=== PATIENT | female | born 1935 | race Caucasian/White ===

== ENCOUNTER 2016-04-10 10:56 | Inpatient (IN) | payer MEDICARE, BC ==
[~2016-04-10] VITALS: Ht 167.6 cm; Wt 125.5 kg
[2016-04-10] VITALS (12 sets, daily range): BP systolic 142–223; BP diastolic 63–93; PULSE 61–87; RESP 18–24; TEMP 94.1–98.2; O2SAT 95–100
[~2016-04-10 10:56] MED LIST: CLON.1 PO; IRBE300T46 PO; MENE1.254 PO; METO100T PO; OYST500T77 PO; PANT20 PO; POTA-243 PO; [UNRECOGNIZED DRUG - CODE] PO
[2016-04-10] MEDS ORDERED: SODIUM CHLOR 0.9% 1000 ML INJ 1,000 ML IV ONE (11:00)
[2016-04-10] MEDS ORDERED: LABETALOL HCL 100 MG/20 ML VIAL IV PUSH ONE (11:15)
[2016-04-10] MEDS ORDERED: LABETALOL INJ 500 MG in SODIUM CHLOR 0.9% 250 ML INJ 150 ML IV SCH (11:15)
[2016-04-10] MEDS ORDERED: niCARdipine INJ 25 MG in SODIUM CHLOR 0.9% 250 ML INJ 250 ML IV ONE (11:15)
[2016-04-10] MEDS ORDERED: IOHEXOL 350 MG/ML 10 ML VIAL (for RAD DIAG) IV ONE (11:17)
--- NOTE | 2016-04-10 11:21 | RADRPT ---
EXAM DATE/TIME: 04/10/2016 11:04 [facility] COMPARISON: No previous studies available for comparison. INDICATIONS : Left sided weakness and facial droop RADIATION DOSE: 39.73 CTDIvol (mGy) This report was called by Dr. Ng to Dr. Avalos at 11: 16 AM. MEDICAL HISTORY : Hypertension. SURGICAL HISTORY : Non-responsive. ENCOUNTER: Initial ACUITY: 1 day PAIN SCALE: 0/10 LOCATION: cranial TECHNIQUE: Multiple contiguous axial images were obtained of the head. Using automated exposure control and adj ustment of the mA and/or kV according to patient size, radiation dose was kept as low as reasonably a chievable to obtain optimal diagnostic quality images. FINDINGS: CEREBRUM: The ventricles are normal. There is mild periventricular white matter low attenuation. No evidence o f midline shift, mass lesion, hemorrhage or acute infarction. No extra-axial fluid collections are s een. POSTERIOR FOSSA: The cerebellum and brainstem demonstrate no acute finding. The 4th ventricle is midline. The cerebe llopontine angle is unremarkable. EXTRACRANIAL: There is mild mucoperiosteal thickening within the sphenoid and maxillary sinuses. A loculate air is present within the right scalp soft tissues SKULL: The calvaria is intact. No evidence of skull fracture. CONCLUSION: 1. No acute intracranial abnormality is identified. 2. Periventricular white matter low attenuation characteristic of chronic microvascular ischemia. Evan Ng MD on April 10, 2016 at 11:09 Board Certified Radiologist. This report was verified electronically.
[2016-04-10 11:22] LABS: I-STAT POTASSIUM 5.3 MMOL/L (3.5-4.9); I-STAT SODIUM 139 MMOL/L (138-146)
[2016-04-10 11:25] LABS: AUTOMATED NEUTROPHIL # 7.3 TH/MM3 (1.8-7.7); BASOPHIL # 0.1 TH/MM3 (0-0.2); EOSINOPHIL # 0.1 TH/MM3 (0-0.4); EOSINOPHIL % 1.4 % (0.0-4.0); HEMATOCRIT 37.3 % (35.0-46.0); HEMO FLAGS DIFF FINAL; LYMPH % 15.2 % (9.0-44.0); LYMPHOCYTE # 1.5 TH/MM3 (1.0-4.8); MEAN CELL VOLUME 85.2 FL (80.0-100.0); MEAN CORPUSCULAR HEMOGLOBIN 27.8 PG (27.0-34.0); MEAN CORPUSCULAR HGB CONC 32.7 % (32.0-36.0); MONO % 7.1 % (0.0-8.0); NEUT % 75.3 % (16.0-70.0); PLATELET COUNT 213 TH/MM3 (150-450); RED BLOOD COUNT 4.37 MIL/MM3 (4.00-5.30); RED CELL DISTRIBUTION WIDTH 15.5 % (11.6-17.2); WHITE BLOOD COUNT 9.6 TH/MM3 (4.0-11.0)
[2016-04-10] MEDS ORDERED: MISCELLANEOUS NURSING INFORMATION XX PRN ×2 (11:30→13:30)
[2016-04-10] MEDS ORDERED: ALTEPLASE BOLUS 9 MG/9 ML SYR IV ONE (11:30)
[2016-04-10] MEDS ORDERED: ALTEPLASE DRIP 81 MG in SYRINGE/BAG 1 EA IV ONE (11:30)
[2016-04-10] MEDS ORDERED: SODIUM CHLORIDE 0.9% 50 ML BAG IVF ONE ×2 (11:30→13:30)
[2016-04-10 11:40] LABS: INTERNATIONAL NORMALIZED RATIO 0.9 RATIO; PROTHROMBIN TIME - PATIENT 10.1 SEC (9.8-11.6)
[2016-04-10 11:41] LABS: APTT (PATIENT) 22.6 SEC (24.3-30.1)
[2016-04-10] MEDS ORDERED: IRBE300T46 PO (11:43)
[2016-04-10] MEDS ORDERED: PROT40TA PO (11:43)
[2016-04-10] MEDS ORDERED: MENE1.254 PO (11:43)
[2016-04-10] MEDS ORDERED: NISO20TA PO (11:43)
--- NOTE | 2016-04-10 12:01 | RADRPT ---
EXAM DATE/TIME: 04/10/2016 11:28 [facility] COMPARISON: No previous studies available for comparison. INDICATIONS : Stroke alert MEDICAL HISTORY : None. SURGICAL HISTORY : None. ENCOUNTER: Initial ACUITY: 1 day PAIN SCORE: Non-responsive. LOCATION: Bilateral chest FINDINGS: Portable AP view of the chest demonstrates a normal-sized cardiac silhouette. No effusion, consolidat ion, or pneumothorax is visualized. The bones and soft tissues demonstrate no acute abnormality. EKG lines overlie the patient. CONCLUSION: No acute cardiopulmonary abnormality is identified. Evan Ng MD on April 10, 2016 at 12:00 Board Certified Radiologist. This report was verified electronically.
[2016-04-10 12:03] LABS: CREATINE KINASE 159 U/L (26-192)
[2016-04-10] MEDS ORDERED: levETIRAcetam 1000 MG INJ 100 ML IV ONE (12:15)
--- NOTE | 2016-04-10 12:27 | MB ---
cc: MELONIE MONTEZ DATE OF CONSULTATION: 04/10/2016 REASON FOR CONSULTATION Stroke alert. HISTORY OF PRESENT ILLNESS Ms. Bergman is a pleasant 80-year-old woman previously in her normal state of health until 10 o'clock this morning when she developed sudden onset of left-sided weakness involving the left arm and left leg. EVAC was called and a stroke alert was called. She persisted with left-sided weakness. Apparently, no prior history of stroke or TIA. She does not take any blood thinning medication. 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 She has had injections in the SI joints in the past. She has had lumbar epidural steroid injections in December. MEDICATIONS She denies being on any anticoagulants. NEUROLOGIC EXAMINATION VITAL SIGNS: Blood pressure initially was 223/93, pulse 61, respiratory rate is 20. She has been placed on a Cardene drip with improvement in her blood pressure with systolic in the 180 range. Higher cortical function: She is alert. Her speech is dysarthric but not aphasic. On cranial nerve exam she has a right gaze preference. She has a left upper motor neuron VII palsy. Motor exam: She has a dense left hemiparesis, the left arm is roughly 2/5 in strength, left leg 2/5 in strength, right arm and right leg 5/5 in strength. Reflexes are symmetric with no Babinski sign. IMAGING STUDIES CT of the brain is unremarkable. No acute changes seen. There is periventricular white matter low attenuation consistent with microvascular ischemia. No hemorrhage. No midline shift. CT angiogram of the brain reveals a complete occlusion of the right extracranial, internal carotid artery with good collateral flow intracranially. LABORATORY DATA White count is 9,600, hemoglobin 12.2, hematocrit 37.3%, platelet count 213,000. The coags currently pending. Sodium is 139, potassium 5.3, chloride 105, BUN is 33, creatinine 1.1, glucose 97. IMPRESSION 1. Acute right hemisphere stroke. 2. Right extracranial internal carotid artery occlusion. RECOMMENDATIONS The patient is a candidate for IV TPA with blood pressure control. I discussed this with the patient including the risks and benefits. I did discuss with her that there was a 6% risk of hemorrhage. She understands the risks and benefits and stated verbally that she did want to proceed with IV TPA. Therefore, this has been started per protocol as soon as the blood pressure had been controlled. Her NIH stroke scale score was 7. I discussed the case with Dr. Bharathi Dozier of the interventional radiology department and the patient is not a candidate for intervention given the complete occlusion of the extracranial right ICA. Will continue to monitor carefully with close blood pressure control and will follow the post TPA order set. Avoid any antiplatelets or anticoagulants for 24 hours post TPA. Thank you for asking me to see this patient in consult. MD ELIANA Araya/KINZA /11:37 AM /12:17 PM
--- NOTE | 2016-04-10 12:34 | RADRPT ---
EXAM DATE/TIME: 04/10/2016 11:52 [facility] COMPARISON: CT BRAIN W/O CONTRAST, April 10, 2016, 11:04. INDICATIONS : Altered mental status post TPA RADIATION DOSE: 42.27 CTDIvol (mGy) MEDICAL HISTORY : Hypertension. SURGICAL HISTORY : None. ENCOUNTER: Subsequent ACUITY: 1 day PAIN SCALE: Non-responsive LOCATION: cranial TECHNIQUE: Multiple contiguous axial images were obtained of the head. Using automated exposure control and adj ustment of the mA and/or kV according to patient size, radiation dose was kept as low as reasonably a chievable to obtain optimal diagnostic quality images. FINDINGS: There is residual contrast material within the vasculature related to recent CTA study. Given this li mitation, no acute blood products are visualized. The brain parenchyma has a stable appearance. No ac [place] infarct, mass lesion, or blood products are seen. CONCLUSION: No acute intracranial abnormality is identified. No blood products are appreciated. Evan Ng MD on April 10, 2016 at 12:31 Board Certified Radiologist. This report was verified electronically.
--- NOTE | 2016-04-10 12:36 | RADRPT ---
EXAM DATE/TIME: 04/10/2016 11:16 [facility] COMPARISON: No previous studies available for comparison. INDICATIONS : Stroke alert, left sided weakness and facial droop IV CONTRAST: 80 cc Omnipaque 350 (iohexol) IV ; Cumulative dose for multiple exams. RADIATION DOSE: 28.22 CTDIvol (mGy) ; Combined studies MEDICAL HISTORY : Hypertension. SURGICAL HISTORY : Non-responsive. ENCOUNTER: Initial ACUITY: 1 day PAIN SCALE: 0/10 LOCATION: cranial TECHNIQUE: Volumetric scanning was performed using a multi-row detector CT scanner. The data was post processed with a variety of visualization algorithms including full volume maximum intensity projection, multi -planar sliding thin slab reformation, curved planar reformation, and surface rendering techniques. Using automated exposure control and adjustment of the mA and/or kV according to patient size, radiat ion dose was kept as low as reasonably achievable to obtain optimal diagnostic quality images. FINDINGS: There is excellent visualization of the major intracranial arteries out to the second-order branch ve ssels. There is occlusion of the Mauro portion of the ICA. Please see the extracranial ICA reported separately. There is reconstitution of the intracavernous portion of the right ICA. Good opacificatio n of the right anterior cerebral and middle cerebral artery territories is seen consistent with good collateralization. The left carotid shows scattered calcified plaque within the intracavernous extent but remains patent. Posterior circulation is unremarkable. CONCLUSION: Occlusion of the Mauro portion of the right ICA with reconstitution. There is good collateralization of the right middle cerebral and right anterior cerebral territories. I spoke with Dr. Pham at the time of the scan. Bashir Dozier Jr., MD on April 10, 2016 at 12:32 Board Certified Radiologist. This report was verified electronically.
[2016-04-10] MEDS ORDERED: GLUCAGON 1 MG/ML VIAL IM/SQ PRN (13:30)
[2016-04-10] MEDS ORDERED: SODIUM CHLORIDE 0.9% FLUSH 5 ML FLUSH IVF PRN (13:30)
[2016-04-10] MEDS ORDERED: DEXTROSE 50% IN WATER 50 ML VIAL(D50) IV PUSH PRN (13:30)
--- NOTE | 2016-04-10 13:39 | HHI.HP ---
HPI Service Critical Care Medicine Primary Care Physician Unknown Admission Diagnosis Stroke Diagnosis: (1) CVA (cerebral vascular accident) Diagnosis: Principal (2) Hypertension Diagnosis: Principal (3) Osteoarthritis Diagnosis: Principal (4) Carotid stenosis, right Diagnosis: Principal (5) Dyslipidemia Diagnosis: Principal (6) Hypothyroidism Diagnosis: Principal (7) Gastroesophageal reflux disease Diagnosis: Principal (8) Hormone replacement therapy Diagnosis: Principal (9) Chronic low back pain with sciatica Diagnosis: Principal Chief Complaint: Left-sided weakness/facial droop Travel History International Travel<30 Days: No Contact w/Intl Traveler <30 Da: No Traveled to Known Affected Are: No History of Present Illness 80-year-old female. Date of admission 04/10/2016. 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 She presents to the [facility] with acute onset from [facility] that 10 AM this morning with left-sided weakness involving left arm/left leg. E VAC was called and a stroke was notified. NIH score was 7. addition with deficits involving dysarthria, right gaze preference, left facial palsy, dense hemiparesis left arm and leg. Normal sensation. Reflexes are equal and symmetric. NIH was route 7. CT of the head revealed no acute intracranial findings. CTA of the head and neck revealed dense right ICA occlusion. The case was discussed with Dr. Dozier with interventional radiology and the patient is not indicated for intervention given the complete occlusion of her right ICA. Patient was seen by Dr. Pham and alteplase was provided after benefits and risks discussed. Patient was hypertensive Cardene drip was initiated. Post alteplase infusion patient became more altered with worsening weakness to her left upper and lower extremity. Repeat CT head revealed no acute bleeding. NIH score is currently 17. She is also noted to have tremors involving her right upper lobe extremity. Neurology was notified and Keppra infusion was provided 1000 mg and stat EEG ordered. Review of Systems Constitutional: COMPLAINS OF: Fatigue, DENIES: Fever, Weight gain, Weight loss Endocrine: DENIES: Polydipsia, Polyuria Eyes: COMPLAINS OF: Blurred vision, Double Vision, DENIES: Diplopia Ears, nose, mouth, throat: DENIES: Tinnitus, Epistaxis, Odynophagia Respiratory: DENIES: Apneas, Hemoptysis, Sputum production Cardiovascular: DENIES: Chest pain Gastrointestinal: DENIES: Abdominal pain Genitourinary: DENIES: Urgency Musculoskeletal: COMPLAINS OF: Joint pain, Muscle aches, Back pain, Neck pain Integumentary: DENIES: Pruritus Hematologic/lymphatic: DENIES: Bruising Immunologic/allergic: DENIES: Eczema Neurologic: COMPLAINS OF: Localized weakness, Seizures, DENIES: Abnormal gait , Headache, Paresthesias, Speech Problems Psychiatric: COMPLAINS OF: Confusion, DENIES: Depression Past Family Social History Allergies: Coded Allergies: Achromycin V (Verified Allergy, Severe, 04/10/16) Michelle (Verified Allergy, Severe, 04/10/16) Augmentin (Verified Allergy, Severe, 04/10/16) Capoten (Verified Allergy, Severe, 04/10/16) Diovan (Verified Allergy, Severe, 04/10/16) Enzymes Oral (Verified Allergy, Severe, 04/10/16) Lipitor (Verified Allergy, Severe, 04/10/16) Procardia (Verified Allergy, Severe, 04/10/16) Rynatan (Verified Allergy, Severe, 04/10/16) Zetia (Verified Allergy, Severe, 04/10/16) Zithromax (Verified Allergy, Severe, 04/10/16) Zocor (Verified Allergy, Severe, 04/10/16) Aspirin (Verified Allergy, Mild, 04/10/16) Cipro (Verified Allergy, Mild, 04/10/16) Codeine (Verified Allergy, Mild, 04/10/16) Keflex (Verified Allergy, Mild, 04/10/16) Morphine (Verified Allergy, Mild, 04/10/16) Blue Dyes - Various (Unverified Allergy, Unknown, Anaphylaxis, 04/10/16) Clonidine (Unverified Allergy, Unknown, itching, 04/10/16) okay to take the regular ones but is unable to take the ones provided by [facility] Past Medical History Osteoarthritis Hypothyroidism Osteoarthritis Hormone replacement therapy Gastroesophageal reflux disease Hypertension Past Surgical History Bilateral cataract Hysterectomy Appendectomy Esophageal dilatation Urethral stricture dilatation Reported Medications avalide 300/12.5 one tablet daily Protonix 40 mg by mouth daily Menest 1.25 mg by mouth twice a day Nisoldipine 20 mg by mouth daily Active Ordered Medications Reviewed in EMR Family History Mother and father is noncontributory Social History No tobacco alcohol or IV drug use Physical Exam Vital Signs Vital Signs Date Time Temp Pulse Resp B/P Pulse Ox O2 Delivery O2 Flow Rate FiO2 04/10/16 12:30 64 18 188/74 97 Nasal Cannula 2 04/10/16 12:00 66 18 175/74 98 Nasal Cannula 2 04/10/16 11:44 100 Nasal Cannula 3.00 04/10/16 11:30 66 20 196/78 98 Nasal Cannula 2 04/10/16 11:00 100 3.00 04/10/16 11:00 100 04/10/16 10:57 100 Nasal Cannula 2 04/10/16 10:57 100 Nasal Cannula 2 04/10/16 10:57 61 20 223/93 96 Physical Exam GENERAL: 80-year-old female, critically ill currently resting in bed in no acute distress SKIN: Warm and dry. HEAD: Atraumatic. Normocephalic. EYES: Pupils equal and round about 3 mm bilaterally and reactive. No scleral icterus. No injection or drainage. ENT: No nasal bleeding or discharge. Mucous membranes pink and moist. NECK: Trachea midline. No JVD. CARDIOVASCULAR: Regular rate and rhythm. S1, S2. No S4. RESPIRATORY: No accessory muscle use. Clear to auscultation. Breath sounds equal bilaterally. GASTROINTESTINAL: Abdomen soft, non-tender, nondistended. Hepatic and splenic margins not palpable. MUSCULOSKELETAL: Extremities one plus nonpitting edema. No obvious deformities. NEUROLOGICAL: Awake and alert. Speech is dysarthric. Right gaze preference. Left facial droop. Dense hemiparesis 0/5 left upper and lower extremity. 5/5 right upper and lower extremity. Normal sensation. Deep tendon reflexes are equal and symmetric. No Babinski sign. PSYCHIATRIC: Appropriate mood and affect; insight and judgment normal. Laboratory Laboratory Tests Test 04/10/16 11:05 White Blood Count 9.6 Red Blood Count 4.37 Hemoglobin 12.2 Bedside Hemoglobin 13.6 Hematocrit 37.3 Bedside Hematocrit 40.0 Mean Corpuscular Volume 85.2 Mean Corpuscular Hemoglobin 27.8 Mean Corpuscular Hemoglobin 32.7 Concent Red Cell Distribution Width 15.5 Platelet Count 213 Mean Platelet Volume 10.7 Neutrophils (%) (Auto) 75.3 Lymphocytes (%) (Auto) 15.2 Monocytes (%) (Auto) 7.1 Eosinophils (%) (Auto) 1.4 Basophils (%) (Auto) 1.0 Neutrophils # (Auto) 7.3 Lymphocytes # (Auto) 1.5 Monocytes # (Auto) 0.7 Eosinophils # (Auto) 0.1 Basophils # (Auto) 0.1 CBC Comment DIFF FINAL Differential Comment Prothrombin Time 10.1 Prothromb Time International 0.9 Ratio Activated Partial 22.6 Thromboplast Time Fibrinogen 432 Bedside Sodium 139 Bedside Potassium 5.3 Bedside Chloride 105 Bedside Blood Urea Nitrogen 33 Bedside Creatinine 1.1 Bedside Glucose 97 Total Creatine Kinase 159 Troponin I LESS THAN 0.02 Blood Type A POSITIVE Antibody Screen NEGATIVE Blood Bank Comment Result Diagram: 04/10/16 1105 Imaging Last Impressions Head CTA 04/10/16 1100 Signed Impressions: Service Date/Time: March 11:16 - CONCLUSION: Occlusion of the Mauro portion of the right ICA with reconstitution. There is good collateralization of the right middle cerebral and right anterior cerebral territories. I spoke with Dr. Pham at the time of the scan. Bashir Dozier Jr., MD Head CT 04/10/16 0000 Signed Impressions: Service Date/Time: March 11:52 - CONCLUSION: No acute intracranial abnormality is identified. No blood products are appreciated. Evan Ng MD Chest X-Ray 04/10/16 0000 Signed Impressions: Service Date/Time: March 11:28 - CONCLUSION: No acute cardiopulmonary abnormality is identified. Evan Ng MD Assessment and Plan Assessment and Plan Neuro/Psych: Acute right CVA Seen by neurology/Dr. Pham CT head revealed no acute findings CTA head and neck revealed occlusion right ICA with good collateral flows the right MCA and FLAVIA. Not amendable interventricular Dr. Dozier/IR Received alteplase ED. Strict blood pressure control systolic less than 185 diastolic was 110 Echocardiogram pending CV: Right internal carotid artery occlusion - not amendable to intervention Hypertension Dyslipidemia Currently on Cardene drip to maintain systolic blood pressure less than 185 Home medications include Avalide 300/12.5 one tablet by mouth, daily and nisoldipine 20 mg by mouth daily Pending lipid panel. Patient has multiple drug allergies to lipid lowering agents 2-D echocardiogram pending. Resp: Acute respiratory insufficiency Nasal cannula to maintain saturations greater than equal to 92% Incentive spirometry while awake Chest x-ray which revealed no acute cardiopulmonary findings GI: Nausea Gastroesophageal reflux disease Continue Protonix 40 mg by mouth daily/home medication Check KUB/lipase/liver function tests : Mendez was placed for accurate I's and O's in a critically ill patient Endo: History of hypothyroidism Check TSH. Patient is currently on any supplementation medication Slight scale insulin Accu-Cheks to maintain euglycemia. Low regimen Renal: Creatinine currently within normal limits. Heme: CBC within normal limits. Coags within normal limits. Status post alteplase. Recheck CBC in a.m. 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 Central line if indicated Prophylaxis - GI - Protonix - DVT - status post alteplase. Critical Care: The total critical care time was 75 minutes. Time to perform other separately billable procedures was not included in the critical care time. Code Status Full code Discussed Condition With Dr. Avalos/ED physician and patient with . Care plan discussed. All questions answered. Problem Qualifiers (1) CVA (cerebral vascular accident): Qualified Code: I63.231 - Cerebrovascular accident (CVA) due to occlusion of right carotid artery (2) Hypertension: Qualified Code: I10 - Essential hypertension (3) Osteoarthritis: Qualified Code: M15.9 - Osteoarthritis of multiple joints, unspecified osteoarthritis type (4) Hypothyroidism: Qualified Code: E03.9 - Hypothyroidism, unspecified type (5) Gastroesophageal reflux disease: Qualified Code: K21.9 - Gastroesophageal reflux disease without esophagitis (6) Chronic low back pain with sciatica: Qualified Code: M54.42 - Chronic bilateral low back pain with bilateral sciatica Holden Haddad MD Apr 10, 2016 13:39
--- NOTE | 2016-04-10 13:53 | PD ---
HPI Chief Complaint: Stroke Alert Time Seen by Provider: 11:00 Travel History International Travel<30 days: No Contact w/Intl Traveler<30days: No Traveled to known affect area: No History of Present Illness HPI Patient is a 80-year-old female brought in by EMS as a stroke alert. She was last seen normal about 50 minutes prior to arrival at 10 AM. She says she went to use the bathroom, but was unable to get herself off the toilet. She called her and he tried to help her, but they were not able to get her up. At this time they noticed that her left side was weak and the left side of her face was drooping. She says she was feeling in her normal state of health prior to this happening. She has no history of stroke in the past. She denies any headache, chest pain, shortness of breath. She reports taking all her medications this morning. 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.) Hysterectomy: Yes Other Surgery: Yes (esophageal dilation, sinus surgery x2) Social History Alcohol Use: No Tobacco Use: No Substance Use: No Allergies-Medications (Allergen,Severity, Reaction): Coded Allergies: Achromycin V (Verified Allergy, Severe, 04/10/16) Michelle (Verified Allergy, Severe, 04/10/16) Augmentin (Verified Allergy, Severe, 04/10/16) Capoten (Verified Allergy, Severe, 04/10/16) Diovan (Verified Allergy, Severe, 04/10/16) Enzymes Oral (Verified Allergy, Severe, 04/10/16) Lipitor (Verified Allergy, Severe, 04/10/16) Procardia (Verified Allergy, Severe, 04/10/16) Rynatan (Verified Allergy, Severe, 04/10/16) Zetia (Verified Allergy, Severe, 04/10/16) Zithromax (Verified Allergy, Severe, 04/10/16) Zocor (Verified Allergy, Severe, 04/10/16) Aspirin (Verified Allergy, Mild, 04/10/16) Cipro (Verified Allergy, Mild, 04/10/16) Codeine (Verified Allergy, Mild, 04/10/16) Keflex (Verified Allergy, Mild, 04/10/16) Morphine (Verified Allergy, Mild, 04/10/16) Blue Dyes - Various (Unverified Allergy, Unknown, Anaphylaxis, 04/10/16) Clonidine (Unverified Allergy, Unknown, itching, 04/10/16) okay to take the regular ones but is unable to take the ones provided by [facility] Reported Meds & Prescriptions Reported Meds & Active Scripts Active Reported Protonix (Pantoprazole Sodium) 40 Mg Tab 40 Mg PO DAILY Menest (Estrogens, Esterified) 1.25 Mg Tab 1.25 Mg PO BID Nisoldipine ER 24 HR (Nisoldipine) 20 Mg Tab 20 Mg PO DAILY Avalide (Irbesartan-Hydrochlorothiazide) 300-12.5 Mg Tab 1 Tab PO DAILY Review of Systems Except as stated in HPI: all other systems reviewed are Neg General / Constitutional: No: Fever, Chills Eyes: No: Blurred Vision HENT: No: Headaches, Lightheadedness Cardiovascular: No: Chest Pain or Discomfort Respiratory: No: Shortness of Breath Gastrointestinal: No: Nausea, Vomiting Musculoskeletal: No: Myalgias Neurologic: Positive: Weakness Physical Exam Narrative GENERAL: Awake and alert, in no acute distress. SKIN: Warm and dry. HEAD: Atraumatic. Normocephalic. EYES: Pupils equal and round. No scleral icterus. Extraocular movements intact. ENT: Mucous membranes pink and moist. NECK: Trachea midline. No JVD. CARDIOVASCULAR: Regular rate and rhythm. No murmur appreciated. RESPIRATORY: No accessory muscle use. Clear to auscultation. Breath sounds equal bilaterally. GASTROINTESTINAL: Abdomen soft, non-tender, nondistended. MUSCULOSKELETAL: No obvious deformities. No clubbing. No cyanosis. No edema. NEUROLOGICAL: Awake and alert. Normal speech. Left-sided facial droop. Decreased strength of the left upper and lower extremity, 3 out of 5. Positive pronator drift of the left arm. Sensation is intact. PSYCHIATRIC: Appropriate mood and affect; insight and judgment normal. Data Data Last Documented VS Vital Signs Date Time Temp Pulse Resp B/P Pulse Ox O2 Delivery O2 Flow Rate FiO2 04/10/16 12:30 64 18 188/74 97 Nasal Cannula 2 12/29/16 10:57 98.2 Orders Diet Npo (04/10/16 Lunch) Activity Bed Rest (04/10/16 ) Electrocardiogram (04/10/16 ) I-Stat Creatinine (04/10/16 11:00) I-Stat Profile (04/10/16 11:00) Prothrombin Time / Inr (Pt) (04/10/16 11:00) Act Partial Throm Time (Ptt) (04/10/16 11:00) Complete Blood Count With Diff (04/10/16 11:00) Fibrinogen (04/10/16 11:00) Creatine Kinase (Cpk) (04/10/16 11:00) Troponin I (04/10/16 11:00) Ua Includes Microscopic (04/10/16 11:00) Drug Screen, Random Urine (04/10/16 11:00) Type And Screen (04/10/16 11:00) Ct Brain W/O Iv Contrast(Rout) (04/10/16 ) Chest, Single Ap (04/10/16 ) Cta Brain W Iv Contrast W 3d (04/10/16 11:00) Consult Neurology (04/10/16 ) Blood Glucose (04/10/16 11:00) Ecg Monitoring (04/10/16 11:00) Neuro Checks Q2HX12,Q4H (04/10/16 11:00) Nursing Bedside Swallow Assess .ONCE (04/10/16 11:00) Iv Access Insert/Monitor (04/10/16 11:00) NPO (04/10/16 11:00) Oximetry (04/10/16 11:00) Oxygen Administration (04/10/16 11:00) Sodium Chlor 0.9% 1000 Ml Inj (Ns 1000 M (04/10/16 11:00) Resp Oxygen Sylvester C Titrat 1-4 L (04/10/16 11:00) Cath For Specimen (04/10/16 11:00) Cta Neck W Iv Contrast W 3d (04/10/16 11:06) Labetalol Inj (Trandate Inj) (04/10/16 11:15) Labetalol Inj (Trandate Inj) (04/10/16 11:15) (Hub Use Only)Inp Phy Cons/Ref (04/10/16 ) Nicardipine Inj (Cardene Inj) (04/10/16 11:15) Iohexol 350 Inj (Omnipaque 350 Inj) (04/10/16 11:17) ^ Call Pharmacy (04/10/16 11:25) Nih Stroke Scale - Nihss .ONCE (04/10/16 11:25) Urinary Catheter Management ZACH.Q8H (04/10/16 11:25) Urinary Catheter Insert/Apply (04/10/16 11:25) ^ Anticoagulant Alert (04/10/16 11:25) ^ Post Infusion Restrictions (04/10/16 11:25) ^ Medication Alert (04/10/16 11:25) Vital Signs (Adult) .As directed (04/10/16 11:25) ^ Notify Dr: Blood Pressure (04/10/16 11:25) ^ Medication Alert (04/10/16 11:25) Alteplase Bolus (Activase Bolus) (04/10/16 11:30) Alteplase Drip (Activase Drip) (04/10/16 11:30) Sodium Chloride 0.9% Inj (Ns Inj) (04/10/16 11:30) [facility] (04/10/16 11:30) Resp Oxygen Sylvester C Titrat 1-4 L (04/10/16 ) Ct Brain W/O Iv Contrast(Rout) (04/10/16 ) Levetiracetam 1000 Mg Inj (Keppra 1000 M (04/10/16 12:15) Eeg Study (04/10/16 ) Admit Order (Ed Use Only) (04/10/16 ) Labs Laboratory Tests Test 04/10/16 11:05 White Blood Count 9.6 TH/MM3 Red Blood Count 4.37 MIL/MM3 Hemoglobin 12.2 GM/DL Bedside Hemoglobin 13.6 G/DL Hematocrit 37.3 % Bedside Hematocrit 40.0 % Mean Corpuscular Volume 85.2 FL Mean Corpuscular Hemoglobin 27.8 PG Mean Corpuscular Hemoglobin 32.7 % Concent Red Cell Distribution Width 15.5 % Platelet Count 213 TH/MM3 Mean Platelet Volume 10.7 FL Neutrophils (%) (Auto) 75.3 % Lymphocytes (%) (Auto) 15.2 % Monocytes (%) (Auto) 7.1 % Eosinophils (%) (Auto) 1.4 % Basophils (%) (Auto) 1.0 % Neutrophils # (Auto) 7.3 TH/MM3 Lymphocytes # (Auto) 1.5 TH/MM3 Monocytes # (Auto) 0.7 TH/MM3 Eosinophils # (Auto) 0.1 TH/MM3 Basophils # (Auto) 0.1 TH/MM3 CBC Comment DIFF FINAL Differential Comment Prothrombin Time 10.1 SEC Prothromb Time International 0.9 RATIO Ratio Activated Partial 22.6 SEC Thromboplast Time Fibrinogen 432 mg/dL Bedside Sodium 139 MMOL/L Bedside Potassium 5.3 MMOL/L Bedside Chloride 105 MMOL/L Bedside Blood Urea Nitrogen 33 MG/DL Bedside Creatinine 1.1 MG/DL Bedside Glucose 97 MG/DL Hemoglobin A1c 5.9 % Total Creatine Kinase 159 U/L Troponin I LESS THAN 0.02 NG/ML Blood Type A POSITIVE Antibody Screen NEGATIVE Blood Bank Comment MDM Medical Decision Making Medical Screen Exam Complete: Yes Emergency Medical Condition: Yes Interpretation(s) ECG shows sinus rhythm at 69, no ST elevation. Minimal ST depression in 1, 2, aVL as well as V4 through V6. Differential Diagnosis Stroke versus ICH versus sepsis versus electrolyte abnormality versus ACS Narrative Course Patient is a 80-year-old female brought in by EMS as a stroke alert. IV established immediately, patient connected to blood bank booking clerk. Patient taken directly to CT for CT of her head which showed no bleed. CTA of the head was also performed at this time which showed complete occlusion of the right carotid artery. Decision made to give TPA. Patient gave verbal consent for the TPA. Patient was given 20 mg of labetalol for blood pressure control and then started on a Cardene drip to maintain blood pressure below 180 systolic. While TPA was being administered, patient had an acute change in her mental status. She is no longer able to look to the left, and she was slurring her speech. She seemed to become more confused. Patient was immediately taken back to CT where a repeat scan was performed. There is no bleed seen at this time. TPA was continued. Again patient had an acute neuro change where she had shaking of her right arm. I spoke with neurology, Dr. Pham, who advised to continue TPA, give Keppra for possible seizures and order an EEG. Patient was loaded with a gram of Keppra and the EEG was ordered. Patient admitted to the ICU for further management. I spoke with the patient's and informed him of her condition. Critical Care Narrative Aggregate critical care time was 40 minutes. Time to perform other separately billable procedures was not included in the critical care time. My time did not include minutes spent treating any other patients simultaneously or on activities that did not directly contribute to the patient's treatment. The services I provided to this patient were to treat and/or prevent clinically significant deterioration that could result in: Serious morbidity or mortality. I provided critical care services requiring my management, as noted below: Chart data review, documentation time, medication orders and management, vital sign assessments/reviewing monitor data, ordering and reviewing lab tests, ordering and interpreting/reviewing x-rays and diagnostic studies, care of the patient and discussion of the patient with the admitting physicians. Diagnosis Primary Impression: CVA (cerebral vascular accident) Qualified Code: I63.231 - Cerebrovascular accident (CVA) due to occlusion of right carotid artery Additional Impression: Hypertension Qualified Code: I10 - Essential hypertension Admitting Information Admitting Physician Requests: Admit Jessie Avalos MD Apr 10, 2016 13:53
[2016-04-10] MEDS: SODIUM CHLOR 0.9% 1000 ML INJ 1,000 ML IV SCH (14:00)
[2016-04-10 14:31] LABS: BACTERIA, URINE RARE /hpf; BLOOD, URINE TRACE (NEG); COMMENT (UR) CULT NOT INDICATED; GLUCOSE,URINE NEG (NEG); KETONE, URINE NEG (NEG); MUCUS URINE FEW /lpf (OCC); NITRITE,URINE NEG (NEG); PH, URINE 5.5 (5.0-8.5); SQUAMOUS EPITHELIAL CELL URINE 4 /hpf (0-5); URINE COLOR YELLOW (YELLW/STRAW)
[2016-04-10] MEDS ORDERED: CALCIUM GLUCONATE 10% 1 GM/10 ML VIAL SLOW IVP ONE (14:45)
[2016-04-10] MEDS ORDERED: INSULIN HUMAN REGULAR 1,000 UNITS/10 ML VIAL IV PUSH ONE (14:45)
[2016-04-10] MEDS ORDERED: SODIUM BICARBONATE 8.4% SOLN 50 MEQ/50 ML VIAL SLOW IVP ONE (14:45)
[2016-04-10] MEDS ORDERED: DEXTROSE 50% IN WATER 50 ML VIAL(D50) IV PUSH ONE (14:45)
[2016-04-10] MEDS ORDERED: SODIUM CHLORIDE 0.9% FLUSH 5 ML FLUSH IV FLUSH PRN (15:30)
[2016-04-10] MEDS ORDERED: ACETAMINOPHEN 325 MG TAB PO PRN (15:30)
[2016-04-10] MEDS ORDERED: CHLORHEXIDINE GLUCONATE 2 % 1 PACK (2 CLOTHS) TOP PRN (15:30)
[2016-04-10] MEDS ORDERED: MISCELLANEOUS NURSING INFORMATION XX SCH (15:30)
[2016-04-10] MEDS ORDERED: RESP: ALBUTEROL 2.5 MG/IPRATROPIUM 0.5 MG NEB (PRN) INH (15:30)
[2016-04-10] MEDS ORDERED: ONDANSETRON HCL 4 MG/2 ML VIAL IV PRN (15:30)
[2016-04-10] MEDS: niCARdipine INJ 25 MG in SODIUM CHLOR 0.9% 250 ML INJ 250 ML IV SCH (16:04)
[2016-04-10] MEDS ORDERED: NITROGLYCERIN 2% OINT 1 GM PACKET TOPICAL PRN (16:30)
--- NOTE | 2016-04-10 16:46 | RADRPT ---
EXAM DATE/TIME: 04/10/2016 11:16 [facility] COMPARISON: No previous studies available for comparison. INDICATIONS : Stroke alert, left sided weakness and facial droop IV CONTRAST: 80 cc Omnipaque 350 (iohexol) IV ; Cumulative dose for multiple exams. RADIATION DOSE: 28.22 CTDIvol (mGy) ; Combined studies MEDICAL HISTORY : Hypertension. SURGICAL HISTORY : None. ENCOUNTER: Initial ACUITY: 1 day PAIN SCALE: 0/10 LOCATION: cranial TECHNIQUE: Volumetric scanning was performed using a multirow detector CT scanner. The data was post processed with a variety of visualization algorithms including full-volume maximum intensity projection, multip lanar sliding thin-slab reformation, curved-planar reformation, and surface-rendering techniques. Us ing automated exposure control and adjustment of the mA and/or kV according to patient size, radiatio n dose was kept as low as reasonably achievable to obtain optimal diagnostic quality images. FINDINGS: AORTIC ARCH: There is a three-vessel origin of the great vessels from the aorta. No evidence of ostial narrowing. RIGHT CAROTID: The common carotid artery is patent. The ICA is occluded beginning at its origin and extending to the level of the skull base. The ECA is patent. LEFT CAROTID: There is calcified atherosclerotic plaque involving the proximal ICA generating a 20% stenosis utiliz ing NASCET criteria. The remaining extracranial portion of the ICA, ECA, and CCA are patent. VERTEBRALS: The vertebral arteries have a symmetric diameter. No stenotic lesions are seen. 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 The left carotid shows 20% stenosis. Both vertebral arteries are patent. Bashir Dozier Jr., MD on April 10, 2016 at 16:17 Board Certified Radiologist. This report was verified electronically.
[2016-04-10 16:47] LABS: HEMOGLOBIN A1a 1.4 %; HEMOGLOBIN A1b 1.7 %; HEMOGLOBIN Ao 84.7 %; HEMOGLOBIN LA1C 1.9 %; HEMOGLOBIN P3 4.2 %
[2016-04-10] MEDS: ACETAMINOPHEN 1000 MG/100 ML VIAL IV SCH (17:50)
[2016-04-10] MEDS: ARTIFICIAL TEARS OPTH SOLN 15 ML BTL EACH EYE SCH (17:50)
[2016-04-10] MEDS: LABETALOL HCL 100 MG/20 ML VIAL IV PRN (17:58)
[2016-04-10] MEDS: INSULIN ASPART SUPPLEMENTAL SCALE SQ SCH ×2 (18:00→21:00)
--- NOTE | 2016-04-10 18:11 | MG ---
cc: MELONIE MONTEZ Lab No: [id number] Date: 04/10/16 Age: Sex: F Race: TECHNIQUE 17 channel EEG. DESCRIPTION There is focal slowing of the right hemisphere in the theta range with a normal alpha rhythm over the left hemisphere. There are no epileptiform discharges. Activation was not performed. No other abnormalities seen. INTERPRETATION Abnormal study on the basis of mild slowing of the right hemisphere consistent with a previous history of stroke. No evidence of any ongoing seizure activity. MD ELIANA Araya/ /5:58 PM /6:09 PM
[2016-04-10] MEDS ORDERED: ONDANSETRON HCL 4 MG/2 ML VIAL IV PUSH PRN (20:00)
[2016-04-10] MEDS: DOCUSATE SODIUM 100 MG CAP PO SCH (20:22)
[2016-04-10] MEDS: SODIUM CHLORIDE 0.9% FLUSH 5 ML FLUSH IVF SCH (20:22)
[2016-04-10] MEDS ORDERED: SODIUM CHLORIDE 0.9% FLUSH 5 ML FLUSH IV FLUSH SCH (21:00)
--- NOTE | 2016-04-10 21:01 | EC ---
Study Study Date:04/10/2016 STUDY CONCLUSIONS SUMMARY - Left ventricle: The cavity size was normal. Wall thickness was normal. Systolic function was normal. The estimated ejection fraction was in the range of 50% to 55%. Wall motion was normal; there were no regional wall motion abnormalities. - Pulmonary arteries: PA peak pressure: 58mm Hg (S). Impressions: No cardiac source of emboli was indentified. If LV function is below 40, please consider prescribing an ACEI or ARB or document rationale for non-use. PROCEDURE DATA STUDY STATUS: Elective. Procedure: Transthoracic echocardiography. Image quality was good. Scanning was performed from the parasternal, apical, and subcostal acoustic windows. Study completion: The patient tolerated the procedure well. Transthoracic echocardiography. M-mode, complete 2D, complete spectral Doppler, and color Doppler. Patient status: Inpatient. CARDIAC ANATOMY LEFT VENTRICLE: The cavity size was normal. Wall thickness was normal. Systolic function was normal. The estimated ejection fraction was in the range of 50% to 55%. Wall motion was normal; there were no regional wall motion abnormalities. AORTIC VALVE: Trileaflet; normal thickness leaflets. Doppler: Transvalvular velocity was within the normal range. There was no stenosis. No regurgitation. AORTA: Aortic root: The aortic root was normal in size. MITRAL VALVE: Structurally normal valve. Doppler: Transvalvular velocity was within the normal range. There was no evidence for stenosis. No regurgitation. Mean gradient: 3mm Hg (D). Peak gradient: 10mm Hg (D). LEFT ATRIUM: The atrium was normal in size. RIGHT VENTRICLE: The cavity size was normal. Wall thickness was normal. PULMONIC VALVE: Doppler: Transvalvular velocity was within the normal range. There was no evidence for stenosis. No regurgitation. TRICUSPID VALVE: Structurally normal valve. Doppler: Transvalvular velocity was within the normal range. No regurgitation. PULMONARY ARTERY: The main pulmonary artery was normal-sized. Systolic pressure was within the normal range. RIGHT ATRIUM: The atrium was normal in size. PERICARDIUM: There was no pericardial effusion. SYSTEMIC VEINS: Inferior vena cava: The vessel was normal in size. BASIC MEASUREMENTS ADULT Normal Left ventricle LV internal dimension, ED, chordal level, 43.5 mm 43-52 PLAX LV posterior wall thickness, ED 8.67 mm IVS/LVPW ratio, ED *1.46 <1.3 Ventricular septum Septal thickness, ED 12.7 mm Aortic valve Leaflet separation 18 mm 15-26 Left atrium Anterior-posterior dimension 32 mm Right ventricle RV internal dimension, ED, PLAX 23.8 mm 19-38 BASIC MEASUREMENTS ADULT Normal Aortic valve Leaflet separation 18 mm 15-26 Aorta Root diameter, ED 27 mm 20-37 DOPPLER MEASUREMENTS ADULT Normal Main pulmonary artery Pressure, S *58 mm Hg =30 Aortic valve VTI, S 46.1 cm Mitral valve Peak E-wave velocity 130 cm/s Peak A-wave velocity 79 cm/s Mean velocity, D 72.2 cm/s Mean gradient, D 3 mm Hg Peak gradient, D 10 mm Hg Peak E/A ratio 1.6 Tricuspid valve Regurgitant peak velocity 345 cm/s Peak RV-RA gradient, S 48 mm Hg Maximal regurgitant velocity 345 cm/s Systemic veins Estimated CVP 10 mm Hg Right ventricle RV pressure, S *58 mm Hg <30 LEGEND: Mean values are shown as u=mean value. Asterisk (*) zepeda values outside specified normal range. Prepared and signed by José Miguel Arambula [id number]
[2016-04-11] VITALS (15 sets, daily range): BP systolic 150–185; BP diastolic 51–81; PULSE 64–139; RESP 16–26; TEMP 98–100.4; O2SAT 94–99
[2016-04-11] MEDS: ACETAMINOPHEN 1000 MG/100 ML VIAL IV SCH ×2 (01:23→08:36)
[2016-04-11 01:59] LABS: AMPHETAMINE, URINE NEG (NEG); BARBITURATES, URINE NEG (NEG); COCAINE, URINE NEG (NEG)
[2016-04-11] MEDS: SODIUM CHLOR 0.9% 1000 ML INJ 1,000 ML IV SCH ×2 (03:50→16:51)
[2016-04-11] MEDS: CHLORHEXIDINE GLUCONATE 2 % 1 PACK (2 CLOTHS) TOP SCH (03:51)
[2016-04-11 05:09] LABS: HDL CHOLESTEROL 61.8 MG/DL (40.0-60.0); LDL CHOLESTEROL 131 MG/DL (0-99)
[2016-04-11] MEDS: INSULIN ASPART SUPPLEMENTAL SCALE SQ SCH ×4 (07:00→21:00)
--- NOTE | 2016-04-11 07:56 | HHI.PR ---
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 Rehab consult Diagnosis/Plan: Subjective Subjective Comments No acute events reported Pt developed involuntary movement of left arm yesterday. Is on keppra and no further movement has occurred Still weak on left side Has demonstrated moderate confusion this am Active Medications Current Medications Medications (Trade) Dose Ordered Sig/Beronica Route Start Time Stop Time Status Last Admin Miscellaneous Information No Heparin, Warfarin, Aspir... UNSCH PRN XX 04/10/16 13:30 04/11/16 13:29 (NS Flush) 2 ml BID IVF 04/10/16 21:00 04/10/16 20:22 IV Flush 2 ml 2 ml UNSCH PRN IVF 04/10/16 13:30 (NS 1000 ml Inj) 1,000 ml @ 70 mls/hr [id number] IV 04/10/16 13:26 04/11/16 03:50 Labetalol HCl 10 mg 10 mg Q1HR PRN IV 04/10/16 13:30 04/10/16 17:58 (Cardene Inj/NS 250 ml Inj) 260 ml @ 0 mls/hr TITRATE IV 04/10/16 15:00 04/10/16 16:04 (D50w (Vial) Inj) 25 ml UNSCH PRN IV PUSH 04/10/16 13:30 (Glucagon Inj) 1 mg UNSCH PRN IM/SQ 04/10/16 13:30 (Tylenol) 650 mg Q6H PRN PO 04/10/16 15:30 (Tears Naturale Opth Soln) 1 drop TID EACH EYE 04/10/16 18:00 04/10/16 17:50 (Colace) 100 mg BID PO 04/10/16 21:00 Miscellaneous Information 1 [id number] XX 04/10/16 15:30 (Chlorhexidine 2% Cloth) 3 pack Taper DAILY@04 TOP 04/11/16 04:00 04/07/17 03:59 04/11/16 03:51 (Chlorhexidine 2% Cloth) 3 pack UNSCH PRN TOP 04/10/16 15:30 (Ofirmev Inj) 1,000 mg Q8H IV 04/10/16 17:00 04/11/16 16:59 04/11/16 01:23 (Apresoline Inj) 10 mg Q1HR PRN IV PUSH 04/10/16 16:30 (Nitroglycerin 2% Oint) 2 inch Q6HR PRN TOPICAL 04/10/16 16:30 (Zofran Inj) 4 mg Q6H PRN IV PUSH 04/10/16 20:00 04/10/16 20:22 Allergies Allergies Coded Allergies Achromycin V (Verified Allergy, Severe, 04/10/16) Michelle (Verified Allergy, Severe, 04/10/16) Augmentin (Verified Allergy, Severe, 04/10/16) Capoten (Verified Allergy, Severe, 04/10/16) Diovan (Verified Allergy, Severe, 04/10/16) Enzymes Oral (Verified Allergy, Severe, 04/10/16) Lipitor (Verified Allergy, Severe, 04/10/16) Procardia (Verified Allergy, Severe, 04/10/16) Rynatan (Verified Allergy, Severe, 04/10/16) Zetia (Verified Allergy, Severe, 04/10/16) Zithromax (Verified Allergy, Severe, 04/10/16) Zocor (Verified Allergy, Severe, 04/10/16) Aspirin (Verified Allergy, Mild, 04/10/16) Cipro (Verified Allergy, Mild, 04/10/16) Codeine (Verified Allergy, Mild, 04/10/16) Keflex (Verified Allergy, Mild, 04/10/16) Morphine (Verified Allergy, Mild, 04/10/16) Blue Dyes - Various (Unverified Allergy, Unknown, Anaphylaxis, 04/10/16) Clonidine (Unverified Allergy, Unknown, itching, 04/10/16) Exam I&O / VS 04/10/16 04/10/16 04/11/16 14:59 22:59 06:59 Intake Total 1059 ml 695 ml Balance 1059 ml 695 ml Intake IV Total 1059 ml 695 ml # Voids 5 3 Vital Signs Date Time Temp Pulse Resp B/P Pulse Ox O2 Delivery O2 Flow Rate FiO2 04/11/16 06:00 96 04/11/16 04:00 98.4 64 18 163/70 96 04/11/16 04:00 64 04/11/16 02:00 66 04/11/16 00:00 116 04/11/16 00:00 98.7 116 18 162/72 96 04/10/16 22:00 87 04/10/16 20:57 97 Nasal Cannula 4.00 04/10/16 20:00 76 04/10/16 20:00 94.1 76 24 162/69 95 04/10/16 19:30 96 Nasal Cannula 4.00 04/10/16 18:00 79 04/10/16 18:00 96 Nasal Cannula 4.00 04/10/16 18:00 04/10/16 16:00 76 04/10/16 16:00 97.9 76 20 185/77 98 04/10/16 16:00 98 Nasal Cannula 4.00 04/10/16 15:15 97.9 77 20 142/63 99 04/10/16 15:15 99 Nasal Cannula 4.00 04/10/16 15:15 77 04/10/16 12:30 64 18 188/74 97 Nasal Cannula 2 04/10/16 12:00 66 18 175/74 98 Nasal Cannula 2 04/10/16 11:44 100 Nasal Cannula 3.00 04/10/16 11:30 66 20 196/78 98 Nasal Cannula 2 04/10/16 11:00 100 3.00 04/10/16 11:00 100 04/10/16 10:57 100 Nasal Cannula 2 04/10/16 10:57 100 Nasal Cannula 2 04/10/16 10:57 98.2 61 20 223/93 96 Exam Comments alert, has left sided jad-spatial neglect , 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 but EOM intact to Dolls eye maneuver. Has left upper motor neuron CN 7 palsey MOTOR--0-1/5 LUE and LLE strength. Normal strengthe RUE and RLE Objective Radiology Results CTA---complete occlusion of right cervical and petrous ICA Micro and Labs Laboratory Tests Test 04/10/16 04/10/16 04/10/16 04/10/16 11:05 14:21 16:26 18:14 White Blood Count 9.6 Red Blood Count 4.37 Hemoglobin 12.2 Bedside Hemoglobin 13.6 Hematocrit 37.3 Bedside Hematocrit 40.0 Mean Corpuscular Volume 85.2 Mean Corpuscular Hemoglobin 27.8 Mean Corpuscular Hemoglobin 32.7 Concent Red Cell Distribution Width 15.5 Platelet Count 213 Mean Platelet Volume 10.7 Neutrophils (%) (Auto) 75.3 Lymphocytes (%) (Auto) 15.2 Monocytes (%) (Auto) 7.1 Eosinophils (%) (Auto) 1.4 Basophils (%) (Auto) 1.0 Neutrophils # (Auto) 7.3 Lymphocytes # (Auto) 1.5 Monocytes # (Auto) 0.7 Eosinophils # (Auto) 0.1 Basophils # (Auto) 0.1 CBC Comment DIFF FINAL Differential Comment Prothrombin Time 10.1 Prothromb Time International 0.9 Ratio Activated Partial 22.6 Thromboplast Time Fibrinogen 432 Bedside Sodium 139 Bedside Potassium 5.3 Bedside Chloride 105 Bedside Blood Urea Nitrogen 33 Bedside Creatinine 1.1 Bedside Glucose 97 Hemoglobin A1c 5.9 Total Creatine Kinase 159 Troponin I LESS THAN 0.02 Blood Type A POSITIVE Antibody Screen NEGATIVE Blood Bank Comment Urine Color YELLOW Urine Turbidity CLEAR Urine pH 5.5 Urine Specific [place] GREATER THAN 1.050 Urine Protein 30 Urine Glucose (UA) NEG Urine Ketones NEG Urine Occult Blood TRACE Urine Nitrite NEG Urine Bilirubin NEG Urine Urobilinogen LESS THAN 2.0 Urine Leukocyte Esterase NEG Urine RBC 1 Urine WBC LESS THAN 1 Urine Squamous Epithelial 4 Cells Urine Bacteria RARE Urine Mucus FEW Microscopic Urinalysis Comment CULT NOT INDICATED Urine Opiates Screen NEG Urine Barbiturates Screen NEG Urine Amphetamines Screen NEG Urine Benzodiazepines Screen NEG Urine Cocaine Screen NEG Urine Cannabinoids Screen NEG Nasal Screen MRSA (PCR) NEGATIVE Potassium Level 3.5 Test 04/11/16 04:24 Triglycerides Level 166 Cholesterol Level 226 LDL Cholesterol 131 HDL Cholesterol 61.8 Cholesterol/HDL Ratio 3.65 Thyroid Stimulating Hormone 1.440 3rd Gen Reji Pham PhD Apr 11, 2016 07:56
[2016-04-11] MEDS: DOCUSATE SODIUM 100 MG CAP PO SCH ×2 (08:26→21:38)
[2016-04-11] MEDS ORDERED: ATORVASTATIN 20 MG TAB PO SCH (09:00)
[2016-04-11] MEDS: SODIUM CHLORIDE 0.9% FLUSH 5 ML FLUSH IVF SCH ×3 (09:03→21:38)
[2016-04-11] MEDS: ARTIFICIAL TEARS OPTH SOLN 15 ML BTL EACH EYE SCH ×3 (09:05→16:51)
[2016-04-11] MEDS: niCARdipine INJ 25 MG in SODIUM CHLOR 0.9% 250 ML INJ 250 ML IV SCH ×2 (09:25→12:38)
[2016-04-11] MEDS ORDERED: ADENOSINE IV SOLN 3 MG/ML 2 ML VIAL ONE (11:53)
[2016-04-11] MEDS ORDERED: METOPROLOL TARTRATE 5 MG/5 ML VIAL ONE (11:53)
--- NOTE | 2016-04-11 12:08 | HHI.CCPN ---
Subjective Remarks/Hospital Course 80-year-old female. Date of admission 04/10/2016. 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 She presents to the [facility] ED with acute onset from normocytic health that 10 AM this morning with left-sided weakness involving left arm/left leg. E VAC was called and a stroke was notified. NIH score was 7. addition with deficits involving dysarthria, right gaze preference, left facial palsy, dense hemiparesis left arm and leg. Normal sensation. Reflexes are equal and symmetric. NIH was route 7. CT of the head revealed no acute intracranial findings. CTA of the head and neck revealed dense right ICA occlusion. The case was discussed with Dr. Dozier with interventional radiology and the patient is not indicated for intervention given the complete occlusion of her right ICA. Patient was seen by Dr. Pham and alteplase was provided after benefits and risks discussed. Patient was hypertensive Cardene drip was initiated. Post alteplase infusion patient became more altered with worsening weakness to her left upper and lower extremity. Repeat CT head revealed no acute bleeding. NIH score is currently 17. She is also noted to have tremors involving her right upper lobe extremity. Neurology was notified and Keppra infusion was provided 1000 mg and stat EEG ordered. Subjective 04/11: Continues to have left-sided weakness. Complaining of headache. Episode of SVT resolved after receiving 10 mg IV Lopressor. Currently resting in bed complaining of headache and back pain. Objective Vital Signs Date Time Temp Pulse Resp B/P Pulse Ox O2 Delivery O2 Flow Rate FiO2 04/11/16 10:00 103 04/11/16 09:41 94 Nasal Cannula 4.00 04/11/16 08:00 98.4 26 185/81 Intake and Output 04/10/16 04/10/16 04/11/16 08:00 16:00 00:00 Intake Total 1059 ml Balance 1059 ml Result Diagram: 04/10/16 1105 04/10/16 1814 Imaging Last Impressions Neck CTA 04/10/16 1106 Signed Impressions: Service Date/Time: March 11:16 - CONCLUSION: Complete occlusion of the extracranial portion of the right ICA. The left carotid shows 20%% stenosis. Both vertebral arteries are patent. Bashir Dozier Jr., MD Head CTA 04/10/16 1100 Signed Impressions: Service Date/Time: March 11:16 - CONCLUSION: Occlusion of the Mauro portion of the right ICA with reconstitution. There is good collateralization of the right middle cerebral and right anterior cerebral territories. I spoke with Dr. Pham at the time of the scan. Bashir Dozier Jr., MD Head CT 04/10/16 0000 Signed Impressions: Service Date/Time: March 11:52 - CONCLUSION: No acute intracranial abnormality is identified. No blood products are appreciated. Evan Ng MD Chest X-Ray 04/10/16 0000 Signed Impressions: Service Date/Time: March 11:28 - CONCLUSION: No acute cardiopulmonary abnormality is identified. Evan Ng MD Objective Remarks GENERAL: 80-year-old female, critically ill currently resting in bed in no acute distress SKIN: Warm and dry. HEAD: Atraumatic. Normocephalic. EYES: Pupils equal and round about 3 mm bilaterally and reactive. No scleral icterus. No injection or drainage. ENT: No nasal bleeding or discharge. Mucous membranes pink and moist. NECK: Trachea midline. No JVD. CARDIOVASCULAR: Regular rate and rhythm. S1, S2. No S4. RESPIRATORY: No accessory muscle use. Clear to auscultation. Breath sounds equal bilaterally. GASTROINTESTINAL: Abdomen soft, non-tender, nondistended. Hepatic and splenic margins not palpable. MUSCULOSKELETAL: Extremities one plus nonpitting edema. No obvious deformities. NEUROLOGICAL: Awake and alert. Speech is dysarthric. Right gaze preference. Left facial droop. Dense hemiparesis 0/5 left upper and lower extremity. 5/5 right upper and lower extremity. Normal sensation. Deep tendon reflexes are equal and symmetric. No Babinski sign. PSYCHIATRIC: Appropriate mood and affect; insight and judgment normal. 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 Pham CT head revealed no acute findings CTA head and neck revealed occlusion right ICA with good collateral flows the right MCA and FLAVIA. Not amendable interventricular Dr. Dozier/IR Received alteplase ED. Strict blood pressure control systolic less than 185 diastolic was 110 Echocardiogram revealed EF 50-55%. NATANAEL 58 mmHg. No regional wall motion abnormality. No obvious source of cardiac emboli CT head 24 hours post alteplase. MRI brain pending. Initiate antiplatelet therapy if no bleed CV: Right internal carotid artery occlusion - not amendable to intervention Hypertension Dyslipidemia Currently on Cardene drip to maintain systolic blood pressure less than 185 Home medications include Avalide 300/12.5 one tablet by mouth, daily and nisoldipine 20 mg by mouth daily Elevated HDL, LDL and triglycerides. Patient has multiple drug allergies to lipid lowering agents 2-D echocardiogram revealed EF of 50-55%. No regional wall motion abnormality. Elevated pulmonary pressures 58 mmHg. IV Lopressor 2.5 every 6 hours. Resp: Acute respiratory insufficiency Nasal cannula to maintain saturations greater than equal to 92% Incentive spirometry while awake Chest x-ray which revealed no acute cardiopulmonary findings GI: Nausea Gastroesophageal reflux disease Continue Protonix 40 mg by mouth daily/home medication Check KUB/lipase/liver function tests : Mendez was placed for accurate I's and O's in a critically ill patient Endo: History of hypothyroidism Check TSH. Patient is currently on any supplementation medication Slight scale insulin Accu-Cheks to maintain euglycemia. Low regimen Renal: Creatinine currently within normal limits. Heme: CBC within normal limits. Coags within normal limits. Status post alteplase. Recheck CBC in a.m. 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 Central line if indicated Prophylaxis - GI - Protonix - DVT - status post alteplase. Critical Care: The total critical care time was 35 minutes. Time to perform other separately billable procedures was not included in the critical care time. Holden Haddad MD Apr 11, 2016 12:08
[2016-04-11] MEDS ORDERED: FUROSEMIDE 20 MG/2 ML VIAL IV PUSH ONE (12:15)
[2016-04-11 12:23] LABS: HEMATOCRIT 33.2 % (35.0-46.0); MEAN CELL VOLUME 85.2 FL (80.0-100.0); MEAN CORPUSCULAR HEMOGLOBIN 27.2 PG (27.0-34.0); PLATELET COUNT 184 TH/MM3 (150-450); RED BLOOD COUNT 3.89 MIL/MM3 (4.00-5.30); RED CELL DISTRIBUTION WIDTH 15.3 % (11.6-17.2); REVIEW FLAG FINAL; WHITE BLOOD COUNT 11.6 TH/MM3 (4.0-11.0)
[2016-04-11] MEDS ORDERED: LIDOCAINE HCL 2% 100 MG/5 ML SYRINGE ONE (12:31)
[2016-04-11] MEDS ORDERED: EPINEPHrine HCL (1:10,000) 1 MG/10 ML SYRINGE ONE (12:31)
[2016-04-11] MEDS ORDERED: ATROPINE SULFATE 1 MG/10 ML SYRINGE ONE (12:32)
[2016-04-11 12:44] LABS: BICARBONATE 24.1 MEQ/L (21.0-32.0); MAGNESIUM 1.5 MG/DL (1.5-2.5)
[2016-04-11] MEDS ORDERED: METOPROLOL TARTRATE 5 MG/5 ML VIAL IV PUSH SCH (12:45)
[2016-04-11 12:55] LABS: CALCIUM-PROTEIN CORRECTED 7.9 MG/DL (8.5-10.1)
--- NOTE | 2016-04-11 13:23 | RADRPT ---
EXAM DATE/TIME: 04/11/2016 12:48 [facility] COMPARISON: CT BRAIN W/O CONTRAST, April 10, 2016, 11:52. INDICATIONS : Post Ativase infusion. RADIATION DOSE: 37.72 CTDIvol (mGy) MEDICAL HISTORY : Hypertension. SURGICAL HISTORY : None. ENCOUNTER: Subsequent ACUITY: 1 day PAIN SCALE: 3/10 LOCATION: cranial TECHNIQUE: Multiple contiguous axial images were obtained of the head. Using automated exposure control and adj ustment of the mA and/or kV according to patient size, radiation dose was kept as low as reasonably a chievable to obtain optimal diagnostic quality images. FINDINGS: Today's exam is compared to the prior study. There has been a significant interval change. There is a new large area of decreased density involving the right mid parietal lobe and right temporal lobe ch aracteristic of infarction in the right MCA territory. There is also some increased density in the ri ght basal ganglia suspicious of some mild focal hemorrhage. There is now some mass effect and midline shift to the left by approximately 5-6 mm. The posterior fossa stable. The ventricles are nonenlarge d. An MRI is scheduled for further evaluation. The findings were called by telephone to the nurse taking care of this patient. CONCLUSION: 1. There is now a large area of decreased density predominately in the right mid parietal lobe charac teristic for acute infarction involving the right MCA territory. 2. There appears to be some early mild hemorrhage in the right basal ganglia. 3. There is a mass effect and midline shift to the left by approximately 5-6 mm. Marlon Darnell MD on April 11, 2016 at 13:13 Board Certified Radiologist. This report was verified electronically.
[2016-04-11] MEDS ORDERED: CLEVIDIPINE INJ 50 ML IV SCH (14:00)
[2016-04-11] MEDS ORDERED: POTASSIUM PHOSPHATE INJ 30 MMOL in SODIUM CHLOR 0.9% 250 ML INJ 250 ML IV ONE (14:00)
--- NOTE | 2016-04-11 14:02 | RADRPT ---
EXAM DATE/TIME: 04/11/2016 13:17 [facility] COMPARISON: CTA BRAIN W 3D RECON, April 10, 2016, 11:16. CT BRAIN W/O CONTRAST, April 11, 2016, 12:48. MR I BRAIN W/O CONTRAST, April 11, 2016, 13:17. INDICATIONS : CVA. Left sided weakness and left sided facial droop. MEDICAL HISTORY : Hypertension. Pancreatitis. SURGICAL HISTORY : Appendectomy. Hysterectomy. ENCOUNTER: Subsequent ACUITY: 2 day PAIN SCORE: 0/10 LOCATION: Head. Please note a normal MRA of the brain does not entirely exclude the possibility of a small aneurysm, nor the possibility of distal intracranial vessel disease. TECHNIQUE: 3D time of flight MRA was performed. Source images, multiplanar STS MIP, and 3D volume MIP reconstru ctions were reviewed. FINDINGS: There is excellent visualization of the major intracranial arteries out to the third and fourth order branch vessels. There is no evidence for aneurysm, and there no evidence for vascular malformation . Relative to the prior examination there is apparent significant disease in the right internal carot id free siphon and Mauro with some partial filling. There is total absence of flow at this time in t he right middle cerebral artery and minimal in the right A1 segment. CONCLUSION: Significant new finding of total absence of flow in the right middle cerebral artery and minimal flow in the right A1 segment. This indicates total occlusion . Significant atherosclerotic high grade or complete occlusion o f the internal carotid on the right free siphon and in the Mauro region Audi Schneider MD on April 11, 2016 at 13:53 Board Certified Radiologist. This report was verified electronically.
--- NOTE | 2016-04-11 14:05 | RADRPT ---
EXAM DATE/TIME: 04/11/2016 13:17 [facility] COMPARISON: CT BRAIN W/O CONTRAST, April 10, 2016, 11:52. INDICATIONS : CVA. Left sided weakness and left facial droop. MEDICAL HISTORY : Hypertension. Pancreatitis. SURGICAL HISTORY : Appendectomy. Hysterectomy. ENCOUNTER: Subsequent ACUITY: 2 day PAIN SCORE: 0/10 LOCATION: Head. TECHNIQUE: Multiplanar, multisequence MRI of the brain was performed without contrast. FINDINGS: Today's examination is compared to the recent CT scan of the brain. There is a large area of restrict ed diffusion involving predominantly the right mid parietal lobe and a portion of the right frontal l obe with extension into the region of the right basal ganglia characteristic of an acute infarct invo lving the right MCA territory. There is focal hemorrhage in the right basal ganglia which is a new fi nding compared to the CT scan of 04/10/2016. There is cerebral edema throughout the right cerebral he misphere. There is some mass effect and mild midline shift to the left by approximately 5-6 mm. The v entricles are not enlarged. The posterior fossa and midbrain are within normal limits. There is evide nce of chronic sinus disease in the maxillary and right sphenoid sinuses. CONCLUSION: 1. Acute infarction involving the right MCA territory. 2. Focal acute hemorrhage involving the right basal ganglia. 3. Cerebral edema with mass effect and midline shift to the left by approximately 5 - 6 mm. Marlon Darnell MD on April 11, 2016 at 13:58 Board Certified Radiologist. This report was verified electronically.
[2016-04-11] MEDS: METOPROLOL TARTRATE 5 MG/5 ML VIAL IV PUSH SCH ×2 (14:11→18:05)
--- NOTE | 2016-04-11 14:11 | EKG ---
Date Performed: 04/10/2016 Time Performed: 12:11:09 PTAGE: 80 years EKG: Sinus rhythm SEPTAL MYOCARDIAL INFARCTION NONSPECIFIC ST-T SEGMENT CHANGES Since previous tracing, no significant change noted ABNORMAL ECG PREVIOUS TRACING : 09/19/2009 00.15.48 DOCTOR: Dorian Cat Interpretating Date/Time 04/11/2016 14:09:40
[2016-04-11] MEDS: HYDROmorphone HCL PF 1 MG/ML VIAL IV PUSH PRN (14:27)
[2016-04-11] MEDS: MAGNESIUM SULFATE 1 GM PREMIX 100 ML IV SCH ×2 (14:28→16:22)
[2016-04-11] MEDS: POTASSIUM CHLOR 10 MEQ PREMIX 100 ML IV SCH ×2 (14:53→14:54)
--- NOTE | 2016-04-11 14:58 | PD.PROCEDR ---
Procedure Note Procedure DATE: 04/11/2016 CENTRAL LINE PLACEMENT: Right internal jugular vein. Ultrasound-guided INDICATION: Central venous access CONSENT Informed consent for procedure was obtained. DESCRIPTION OF THE PROCEDURE The patient was placed in supine position. The skin was cleansed with Chloraprep. Additional barrier precautions included large sterile drape, sterile gloves, sterile gown, face mask, and hat. 1 % lidocaine was used for local anesthesia. Under direct ultrasound guidance and on second attempt using Angiocath, the vein was accessed with an introducer needle. The guide wire was advanced and the tract was dilated. Using Seldinger technique a 7 German 20 cm antimicrobial coated triple-lumen catheter was advanced to a depth of 16 centimeters. The guide wire was removed. All ports had good return of dark venous blood and flushed easily with saline. The central line was secured with 2.0 silk. A sterile dressing with antibiotic disc was applied. ESTIMATED BLOOD LOSS: Minimal COMPLICATIONS: No apparent complications. STAT chest x-ray pending at time of dictation Holden Haddad MD Apr 11, 2016 14:58
[2016-04-11] MEDS ORDERED: POTASSIUM CHLOR 20 MEQ PREMIX 100 ML IV PRN ×2 (15:00)
[2016-04-11] MEDS ORDERED: POTASSIUM PHOSPHATE MONOBASIC 500 MG TAB PO/TUBE PRN (15:00)
[2016-04-11] MEDS ORDERED: SODIUM CHLORIDE 0.9% FLUSH 5 ML FLUSH IVF PRN (15:00)
[2016-04-11] MEDS ORDERED: POTASSIUM CL 40 MEQ/30 ML LIQ UDC PO/TUBE PRN (15:00)
[2016-04-11] MEDS ORDERED: MAGNESIUM SULFATE INJ 4 GM in SODIUM CHLORIDE 0.9% INJ 92 ML IV PRN (15:00)
[2016-04-11] MEDS ORDERED: POTASSIUM PHOSPHATE MONOBASIC 500 MG TAB PO PRN (15:00)
[2016-04-11] MEDS ORDERED: POTASSIUM PHOSPHATE INJ 30 MMOL in SODIUM CHLOR 0.9% 250 ML INJ 250 ML IV PRN (15:00)
[2016-04-11] MEDS ORDERED: SODIUM PHOSPHATE INJ 30 MMOL in SODIUM CHLOR 0.9% 250 ML INJ 240 ML IV PRN (15:00)
[2016-04-11] MEDS ORDERED: MAGNESIUM SULFATE INJ 2 GM in SODIUM CHLORIDE 0.9% INJ 96 ML IV PRN (15:00)
[2016-04-11] MEDS ORDERED: POTASSIUM CHLOR 40 MEQ PREMIX 100 ML IV PRN ×2 (15:00)
[2016-04-11] MEDS ORDERED: MAGNESIUM OXIDE 400 MG TAB PO PRN (15:00)
--- NOTE | 2016-04-11 15:27 | RADRPT ---
EXAM DATE/TIME: 04/11/2016 15:07 [facility] COMPARISON: CHEST SINGLE AP, April 10, 2016, 11:28. INDICATIONS : Central Line Placement. MEDICAL HISTORY : Hypertension. Pancreatitis. SURGICAL HISTORY : Appendectomy. Hysterectomy. ENCOUNTER: Initial ACUITY: 1 day PAIN SCORE: Non-responsive. LOCATION: Bilateral chest FINDINGS: A single view of the chest demonstrates the lungs to be symmetrically aerated without evidence of mas s, infiltrate or effusion. The cardiomediastinal contours are unremarkable. Osseous structures are intact. Placement of a right jugular catheter is through vena cava without complication. CONCLUSION: Placement of a right jugular catheter terminates superior vena cava. Otherwise negative with no acute process and no change Audi Schneider MD on April 11, 2016 at 15:24 Board Certified Radiologist. This report was verified electronically.
--- NOTE | 2016-04-11 15:28 | PD.CONS ---
HPI Service Neurosurgery Consult Requested By Dr Haddad Reason for Consult Right basal ganglia bleed after TPA Primary Care Physician Unknown History of Present Illness 80 yr old lady had acute onset hemiparesis with right gaze preference when going to the bathroom at 10 am on 04/10/16. She called her and was taken to the ED by EMS, where her NIH score was 7. Her head CT was negative. TPA bolus of 9 mg was given and TPA was interrupted by dysarthria and increased weakness. Repeat head CT showed no bleed and the rest of the TPA was given. Overnight her weakness worsened as well as her NIH stroke score. The repeat CT showed a large right MCA area of infarction and increased intensity in the right caudate and putamen with right to left shift but no hydrocephalus and no IVH. She remains alert and following commands. Her left coding assistant went from 2/5 to 0/ 5 and her left lower extremity is now 2/5. Her speech is still appropriate in context and grammar. GCS is [id number] = 14 Review of Systems ROS Limitations: Altered Mental Status Genitourinary: COMPLAINS OF: Urinary frequency (h/o cystitis) Musculoskeletal: COMPLAINS OF: Joint pain Past Family Social History Allergies: Coded Allergies: Achromycin V (Verified Allergy, Severe, 04/10/16) Michelle (Verified Allergy, Severe, 04/10/16) Augmentin (Verified Allergy, Severe, 04/10/16) Capoten (Verified Allergy, Severe, 04/10/16) Diovan (Verified Allergy, Severe, 04/10/16) Enzymes Oral (Verified Allergy, Severe, 04/10/16) Lipitor (Verified Allergy, Severe, 04/10/16) Procardia (Verified Allergy, Severe, 04/10/16) Rynatan (Verified Allergy, Severe, 04/10/16) Zetia (Verified Allergy, Severe, 04/10/16) Zithromax (Verified Allergy, Severe, 04/10/16) Zocor (Verified Allergy, Severe, 04/10/16) Aspirin (Verified Allergy, Mild, 04/10/16) Cipro (Verified Allergy, Mild, 04/10/16) Codeine (Verified Allergy, Mild, 04/10/16) Keflex (Verified Allergy, Mild, 04/10/16) Morphine (Verified Allergy, Mild, 04/10/16) Blue Dyes - Various (Unverified Allergy, Unknown, Anaphylaxis, 04/10/16) Clonidine (Unverified Allergy, Unknown, itching, 04/10/16) okay to take the regular ones but is unable to take the ones provided by [facility] Past Medical History HTN, dyslipidemia, urethral strictures, esophageal strictures. Past Surgical History urethral dilatation, esophageal dilatation, bilateral cataract repair, appy and hysterectomy Reported Medications Reported Meds & Active Scripts Active Reported Protonix (Pantoprazole Sodium) 40 Mg Tab 40 Mg PO DAILY Menest (Estrogens, Esterified) 1.25 Mg Tab 1.25 Mg PO BID Nisoldipine ER 24 HR (Nisoldipine) 20 Mg Tab 20 Mg PO DAILY Avalide (Irbesartan-Hydrochlorothiazide) 300-12.5 Mg Tab 1 Tab PO DAILY Family History not known Social History Lives with her , does not smoke Physical Exam Vital Signs Vital Signs Date Time Temp Pulse Resp B/P Pulse Ox O2 Delivery O2 Flow Rate FiO2 04/11/16 10:00 103 04/11/16 09:41 94 Nasal Cannula 4.00 04/11/16 08:00 98.4 93 26 185/81 96 04/11/16 08:00 105 04/11/16 07:00 96 Nasal Cannula 4.00 04/11/16 06:00 96 04/11/16 04:00 98.4 64 18 163/70 96 04/11/16 04:00 64 04/11/16 02:00 66 04/11/16 00:00 116 04/11/16 00:00 98.7 116 18 162/72 96 04/10/16 22:00 87 04/10/16 20:57 97 Nasal Cannula 4.00 04/10/16 20:00 76 04/10/16 20:00 94.1 76 24 162/69 95 04/10/16 19:30 96 Nasal Cannula 4.00 04/10/16 18:00 79 04/10/16 18:00 96 Nasal Cannula 4.00 04/10/16 18:00 04/10/16 16:00 76 04/10/16 16:00 97.9 76 20 185/77 98 04/10/16 16:00 98 Nasal Cannula 4.00 04/10/16 15:15 97.9 77 20 142/63 99 04/10/16 15:15 99 Nasal Cannula 4.00 04/10/16 15:15 77 Physical Exam Awake alert and able to show 2 fingers with the right hand, pupils reactive and equal 3mm, cough present, right gaze preference with difficulty looking past the midline with both eyes, Face and body atraumatic Moves the right arm and leg purposefully and anti-gravity, left grasp 0/5, left arm abd and bic 2/5, left quad 2/5, gastroc 2/5, Babinski negative on the right, equivocal on the left, Skin warm and dry Laboratory Laboratory Tests Test 04/10/16 04/10/16 04/11/16 04/11/16 16:26 18:14 04:24 11:55 Nasal Screen MRSA (PCR) NEGATIVE Potassium Level 3.5 3.0 Triglycerides Level 166 Cholesterol Level 226 LDL Cholesterol 131 HDL Cholesterol 61.8 Cholesterol/HDL Ratio 3.65 Thyroid Stimulating Hormone 1.440 3rd Gen White Blood Count 11.6 Red Blood Count 3.89 Hemoglobin 10.6 Hematocrit 33.2 Mean Corpuscular Volume 85.2 Mean Corpuscular Hemoglobin 27.2 Mean Corpuscular Hemoglobin 32.0 Concent Red Cell Distribution Width 15.3 Platelet Count 184 Mean Platelet Volume 10.1 Sodium Level 145 Chloride Level 111 Carbon Dioxide Level 24.1 Anion Gap 10 Blood Urea Nitrogen 12 Creatinine 0.88 Estimat Glomerular Filtration 62 Rate Random Glucose 94 Calcium Level 7.0 Protein Corrected Calcium 7.9 Phosphorus Level 2.4 Magnesium Level 1.5 Total Protein 5.4 Result Diagram: 04/11/16 1155 04/11/16 1155 Imaging Last Impressions Head Magnetic Resonance Angiography 04/11/16 0000 Signed Impressions: Service Date/Time: Monday, April 11, 2016 13:17 - CONCLUSION: Significant new finding of total absence of flow in the right middle cerebral artery and minimal flow in the right A1 segment. This indicates total occlusion . Significant atherosclerotic high grade or complete occlusion of the internal carotid on the right free siphon and in the Mauro region Audi Schneider MD Head CT 04/11/16 0000 Signed Impressions: Service Date/Time: Monday, April 11, 2016 12:48 - CONCLUSION: 1. There is now a large area of decreased density predominately in the right mid parietal lobe characteristic for acute infarction involving the right MCA territory. 2. There appears to be some early mild hemorrhage in the right basal ganglia. 3. There is a mass effect and midline shift to the left by approximately 5-6 mm. Marlon Darnell MD Brain MRI 04/11/16 0000 Signed Impressions: Service Date/Time: Monday, April 11, 2016 13:17 - CONCLUSION: 1. Acute infarction involving the right MCA territory. 2. Focal acute hemorrhage involving the right basal ganglia. 3. Cerebral edema with mass effect and midline shift to the left by approximately 5 - 6 mm. Marlon Darnell MD Neck CTA 04/10/16 1106 Signed Impressions: Service Date/Time: March 11:16 - CONCLUSION: Complete occlusion of the extracranial portion of the right ICA. The left carotid shows 20%% stenosis. Both vertebral arteries are patent. Bashir Dozier Jr., MD Head CTA 04/10/16 1100 Signed Impressions: Service Date/Time: March 11:16 - CONCLUSION: Occlusion of the Mauro portion of the right ICA with reconstitution. There is good collateralization of the right middle cerebral and right anterior cerebral territories. I spoke with Dr. Pham at the time of the scan. Bashir Dozier Jr., MD Chest X-Ray 04/10/16 0000 Signed Impressions: Service Date/Time: March 11:28 - CONCLUSION: No acute cardiopulmonary abnormality is identified. Evan Ng MD Assessment and Plan Diagnosis: (1) Nontraumatic acute hemorrhage of basal ganglia Plan: Plan to keep MAP 90-110 to perfuse the penumbra in the right hemisphere. She may need an EVD which will be placed if her GCS drops below 8 (2) Acute ischemic right middle cerebral artery (MCA) stroke Plan: She presented with good MCA flow but a right ICA occlusion below the petrous level. She now has poor right MCA flow with hemorrhagic conversion. The goal of treatment will be to maximize flow to the penumbra with hypertonic saline, low dose mannitol, fluids Mason Cannon Apr 11, 2016 15:27
[2016-04-11] MEDS ORDERED: SODIUM CHLORIDE 23.4% INJ 188 MEQ in SODIUM CHLOR 0.9% 1000 ML INJ 1,000 ML IV SCH (16:00)
[2016-04-11] MEDS ORDERED: niCARdipine INJ 25 MG in SODIUM CHLOR 0.9% 250 ML INJ 250 ML IV SCH (16:00)
[2016-04-11] MEDS: 3% SALINE INJ 500 ML IV SCH (16:22)
[2016-04-11] MEDS ORDERED: LIDOCAINE HCL 1% 50 ML VIAL ONE (16:41)
[2016-04-11] MEDS ORDERED: MIDAZOLAM HCL 5 MG/ML VIAL (1 ML) ONE (16:50)
[2016-04-11] MEDS ORDERED: MIDAZOLAM HCL 5 MG/5 ML VIAL IV PUSH ONE (17:00)
[2016-04-11] MEDS ORDERED: LIDOCAINE HCL 2% 100 MG/5 ML SYRINGE IV PUSH ONE (17:00)
[2016-04-11] MEDS ORDERED: ETOMIDATE 40 MG/20 ML VIAL IV PUSH ONE (17:00)
[2016-04-11] MEDS ORDERED: ROCURONIUM INJ 100 MG/10 ML VIAL IV ONE (17:00)
[2016-04-11] MEDS: PROPOFOL 1000 MG/100 ML INJ 100 ML IV SCH ×2 (17:12→22:16)
[2016-04-11] MEDS: fentaNYL DRIP 250 ML IV SCH (17:13)
[2016-04-11 17:17] LABS: BICARBONATE 26.7 MEQ/L (21.0-32.0); MAGNESIUM 2.4 MG/DL (1.5-2.5)
--- NOTE | 2016-04-11 17:21 | PD.PROCEDR ---
Procedure Note Procedure DATE: 04/11/2016 PROCEDURE: Orotracheal intubation INDICATION: Acute respiratory failure secondary to altered mental status/ intracerebral hemorrhage DETAILS OF PROCEDURE The patient was placed in optimal position and preoxygenated with 100% FiO2 via bag valve mask. At the start oxygen saturation was 98 %. The patient was administered 100 cc 2% lidocaine IV and 50 mg fentanyl IV and 20 mg etomidate IV and 50 mg rocuronium IV. I entered the oropharynx with a size4 GVL glidescope blade and obtained a grade 3 view of the airway. On single attempt a size 8.0 cuffed endotracheal tube was passed through the vocal cords. Correct tube location was confirmed with end tidal CO2 detector and by auscultating over bilateral lung sigala. The endotracheal tube was secured with adhesive tape at a depth of 23 cm at the lips. The patient was connected to the ventilator. The patient tolerated the procedure well without any apparent complications. Oxygen saturations were maintained greater than 95% all times. STAT chest x-ray pending at time of dictation. Holden Haddad MD Apr 11, 2016 17:21
[2016-04-11 17:41] LABS: HEMOGLOBIN A1a 1.1 %; HEMOGLOBIN A1b 1.6 %; HEMOGLOBIN Ao 84.9 %; HEMOGLOBIN LA1C 2.1 %; HEMOGLOBIN P3 5.4 %
[2016-04-11] MEDS: MANNITOL 12.5 GM/50 ML VIAL IV SCH (17:43)
[2016-04-11] MEDS ORDERED: METOPROLOL TARTRATE 5 MG/5 ML VIAL IV PUSH ONE (18:00)
--- NOTE | 2016-04-11 18:19 | RADRPT ---
EXAM DATE/TIME: 04/11/2016 17:57 [facility] COMPARISON: No previous studies available for comparison. INDICATIONS : Post-Intubation. MEDICAL HISTORY : Hypertension. Pancreatitis. SURGICAL HISTORY : Appendectomy. Hysterectomy. ENCOUNTER: Initial ACUITY: 1 day PAIN SCORE: Non-responsive. LOCATION: Bilateral chest FINDINGS: A single view of the chest demonstrates minimal left basilar density. Right jugular central line is u nchanged. Endotracheal tube seen with tip 5 cm above the jb. Nasogastric tube with tip in the sto mach. The cardiomediastinal contours are unremarkable. Osseous structures are intact. CONCLUSION: 1. Minimal left basilar density, likely atelectasis. 2. Adequate placement of endotracheal tube. José Miguel Singletary MD on April 11, 2016 at 18:16 Board Certified Radiologist. This report was verified electronically.
[2016-04-11 18:28] LABS: BLOOD GAS CARBOXYHEMOGLOBIN 0.8 % (0-4); BLOOD GAS HCO3 23 mmol/L (22-26); BLOOD GAS METHEMOGLOBIN 0.8 % (0-2); BLOOD GAS O2 HGB SATURATION 98 % (90-100); BLOOD GAS OXYGEN CONTENT 18.3 Vol % (12.0-20.0); BLOOD GAS PCO2 35 mmHg (38-42); BLOOD GAS PO2 336 mmHg (61-120); BLOOD GAS TOTAL HGB 12.6 G/DL (12.0-16.0); CRITICAL VALUE NO; DRAW SITE ART LINE; FIO2 100 %; OXYGEN DEVICE VENTILATOR; STAT NO; TEMP CORR TO 98.6; VENT SETTINGS SEE COMMENTS
--- NOTE | 2016-04-11 18:28 | HHI.PR ---
Review/Management Diagnosis large right MCA distribution stroke with edema and mass effect and basal ganglia hemorrhage right complete internal carotid artery occlusion elevated LDL No flow vs occlusion right MCA seen on MRA today Plan neurosurgery note is reviewed and I agree with recommendations.-mannitol, hypertonic saline recheck CT in am Diagnosis/Plan: Subjective Subjective Comments MRI shows large right MCA stroke with mass effect and basal ganglia hemorrhage MRA--absence of flow in right mca. Active Medications Current Medications Medications (Trade) Dose Ordered Sig/Beronica Route Start Time Stop Time Status Last Admin (NS Flush) 2 ml BID IVF 04/10/16 21:00 04/11/16 09:03 IV Flush 2 ml 2 ml UNSCH PRN IVF 04/10/16 13:30 (NS 1000 ml Inj) 1,000 ml @ 70 mls/hr [id number] IV 04/10/16 13:26 04/11/16 16:51 (Trandate Inj) 10 mg Q1HR PRN IV 04/10/16 13:30 04/10/16 17:58 (D50w (Vial) Inj) 25 ml UNSCH PRN IV PUSH 04/10/16 13:30 (Glucagon Inj) 1 mg UNSCH PRN IM/SQ 04/10/16 13:30 (Tylenol) 650 mg Q6H PRN PO 04/10/16 15:30 (Tears Naturale Opth Soln) 1 drop TID EACH EYE 04/10/16 18:00 04/11/16 16:51 (Colace) 100 mg BID PO 04/10/16 21:00 Miscellaneous Information 1 [id number] XX 04/10/16 15:30 (Chlorhexidine 2% Cloth) 3 pack Taper DAILY@04 TOP 04/11/16 04:00 04/07/17 03:59 04/11/16 03:51 (Chlorhexidine 2% Cloth) 3 pack UNSCH PRN TOP 04/10/16 15:30 (Apresoline Inj) 10 mg Q1HR PRN IV PUSH 04/10/16 16:30 (Nitroglycerin 2% Oint) 2 inch Q6HR PRN TOPICAL 04/10/16 16:30 (Zofran Inj) 4 mg Q6H PRN IV PUSH 04/10/16 20:00 04/10/16 20:22 (Lopressor Inj) 2.5 mg Q6H IV PUSH 04/11/16 13:00 04/11/16 14:11 Metoprolol Tartrate 10 mg 10 mg STAT IV PUSH 04/11/16 12:45 04/11/16 16:26 (Potassium Phosphate Inj/NS 250 ml Inj) 260 ml @ 43.333 mls/ hr ONCE ONCE IV 04/11/16 14:00 04/11/16 19:59 04/11/16 14:53 (Dilaudid Pf Inj) 0.5 mg Q4H PRN IV PUSH 04/11/16 14:00 04/11/16 14:27 (NS Flush) DAILY IVF 04/11/16 15:00 IV Flush UNSCH PRN IVF 04/11/16 15:00 Sodium Chloride 500 ml @ 20 mls/hr CONTINUOUS IV 04/11/16 15:00 04/11/16 16:22 Potassium Chloride 100 ml @ 50 mls/hr Q2H PRN IV 04/11/16 15:00 04/11/16 16:21 (KCl 20 Meq Premix Inj) 100 ml @ 50 mls/hr Q2H PRN IV 04/11/16 15:00 Potassium Chloride 40 meq 40 meq UNSCH PRN PO/TUBE 04/11/16 15:00 Potassium Chloride 100 ml @ 25 mls/hr UNSCH PRN IV 04/11/16 15:00 Potassium Chloride 100 ml @ 50 mls/hr Q2H PRN IV 04/11/16 15:00 (Magnesium Sulfate Inj/NS Inj) 100 ml @ 50 mls/hr UNSCH PRN IV 04/11/16 15:00 Magnesium Oxide 800 mg 800 mg UNSCH PRN PO 04/11/16 15:00 (Magnesium Sulfate Inj/NS Inj) 100 ml @ 50 mls/hr UNSCH PRN IV 04/11/16 15:00 Potassium Phosphate 2000 mg 2,000 mg Q4H PRN PO 04/11/16 15:00 (Sodium Phosphate Inj/NS 250 ml Inj) 250 ml @ 42 mls/hr UNSCH PRN IV 04/11/16 15:00 (KCl 40 Meq/30 ml Liq) 40 meq UNSCH PRN PO/TUBE 04/11/16 15:00 Potassium Phosphate 2000 mg 2,000 mg UNSCH PRN PO/TUBE 04/11/16 15:00 (Potassium Phosphate Inj/NS 250 ml Inj) 260 ml @ 42 mls/hr UNSCH PRN IV 04/11/16 15:00 Mannitol 12.5 gm 12.5 gm Q8H IV 04/11/16 16:00 04/11/16 17:43 (Cardene Inj/NS 250 ml Inj) 260 ml @ 0 mls/hr TITRATE IV 04/11/16 16:00 04/11/16 16:51 Chlorhexidine Gluconate 15 ml 15 ml BID@08,20 MT 04/11/16 20:00 Propofol 100 ml @ 0 mls/hr TITRATE IV 04/11/16 17:00 04/11/16 17:12 (fentaNYL DRIP) 250 ml @ 0 mls/hr TITRATE IV 04/11/16 17:00 04/11/16 17:13 Allergies Allergies Coded Allergies Achromycin V (Verified Allergy, Severe, 04/10/16) Michelle (Verified Allergy, Severe, 04/10/16) Augmentin (Verified Allergy, Severe, 04/10/16) Capoten (Verified Allergy, Severe, 04/10/16) Diovan (Verified Allergy, Severe, 04/10/16) Enzymes Oral (Verified Allergy, Severe, 04/10/16) Lipitor (Verified Allergy, Severe, 04/10/16) Procardia (Verified Allergy, Severe, 04/10/16) Rynatan (Verified Allergy, Severe, 04/10/16) Zetia (Verified Allergy, Severe, 04/10/16) Zithromax (Verified Allergy, Severe, 04/10/16) Zocor (Verified Allergy, Severe, 04/10/16) Aspirin (Verified Allergy, Mild, 04/10/16) Cipro (Verified Allergy, Mild, 04/10/16) Codeine (Verified Allergy, Mild, 04/10/16) Keflex (Verified Allergy, Mild, 04/10/16) Morphine (Verified Allergy, Mild, 04/10/16) Blue Dyes - Various (Unverified Allergy, Unknown, Anaphylaxis, 04/10/16) Clonidine (Unverified Allergy, Unknown, itching, 04/10/16) Exam I&O / VS 04/10/16 04/10/16 04/11/16 15:00 23:00 07:00 Intake Total 1059 ml 695 ml Balance 1059 ml 695 ml Intake IV Total 1059 ml 695 ml # Voids 5 3 Vital Signs Date Time Temp Pulse Resp B/P Pulse Ox O2 Delivery O2 Flow Rate FiO2 04/11/16 18:00 139 04/11/16 17:24 98 100 04/11/16 17:10 100 04/11/16 16:00 98.0 124 24 174/58 94 04/11/16 16:00 124 04/11/16 14:00 100 04/11/16 12:00 70 04/11/16 12:00 98.2 70 18 180/76 96 04/11/16 10:00 103 04/11/16 09:41 94 Nasal Cannula 4.00 04/11/16 08:00 98.4 93 26 185/81 96 04/11/16 08:00 105 04/11/16 07:00 96 Nasal Cannula 4.00 04/11/16 06:00 96 04/11/16 04:00 98.4 64 18 163/70 96 04/11/16 04:00 64 04/11/16 02:00 66 04/11/16 00:00 116 04/11/16 00:00 98.7 116 18 162/72 96 04/10/16 22:00 87 04/10/16 20:57 97 Nasal Cannula 4.00 04/10/16 20:00 76 04/10/16 20:00 94.1 76 24 162/69 95 04/10/16 19:30 96 Nasal Cannula 4.00 Exam Comments intubated sedated does not respond pupils 2 mm bilateral reactive EOM limited to occulocephalics No spontaneous limb movement, Objective Radiology Results mri brain--large right mca stroke with mass effect and shift, right basal ganglia hemorrhage mra--absence of flow in right mca Micro and Labs Laboratory Tests Test 04/11/16 04/11/16 04/11/16 04:24 11:55 16:20 Triglycerides Level 166 Cholesterol Level 226 LDL Cholesterol 131 HDL Cholesterol 61.8 Cholesterol/HDL Ratio 3.65 Thyroid Stimulating Hormone 1.440 3rd Gen White Blood Count 11.6 Red Blood Count 3.89 Hemoglobin 10.6 Hematocrit 33.2 Mean Corpuscular Volume 85.2 Mean Corpuscular Hemoglobin 27.2 Mean Corpuscular Hemoglobin 32.0 Concent Red Cell Distribution Width 15.3 Platelet Count 184 Mean Platelet Volume 10.1 Sodium Level 145 139 Potassium Level 3.0 4.0 Chloride Level 111 102 Carbon Dioxide Level 24.1 26.7 Anion Gap 10 10 Blood Urea Nitrogen 12 14 Creatinine 0.88 0.92 Estimat Glomerular Filtration 62 59 Rate Random Glucose 94 125 Calcium Level 7.0 8.1 Protein Corrected Calcium 7.9 Phosphorus Level 2.4 4.0 Magnesium Level 1.5 2.4 Total Protein 5.4 Serum Osmolality 295 Reji Pham PhD Apr 11, 2016 18:27 Reji Pham PhD, MD Apr 11, 2016 18:27
[2016-04-11] MEDS: CHLORHEXIDINE 0.12% (ORAL KIT) 15 ML CUP MT SCH (20:24)
[2016-04-12] VITALS (17 sets, daily range): BP systolic 117–172; BP diastolic 40–93; PULSE 62–92; RESP 16; TEMP 99.8–100.7; O2SAT 93–100
[2016-04-12] MEDS: MANNITOL 12.5 GM/50 ML VIAL IV SCH ×3 (00:51→16:00)
[2016-04-12] MEDS: METOPROLOL TARTRATE 5 MG/5 ML VIAL IV PUSH SCH ×5 (00:52→19:00)
[2016-04-12] MEDS: PROPOFOL 1000 MG/100 ML INJ 100 ML IV SCH ×4 (03:38→20:23)
[2016-04-12] MEDS: CHLORHEXIDINE GLUCONATE 2 % 1 PACK (2 CLOTHS) TOP SCH (03:38)
[2016-04-12 05:28] LABS: AUTOMATED NEUTROPHIL # 8.5 TH/MM3 (1.8-7.7); BASOPHIL % 0.3 % (0.0-2.0); EOSINOPHIL % 0.3 % (0.0-4.0); HEMATOCRIT 34.7 % (35.0-46.0); HEMO FLAGS DIFF FINAL; LYMPH % 12.7 % (9.0-44.0); LYMPHOCYTE # 1.4 TH/MM3 (1.0-4.8); MEAN CELL VOLUME 84.3 FL (80.0-100.0); MEAN CORPUSCULAR HEMOGLOBIN 27.1 PG (27.0-34.0); MEAN CORPUSCULAR HGB CONC 32.1 % (32.0-36.0); MONO % 8.1 % (0.0-8.0); NEUT % 78.6 % (16.0-70.0); PLATELET COUNT 184 TH/MM3 (150-450); RED BLOOD COUNT 4.12 MIL/MM3 (4.00-5.30); RED CELL DISTRIBUTION WIDTH 15.4 % (11.6-17.2); WHITE BLOOD COUNT 10.8 TH/MM3 (4.0-11.0)
[2016-04-12 05:31] LABS: APTT (PATIENT) 24.3 SEC (24.3-30.1); PROTHROMBIN TIME - PATIENT 11.3 SEC (9.8-11.6)
[2016-04-12 05:38] LABS: ALT (GPT) 20 U/L (10-53); ANION GAP 10 MEQ/L (5-15); AST (GOT) 36 U/L (15-37); BICARBONATE 24.3 MEQ/L (21.0-32.0); BLOOD UREA NITROGEN 14 MG/DL (7-18); CHLORIDE 109 MEQ/L (98-107); GLOMERULAR FILTRATION RATE 49 ML/MIN (>89); MAGNESIUM 2.2 MG/DL (1.5-2.5); POTASSIUM 3.6 MEQ/L (3.5-5.1); SODIUM (NA) 143 MEQ/L (136-145)
[2016-04-12 05:42] LABS: ALKALINE PHOSPHATASE 75 U/L (45-117); TOTAL BILIRUBIN ADULT 0.5 MG/DL (0.2-1.0)
--- NOTE | 2016-04-12 06:15 | RADRPT ---
EXAM DATE/TIME: 04/12/2016 05:11 [facility] COMPARISON: CT BRAIN W/O CONTRAST, April 11, 2016, 12:48. INDICATIONS : Follow up cerebral edema. RADIATION DOSE: 41.90 CTDIvol (mGy) MEDICAL HISTORY : Non-responsive. SURGICAL HISTORY : Non-responsive. ENCOUNTER: Subsequent ACUITY: 3 days PAIN SCALE: Non-responsive LOCATION: cranial TECHNIQUE: Multiple contiguous axial images were obtained of the head. Using automated exposure control and adj ustment of the mA and/or kV according to patient size, radiation dose was kept as low as reasonably a chievable to obtain optimal diagnostic quality images. FINDINGS: CEREBRUM: Large evolving right middle cerebral artery distribution infarct. Dense right middle cerebral artery. There is hemorrhage in the right basal ganglia measuring 2.6 x 1.8 cm. Mass effect with compression upon the right lateral ventricle and right to left midline shift of 7 mm. No extra-axial fluid collec tions are seen. POSTERIOR FOSSA: The cerebellum and brainstem are intact. The 4th ventricle is midline. The cerebellopontine angle i s unremarkable. EXTRACRANIAL: The visualized portion of the orbits is intact. Right maxillary sinus disease. SKULL: The calvaria is intact. No evidence of skull fracture. CONCLUSION: 1. Evolving large right middle cerebral artery distribution infarct. 2. Hemorrhage in the right basal ganglia measures 2.6 x 1.8 cm. 3. Right to left midline shift of 7 mm. José Miguel Singletary MD on April 12, 2016 at 6:09 Board Certified Radiologist. This report was verified electronically.
[2016-04-12] MEDS: fentaNYL DRIP 250 ML IV SCH (06:39)
[2016-04-12] MEDS: INSULIN ASPART SUPPLEMENTAL SCALE SQ SCH ×4 (07:00→21:00)
[2016-04-12] MEDS: SODIUM CHLORIDE 0.9% FLUSH 5 ML FLUSH IVF SCH ×3 (07:53→21:00)
--- NOTE | 2016-04-12 08:12 | HHI.CCPN ---
Subjective Remarks/Hospital Course 80-year-old female. Date of admission 04/10/2016. 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 She presents to the [facility] ED with acute onset from normocytic health that 10 AM this morning with left-sided weakness involving left arm/left leg. E VAC was called and a stroke was notified. NIH score was 7. addition with deficits involving dysarthria, right gaze preference, left facial palsy, dense hemiparesis left arm and leg. Normal sensation. Reflexes are equal and symmetric. NIH was route 7. CT of the head revealed no acute intracranial findings. CTA of the head and neck revealed dense right ICA occlusion. The case was discussed with Dr. Dozier with interventional radiology and the patient is not indicated for intervention given the complete occlusion of her right ICA. Patient was seen by Dr. Pham and alteplase was provided after benefits and risks discussed. Patient was hypertensive Cardene drip was initiated. Post alteplase infusion patient became more altered with worsening weakness to her left upper and lower extremity. Repeat CT head revealed no acute bleeding. NIH score is currently 17. She is also noted to have tremors involving her right upper lobe extremity. Neurology was notified and Keppra infusion was provided 1000 mg and stat EEG ordered. 04/11: Continues to have left-sided weakness. Complaining of headache. Episode of SVT resolved after receiving 10 mg IV Lopressor. Currently resting in bed complaining of headache and back pain. Subjective 04/12: Intubated last night secondary to altered mental status. After intubation, spontaneously moving left upper lobe extremity. Tube feeds are at goal. Episodes of bigeminy on EKG overnight. Perfusing well. Off Cardene drip. Objective Vital Signs Date Time Temp Pulse Resp B/P Pulse Ox O2 Delivery O2 Flow Rate FiO2 04/12/16 06:00 74 04/12/16 04:00 35 04/12/16 04:00 99.8 16 162/46 96 04/11/16 19:00 Mechanical Ventilator 04/11/16 09:41 4.00 Intake and Output 04/11/16 04/11/16 04/12/16 08:00 16:00 00:00 Intake Total 695 ml 960 ml 965 ml Output Total 1325 ml Balance 695 ml 960 ml -360 ml Result Diagram: 04/12/16 0440 04/12/16 0440 Imaging Last Impressions Chest X-Ray 04/11/16 1453 Signed Impressions: Service Date/Time: Monday, April 11, 2016 15:07 - CONCLUSION: Placement of a right jugular catheter terminates superior vena cava. Otherwise negative with no acute process and no change Audi Schneider MD Head Magnetic Resonance Angiography 04/11/16 0000 Signed Impressions: Service Date/Time: Monday, April 11, 2016 13:17 - CONCLUSION: Significant new finding of total absence of flow in the right middle cerebral artery and minimal flow in the right A1 segment. This indicates total occlusion . Significant atherosclerotic high grade or complete occlusion of the internal carotid on the right free siphon and in the Mauro region Audi Schneider MD Head CT 04/11/16 0000 Signed Impressions: Service Date/Time: Monday, April 11, 2016 12:48 - CONCLUSION: 1. There is now a large area of decreased density predominately in the right mid parietal lobe characteristic for acute infarction involving the right MCA territory. 2. There appears to be some early mild hemorrhage in the right basal ganglia. 3. There is a mass effect and midline shift to the left by approximately 5-6 mm. Marlon Darnell MD Brain MRI 04/11/16 0000 Signed Impressions: Service Date/Time: Monday, April 11, 2016 13:17 - CONCLUSION: 1. Acute infarction involving the right MCA territory. 2. Focal acute hemorrhage involving the right basal ganglia. 3. Cerebral edema with mass effect and midline shift to the left by approximately 5 - 6 mm. Marlon Darnell MD Neck CTA 04/10/16 1106 Signed Impressions: Service Date/Time: March 11:16 - CONCLUSION: Complete occlusion of the extracranial portion of the right ICA. The left carotid shows 20%% stenosis. Both vertebral arteries are patent. Bashir Dozier Jr., MD Head CTA 04/10/16 1100 Signed Impressions: Service Date/Time: March 11:16 - CONCLUSION: Occlusion of the Mauro portion of the right ICA with reconstitution. There is good collateralization of the right middle cerebral and right anterior cerebral territories. I spoke with Dr. Pham at the time of the scan. Bashir Dozier Jr., MD Objective Remarks GENERAL: 80-year-old female, critically ill currently resting in bed in no acute distress currently orotracheally intubated SKIN: Warm and dry. HEAD: Atraumatic. Normocephalic. EYES: Pupils equal and round about 1 mm bilaterally and reactive to 3 mm. No scleral icterus. No injection or drainage. ENT: No nasal bleeding or discharge. Mucous membranes pink and moist. NECK: Trachea midline. No JVD. CARDIOVASCULAR: Regular rate and rhythm with ectopy. S1, S2. No S4. Murmurs not appreciated RESPIRATORY: No accessory muscle use. Clear to auscultation. Breath sounds equal bilaterally. GASTROINTESTINAL: Abdomen soft, non-tender, nondistended. Hepatic and splenic margins not palpable. MUSCULOSKELETAL: Extremities one plus nonpitting edema bilateral lower extremities. No obvious deformities. NEUROLOGICAL: Sedated with propofol and fentanyl the ventilator. Currently undergoing patient vacation. Withdraws to pain right upper and lower extremity. Minimal left upper and lower extremity. Urinary Catheter: Yes Assessment to: Continue Mendez insert reason: Prolonged Immobilization Vascular Central Line Catheter: No Assessment to: Continue A/P Assessment and Plan Neuro/Psych: Acute right MCA CVA with left-sided hemiparesis Right basal ganglia hemorrhage - 2.6 x 1.8 cm with compression of the fourth ventricle and [id number] shift at 7 mm Seen by neurology/Dr. Pham CT head on admission 2 revealed no acute findings CTA head and neck revealed occlusion right ICA with good collateral flows the right MCA and FLAVIA. Not amendable interventricular Dr. Dozier/IR Received 90 mg total alteplase ED. Echocardiogram revealed EF 50-55%. NATANAEL 58 mmHg. No regional wall motion abnormality. No obvious source of cardiac emboli CT head 24 hours post alteplase 04/11 revealed right basal ganglia hemorrhage with right MCA to extubation CVA evolving infarct. MRA brain revealed right MCA distribution with occlusion not seen previously on CT. CT head 04/12 revealed evolving right MCA CVA, right basal ganglia hemorrhage 2.6 x 1.8 cm in the right left shift by 7 mm. NSurg consulted - possible crani Continue 3% at 30 cc/hr/mannitol 12.5 % q8h. CV: Right internal carotid artery occlusion - not amendable to intervention Hypertension Dyslipidemia Currently on Cardene drip to maintain MAP 90-110 Home medications include Avalide 300/12.5 one tablet by mouth, daily and nisoldipine 20 mg by mouth daily Elevated HDL, LDL and triglycerides. Patient has multiple drug allergies to lipid lowering agents 2-D echocardiogram revealed EF of 50-55%. No regional wall motion abnormality. Elevated pulmonary pressures 58 mmHg. IV Lopressor 2.5 every 6 hours. Resp: Acute respiratory insufficiency Nasal cannula to maintain saturations greater than equal to 92% Incentive spirometry while awake Chest x-ray which revealed no acute cardiopulmonary findings GI: Nausea Gastroesophageal reflux disease Continue Protonix 40 mg by mouth/IV daily/home medication Vital 1.5 at 45 cc an hour. Colace/Senokot for bowel regimen Accurate I's and O's in a critically ill patient Endo: History of hypothyroidism Check TSH. Patient is currently on any supplementation medication Slight scale insulin Accu-Cheks to maintain euglycemia. Low regimen Renal: Creatinine currently within normal limits. Heme: CBC within normal limits. Coags within normal limits. Status post alteplase. Recheck CBC in a.m. 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 Central line if indicated Prophylaxis - GI - Protonix - DVT - status post alteplase. Critical Care: The total critical care time was 35 minutes. Time to perform other separately billable procedures was not included in the critical care time. Holden Haddad MD Apr 12, 2016 08:12
[2016-04-12] MEDS: DOCUSATE SODIUM 100 MG CAP PO SCH ×2 (08:16→21:00)
[2016-04-12] MEDS: CHLORHEXIDINE 0.12% (ORAL KIT) 15 ML CUP MT SCH ×2 (08:17→20:30)
[2016-04-12] MEDS: SODIUM CHLOR 0.9% 1000 ML INJ 1,000 ML IV SCH ×2 (08:18→22:38)
[2016-04-12] MEDS: ARTIFICIAL TEARS OPTH SOLN 15 ML BTL EACH EYE SCH ×2 (08:19→11:43)
[2016-04-12] MEDS: SENNOSIDES SYRUP 8.8 MG/5 ML CUP PO SCH ×2 (08:24→21:00)
[2016-04-12] MEDS ORDERED: POTASSIUM PHOSPHATE INJ 30 MMOL in SODIUM CHLOR 0.9% 250 ML INJ 250 ML IV ONE (09:00)
[2016-04-12] MEDS ORDERED: POTASSIUM CHLOR 20 MEQ PREMIX 100 ML IV ONE (09:00)
[2016-04-12] MEDS ORDERED: TERBUTALINE INJ 1 MG/ML AMP SQ PRN (09:15)
[2016-04-12] MEDS: PHENYLEPHRINE INJ 40 MG in DEXTROSE 5% IN WATE 500 ML INJ 496 ML IV SCH ×2 (09:34)
--- NOTE | 2016-04-12 09:50 | HHI.NSPN ---
Subjective History Day 2 after right carotid occlusion, TPA followed by right MCA clot. She is intubated for airway protection. Her pupils remain small and she still follows commands Vitals . Vital Signs Date Time Temp Pulse Resp B/P Pulse Ox O2 Delivery O2 Flow Rate FiO2 04/12/16 08:13 93 30 04/12/16 06:00 74 04/12/16 04:00 35 04/12/16 04:00 99.8 74 16 162/46 96 04/12/16 04:00 74 04/12/16 03:54 98 30 04/12/16 02:00 70 04/12/16 00:40 100 35 04/12/16 00:00 74 04/12/16 00:00 100.2 74 16 172/60 97 04/12/16 00:00 40 04/11/16 22:00 72 04/11/16 20:06 99 40 04/11/16 20:00 50 04/11/16 20:00 100.4 75 16 150/51 97 04/11/16 20:00 75 04/11/16 19:00 98 Mechanical Ventilator 50 04/11/16 18:00 139 04/11/16 17:24 98 100 04/11/16 17:10 100 04/11/16 16:00 98.0 124 24 174/58 94 04/11/16 16:00 124 04/11/16 14:00 100 04/11/16 12:00 70 04/11/16 12:00 98.2 70 18 180/76 96 04/11/16 10:00 103 04/11/16 04/11/16 04/12/16 15:00 23:00 07:00 Intake Total 960 ml 965 ml 1431 ml Output Total 1325 ml 375 ml Balance 960 ml -360 ml 1056 ml Physical Exam Head Head: Atraumatic Eyes Eyes: Pupils Equal Neuro Mental Status: Sedated Drips: Diprivan @, Fentanyl @ Pupils: Reactive Bilaterally Marc Coma Scale Best Eye Openin - None Best Verbal: 1 - None Best Motor: 3 - Flexion/decorticate Cardiac Cardiac: Regular Rate & Rhythm Respiratory Respiratory: CTA Genitourinary Genitourinary: Mendez Catheter In Place Musculoskeletal Extremities Upper Extremities Deltoid Bicep Tricep HI W. Ext Right Left Lower Extremeties Ilio Quad Plantar Dorsi EHL Right Left Musculoskeletal Remarks known left hemiparesis Dermatologic Dermatologic: Skin Intact Extremities Edema: No Edema, SCDs Objective Labs Laboratory Tests 04/11/16 11:55 04/11/16 16:20 04/11/16 23:05 04/12/16 04:40 Laboratory Tests Test 04/11/16 04/11/16 04/11/16 04/12/16 11:55 16:20 23:05 04:40 Sodium Level 145 MEQ/L 139 MEQ/L 142 MEQ/L 143 MEQ/L Potassium Level 3.0 MEQ/L 4.0 MEQ/L 3.6 MEQ/L Chloride Level 111 MEQ/L 102 MEQ/L 109 MEQ/L Carbon Dioxide Level 24.1 MEQ/L 26.7 MEQ/L 24.3 MEQ/L Anion Gap 10 MEQ/L 10 MEQ/L 10 MEQ/L Blood Urea Nitrogen 12 MG/DL 14 MG/DL 14 MG/DL Creatinine 0.88 MG/DL 0.92 MG/DL 1.09 MG/DL Estimat Glomerular Filtration 62 ML/MIN 59 ML/MIN 49 ML/MIN Rate Random Glucose 94 MG/DL 125 MG/DL 121 MG/DL Calcium Level 7.0 MG/DL 8.1 MG/DL 7.9 MG/DL Protein Corrected Calcium 7.9 MG/DL Phosphorus Level 2.4 MG/DL 4.0 MG/DL 2.0 MG/DL Magnesium Level 1.5 MG/DL 2.4 MG/DL 2.2 MG/DL Total Protein 5.4 GM/DL 5.7 GM/DL Serum Osmolality 295 MOSM/KG 294 MOSM/KG 301 MOSM/KG Total Bilirubin 0.5 MG/DL Aspartate Amino Transf 36 U/L (AST/SGOT) Alanine Aminotransferase 20 U/L (ALT/SGPT) Alkaline Phosphatase 75 U/L Albumin 2.3 GM/DL Imaging Remarks Last Impressions Chest X-Ray 04/11/16 2376 Signed Impressions: Service Date/Time: Monday, April 11, 2016 15:07 - CONCLUSION: Placement of a right jugular catheter terminates superior vena cava. Otherwise negative with no acute process and no change Audi Schneider MD Head Magnetic Resonance Angiography 04/11/16 0000 Signed Impressions: Service Date/Time: Monday, April 11, 2016 13:17 - CONCLUSION: Significant new finding of total absence of flow in the right middle cerebral artery and minimal flow in the right A1 segment. This indicates total occlusion . Significant atherosclerotic high grade or complete occlusion of the internal carotid on the right free siphon and in the Mauro region Audi Schneider MD Head CT 04/11/16 0000 Signed Impressions: Service Date/Time: Monday, April 11, 2016 12:48 - CONCLUSION: 1. There is now a large area of decreased density predominately in the right mid parietal lobe characteristic for acute infarction involving the right MCA territory. 2. There appears to be some early mild hemorrhage in the right basal ganglia. 3. There is a mass effect and midline shift to the left by approximately 5-6 mm. Marlon Darnell MD Brain MRI 04/11/16 0000 Signed Impressions: Service Date/Time: Monday, April 11, 2016 13:17 - CONCLUSION: 1. Acute infarction involving the right MCA territory. 2. Focal acute hemorrhage involving the right basal ganglia. 3. Cerebral edema with mass effect and midline shift to the left by approximately 5 - 6 mm. Marlon Darnell MD Neck CTA 04/10/16 1106 Signed Impressions: Service Date/Time: March 11:16 - CONCLUSION: Complete occlusion of the extracranial portion of the right ICA. The left carotid shows 20%% stenosis. Both vertebral arteries are patent. Bashir Dozier Jr., MD Head CTA 04/10/16 1100 Signed Impressions: Service Date/Time: March 11:16 - CONCLUSION: Occlusion of the Mauro portion of the right ICA with reconstitution. There is good collateralization of the right middle cerebral and right anterior cerebral territories. I spoke with Dr. Pham at the time of the scan. Bashir Dozier Jr., MD Assessment & Plan Diagnosis: (1) Nontraumatic acute hemorrhage of basal ganglia Plan: Plan to keep MAP 90-110 to perfuse the penumbra in the right hemisphere.She did not develop IVH or hydrocephalus but we will follow radiologically (2) Acute ischemic right middle cerebral artery (MCA) stroke Plan: She presented with good MCA flow but a right ICA occlusion below the petrous level. She now has poor right MCA flow with hemorrhagic conversion in the basal ganglia. The goal of treatment will be to maximize flow to the penumbra with hypertonic saline, low dose mannitol, fluids. Pressors were added today after intubation. A cranioplasty will be offered to the Critical Care Time (minutes): 10 Mason Cannon Apr 12, 2016 09:50
[2016-04-12 10:51] LABS: CKMB 1.3 NG/ML (0.5-3.6)
[2016-04-12] MEDS ORDERED: METOPROLOL TARTRATE 5 MG/5 ML VIAL IV PUSH ONE (11:00)
[2016-04-12] MEDS: 3% SALINE INJ 500 ML IV SCH (12:00)
[2016-04-12] MEDS ORDERED: ONDANSETRON HCL 4 MG/2 ML VIAL IV PUSH ONE (12:00)
[2016-04-12] MEDS ORDERED: PHENYLEPH/NS 1000 MCG/10 ML SYR IV ONE (12:00)
[2016-04-12] MEDS ORDERED: PROPOFOL 200 MG/20 ML AMP IV ONE (12:00)
--- NOTE | 2016-04-12 14:09 | EKG ---
Date Performed: 04/11/2016 Time Performed: 12:08:00 PTAGE: 80 years EKG: Sinus tachycardia. Possible right atrial abnormality Poor R wave progression - probable nor mal variant Lateral ST-T changes are nonspecific Compared to previous tracing, sinus tachycardia is n ew. There has been some variation in the nonspecific ST segment changes. Borderline ECG PREVIOUS TRACING : 04/10/2016 12.11 DOCTOR: Jeane Lam Interpretating Date/Time 04/12/2016 14:06:55
--- NOTE | 2016-04-12 14:09 | EKG ---
Date Performed: 04/12/2016 Time Performed: 10:38:12 PTAGE: 80 years EKG: Sinus rhythm Compared to previous tracing, the sinus tachycardia and the nonspecific ST segment changes have reso lved. Clinical correlation advised. NORMAL ECG PREVIOUS TRACING : 04/11/2016 12.08 DOCTOR: Jeane Lam Interpretating Date/Time 04/12/2016 14:07:49
[2016-04-12] MEDS ORDERED: ceFAZolin 2 GM PREMIX 50 ML IV SCH (14:45)
[2016-04-12] MEDS ORDERED: LIDOCAINE 1%/EPINEPHrine 1:100,000 SOLN 20 ML VIAL ONE (16:55)
[2016-04-12] MEDS ORDERED: LIDOCAINE 2%/EPINEPHrine 1:100,000 30ML MDV ONE (16:59)
[2016-04-12] MEDS ORDERED: ceFAZolin INJ 1,000 MG VIAL IV ONE (17:01)
[2016-04-12] MEDS ORDERED: GELFOAM SIZE 100 ONE ×2 (17:21→18:11)
[2016-04-12] MEDS ORDERED: THROMBIN (TOPICAL) 5,000 UNIT VIAL ONE (17:21)
[2016-04-12] MEDS ORDERED: MANNITOL 12.5 GM/50 ML VIAL IV ONE (18:17)
[2016-04-12] MEDS ORDERED: fentaNYL CITRATE 250 MCG/5 ML AMP ONE (20:10)
[2016-04-13] VITALS (16 sets, daily range): BP systolic 142–182; BP diastolic 56–81; PULSE 52–146; RESP 16; TEMP 98.1–101.1; O2SAT 95–100
[2016-04-13] MEDS: PROPOFOL 1000 MG/100 ML INJ 100 ML IV SCH ×6 (00:20→21:26)
[2016-04-13] MEDS: METOPROLOL TARTRATE 5 MG/5 ML VIAL IV PUSH SCH ×2 (00:21→07:00)
[2016-04-13] MEDS: CHLORHEXIDINE GLUCONATE 2 % 1 PACK (2 CLOTHS) TOP SCH (04:00)
--- NOTE | 2016-04-13 05:06 | RADRPT ---
EXAM DATE/TIME: 04/13/2016 03:56 [facility] COMPARISON: CHEST SINGLE AP, April 11, 2016, 17:57. INDICATIONS : Please evaluate after respiratory failure. MEDICAL HISTORY : Hypertension. Pancreatitis. SURGICAL HISTORY : Hysterectomy. Appendectomy. ENCOUNTER: Subsequent ACUITY: 4 - 6 days PAIN SCORE: Non-responsive. LOCATION: FINDINGS: A single view of the chest demonstrates the endotracheal tube, nasogastric tube and right IJ central line in good position. Minimal consolidation left lung base. The cardiomediastinal contours are unre markable. Osseous structures are intact. CONCLUSION: Tubes and catheters in good position. Small consolidation left lower lobe. Zino Marin MD on April 13, 2016 at 5:03 Board Certified Radiologist. This report was verified electronically.
[2016-04-13 05:11] LABS: AUTOMATED NEUTROPHIL # 10.4 TH/MM3 (1.8-7.7); BASOPHIL % 0.3 % (0.0-2.0); EOSINOPHIL # 0.1 TH/MM3 (0-0.4); EOSINOPHIL % 0.8 % (0.0-4.0); HEMATOCRIT 31.2 % (35.0-46.0); HEMO FLAGS DIFF FINAL; LYMPH % 11.4 % (9.0-44.0); LYMPHOCYTE # 1.5 TH/MM3 (1.0-4.8); MEAN CELL VOLUME 85.7 FL (80.0-100.0); MEAN CORPUSCULAR HEMOGLOBIN 27.6 PG (27.0-34.0); MEAN CORPUSCULAR HGB CONC 32.2 % (32.0-36.0); MONO % 10.4 % (0.0-8.0); NEUT % 77.1 % (16.0-70.0); PLATELET COUNT 170 TH/MM3 (150-450); RED BLOOD COUNT 3.64 MIL/MM3 (4.00-5.30); RED CELL DISTRIBUTION WIDTH 15.6 % (11.6-17.2); WHITE BLOOD COUNT 13.4 TH/MM3 (4.0-11.0)
--- NOTE | 2016-04-13 05:22 | RADRPT ---
EXAM DATE/TIME: 04/13/2016 04:49 [facility] COMPARISON: CT BRAIN W/O CONTRAST, April 12, 2016, 5:11. INDICATIONS : Post cranioplasty. RADIATION DOSE: 69.15 CTDIvol (mGy) MEDICAL HISTORY : Hypertension. Seizures. SURGICAL HISTORY : Hysterectomy. Appendectomy. ENCOUNTER: Initial ACUITY: 3 days PAIN SCALE: Non-responsive LOCATION: cranial TECHNIQUE: Multiple contiguous axial images were obtained of the head. Using automated exposure control and adj ustment of the mA and/or kV according to patient size, radiation dose was kept as low as reasonably a chievable to obtain optimal diagnostic quality images. FINDINGS: There is persistent significant edema in the right frontal and temporal lobes. The patient has had a craniotomy with some residual pneumocephalus present. There is a slightly higher density lesion in th e medial right frontal lobe measuring 2.6 x 1.4 cm, unchanged. Left-sided ventriculostomy catheter in good position. The right middle cranial artery remains quite dense. There is now significant cytotox ic edema with minimal sparing of the right temporal lobe laterally. There is a mixed densities along the medial left temporal lobe which is new from the previous st udy. There is low-grade shift right to left at the level of the third ventricle. CONCLUSION: Status post craniotomy with the residual placement of a subdural drain. Severe cytotoxic edema throug hout the right cerebral hemisphere with a very dense right middle cerebral artery. There is now some mixed density to the medial left temporal lobe with low-grade persistent shift from [id number] at the level of the third ventricle. No significant new intraparenchymal hemorrhage Zion Marin MD on April 13, 2016 at 5:17 Board Certified Radiologist. This report was verified electronically.
[2016-04-13 05:26] LABS: ALT (GPT) 21 U/L (10-53); ANION GAP 10 MEQ/L (5-15); AST (GOT) 34 U/L (15-37); BICARBONATE 22.1 MEQ/L (21.0-32.0); BLOOD UREA NITROGEN 13 MG/DL (7-18); CHLORIDE 115 MEQ/L (98-107); GLOMERULAR FILTRATION RATE 56 ML/MIN (>89); MAGNESIUM 2.1 MG/DL (1.5-2.5); POTASSIUM 4.2 MEQ/L (3.5-5.1); SODIUM (NA) 147 MEQ/L (136-145)
[2016-04-13 05:29] LABS: ALKALINE PHOSPHATASE 74 U/L (45-117); TOTAL BILIRUBIN ADULT 0.6 MG/DL (0.2-1.0)
--- NOTE | 2016-04-13 06:58 | MP ---
cc: MASON PATIÑO MD DATE OF SURGERY: 04/12/2016 PREOPERATIVE DIAGNOSIS: Malignant right middle cerebral artery infarction. POSTOPERATIVE DIAGNOSIS: Malignant right middle cerebral artery infarction. OPERATION: Right-sided frontotemporal parietal cranioplasty for decompression of the brain from malignant edema. SURGEON: Dr. Ronal Patiño INDICATIONS: The patient is an unfortunate 80 year-old lady who presented with right carotid occlusion. She was treated with TPA but suffered an occlusion of the right MCA artery and developed worsening ischemia in the right MCA distribution. She was intubated for airway protection. Clinically at that time she was purposefully moving her right side but was becoming lethargic and had left hemiparesis. She was taken to the operating room for cranioplasty, after the follow up CT scan showed worsening ischemia in the right MCA distribution this morning. The consent was obtained by her who was at the bedside and requested maximum medical therapy and surgical therapy. TECHNIQUE: The patient was brought to the operating room, placed supine on the OR table. The patient was already intubated. An arterial line was placed by anesthesia. Her entire head was clipped and prepped with Betadine scrub followed by paint and allowed to dry. The incision for the right cranioplasty was from the root of the zygoma to the frontal area, to the perineal area and ending in the occipital region. The incisions for the left external ventricular drain was placed 12 cm behind the glabella and 2.5 cm to the left of the midline. The skin incisions were infiltrated with 2% lidocaine with epinephrine. The incision on the right was first initiated with the 15 blade. This was carried down to the temporalis fascia and into the temporal frontal and parietal bones with the monopolar cautery. The temporalis muscle was opened leaving a cuff for later repair. The junction of the sphenoid temporal and frontal bone was the site of the of the first bur hole. A second bur hole was placed more medial and frontal to this first bur hole, because of adherent dura. The rest of the flap was elevated in a single piece. The dura was then tacked to the surrounding bone with 4-0 Nurolon sutures. The dura was then opened in a large stellate shape and covered with Duragen. Hemostasis was obtained with large strips of Gelfoam as well as FloSeal and bone wax on all bony surfaces. A 10 mm flat HORTENSIA was left in the epidural space. There was no attempt to close the bone flap. A single bur hole cover was placed over the frontal bur hole and the bone flap was left opened to allow for brain swelling. The EBL was approximately 50-100 cc. The HORTENSIA was tunneled under the skin and sutured with a pursestring 3-0 nylon suture. The temporalis fascia was reapproximated with 2-0 Vicryl sutures. The galea was reapproximated with interrupted 3-0 Vicryl sutures. The skin edges were closed with a running locked baseball stitch. Attention was then turned to the left frontal region. A cranial access kit was used to place the external ventricular drain. A Codman Bactiseal AVD was chosen. The incision was made with a 15 blade in the left frontal region 12.5 cm behind the glabella and 2.5 cm to the left of midline. A single twist drill hole was placed and the AVD advanced to 6 mm. CSF return was brisk and clear. The AVD was tunneled under the skin and secured with a 3-0 nylon suture. The wound was closed with interrupted 3-0 nylon sutures. Both wounds were dressed sterilely with Xeroform and Primapore on the right and with Telfa and Tegaderm on the left. The patient was then taken back to the ICU. Mason Patiño MD YYG/ASHANTI /8:01 PM /6:41 AM
[2016-04-13] MEDS: INSULIN ASPART SUPPLEMENTAL SCALE SQ SCH ×4 (06:59→21:00)
[2016-04-13] MEDS: ARTIFICIAL TEARS OPTH SOLN 15 ML BTL EACH EYE SCH ×3 (08:15→16:36)
[2016-04-13] MEDS: fentaNYL DRIP 250 ML IV SCH ×2 (08:15→23:04)
[2016-04-13] MEDS: 3% SALINE INJ 500 ML IV SCH (08:15)
[2016-04-13] MEDS: SENNOSIDES SYRUP 8.8 MG/5 ML CUP PO SCH ×2 (08:15→21:28)
[2016-04-13] MEDS: CHLORHEXIDINE 0.12% (ORAL KIT) 15 ML CUP MT SCH ×2 (08:16→21:29)
[2016-04-13] MEDS: SODIUM CHLORIDE 0.9% FLUSH 5 ML FLUSH IVF SCH ×3 (08:16→21:28)
[2016-04-13] MEDS: DOCUSATE SODIUM 100 MG CAP PO SCH ×2 (08:16→21:28)
[2016-04-13] MEDS: PHENYLEPHRINE INJ 40 MG in DEXTROSE 5% IN WATE 500 ML INJ 496 ML IV SCH ×4 (08:37→15:29)
[2016-04-13] MEDS: MANNITOL 12.5 GM/50 ML VIAL IV SCH ×3 (09:36→16:36)
--- NOTE | 2016-04-13 10:04 | HHI.NSPN ---
Subjective History Day 2 after right carotid occlusion, TPA followed by right MCA clot. She is intubated for airway protection. Her pupils remain small and she still follows commands 04/13/16 She is POD 1 after cranioplasty, right MCA infarction, sedated and ventilated, with MAP 90-100 on pressors. ICP has been in the normal range 5-10 and her right pupils remains small and reactive. Vitals . Vital Signs Date Time Temp Pulse Resp B/P Pulse Ox O2 Delivery O2 Flow Rate FiO2 04/13/16 09:17 99 45 04/13/16 06:00 100.3 68 16 148/81 100 04/13/16 06:00 35 04/13/16 06:00 68 04/13/16 02:31 99 50 04/13/16 02:00 62 04/13/16 00:00 101.1 68 16 160/71 99 04/13/16 00:00 68 04/13/16 00:00 35 04/12/16 22:00 68 04/12/16 20:30 35 04/12/16 20:30 100.7 92 16 158/68 96 Arterial Line 04/12/16 20:30 92 04/12/16 19:59 96 50 04/12/16 16:29 99 100 04/12/16 16:04 96 35 04/12/16 14:00 62 04/12/16 12:08 96 35 04/12/16 12:00 66 04/12/16 12:00 35 04/12/16 12:00 99.9 66 16 117/93 99 04/12/16 10:00 71 04/12/16 04/12/16 04/13/16 15:00 23:00 07:00 Intake Total 1489 ml 937 ml 1111 ml Output Total 250 ml 351 ml 597 ml Balance 1239 ml 586 ml 514 ml Physical Exam Head Head: Incision (dry) Eyes Eyes: Pupils Equal Neuro Mental Status: Awake, Alert, Oriented x 3 Pupils: Reactive Bilaterally Marc Coma Scale Best Eye Openin - None Best Verbal: 1 - None Best Motor: 1 - None Sensation: Intact Cardiac Cardiac: Regular Rate & Rhythm Respiratory Respiratory: CTA Gastrointestinal Gastrointestinal: Soft Genitourinary Genitourinary: Mendez Catheter In Place Musculoskeletal Extremities Upper Extremities Deltoid Bicep Tricep HI W. Ext Right Left Lower Extremeties Ilio Quad Plantar Dorsi EHL Right Left Musculoskeletal Remarks known left hemiparesis Extremities Edema: Edematous, SCDs Objective Labs Laboratory Tests 04/12/16 14:46 04/12/16 23:15 04/13/16 04:30 04/13/16 08:00 Laboratory Tests Test 04/12/16 04/12/16 04/13/16 04/13/16 14:46 23:15 04:30 08:00 Sodium Level 146 MEQ/L 146 MEQ/L 147 MEQ/L 147 MEQ/L Serum Osmolality 302 MOSM/KG 311 MOSM/KG 305 MOSM/KG 303 MOSM/KG Potassium Level 4.2 MEQ/L Chloride Level 115 MEQ/L Carbon Dioxide Level 22.1 MEQ/L Anion Gap 10 MEQ/L Blood Urea Nitrogen 13 MG/DL Creatinine 0.96 MG/DL Estimat Glomerular Filtration 56 ML/MIN Rate Random Glucose 104 MG/DL Calcium Level 7.6 MG/DL Phosphorus Level 2.4 MG/DL Magnesium Level 2.1 MG/DL Total Bilirubin 0.6 MG/DL Aspartate Amino Transf 34 U/L (AST/SGOT) Alanine Aminotransferase 21 U/L (ALT/SGPT) Alkaline Phosphatase 74 U/L Total Protein 5.4 GM/DL Albumin 2.0 GM/DL Imaging Remarks Last Impressions Head CT 04/13/16 0600 Signed Impressions: Service Date/Time: Wednesday, April 13, 2016 04:49 - CONCLUSION: Status post craniotomy with the residual placement of a subdural drain. Severe cytotoxic edema throughout the right cerebral hemisphere with a very dense right middle cerebral artery. There is now some mixed density to the medial left temporal lobe with low-grade persistent shift from [id number] at the level of the third ventricle. No significant new intraparenchymal hemorrhage Zion Marin MD Chest X-Ray 04/13/16 0600 Signed Impressions: Service Date/Time: Wednesday, April 13, 2016 03:56 - CONCLUSION: Tubes and catheters in good position. Small consolidation left lower lobe. Zion Marin MD Head Magnetic Resonance Angiography 04/11/16 0000 Signed Impressions: Service Date/Time: Monday, April 11, 2016 13:17 - CONCLUSION: Significant new finding of total absence of flow in the right middle cerebral artery and minimal flow in the right A1 segment. This indicates total occlusion . Significant atherosclerotic high grade or complete occlusion of the internal carotid on the right free siphon and in the Mauro region Audi Schneider MD Brain MRI 04/11/16 0000 Signed Impressions: Service Date/Time: Monday, April 11, 2016 13:17 - CONCLUSION: 1. Acute infarction involving the right MCA territory. 2. Focal acute hemorrhage involving the right basal ganglia. 3. Cerebral edema with mass effect and midline shift to the left by approximately 5 - 6 mm. Marlon Darnell MD Neck CTA 04/10/16 1106 Signed Impressions: Service Date/Time: March 11:16 - CONCLUSION: Complete occlusion of the extracranial portion of the right ICA. The left carotid shows 20%% stenosis. Both vertebral arteries are patent. Bashir Dozier Jr., MD Head CTA 04/10/16 1100 Signed Impressions: Service Date/Time: March 11:16 - CONCLUSION: Occlusion of the Mauro portion of the right ICA with reconstitution. There is good collateralization of the right middle cerebral and right anterior cerebral territories. I spoke with Dr. Pham at the time of the scan. Bashir Dozier Jr., MD Assessment & Plan Diagnosis: (1) Nontraumatic acute hemorrhage of basal ganglia Plan: Plan to keep MAP 90-110 to perfuse the penumbra in the right hemisphere.She did not develop IVH or hydrocephalus but we will follow radiologically (2) Acute ischemic right middle cerebral artery (MCA) stroke Plan: She presented with good MCA flow but a right ICA occlusion below the petrous level. She now has poor right MCA flow with hemorrhagic conversion in the basal ganglia. The goal of treatment will be to maximize flow to the penumbra with hypertonic saline, low dose mannitol, fluids. Pressors were added today after intubation. A cranioplasty will be offered to the 04-13-16 Stable after cranioplasty, will keep sedated through the period of maximal brain edema Mason Cannon Apr 13, 2016 10:04
--- NOTE | 2016-04-13 10:24 | HHI.CCPN ---
Subjective Remarks/Hospital Course 80-year-old female. Date of admission 04/10/2016. 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 She presents to the [facility] ED with acute onset from [facility] that 10 AM this morning with left-sided weakness involving left arm/left leg. E VAC was called and a stroke was notified. NIH score was 7. addition with deficits involving dysarthria, right gaze preference, left facial palsy, dense hemiparesis left arm and leg. Normal sensation. Reflexes are equal and symmetric. NIH was route 7. CT of the head revealed no acute intracranial findings. CTA of the head and neck revealed dense right ICA occlusion. The case was discussed with Dr. Dozier with interventional radiology and the patient is not indicated for intervention given the complete occlusion of her right ICA. Patient was seen by Dr. Pham and alteplase was provided after benefits and risks discussed. Patient was hypertensive Cardene drip was initiated. Post alteplase infusion patient became more altered with worsening weakness to her left upper and lower extremity. Repeat CT head revealed no acute bleeding. NIH score is currently 17. She is also noted to have tremors involving her right upper lobe extremity. Neurology was notified and Keppra infusion was provided 1000 mg and stat EEG ordered. 04/11: Continues to have left-sided weakness. Complaining of headache. Episode of SVT resolved after receiving 10 mg IV Lopressor. Currently resting in bed complaining of headache and back pain. 04/12: Intubated last night secondary to altered mental status. After intubation, spontaneously moving left upper lobe extremity. Tube feeds are at goal. Episodes of bigeminy on EKG overnight. Perfusing well. Off Cardene drip. Subjective 04/13/16: Status post right craniostomy with left EVD placement secondary to cytotoxic edema right MCA CVA distribution. ICPs around 1. Low-grade temperatures 101.1. Currently 100.3. Resuming tube feeds. No bowel movement. Objective Vital Signs Date Time Temp Pulse Resp B/P Pulse Ox O2 Delivery O2 Flow Rate FiO2 04/13/16 09:17 99 45 04/13/16 06:00 100.3 68 16 148/81 04/11/16 19:00 Mechanical Ventilator 04/11/16 09:41 4.00 Intake and Output 04/12/16 04/12/16 04/13/16 08:00 16:00 00:00 Intake Total 1431 ml 1489 ml 937 ml Output Total 375 ml 250 ml 351 ml Balance 1056 ml 1239 ml 586 ml Result Diagram: 04/13/16 0430 04/13/16 0800 Imaging Last Impressions Head CT 04/13/16 0600 Signed Impressions: Service Date/Time: Wednesday, April 13, 2016 04:49 - CONCLUSION: Status post craniotomy with the residual placement of a subdural drain. Severe cytotoxic edema throughout the right cerebral hemisphere with a very dense right middle cerebral artery. There is now some mixed density to the medial left temporal lobe with low-grade persistent shift from [id number] at the level of the third ventricle. No significant new intraparenchymal hemorrhage Zion Marin MD Chest X-Ray 04/13/16 0600 Signed Impressions: Service Date/Time: Wednesday, April 13, 2016 03:56 - CONCLUSION: Tubes and catheters in good position. Small consolidation left lower lobe. Zion Marin MD Head Magnetic Resonance Angiography 04/11/16 0000 Signed Impressions: Service Date/Time: Monday, April 11, 2016 13:17 - CONCLUSION: Significant new finding of total absence of flow in the right middle cerebral artery and minimal flow in the right A1 segment. This indicates total occlusion . Significant atherosclerotic high grade or complete occlusion of the internal carotid on the right free siphon and in the Mauro region Audi Schneider MD Brain MRI 04/11/16 0000 Signed Impressions: Service Date/Time: Monday, April 11, 2016 13:17 - CONCLUSION: 1. Acute infarction involving the right MCA territory. 2. Focal acute hemorrhage involving the right basal ganglia. 3. Cerebral edema with mass effect and midline shift to the left by approximately 5 - 6 mm. Marlon Darnell MD Neck CTA 04/10/16 1106 Signed Impressions: Service Date/Time: March 11:16 - CONCLUSION: Complete occlusion of the extracranial portion of the right ICA. The left carotid shows 20%% stenosis. Both vertebral arteries are patent. Bashir Dozier Jr., MD Head CTA 04/10/16 1100 Signed Impressions: Service Date/Time: March 11:16 - CONCLUSION: Occlusion of the Mauro portion of the right ICA with reconstitution. There is good collateralization of the right middle cerebral and right anterior cerebral territories. I spoke with Dr. Pham at the time of the scan. Bashir Dozier Jr., MD Objective Remarks GENERAL: 80-year-old female, critically ill currently resting in bed in no acute distress currently orotracheally intubated SKIN: Warm and dry. HEAD: Right-sided EVD in place. Status post right craniostomy and left EVD placement EYES: Pupils equal and round about 1 mm bilaterally and reactive to 3 mm. No scleral icterus. No injection or drainage. ENT: No nasal bleeding or discharge. Mucous membranes pink and moist. NECK: Trachea midline. No JVD. CARDIOVASCULAR: Regular rate and rhythm with ectopy. S1, S2. No S4. Murmurs not appreciated RESPIRATORY: No accessory muscle use. Clear to auscultation. Breath sounds equal bilaterally. GASTROINTESTINAL: Abdomen soft, non-tender, nondistended. hepatic and splenic margins not palpable. MUSCULOSKELETAL: Extremities one plus nonpitting edema bilateral lower extremities. No obvious deformities. NEUROLOGICAL: Sedated with propofol and fentanyl the ventilator. Currently undergoing patient vacation. Withdraws to pain right upper and lower extremity. Minimal left upper and lower extremity. Urinary Catheter: Yes Assessment to: Continue Mendez insert reason: Prolonged Immobilization Vascular Central Line Catheter: Yes Assessment to: Continue Date of Insertion: Apr 11, 2016 Line: Central Venous Catheter Side: Right Location: Internal, Jugular A/P Assessment and Plan Neuro/Psych: Acute right MCA CVA with left-sided hemiparesis Right basal ganglia hemorrhage - 2.6 x 1.8 cm with compression of the fourth ventricle and [id number] shift at 7 mm Postop day #1Right-sided frontotemporal parietal cranioplasty for decompression of the brain from malignant edema with left EVD placement. Currently on propofol 25 олег per kilo per minute/fentanyl drip at 100 g per hour for sedation/analgesia while intubated Goal RASS -2 Daily sedation vacation on hold until Neurosurgery Seen by neurology/Dr. Pham CT head on admission 2 revealed no acute findings CTA head and neck revealed occlusion right ICA with good collateral flows the right MCA and FLAVIA. Not amendable interventricular Dr. Dozier/IR Received 90 mg total alteplase ED. Echocardiogram revealed EF 50-55%. NATANAEL 58 mmHg. No regional wall motion abnormality. No obvious source of cardiac emboli CT head 24 hours post alteplase 04/11 revealed right basal ganglia hemorrhage with right MCA to extubation CVA evolving infarct. MRA brain revealed right MCA distribution with occlusion not seen previously on CT. CT head 04/12 revealed evolving right MCA CVA, right basal ganglia hemorrhage 2.6 x 1.8 cm in the right left shift by [address] was asked to revealed status post right cranioplasty with left EVD placement. Significant cytotoxic edema right MCA distribution/palpation. Continue right to left shift. Continue 3% at 30 cc/hr/mannitol 12.5 % q8h.. Current sodium 147. Serum osm 303 CV: Right internal carotid artery occlusion - not amendable to intervention Hypertension Dyslipidemia Currently on Gen-Synephrine drip to maintain MAP 90-110 Home medications include Avalide 300/12.5 one tablet by mouth, daily and nisoldipine 20 mg by mouth daily Elevated HDL, LDL and triglycerides. Patient has multiple drug allergies to lipid lowering agents 2-D echocardiogram revealed EF of 50-55%. No regional wall motion abnormality. Elevated pulmonary pressures 58 mmHg. IV Lopressor 2.5 every 6 hours be discontinued Resp: Acute Respiratory failure secondary to AMS PRVC 16 ~ 550 tidal volume, iT 1.0. PEEP 5. 45% FiO2 Ventilator bundle As needed bronchodilator therapy Holding spontaneous breathing trials until okay with neurosurgery Chest x-ray 04/13 revealed possible left lower lobe infiltrate versus effusion. GI: Nausea Gastroesophageal reflux disease Continue Protonix 40 mg by mouth/IV daily/home medication Vital 1.5 at 45 cc an hour. Colace/Senokot for bowel regimen Accurate I's and O's in a critically ill patient Endo: History of hypothyroidism Check TSH. Patient is currently on any supplementation medication Sliding scale insulin Accu-Cheks to maintain euglycemia. Low regimen Renal: Creatinine currently within normal limits. Heme: CBC within normal limits. Coags within normal limits. Status post alteplase. Recheck CBC in a.m. ID: Monitor for infection Will check sputum, blood cultures 2 and recheck urine today. Start vancomycin, aztreonam and Flagyl possible aspirationinfectious process FEN: Replace electrolytes as clinically indicated MSK: Osteoarthritis history of chronic back pain due to sacroiliac joint arthritis status post injections History recent lumbar epidural steroid injection PT/OT evaluate and treat Access - Utilize peripheral IV. Central line if indicated Prophylaxis - GI - Protonix - DVT - status post alteplase. Critical Care: The total critical care time was 35 minutes. Time to perform other separately billable procedures was not included in the critical care time. Holden Haddad MD Apr 13, 2016 10:24
[2016-04-13] MEDS ORDERED: POLYETHYLENE GLYCOL 17 GM PKG PO ONE (10:30)
[2016-04-13] MEDS ORDERED: Vancomycin Consult Pharmacy 1 EA OTHER SCH (10:30)
[2016-04-13] MEDS: AZTREONAM INJ 1,000 MG in SODIUM CHLORIDE 0.9% INJ 100 ML IV SCH ×2 (11:04→21:28)
[2016-04-13 11:13] LABS: BACTERIA, URINE RARE /hpf; BLOOD, URINE TRACE (NEG); GLUCOSE,URINE NEG (NEG); KETONE, URINE NEG (NEG); MUCUS URINE FEW /lpf (OCC); NITRITE,URINE NEG (NEG); PH, URINE 5.5 (5.0-8.5); SQUAMOUS EPITHELIAL CELL URINE 4 /hpf (0-5); URINE COLOR YELLOW (YELLW/STRAW)
[2016-04-13] MEDS: SODIUM CHLOR 0.9% 1000 ML INJ 1,000 ML IV SCH (11:15)
[2016-04-13 11:23] LABS: COMMENT (UR) CATH-CULTURE IND; CULTURE IF INDICATED CATH CULTURE IND
[2016-04-13] MEDS: metroNIDAZOLE 500 MG INJ 100 ML IV SCH ×2 (11:59→18:13)
[2016-04-13] MEDS: HYDROmorphone HCL PF 1 MG/ML VIAL IV PUSH PRN (14:59)
[2016-04-13] MEDS: VANCOMYCIN INJ 1,500 MG in SODIUM CHLORID 0.9% 500 ML INJ 500 ML IV SCH (15:29)
[2016-04-13] MEDS: PHENYLEPHRINE INJ 40 MG in SODIUM CHLORID 0.9% 500 ML INJ 496 ML IV SCH (21:25)
[2016-04-14] VITALS (17 sets, daily range): BP systolic 122–172; BP diastolic 50–80; PULSE 47–97; RESP 16; TEMP 97.5–100.1; O2SAT 93–100
[2016-04-14] MEDS: PROPOFOL 1000 MG/100 ML INJ 100 ML IV SCH ×7 (01:13→23:01)
[2016-04-14] MEDS: MANNITOL 12.5 GM/50 ML VIAL IV SCH ×3 (01:17→16:00)
[2016-04-14] MEDS: SODIUM CHLOR 0.9% 1000 ML INJ 1,000 ML IV SCH (03:14)
[2016-04-14] MEDS: AZTREONAM INJ 1,000 MG in SODIUM CHLORIDE 0.9% INJ 100 ML IV SCH ×3 (03:21→17:49)
[2016-04-14] MEDS: metroNIDAZOLE 500 MG INJ 100 ML IV SCH ×3 (03:21→18:58)
[2016-04-14] MEDS: CHLORHEXIDINE GLUCONATE 2 % 1 PACK (2 CLOTHS) TOP SCH (04:00)
--- NOTE | 2016-04-14 05:59 | RADRPT ---
EXAM DATE/TIME: 04/14/2016 05:02 [facility] COMPARISON: CHEST SINGLE AP, April 13, 2016, 3:56. INDICATIONS : Please evaluate after respiratory failure. MEDICAL HISTORY : Hypertension. Pancreatitis. SURGICAL HISTORY : Hysterectomy. Appendectomy. ENCOUNTER: Subsequent ACUITY: 1 week PAIN SCORE: Non-responsive. LOCATION: Bilateral chest FINDINGS: A single portable frontal view of the chest shows an endotracheal tube with the tip approximately 4 c m proximal to the jb. Right-sided central line noted. NG tube courses off the inferior margin of the film.. Consolidation involving the retrocardiac aspect the left lower lobe are unchanged. Right l aldo is clear. No effusions. Heart is at the upper limits of normal in terms of size. CONCLUSION: Unchanged left lower lobe infiltrate. Bashir Dozier Jr., MD on April 14, 2016 at 5:57 Board Certified Radiologist. This report was verified electronically.
[2016-04-14] MEDS ORDERED: NOREPINEPHRINE-DEXTROSE DRIP 250 ML IV SCH (06:45)
[2016-04-14] MEDS ORDERED: GLYCERIN ADULT 2 GM SUPP RECTAL PRN (06:45)
[2016-04-14] MEDS ORDERED: TERBUTALINE INJ 1 MG/ML AMP SQ PRN (06:45)
--- NOTE | 2016-04-14 06:47 | HHI.CCPN ---
Subjective Remarks/Hospital Course 80-year-old female. Date of admission 04/10/2016. 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 She presents to the [facility] ED with acute onset from normocytic health that 10 AM this morning with left-sided weakness involving left arm/left leg. E VAC was called and a stroke was notified. NIH score was 7. addition with deficits involving dysarthria, right gaze preference, left facial palsy, dense hemiparesis left arm and leg. Normal sensation. Reflexes are equal and symmetric. NIH was route 7. CT of the head revealed no acute intracranial findings. CTA of the head and neck revealed dense right ICA occlusion. The case was discussed with Dr. Dozier with interventional radiology and the patient is not indicated for intervention given the complete occlusion of her right ICA. Patient was seen by Dr. Pham and alteplase was provided after benefits and risks discussed. Patient was hypertensive Cardene drip was initiated. Post alteplase infusion patient became more altered with worsening weakness to her left upper and lower extremity. Repeat CT head revealed no acute bleeding. NIH score is currently 17. She is also noted to have tremors involving her right upper lobe extremity. Neurology was notified and Keppra infusion was provided 1000 mg and stat EEG ordered. 04/11: Continues to have left-sided weakness. Complaining of headache. Episode of SVT resolved after receiving 10 mg IV Lopressor. Currently resting in bed complaining of headache and back pain. 04/12: Intubated last night secondary to altered mental status. After intubation, spontaneously moving left upper lobe extremity. Tube feeds are at goal. Episodes of bigeminy on EKG overnight. Perfusing well. Off Cardene drip. 04/13/16: Status post right craniostomy with left EVD placement secondary to cytotoxic edema right MCA CVA distribution. ICPs around 1. Low-grade temperatures 101.1. Currently 100.3. Resuming tube feeds. No bowel movement. Subjective 04/14/16: Tmax 99.8. Currently afebrile. Currently in sinus bradycardia. Likely secondary to inadequate sedation.. She was quite tachycardic after intubation and this did not resolve until sedation adequate. Episodes of sinus tach associated with agitation. Resolved. Tolerating tube feeding. No bowel movement. Objective Vital Signs Date Time Temp Pulse Resp B/P Pulse Ox O2 Delivery O2 Flow Rate FiO2 04/14/16 04:00 45 04/14/16 04:00 97.5 51 16 160/50 100 04/11/16 19:00 Mechanical Ventilator 04/11/16 09:41 4.00 Intake and Output 04/13/16 04/13/16 04/14/16 08:00 16:00 00:00 Intake Total 1111 ml 1953 ml 1678 ml Output Total 597 ml 595 ml 1210 ml Balance 514 ml 1358 ml 468 ml Result Diagram: 04/13/16 0430 04/13/16 2320 Other Results Microbiology Date/Time Procedure Status Source Growth 04/13/16 18:37 Aerobic Blood Culture Received Blood Peripheral Pending 04/13/16 18:37 Anaerobic Blood Culture Received Blood Peripheral Pending 04/13/16 11:00 Urine Culture Received Urine Catheterized Urine Pending 04/13/16 09:30 Gram Stain - Final Resulted Sputum Endotracheal 04/13/16 09:30 Sputum Culture Resulted Sputum Endotracheal Pending Imaging Last Impressions Head CT 04/13/16 0600 Signed Impressions: Service Date/Time: Wednesday, April 13, 2016 04:49 - CONCLUSION: Status post craniotomy with the residual placement of a subdural drain. Severe cytotoxic edema throughout the right cerebral hemisphere with a very dense right middle cerebral artery. There is now some mixed density to the medial left temporal lobe with low-grade persistent shift from [id number] at the level of the third ventricle. No significant new intraparenchymal hemorrhage Zion Marin MD Chest X-Ray 04/13/16 0600 Signed Impressions: Service Date/Time: Wednesday, April 13, 2016 03:56 - CONCLUSION: Tubes and catheters in good position. Small consolidation left lower lobe. Zion Marin MD Head Magnetic Resonance Angiography 04/11/16 0000 Signed Impressions: Service Date/Time: Monday, April 11, 2016 13:17 - CONCLUSION: Significant new finding of total absence of flow in the right middle cerebral artery and minimal flow in the right A1 segment. This indicates total occlusion . Significant atherosclerotic high grade or complete occlusion of the internal carotid on the right free siphon and in the Mauro region Audi Schneider MD Brain MRI 04/11/16 0000 Signed Impressions: Service Date/Time: Monday, April 11, 2016 13:17 - CONCLUSION: 1. Acute infarction involving the right MCA territory. 2. Focal acute hemorrhage involving the right basal ganglia. 3. Cerebral edema with mass effect and midline shift to the left by approximately 5 - 6 mm. Marlon Darnell MD Neck CTA 04/10/16 1106 Signed Impressions: Service Date/Time: March 11:16 - CONCLUSION: Complete occlusion of the extracranial portion of the right ICA. The left carotid shows 20%% stenosis. Both vertebral arteries are patent. Bashir Dozier Jr., MD Head CTA 04/10/16 1100 Signed Impressions: Service Date/Time: March 11:16 - CONCLUSION: Occlusion of the Mauro portion of the right ICA with reconstitution. There is good collateralization of the right middle cerebral and right anterior cerebral territories. I spoke with Dr. Pham at the time of the scan. Bashir Dozier Jr., MD Objective Remarks GENERAL: 80-year-old female, critically ill currently resting in bed in no acute distress currently orotracheally intubated SKIN: Warm and dry. HEAD: Left EVD in place. Status post right craniostomy EYES: Pupils equal and round about 1 mm bilaterally and reactive to 3 mm. No scleral icterus. No injection or drainage. ENT: No nasal bleeding or discharge. Mucous membranes pink and moist. NECK: Trachea midline. No JVD. CARDIOVASCULAR: Bradycardic, RR. S1, S2. No S4. Murmurs not appreciated RESPIRATORY: No accessory muscle use. Clear to auscultation. Breath sounds equal bilaterally. GASTROINTESTINAL: Abdomen soft, non-tender, nondistended. hepatic and splenic margins not palpable. MUSCULOSKELETAL: Extremities one plus nonpitting edema bilateral lower extremities. No obvious deformities. NEUROLOGICAL: Sedated with propofol and fentanyl the ventilator. Currently undergoing patient vacation. Withdraws to pain right upper and lower extremity. Minimal left upper and lower extremity. 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 Currently on propofol 50 олег per kilo per minute/fentanyl drip at 250 g per hour for sedation/analgesia while intubated Goal RASS -2 Daily sedation vacation on hold until Neurosurgery case Seen by neurology/Dr. Pham CT head on admission 2 revealed no acute findings CTA head and neck revealed occlusion right ICA with good collateral flows the right MCA and FLAVIA. Not amendable interventricular Dr. Dozier/CORINNA Received 90 mg total alteplase ED. Echocardiogram revealed EF 50-55%. NATANAEL 58 mmHg. No regional wall motion abnormality. No obvious source of cardiac emboli CT head 24 hours post alteplase 04/11 revealed right basal ganglia hemorrhage with right MCA to extubation CVA evolving infarct. MRA brain revealed right MCA distribution with occlusion not seen previously on CT. CT head 04/12 revealed evolving right MCA CVA, right basal ganglia hemorrhage 2.6 x 1.8 cm in the right left shift by [address] was asked to revealed status post right cranioplasty with left EVD placement. Significant cytotoxic edema right MCA distribution/palpation. Continue right to left shift. HORTENSIA - 45 cc SS EVD - 110 cc clear - -10 cm H2O Continue 3% saline at 30 cc/hr/mannitol 12.5 % q8h.. Current sodium 144. Serum osm 302 CV: Right internal carotid artery occlusion - not amendable to intervention Hypertension Dyslipidemia Currently on Gen-Synephrine drip to maintain MAP 90-110 Home medications include Avalide 300/12.5 one tablet by mouth, daily and nisoldipine 20 mg by mouth daily Elevated HDL, LDL and triglycerides. Patient has multiple drug allergies to lipid lowering agents 2-D echocardiogram revealed EF of 50-55%. No regional wall motion abnormality. Elevated pulmonary pressures 58 mmHg. Resp: Acute Respiratory failure secondary to AMS PRVC 16 ~ 550 tidal volume, iT 1.0. PEEP 5. 40% FiO2 Ventilator bundle As needed bronchodilator therapy Holding spontaneous breathing trials until okay with neurosurgery Chest x-ray 04/14 revealed possible left lower lobe infiltrate versus effusion. GI: Nausea Gastroesophageal reflux disease Continue Protonix 40 mg by mouth/IV daily/home medication Vital 1.5 at 45 cc an hour. Colace/SenokotMiraLAX for bowel regimen And lactulose 4 times a day until BM. Glycerin suppository and Relistor 1 today Accurate I's and O's in a critically ill patient Endo: History of hypothyroidism Check TSH. Patient is currently on any supplementation medication Sliding scale insulin Accu-Cheks to maintain euglycemia. Low regimen Renal: Creatinine currently within normal limits. Heme: CBC within normal limits. Coags within normal limits. Status post alteplase. Recheck CBC in a.m. ID: Monitor for infection Pertinent cultures / - blood cultures 2 - pending 04/13 - urine - pending 1/ - sputum - pending Day #2 vancomycin, aztreonam and Flagyl possible aspirationinfectious process FEN: Replace electrolytes as clinically indicated MSK: Osteoarthritis history of chronic back pain due to sacroiliac joint arthritis status post injections History recent lumbar epidural steroid injection PT/OT evaluate and treat Access Right IJ CVL day #3 Prophylaxis - GI - Protonix - DVT - status post alteplase. DVT prophylaxis when okay with neurosurgery Critical Care: The total critical care time was 35 minutes. Time to perform other separately billable procedures was not included in the critical care time. Holden Haddad MD Apr 14, 2016 06:47
[2016-04-14] MEDS: INSULIN ASPART SUPPLEMENTAL SCALE SQ SCH ×4 (07:00→21:00)
[2016-04-14] MEDS ORDERED: METHYLNALTREXONE BROMIDE 12 MG/0.6 ML VIAL SQ ONE (07:15)
[2016-04-14] MEDS ORDERED: GLYCERIN ADULT 2 GM SUPP RECTAL ONE (07:15)
[2016-04-14 07:41] LABS: AUTOMATED NEUTROPHIL # 9.3 TH/MM3 (1.8-7.7); BASOPHIL # 0.1 TH/MM3 (0-0.2); BASOPHIL % 0.4 % (0.0-2.0); EOSINOPHIL # 0.3 TH/MM3 (0-0.4); EOSINOPHIL % 2.6 % (0.0-4.0); HEMATOCRIT 29.1 % (35.0-46.0); HEMO FLAGS DIFF FINAL; LYMPH % 9.7 % (9.0-44.0); LYMPHOCYTE # 1.1 TH/MM3 (1.0-4.8); MEAN CELL VOLUME 86.4 FL (80.0-100.0); MEAN CORPUSCULAR HEMOGLOBIN 27.4 PG (27.0-34.0); MEAN CORPUSCULAR HGB CONC 31.8 % (32.0-36.0); MONO % 6.9 % (0.0-8.0); NEUT % 80.4 % (16.0-70.0); PLATELET COUNT 151 TH/MM3 (150-450); RED BLOOD COUNT 3.37 MIL/MM3 (4.00-5.30); RED CELL DISTRIBUTION WIDTH 15.6 % (11.6-17.2); WHITE BLOOD COUNT 11.6 TH/MM3 (4.0-11.0)
[2016-04-14 08:09] LABS: ALKALINE PHOSPHATASE 85 U/L (45-117); ALT (GPT) 20 U/L (10-53); ANION GAP 6 MEQ/L (5-15); AST (GOT) 28 U/L (15-37); BICARBONATE 20.7 MEQ/L (21.0-32.0); BLOOD UREA NITROGEN 10 MG/DL (7-18); CHLORIDE 120 MEQ/L (98-107); GLOMERULAR FILTRATION RATE 85 ML/MIN (>89); MAGNESIUM 1.9 MG/DL (1.5-2.5); POTASSIUM 3.9 MEQ/L (3.5-5.1); SODIUM (NA) 147 MEQ/L (136-145); TOTAL BILIRUBIN ADULT 0.5 MG/DL (0.2-1.0)
[2016-04-14] MEDS: CHLORHEXIDINE 0.12% (ORAL KIT) 15 ML CUP MT SCH ×2 (08:19→23:03)
[2016-04-14] MEDS: LACTULOSE SYRUP 20 GM/30 ML CUP PO SCH ×3 (08:19→16:31)
[2016-04-14] MEDS: SENNOSIDES SYRUP 8.8 MG/5 ML CUP PO SCH ×2 (08:19→21:00)
[2016-04-14] MEDS: DOCUSATE SODIUM 100 MG CAP PO SCH ×2 (08:19→21:00)
[2016-04-14] MEDS: MIDAZOLAM 100 MG/ML INJ 100 ML IV SCH ×2 (08:20→14:10)
[2016-04-14] MEDS: fentaNYL DRIP 250 ML IV SCH ×2 (08:20→14:10)
[2016-04-14] MEDS: SODIUM CHLORIDE 0.9% FLUSH 5 ML FLUSH IVF SCH ×3 (08:20→23:02)
[2016-04-14] MEDS: ARTIFICIAL TEARS OPTH SOLN 15 ML BTL EACH EYE SCH ×3 (08:21→16:31)
[2016-04-14] MEDS ORDERED: POLYETHYLENE GLYCOL 17 GM PKG PO SCH (09:00)
[2016-04-14] MEDS: PHENYLEPHRINE INJ 40 MG in SODIUM CHLORID 0.9% 500 ML INJ 496 ML IV SCH ×2 (09:22→23:00)
--- NOTE | 2016-04-14 11:14 | HHI.NSPN ---
Subjective History Day 2 after right carotid occlusion, TPA followed by right MCA clot. She is intubated for airway protection. Her pupils remain small and she still follows commands 04/13/16 She is POD 1 after cranioplasty, right MCA infarction, sedated and ventilated, with MAP 90-100 on pressors. ICP has been in the normal range 5-10 and her right pupils remains small and reactive. 04/14/16 Day 2 after cranioplasty, day 4 after onset of infarction, sedated and ventilated. Versed added for comfort as she was awakening on propofol. Low dose mannitol and 3% saline are continued. Vitals . Vital Signs Date Time Temp Pulse Resp B/P Pulse Ox O2 Delivery O2 Flow Rate FiO2 04/14/16 09:37 100 35 04/14/16 08:00 40 04/14/16 08:00 98.1 47 16 140/80 100 04/14/16 08:00 49 04/14/16 06:00 49 04/14/16 04:00 45 04/14/16 04:00 97.5 51 16 160/50 100 04/14/16 04:00 51 04/14/16 03:57 100 45 04/14/16 02:00 50 04/14/16 00:00 45 04/14/16 00:00 98.8 48 16 172/51 98 04/14/16 00:00 48 04/13/16 23:35 98 45 04/13/16 22:00 52 04/13/16 20:53 100 45 04/13/16 20:00 45 04/13/16 20:00 56 04/13/16 20:00 98.1 56 16 150/70 100 04/13/16 18:00 55 04/13/16 16:00 45 04/13/16 16:00 56 04/13/16 16:00 99.6 56 16 148/68 95 04/13/16 15:52 95 45 04/13/16 14:00 146 04/13/16 12:00 45 04/13/16 12:00 99.6 59 16 142/64 99 04/13/16 12:00 60 04/13/16 11:32 97 45 04/13/16 04/13/16 04/14/16 15:00 23:00 07:00 Intake Total 1953 ml 1678 ml 2390 ml Output Total 595 ml 1210 ml 908 ml Balance 1358 ml 468 ml 1482 ml Physical Exam Head Head: Incision (dressed, dry) Eyes Eyes: Pupils Equal Neuro Mental Status: Sedated Marc Coma Scale Best Eye Openin - None Best Verbal: 1 - None Best Motor: 4 - Withdraws to pain Genitourinary Genitourinary: Mendez Catheter In Place Musculoskeletal Extremities Upper Extremities Deltoid Bicep Tricep HI W. Ext Right Left Lower Extremeties Ilio Quad Plantar Dorsi EHL Right Left Musculoskeletal Remarks known left hemiparesis Extremities Edema: Edematous, SCDs Objective Infectious Disease Cultures Microbiology Date/Time Procedure Status Source Growth 04/13/16 15:10 Aerobic Blood Culture Resulted Blood Peripheral Pending 04/13/16 15:10 Anaerobic Blood Culture - Final Resulted Blood Peripheral QNS - SEE AEROBE REPORT 04/13/16 18:37 Aerobic Blood Culture Received Blood Peripheral Pending 04/13/16 18:37 Anaerobic Blood Culture Received Blood Peripheral Pending Labs Laboratory Tests 04/13/16 15:14 04/13/16 23:20 04/14/16 07:00 Laboratory Tests Test 04/13/16 04/13/16 04/13/16 04/14/16 15:14 20:25 23:20 03:00 Sodium Level 146 MEQ/L 144 MEQ/L Serum Osmolality 301 MOSM/KG 302 MOSM/KG Troponin I 0.02 NG/ML LESS THAN 0.02 LESS THAN 0.02 NG/ML NG/ML B-Type Natriuretic Peptide 266 PG/ML Test 04/14/16 07:00 Sodium Level 147 MEQ/L Potassium Level 3.9 MEQ/L Chloride Level 120 MEQ/L Carbon Dioxide Level 20.7 MEQ/L Anion Gap 6 MEQ/L Blood Urea Nitrogen 10 MG/DL Creatinine 0.67 MG/DL Estimat Glomerular Filtration 85 ML/MIN Rate Random Glucose 112 MG/DL Serum Osmolality 305 MOSM/KG Calcium Level 7.5 MG/DL Phosphorus Level 1.8 MG/DL Magnesium Level 1.9 MG/DL Total Bilirubin 0.5 MG/DL Aspartate Amino Transf 28 U/L (AST/SGOT) Alanine Aminotransferase 20 U/L (ALT/SGPT) Alkaline Phosphatase 85 U/L Total Protein 5.2 GM/DL Albumin 1.6 GM/DL Assessment & Plan Diagnosis: (1) Nontraumatic acute hemorrhage of basal ganglia Plan: Plan to keep MAP 90-110 to perfuse the penumbra in the right hemisphere.She did not develop IVH or hydrocephalus but we will follow radiologically (2) Acute ischemic right middle cerebral artery (MCA) stroke Plan: She presented with good MCA flow but a right ICA occlusion below the petrous level. She now has poor right MCA flow with hemorrhagic conversion in the basal ganglia. The goal of treatment will be to maximize flow to the penumbra with hypertonic saline, low dose mannitol, fluids. Pressors were added today after intubation. A cranioplasty will be offered to the 04-13-16 Stable after cranioplasty, will keep sedated through the period of maximal brain edema 04/14/16 The ICP remains about 8 with persistent EVD drainage, 140 cc in 24 hrs. We will rescan later this week . Maximal brain edema expected for the next 2 days. Level of Visit: Post Op Mason Cannon Apr 14, 2016 11:14
[2016-04-14] MEDS: VANCOMYCIN INJ 1,500 MG in SODIUM CHLORID 0.9% 500 ML INJ 500 ML IV SCH (12:49)
[2016-04-14] MEDS: 3% SALINE INJ 500 ML IV SCH (17:19)
--- NOTE | 2016-04-14 18:42 | PD.PROCEDR ---
Procedure Note Procedure DATE: 04/14/2016 ARTERIAL LINE PLACEMENT: Right femoral artery. Ultrasound-guided INDICATION: Hemodynamic access CONSENT Informed consent for procedure was obtained. DESCRIPTION OF THE PROCEDURE The patient was placed in supine position. The skin was cleansed with Chloraprep. Additional barrier precautions included large sterile drape, sterile gloves, sterile gown, face mask, and hat. 1 % lidocaine was used for local anesthesia. Under direct ultrasound guidance and on initial attempt, the right femoral artery was accessed with an introducer needle. The guide wire was advanced. Using Seldinger technique a 20 Taiwanese 12 cm femoral artery catheter was advanced to a depth of 12 centimeters. The guide wire was removed. The single port had good return of bright red pulsatile blood and flushed easily with saline. The arterial line was secured with 2.0 silk. A sterile dressing with antibiotic disc was applied. ESTIMATED BLOOD LOSS: Minimal COMPLICATIONS: No apparent complications. Holden Haddad MD Apr 14, 2016 18:42
[2016-04-14] MEDS ORDERED: DEXMEDETOMIDINE INJ 50 ML IV SCH (20:45)
[2016-04-14] MEDS: METOPROLOL TARTRATE 5 MG/5 ML VIAL IV PUSH SCH (20:50)
[2016-04-14] MEDS ORDERED: POTASSIUM PHOSPHATE INJ 30 MMOL in SODIUM CHLOR 0.9% 250 ML INJ 250 ML IV ONE (21:00)
[2016-04-14] MEDS ORDERED: METOPROLOL TARTRATE 5 MG/5 ML VIAL IV PUSH ONE (21:00)
[2016-04-14] MEDS: MAGNESIUM SULFATE 1 GM PREMIX 100 ML IV SCH (22:59)
[2016-04-14] MEDS: levETIRAcetam INJ 500 MG in SODIUM CHLORIDE 0.9% INJ 100 ML IV SCH (22:59)
[2016-04-15] VITALS (18 sets, daily range): BP systolic 156–191; BP diastolic 44–77; PULSE 46–58; RESP 16; TEMP 96.7–98; O2SAT 98–100
[2016-04-15] MEDS: MAGNESIUM SULFATE 1 GM PREMIX 100 ML IV SCH (00:51)
[2016-04-15] MEDS: PROPOFOL 1000 MG/100 ML INJ 100 ML IV SCH ×6 (00:51→20:59)
[2016-04-15] MEDS: MIDAZOLAM 100 MG/ML INJ 100 ML IV SCH ×3 (00:51→21:00)
[2016-04-15 01:05] LABS: CALCIUM-PROTEIN CORRECTED 8.5 MG/DL (8.5-10.1); TOTAL BILIRUBIN ADULT 0.3 MG/DL (0.2-1.0)
[2016-04-15] MEDS: fentaNYL DRIP 250 ML IV SCH ×3 (02:44→21:00)
[2016-04-15] MEDS: AZTREONAM INJ 1,000 MG in SODIUM CHLORIDE 0.9% INJ 100 ML IV SCH ×3 (02:45→19:04)
[2016-04-15] MEDS: metroNIDAZOLE 500 MG INJ 100 ML IV SCH ×3 (02:45→18:45)
[2016-04-15] MEDS: METOPROLOL TARTRATE 5 MG/5 ML VIAL IV PUSH SCH ×5 (02:46→21:00)
[2016-04-15] MEDS: CHLORHEXIDINE GLUCONATE 2 % 1 PACK (2 CLOTHS) TOP SCH (04:00)
[2016-04-15] MEDS: INSULIN ASPART SUPPLEMENTAL SCALE SQ SCH ×2 (07:00→18:00)
[2016-04-15 07:04] LABS: BASOPHIL % 0.3 % (0.0-2.0); EOSINOPHIL # 0.3 TH/MM3 (0-0.4); HEMATOCRIT 27.5 % (35.0-46.0); HEMO FLAGS DIFF FINAL; LYMPH % 8.6 % (9.0-44.0); LYMPHOCYTE # 0.8 TH/MM3 (1.0-4.8); MEAN CELL VOLUME 86.5 FL (80.0-100.0); MEAN CORPUSCULAR HGB CONC 32.4 % (32.0-36.0); NEUT % 82.1 % (16.0-70.0); PLATELET COUNT 163 TH/MM3 (150-450); RED BLOOD COUNT 3.18 MIL/MM3 (4.00-5.30); RED CELL DISTRIBUTION WIDTH 15.6 % (11.6-17.2); WHITE BLOOD COUNT 9.8 TH/MM3 (4.0-11.0)
[2016-04-15] MEDS: MANNITOL 12.5 GM/50 ML VIAL IV SCH ×3 (08:00→19:07)
[2016-04-15] MEDS: DOCUSATE SODIUM 100 MG CAP PO SCH ×2 (09:00→20:59)
[2016-04-15] MEDS: SENNOSIDES SYRUP 8.8 MG/5 ML CUP PO SCH ×2 (09:00→20:59)
[2016-04-15] MEDS: SODIUM CHLORIDE 0.9% FLUSH 5 ML FLUSH IVF SCH ×3 (09:00→21:00)
[2016-04-15] MEDS: ARTIFICIAL TEARS OPTH SOLN 15 ML BTL EACH EYE SCH ×3 (09:01→18:00)
[2016-04-15] MEDS: CHLORHEXIDINE 0.12% (ORAL KIT) 15 ML CUP MT SCH ×2 (09:01→20:59)
[2016-04-15] MEDS: levETIRAcetam INJ 500 MG in SODIUM CHLORIDE 0.9% INJ 100 ML IV SCH ×2 (09:33→20:59)
--- NOTE | 2016-04-15 10:20 | HHI.NSPN ---
Subjective History Day 2 after right carotid occlusion, TPA followed by right MCA clot. She is intubated for airway protection. Her pupils remain small and she still follows commands 04/13/16 She is POD 1 after cranioplasty, right MCA infarction, sedated and ventilated, with MAP 90-100 on pressors. ICP has been in the normal range 5-10 and her right pupils remains small and reactive. 04/14/16 Day 2 after cranioplasty, day 4 after onset of infarction, sedated and ventilated. Versed added for comfort as she was awakening on propofol. Low dose mannitol and 3% saline are continued. 04/15/16 Day 3 after cranioplasty,, day 5 from CVA onset, stable ICP and hemodynamically. Follow up CT in the am. Vitals . Vital Signs Date Time Temp Pulse Resp B/P Pulse Ox O2 Delivery O2 Flow Rate FiO2 04/15/16 08:49 99 35 04/15/16 06:00 53 04/15/16 04:01 99 35 04/15/16 04:00 55 04/15/16 04:00 98.0 56 16 182/49 98 04/15/16 04:00 35 04/15/16 02:00 56 04/15/16 00:56 98 35 04/15/16 00:00 58 04/15/16 00:00 97.9 58 16 160/44 99 04/15/16 00:00 35 04/14/16 22:00 60 04/14/16 20:01 100 35 04/14/16 20:00 86 04/14/16 20:00 35 04/14/16 20:00 99.6 86 16 142/50 100 04/14/16 18:00 72 04/14/16 16:00 35 04/14/16 16:00 100.1 67 16 122/72 95 04/14/16 16:00 70 04/14/16 15:57 93 35 04/14/16 14:00 65 04/14/16 12:00 98.4 97 16 167/66 97 04/14/16 12:00 74 04/14/16 12:00 35 04/14/16 11:57 97 35 04/14/16 04/14/16 04/15/16 15:00 23:00 07:00 Intake Total 1221 ml 1836 ml 3257 ml Output Total 745 ml 583 ml 653 ml Balance 476 ml 1253 ml 2604 ml Intracranial Pressure (mmHg): 8 Physical Exam Head Head: Incision (dry) Eyes Eyes: Pupils Equal Neuro Mental Status: Sedated Pupils: Reactive Bilaterally Marc Coma Scale Best Eye Openin - None Best Verbal: 1 - None Best Motor: 1 - None Cardiac Cardiac: Regular Rate & Rhythm Respiratory Respiratory: CTA Gastrointestinal Gastrointestinal: Soft Genitourinary Genitourinary: Mendez Catheter In Place Musculoskeletal Extremities Upper Extremities Deltoid Bicep Tricep HI W. Ext Right Left Lower Extremeties Ilio Quad Plantar Dorsi EHL Right Left Musculoskeletal Remarks known left hemiparesis, slight flexion of lower extremities to stimulation Extremities Edema: Edematous, SCDs Objective Labs Laboratory Tests 04/14/16 11:00 04/14/16 16:00 04/15/16 00:10 04/15/16 06:35 Laboratory Tests Test 04/14/16 04/14/16 04/15/16 04/15/16 11:00 16:00 00:10 06:35 Sodium Level 146 MEQ/L 148 MEQ/L 149 MEQ/L 152 MEQ/L Serum Osmolality 311 MOSM/KG 311 MOSM/KG 311 MOSM/KG Potassium Level 4.0 MEQ/L Chloride Level 123 MEQ/L Carbon Dioxide Level 19.0 MEQ/L Anion Gap 7 MEQ/L Blood Urea Nitrogen 11 MG/DL Creatinine 0.67 MG/DL Estimat Glomerular Filtration 85 ML/MIN Rate Random Glucose 115 MG/DL Calcium Level 7.3 MG/DL Protein Corrected Calcium 8.5 MG/DL Phosphorus Level 2.5 MG/DL Magnesium Level 2.0 MG/DL Total Bilirubin 0.3 MG/DL Aspartate Amino Transf 24 U/L (AST/SGOT) Alanine Aminotransferase 18 U/L (ALT/SGPT) Alkaline Phosphatase 82 U/L Total Creatine Kinase 151 U/L Total Protein 5.0 GM/DL Albumin 1.5 GM/DL Assessment & Plan Diagnosis: (1) Nontraumatic acute hemorrhage of basal ganglia Plan: Plan to keep MAP 90-110 to perfuse the penumbra in the right hemisphere.She did not develop IVH or hydrocephalus but we will repeat the head CT in the am (2) Acute ischemic right middle cerebral artery (MCA) stroke Plan: She presented with good MCA flow but a right ICA occlusion below the petrous level. She now has poor right MCA flow with hemorrhagic conversion in the basal ganglia. The goal of treatment will be to maximize flow to the penumbra with hypertonic saline, low dose mannitol, fluids. Pressors were added today after intubation. A cranioplasty will be offered to the 04-13-16 Stable after cranioplasty, will keep sedated through the period of maximal brain edema 04/14/16 The ICP remains about 8 with persistent EVD drainage, 140 cc in 24 hrs. We will rescan later this week . Maximal brain edema expected for the next 2 days. 04/15/16 The EVD drainage has improved to 161 cc/day and the HORTENSIA drainage has decreased to 45 cc/day indicating decreased shift right to left. The sodium is 152 and the hypertonic saline is on hold. CT of the head in the morning is pending. Level of Visit: Post Op Mason Cannon Apr 15, 2016 10:20
[2016-04-15] MEDS: VANCOMYCIN INJ 1,500 MG in SODIUM CHLORID 0.9% 500 ML INJ 500 ML IV SCH (12:35)
[2016-04-15] MEDS ORDERED: FUROSEMIDE 20 MG/2 ML VIAL IV PUSH ONE (14:30)
--- NOTE | 2016-04-15 14:34 | HHI.CCPN ---
Subjective Remarks/Hospital Course 80-year-old female. Date of admission 04/10/2016. 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 She presents to the [place] ED with acute onset from normocytic health that 10 AM this morning with left-sided weakness involving left arm/left leg. E VAC was called and a stroke was notified. NIH score was 7. addition with deficits involving dysarthria, right gaze preference, left facial palsy, dense hemiparesis left arm and leg. Normal sensation. Reflexes are equal and symmetric. NIH was route 7. CT of the head revealed no acute intracranial findings. CTA of the head and neck revealed dense right ICA occlusion. The case was discussed with Dr. Dozier with interventional radiology and the patient is not indicated for intervention given the complete occlusion of her right ICA. Patient was seen by Dr. Pham and alteplase was provided after benefits and risks discussed. Patient was hypertensive Cardene drip was initiated. Post alteplase infusion patient became more altered with worsening weakness to her left upper and lower extremity. Repeat CT head revealed no acute bleeding. NIH score is currently 17. She is also noted to have tremors involving her right upper lobe extremity. Neurology was notified and Keppra infusion was provided 1000 mg and stat EEG ordered. 04/11: Continues to have left-sided weakness. Complaining of headache. Episode of SVT resolved after receiving 10 mg IV Lopressor. Currently resting in bed complaining of headache and back pain. 04/12: Intubated last night secondary to altered mental status. After intubation, spontaneously moving left upper lobe extremity. Tube feeds are at goal. Episodes of bigeminy on EKG overnight. Perfusing well. Off Cardene drip. 04/13/16: Status post right craniostomy with left EVD placement secondary to cytotoxic edema right MCA CVA distribution. ICPs around 1. Low-grade temperatures 101.1. Currently 100.3. Resuming tube feeds. No bowel movement. 04/14/16: Tmax 99.8. Currently afebrile. Currently in sinus bradycardia. Likely secondary to inadequate sedation.. She was quite tachycardic after intubation and this did not resolve until sedation adequate. Episodes of sinus tach associated with agitation. Resolved. Tolerating tube feeding. No bowel movement. Subjective 04/15/16: Episode of SVT overnight 2 resolved with IV Lopressor. Currently in sinus bradycardia. Positive BM. Sedated on the ventilator per neurosurgery's recommendation. No sedation vacation. Objective Vital Signs Date Time Temp Pulse Resp B/P Pulse Ox O2 Delivery O2 Flow Rate FiO2 04/15/16 13:19 100 35 04/15/16 06:00 53 04/15/16 04:00 98.0 16 182/49 04/11/16 19:00 Mechanical Ventilator 04/11/16 09:41 4.00 Intake and Output 04/14/16 04/14/16 04/15/16 08:00 16:00 00:00 Intake Total 2390 ml 1221 ml 1836 ml Output Total 908 ml 745 ml 583 ml Balance 1482 ml 476 ml 1253 ml Result Diagram: 04/15/16 0635 04/15/16 0635 Other Results Microbiology Date/Time Procedure Status Source Growth 04/13/16 18:37 Aerobic Blood Culture - Preliminary Resulted Blood Peripheral NO GROWTH IN 2 DAYS 04/13/16 18:37 Anaerobic Blood Culture - Preliminary Resulted Blood Peripheral NO GROWTH IN 2 DAYS 04/13/16 11:00 Urine Culture - Final Complete Urine Catheterized Urine NO GROWTH IN 48 HOURS. 04/13/16 09:30 Gram Stain - Final Complete Sputum Endotracheal 04/13/16 09:30 Sputum Culture - Final Complete Sputum Endotracheal RARE GROWTH NORMAL RESPIRATORY [facility] Imaging Last Impressions Chest X-Ray 04/14/16 06 Signed Impressions: Service Date/Time: Thursday, April 14, 2016 05:02 - CONCLUSION: Unchanged left lower lobe infiltrate. Bashir Dozier Jr., MD Head CT 04/13/16 0600 Signed Impressions: Service Date/Time: Wednesday, April 13, 2016 04:49 - CONCLUSION: Status post craniotomy with the residual placement of a subdural drain. Severe cytotoxic edema throughout the right cerebral hemisphere with a very dense right middle cerebral artery. There is now some mixed density to the medial left temporal lobe with low-grade persistent shift from [id number] at the level of the third ventricle. No significant new intraparenchymal hemorrhage Zion Marin MD Head Magnetic Resonance Angiography 04/11/16 0000 Signed Impressions: Service Date/Time: Monday, April 11, 2016 13:17 - CONCLUSION: Significant new finding of total absence of flow in the right middle cerebral artery and minimal flow in the right A1 segment. This indicates total occlusion . Significant atherosclerotic high grade or complete occlusion of the internal carotid on the right free siphon and in the Mauro region Audi Schneider MD Brain MRI 04/11/16 0000 Signed Impressions: Service Date/Time: Monday, April 11, 2016 13:17 - CONCLUSION: 1. Acute infarction involving the right MCA territory. 2. Focal acute hemorrhage involving the right basal ganglia. 3. Cerebral edema with mass effect and midline shift to the left by approximately 5 - 6 mm. Marlon Darnell MD Neck CTA 04/10/16 1106 Signed Impressions: Service Date/Time: March 11:16 - CONCLUSION: Complete occlusion of the extracranial portion of the right ICA. The left carotid shows 20%% stenosis. Both vertebral arteries are patent. Bashir Dozier Jr., MD Head CTA 04/10/16 1100 Signed Impressions: Service Date/Time: March 11:16 - CONCLUSION: Occlusion of the Mauro portion of the right ICA with reconstitution. There is good collateralization of the right middle cerebral and right anterior cerebral territories. I spoke with Dr. Pham at the time of the scan. Bashir Dozier Jr., MD Objective Remarks GENERAL: 80-year-old female, critically ill currently resting in bed in no acute distress currently orotracheally intubated SKIN: Warm and dry. HEAD: Left EVD in place. Status post right craniostomy EYES: Pupils equal and round about 1 mm bilaterally and reactive to 2 mm. No scleral icterus. No injection or drainage. ENT: No nasal bleeding or discharge. Mucous membranes pink and moist. NECK: Trachea midline. No JVD. CARDIOVASCULAR: Bradycardic, RR. S1, S2. No S4. Murmurs not appreciated RESPIRATORY: Distant breath sounds. Few crackles appreciated in bilateral lower lobes. Breath sounds equal bilaterally. GASTROINTESTINAL: Abdomen soft, non-tender, obese. Hypoactive bowel sounds. Hepatic and splenic margins not palpable. MUSCULOSKELETAL: Extremities one plus nonpitting edema bilateral lower extremities. No obvious deformities. NEUROLOGICAL: Sedated with propofol, Versed and Fentanyl on the ventilator.. Withdraws to pain right upper and lower extremity. Minimal left upper and lower extremity. Upgoing toes. 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 Currently on propofol 50 олег per kilo per minute/fentanyl drip at 250 g per hour for sedation/analgesia while intubated Goal RASS -2 Daily sedation vacation on hold until Neurosurgery case Seen by neurology/Dr. Pham CT head on admission 2 revealed no acute findings CTA head and neck revealed occlusion right ICA with good collateral flows the right MCA and FLAVIA. Not amendable interventricular Dr. Dozier/CORINNA Received 90 mg total alteplase ED. Echocardiogram revealed EF 50-55%. NATANAEL 58 mmHg. No regional wall motion abnormality. No obvious source of cardiac emboli CT head 24 hours post alteplase 04/11 revealed right basal ganglia hemorrhage with right MCA to extubation CVA evolving infarct. MRA brain revealed right MCA distribution with occlusion not seen previously on CT. CT head 04/12 revealed evolving right MCA CVA, right basal ganglia hemorrhage 2.6 x 1.8 cm in the right left shift by [address] was asked to revealed status post right cranioplasty with left EVD placement. Significant cytotoxic edema right MCA distribution/palpation. Continue right to left shift. HORTENSIA - 45 cc SS EVD - 161 cc clear - -10 cm H2O Currently off 3% saline at 30 cc/hr/mannitol 12.5 % q8h. Current sodium 152 serum osm 311 CV: Right internal carotid artery occlusion - not amendable to intervention Hypertension Dyslipidemia Currently on Gen-Synephrine drip to maintain MAP 90-110 Home medications include Avalide 300/12.5 one tablet by mouth, daily and nisoldipine 20 mg by mouth daily Elevated HDL, LDL and triglycerides. Patient has multiple drug allergies to lipid lowering agents 2-D echocardiogram revealed EF of 50-55%. No regional wall motion abnormality. Elevated pulmonary pressures 58 mmHg. Resp: Acute Respiratory failure secondary to AMS PRVC 16 ~ 550 tidal volume, iT 1.0. PEEP 5. 35% FiO2 Ventilator bundle As needed bronchodilator therapy Holding spontaneous breathing trials until okay with neurosurgery Chest x-ray 04/14 revealed possible left lower lobe infiltrate versus effusion. GI: Nausea Gastroesophageal reflux disease Continue Protonix 40 mg by mouth/IV daily/home medication Vital 1.5 at 45 cc an hour. Colace/SenokotMiraLAX for bowel regimen And lactulose 4 times a day until BM. Glycerin suppository and Relistor 1 today Accurate I's and O's in a critically ill patient Endo: History of hypothyroidism Normal TSH. Patient is currently on any supplementation medication Sliding scale insulin Accu-Cheks to maintain euglycemia. Low regimen Renal: Creatinine currently within normal limits. Heme: CBC within normal limits. Coags within normal limits. Status post alteplase. Recheck CBC in a.m. ID: Monitor for infection Pertinent cultures 04/13 - blood cultures 2 - pending 04/13 - urine - pending 04/13 - sputum - pending Day #3 vancomycin, aztreonam and Flagyl possible aspirationinfectious process FEN: Replace electrolytes as clinically indicated MSK: Osteoarthritis history of chronic back pain due to sacroiliac joint arthritis status post injections History recent lumbar epidural steroid injection PT/OT evaluate and treat Access Right IJ CVL day #4 Prophylaxis - GI - Protonix - DVT - status post alteplase. DVT prophylaxis when okay with neurosurgery Critical Care: The total critical care time was 35 minutes. Time to perform other separately billable procedures was not included in the critical care time. Holden Haddad MD Apr 15, 2016 14:34
[2016-04-15] MEDS: ALBUMIN HUMAN 25% 25 GM/100 ML BAGP IV SCH (14:51)
[2016-04-15 15:39] LABS: BLOOD GAS CARBOXYHEMOGLOBIN 0.8 % (0-4); BLOOD GAS HCO3 15 mmol/L (22-26); BLOOD GAS METHEMOGLOBIN 0.7 % (0-2); BLOOD GAS O2 HGB SATURATION 97 % (90-100); BLOOD GAS PCO2 25 mmHg (38-42); BLOOD GAS PO2 132 mmHg (61-120); BLOOD GAS TOTAL HGB 13.1 G/DL (12.0-16.0); CRITICAL VALUE YES; OXYGEN DEVICE VENTILATOR; TEMP CORR TO 98.6
[2016-04-15 15:40] LABS: DRAW SITE ART LINE; FIO2 35 %; STAT NO
--- NOTE | 2016-04-15 20:09 | HHI.PR ---
Review/Management Diagnosis large right MCA distribution stroke with edema and mass effect and basal ganglia hemorrhage, s/p surgery for edema and mass effect right complete internal carotid artery occlusion elevated LDL Diagnosis/Plan: Subjective Subjective Comments remains intubated, s/p right cranioplasty, evd drain Active Medications Current Medications Medications (Trade) Dose Ordered Sig/Beronica Route Start Time Stop Time Status Last Admin (NS Flush) 2 ml BID IVF 04/10/16 21:00 04/15/16 09:00 (NS Flush) 2 ml UNSCH PRN IVF 04/10/16 13:30 (Trandate Inj) 10 mg Q1HR PRN IV 04/10/16 13:30 04/10/16 17:58 (D50w (Vial) Inj) 25 ml UNSCH PRN IV PUSH 04/10/16 13:30 (Glucagon Inj) 1 mg UNSCH PRN IM/SQ 04/10/16 13:30 (Tylenol) 650 mg Q6H PRN PO 04/10/16 15:30 (Tears Naturale Opth Soln) 1 drop TID EACH EYE 04/10/16 18:00 04/15/16 18:00 (Colace) 100 mg BID PO 04/10/16 21:00 04/14/16 08:19 Miscellaneous Information 1 Q361D XX 04/10/16 15:30 (Chlorhexidine 2% Cloth) 3 pack Taper DAILY@04 TOP 04/11/16 04:00 04/07/17 03:59 04/13/16 04:00 (Chlorhexidine 2% Cloth) 3 pack UNSCH PRN TOP 04/10/16 15:30 (Apresoline Inj) 10 mg Q1HR PRN IV PUSH 04/10/16 16:30 (Nitroglycerin 2% Oint) 2 inch Q6HR PRN TOPICAL 04/10/16 16:30 (Zofran Inj) 4 mg Q6H PRN IV PUSH 04/10/16 20:00 04/10/16 20:22 (Lopressor Inj) 10 mg STAT IV PUSH 04/11/16 12:45 04/11/16 16:26 (Dilaudid Pf Inj) 0.5 mg Q4H PRN IV PUSH 04/11/16 14:00 04/13/16 14:59 (NS Flush) DAILY IVF 04/11/16 15:00 IV Flush UNSCH PRN IVF 04/11/16 15:00 Sodium Chloride 500 ml @ 30 mls/hr CONTINUOUS IV 04/11/16 15:00 Hold 04/14/16 17:19 Potassium Chloride 100 ml @ 50 mls/hr Q2H PRN IV 04/11/16 15:00 04/11/16 16:21 (KCl 20 Meq Premix Inj) 100 ml @ 50 mls/hr Q2H PRN IV 04/11/16 15:00 Potassium Chloride 40 meq 40 meq UNSCH PRN PO/TUBE 04/11/16 15:00 Potassium Chloride 100 ml @ 25 mls/hr UNSCH PRN IV 04/11/16 15:00 Potassium Chloride 100 ml @ 50 mls/hr Q2H PRN IV 04/11/16 15:00 (Magnesium Sulfate Inj/NS Inj) 100 ml @ 50 mls/hr UNSCH PRN IV 04/11/16 15:00 Magnesium Oxide 800 mg 800 mg UNSCH PRN PO 04/11/16 15:00 (Magnesium Sulfate Inj/NS Inj) 100 ml @ 50 mls/hr UNSCH PRN IV 04/11/16 15:00 Potassium Phosphate 2000 mg 2,000 mg Q4H PRN PO 04/11/16 15:00 (Sodium Phosphate Inj/NS 250 ml Inj) 250 ml @ 42 mls/hr UNSCH PRN IV 04/11/16 15:00 (KCl 40 Meq/30 ml Liq) 40 meq UNSCH PRN PO/TUBE 04/11/16 15:00 Potassium Phosphate 2000 mg 2,000 mg UNSCH PRN PO/TUBE 04/11/16 15:00 (Potassium Phosphate Inj/NS 250 ml Inj) 260 ml @ 42 mls/hr UNSCH PRN IV 04/11/16 15:00 Mannitol 12.5 gm 12.5 gm Q8H IV 04/11/16 16:00 04/15/16 19:07 (Cardene Inj/NS 250 ml Inj) 260 ml @ 0 mls/hr TITRATE IV 04/11/16 16:00 04/11/16 16:51 Chlorhexidine Gluconate 15 ml 15 ml BID@08,20 MT 04/11/16 20:00 04/15/16 09:01 (Diprivan 1000 Mg/100ml Inj) 100 ml @ 0 mls/hr TITRATE IV 04/11/16 17:00 04/15/16 16:48 Sennosides 8.8 mg 8.8 mg BID PO 04/12/16 09:00 04/15/16 09:00 Pharmacy Profile Note 0 ml @ 0 mls/hr UNSCH OTHER 04/13/16 10:30 Aztreonam 1000 mg/ Sodium Chloride 100 ml @ 200 mls/hr Q8H IV 04/13/16 11:00 04/15/16 19:04 Metronidazole 100 ml @ 100 mls/hr Q8H IV 04/13/16 11:00 04/15/16 18:45 (Vancomycin Inj/ NS 500 ml Inj) 515 ml @ 250 mls/hr Q24H IV 04/13/16 13:00 04/15/16 12:35 Miscellaneous Information SPECIFIC LAB TO BE DRAWN:VANCO TROUGH DATE... ONCE ONCE XX 04/16/16 12:45 04/16/16 12:46 Phenylephrine HCl 40 mg/Sodium Chloride 500 ml @ 0 mls/hr TITRATE IV 04/13/16 20:20 04/14/16 23:00 (Levophed-Dextrose Drip) 250 ml @ 0 mls/hr TITRATE IV 04/14/16 06:45 (Brethine Inj) 1 mg UNSCH PRN SQ 04/14/16 06:45 Glycerin 2 gm 2 gm DAILY PRN RECTAL 04/14/16 06:45 04/14/16 10:06 Levetriacetam 500 mg/Sodium Chloride 105 ml @ 420 mls/hr Q12HR IV 04/14/16 21:00 04/15/16 09:33 Midazolam HCl 100 ml @ 0 mls/hr TITRATE IV 04/14/16 20:45 04/15/16 10:20 Fentanyl Citrate 250 ml @ 0 mls/hr TITRATE IV 04/14/16 20:45 04/15/16 16:48 (Precedex Inj) 50 ml @ 0 mls/hr TITRATE IV 04/14/16 20:45 (Lopressor Inj) 5 mg Q6H IV PUSH 04/14/16 21:00 04/15/16 14:45 (Albumin 25% Inj) 25 gm Q12H IV 04/15/16 14:30 04/17/16 02:31 04/15/16 14:51 (NovoLOG SUPPLEMENTAL SCALE) 1 Q6HR SQ 04/15/16 18:00 Allergies Allergies Coded Allergies Achromycin V (Verified Allergy, Severe, 04/10/16) Michelle (Verified Allergy, Severe, 04/10/16) Augmentin (Verified Allergy, Severe, 04/10/16) Capoten (Verified Allergy, Severe, 04/10/16) Diovan (Verified Allergy, Severe, 04/10/16) Enzymes Oral (Verified Allergy, Severe, 04/10/16) Lipitor (Verified Allergy, Severe, 04/10/16) Procardia (Verified Allergy, Severe, 04/10/16) Rynatan (Verified Allergy, Severe, 04/10/16) Zetia (Verified Allergy, Severe, 04/10/16) Zithromax (Verified Allergy, Severe, 04/10/16) Zocor (Verified Allergy, Severe, 04/10/16) Aspirin (Verified Allergy, Mild, 04/10/16) Cipro (Verified Allergy, Mild, 04/10/16) Codeine (Verified Allergy, Mild, 04/10/16) Keflex (Verified Allergy, Mild, 04/10/16) Morphine (Verified Allergy, Mild, 04/10/16) Blue Dyes - Various (Unverified Allergy, Unknown, Anaphylaxis, 04/10/16) Clonidine (Unverified Allergy, Unknown, itching, 04/10/16) Exam I&O / VS 04/14/16 04/14/16 04/15/16 15:00 23:00 07:00 Intake Total 1221 ml 1836 ml 3257 ml Output Total 745 ml 583 ml 653 ml Balance 476 ml 1253 ml 2604 ml Intake IV Total 928 ml 1600 ml 2933 ml Tube Feeding 173 ml 206 ml 324 ml Tube Irrigant 120 ml 30 ml Output Urine Total 675 ml 525 ml 575 ml Drainage Total 70 ml 58 ml 78 ml # Bowel Movements 1 Vital Signs Date Time Temp Pulse Resp B/P Pulse Ox O2 Delivery O2 Flow Rate FiO2 04/15/16 18:00 52 04/15/16 16:00 96.9 46 16 191/76 100 04/15/16 16:00 46 04/15/16 16:00 35 04/15/16 15:18 100 35 04/15/16 14:00 48 04/15/16 13:19 100 35 04/15/16 12:00 52 04/15/16 12:00 96.7 52 16 187/55 100 04/15/16 12:00 35 04/15/16 10:00 52 04/15/16 08:49 99 35 04/15/16 08:00 96.9 51 16 185/77 100 04/15/16 08:00 35 04/15/16 08:00 51 04/15/16 06:00 53 04/15/16 04:01 99 35 04/15/16 04:00 55 04/15/16 04:00 98.0 56 16 182/49 98 04/15/16 04:00 35 04/15/16 02:00 56 04/15/16 00:56 98 35 04/15/16 00:00 58 04/15/16 00:00 97.9 58 16 160/44 99 04/15/16 00:00 35 04/14/16 22:00 60 Exam Comments intubated does not respond pupils 2 mm bilateral reactive EOM limited to occulocephalics No spontaneous limb movement, Objective Micro and Labs Laboratory Tests Test 04/15/16 04/15/16 04/15/16 04/15/16 00:10 06:35 15:24 16:55 Sodium Level 149 152 149 Potassium Level 4.0 Chloride Level 123 Carbon Dioxide Level 19.0 Anion Gap 7 Blood Urea Nitrogen 11 Creatinine 0.67 Estimat Glomerular Filtration 85 Rate Random Glucose 115 Serum Osmolality 311 311 309 Calcium Level 7.3 Protein Corrected Calcium 8.5 Phosphorus Level 2.5 Magnesium Level 2.0 Total Bilirubin 0.3 Aspartate Amino Transf 24 (AST/SGOT) Alanine Aminotransferase 18 (ALT/SGPT) Alkaline Phosphatase 82 Total Creatine Kinase 151 Total Protein 5.0 Albumin 1.5 White Blood Count 9.8 Red Blood Count 3.18 Hemoglobin 8.9 Hematocrit 27.5 Mean Corpuscular Volume 86.5 Mean Corpuscular Hemoglobin 28.0 Mean Corpuscular Hemoglobin 32.4 Concent Red Cell Distribution Width 15.6 Platelet Count 163 Mean Platelet Volume 10.4 Neutrophils (%) (Auto) 82.1 Lymphocytes (%) (Auto) 8.6 Monocytes (%) (Auto) 6.0 Eosinophils (%) (Auto) 3.0 Basophils (%) (Auto) 0.3 Neutrophils # (Auto) 8.0 Lymphocytes # (Auto) 0.8 Monocytes # (Auto) 0.6 Eosinophils # (Auto) 0.3 Basophils # (Auto) 0.0 CBC Comment DIFF FINAL Differential Comment Blood Gas Puncture Site ART LINE Blood Gas Patient Temperature 98.6 Blood Gas HCO3 15 Blood Gas Base Excess -9.0 Blood Gas Oxygen Saturation 97 Arterial Blood pH 7.40 Arterial Blood Partial 25 Pressure CO2 Arterial Blood Partial 132 Pressure O2 Arterial Blood Oxygen Content 18.0 Arterial Blood 0.8 Carboxyhemoglobin Arterial Blood Methemoglobin 0.7 Blood Gas Hemoglobin 13.1 Oxygen Delivery Device VENTILATOR Blood Gas Ventilator Setting Blood Gas Inspired Oxygen 35 Date/Time Procedure Status Source Growth 04/13/16 18:37 Aerobic Blood Culture - Preliminary Resulted Blood Peripheral NO GROWTH IN 2 DAYS 04/13/16 18:37 Anaerobic Blood Culture - Preliminary Resulted Blood Peripheral NO GROWTH IN 2 DAYS 04/13/16 11:00 Urine Culture - Final Complete Urine Catheterized Urine NO GROWTH IN 48 HOURS. 04/13/16 09:30 Gram Stain - Final Complete Sputum Endotracheal 04/13/16 09:30 Sputum Culture - Final Complete Sputum Endotracheal RARE GROWTH NORMAL RESPIRATORY OTTO Reji Pham PhD Apr 15, 2016 20:09 Reji Pham PhD Apr 15, 2016 20:09
[2016-04-15] MEDS: PHENYLEPHRINE INJ 40 MG in SODIUM CHLORID 0.9% 500 ML INJ 496 ML IV SCH (21:37)
[2016-04-16] VITALS (20 sets, daily range): BP systolic 149–197; BP diastolic 48–87; PULSE 49–70; RESP 16; TEMP 97.7–99.5; O2SAT 93–100
[2016-04-16] MEDS: PROPOFOL 1000 MG/100 ML INJ 100 ML IV SCH ×5 (00:51→20:00)
[2016-04-16] MEDS: MANNITOL 12.5 GM/50 ML VIAL IV SCH ×2 (00:51→08:42)
[2016-04-16 00:59] LABS: ALT (GPT) 17 U/L (10-53); ANION GAP 11 MEQ/L (5-15); AST (GOT) 20 U/L (15-37); BICARBONATE 18.5 MEQ/L (21.0-32.0); BLOOD UREA NITROGEN 12 MG/DL (7-18); CHLORIDE 123 MEQ/L (98-107); GLOMERULAR FILTRATION RATE 90 ML/MIN (>89); MAGNESIUM 1.9 MG/DL (1.5-2.5); POTASSIUM 3.7 MEQ/L (3.5-5.1); SODIUM (NA) 152 MEQ/L (136-145)
[2016-04-16 01:02] LABS: ALKALINE PHOSPHATASE 75 U/L (45-117); TOTAL BILIRUBIN ADULT 0.3 MG/DL (0.2-1.0)
[2016-04-16] MEDS: ALBUMIN HUMAN 25% 25 GM/100 ML BAGP IV SCH ×2 (02:29→13:23)
[2016-04-16] MEDS: metroNIDAZOLE 500 MG INJ 100 ML IV SCH ×3 (02:30→17:45)
[2016-04-16] MEDS: AZTREONAM INJ 1,000 MG in SODIUM CHLORIDE 0.9% INJ 100 ML IV SCH ×3 (02:30→17:44)
[2016-04-16] MEDS: METOPROLOL TARTRATE 5 MG/5 ML VIAL IV PUSH SCH ×4 (03:00→20:55)
[2016-04-16] MEDS: CHLORHEXIDINE GLUCONATE 2 % 1 PACK (2 CLOTHS) TOP SCH (04:00)
[2016-04-16] MEDS: INSULIN ASPART SUPPLEMENTAL SCALE SQ SCH ×4 (06:00→17:43)
[2016-04-16 06:30] LABS: AUTOMATED NEUTROPHIL # 6.9 TH/MM3 (1.8-7.7); BASOPHIL % 0.4 % (0.0-2.0); EOSINOPHIL # 0.2 TH/MM3 (0-0.4); EOSINOPHIL % 2.4 % (0.0-4.0); HEMATOCRIT 26.1 % (35.0-46.0); HEMO FLAGS DIFF FINAL; LYMPH % 7.6 % (9.0-44.0); LYMPHOCYTE # 0.6 TH/MM3 (1.0-4.8); MEAN CELL VOLUME 86.5 FL (80.0-100.0); MEAN CORPUSCULAR HEMOGLOBIN 28.2 PG (27.0-34.0); MEAN CORPUSCULAR HGB CONC 32.6 % (32.0-36.0); MONO % 7.4 % (0.0-8.0); NEUT % 82.2 % (16.0-70.0); PLATELET COUNT 163 TH/MM3 (150-450); RED BLOOD COUNT 3.02 MIL/MM3 (4.00-5.30); RED CELL DISTRIBUTION WIDTH 15.4 % (11.6-17.2); WHITE BLOOD COUNT 8.4 TH/MM3 (4.0-11.0)
[2016-04-16] MEDS: CHLORHEXIDINE 0.12% (ORAL KIT) 15 ML CUP MT SCH ×2 (08:00→20:53)
[2016-04-16] MEDS: levETIRAcetam INJ 500 MG in SODIUM CHLORIDE 0.9% INJ 100 ML IV SCH ×2 (08:41→20:54)
[2016-04-16] MEDS: SENNOSIDES SYRUP 8.8 MG/5 ML CUP PO SCH ×2 (08:43→20:55)
[2016-04-16] MEDS: ARTIFICIAL TEARS OPTH SOLN 15 ML BTL EACH EYE SCH ×3 (08:43→17:15)
[2016-04-16] MEDS: SODIUM CHLORIDE 0.9% FLUSH 5 ML FLUSH IVF SCH ×3 (08:43→20:55)
[2016-04-16] MEDS: DOCUSATE SODIUM 100 MG CAP PO SCH ×2 (08:43→20:55)
[2016-04-16] MEDS: MIDAZOLAM 100 MG/ML INJ 100 ML IV SCH ×2 (09:37→20:00)
[2016-04-16] MEDS ORDERED: PHARMACY ORDERED LAB XX ONE (12:45)
--- NOTE | 2016-04-16 13:18 | HHI.NSPN ---
Subjective History Day 2 after right carotid occlusion, TPA followed by right MCA clot. She is intubated for airway protection. Her pupils remain small and she still follows commands 04/13/16 She is POD 1 after cranioplasty, right MCA infarction, sedated and ventilated, with MAP 90-100 on pressors. ICP has been in the normal range 5-10 and her right pupils remains small and reactive. 04/14/16 Day 2 after cranioplasty, day 4 after onset of infarction, sedated and ventilated. Versed added for comfort as she was awakening on propofol. Low dose mannitol and 3% saline are continued. 04/15/16 Day 3 after cranioplasty,, day 5 from CVA onset, stable ICP and hemodynamically. Follow up CT in the am. 04/16/16 Day 6 after CVA, Day 4 after cranioplasty, very stable ICP, no pupillary changes. CT is still pending. EVD is at 7 drained on 57 cc in 24 hrs Vitals . Vital Signs Date Time Temp Pulse Resp B/P Pulse Ox O2 Delivery O2 Flow Rate FiO2 04/16/16 12:05 96 35 04/16/16 10:00 60 04/16/16 08:05 98 35 04/16/16 08:00 98.1 66 16 197/58 100 04/16/16 08:00 35 04/16/16 08:00 66 04/16/16 06:00 51 04/16/16 04:01 98 35 04/16/16 04:00 97.7 49 16 172/48 100 04/16/16 04:00 51 04/16/16 04:00 35 04/16/16 02:00 52 04/16/16 01:18 100 35 04/16/16 00:00 97.7 49 16 172/48 100 04/16/16 00:00 49 04/16/16 00:00 35 04/15/16 22:00 50 04/15/16 20:30 100 35 04/15/16 20:00 35 04/15/16 20:00 97.5 48 16 156/70 100 04/15/16 20:00 48 04/15/16 18:00 52 04/15/16 16:00 96.9 46 16 191/76 100 04/15/16 16:00 46 04/15/16 16:00 35 04/15/16 15:18 100 35 04/15/16 14:00 48 04/15/16 13:19 100 35 04/15/16 04/15/16 04/16/16 14:59 22:59 06:59 Intake Total 2224 ml 1740 ml 1606 ml Output Total 395 ml 2337 ml 687 ml Balance 1829 ml -597 ml 919 ml Physical Exam Head Head: Incision ([place]) Eyes Eyes: Pupils Equal Neuro Mental Status: Sedated Pupils: Reactive Bilaterally [place] Coma Scale Best Eye Openin - None Best Verbal: 1 - None Best Motor: 4 - Withdraws to pain Cardiac Cardiac: Regular Rate & Rhythm Respiratory Respiratory: CTA Gastrointestinal Gastrointestinal: Soft Genitourinary Genitourinary: Mendez Catheter In Place Musculoskeletal Extremities Upper Extremities Deltoid Bicep Tricep HI W. Ext Right Left Lower Extremeties Ilio Quad Plantar Dorsi EHL Right Left Musculoskeletal Remarks known left hemiparesis, slight flexion of lower extremities to stimulation Extremities Edema: Edematous, SCDs Objective Labs Laboratory Tests 04/15/16 16:55 04/15/16 23:00 04/16/16 06:20 Laboratory Tests Test 04/15/16 04/15/16 04/16/16 16:55 23:00 06:20 Sodium Level 149 MEQ/L 152 MEQ/L 149 MEQ/L Serum Osmolality 309 MOSM/KG 307 MOSM/KG 310 MOSM/KG Potassium Level 3.7 MEQ/L Chloride Level 123 MEQ/L Carbon Dioxide Level 18.5 MEQ/L Anion Gap 11 MEQ/L Blood Urea Nitrogen 12 MG/DL Creatinine 0.64 MG/DL Estimat Glomerular Filtration 90 ML/MIN Rate Random Glucose 123 MG/DL Calcium Level 7.7 MG/DL Phosphorus Level 2.7 MG/DL Magnesium Level 1.9 MG/DL Total Bilirubin 0.3 MG/DL Aspartate Amino Transf 20 U/L (AST/SGOT) Alanine Aminotransferase 17 U/L (ALT/SGPT) Alkaline Phosphatase 75 U/L Total Protein 4.6 GM/DL Albumin 1.9 GM/DL Imaging Remarks Laboratory Tests Test 1/3/04/15/16 04/15/16 04/16/16 15:24 16:55 23:00 06:20 Blood Gas Puncture Site ART LINE Blood Gas Patient Temperature 98.6 Blood Gas HCO3 15 mmol/L Blood Gas Base Excess -9.0 mmol/L Blood Gas Oxygen Saturation 97 % Arterial Blood pH 7.40 Arterial Blood Partial 25 mmHg Pressure CO2 Arterial Blood Partial 132 mmHg Pressure O2 Arterial Blood Oxygen Content 18.0 Vol % Arterial Blood 0.8 % Carboxyhemoglobin Arterial Blood Methemoglobin 0.7 % Blood Gas Hemoglobin 13.1 G/DL Oxygen Delivery Device VENTILATOR Blood Gas Ventilator Setting Blood Gas Inspired Oxygen 35 % Sodium Level 149 MEQ/L 152 MEQ/L 149 MEQ/L Serum Osmolality 309 MOSM/KG 307 MOSM/KG 310 MOSM/KG Potassium Level 3.7 MEQ/L Chloride Level 123 MEQ/L Carbon Dioxide Level 18.5 MEQ/L Anion Gap 11 MEQ/L Blood Urea Nitrogen 12 MG/DL Creatinine 0.64 MG/DL Estimat Glomerular Filtration 90 ML/MIN Rate Random Glucose 123 MG/DL Calcium Level 7.7 MG/DL Phosphorus Level 2.7 MG/DL Magnesium Level 1.9 MG/DL Total Bilirubin 0.3 MG/DL Aspartate Amino Transf 20 U/L (AST/SGOT) Alanine Aminotransferase 17 U/L (ALT/SGPT) Alkaline Phosphatase 75 U/L Total Protein 4.6 GM/DL Albumin 1.9 GM/DL White Blood Count 8.4 TH/MM3 Red Blood Count 3.02 MIL/MM3 Hemoglobin 8.5 GM/DL Hematocrit 26.1 % Mean Corpuscular Volume 86.5 FL Mean Corpuscular Hemoglobin 28.2 PG Mean Corpuscular Hemoglobin 32.6 % Concent Red Cell Distribution Width 15.4 % Platelet Count 163 TH/MM3 Mean Platelet Volume 10.6 FL Neutrophils (%) (Auto) 82.2 % Lymphocytes (%) (Auto) 7.6 % Monocytes (%) (Auto) 7.4 % Eosinophils (%) (Auto) 2.4 % Basophils (%) (Auto) 0.4 % Neutrophils # (Auto) 6.9 TH/MM3 Lymphocytes # (Auto) 0.6 TH/MM3 Monocytes # (Auto) 0.6 TH/MM3 Eosinophils # (Auto) 0.2 TH/MM3 Basophils # (Auto) 0.0 TH/MM3 CBC Comment DIFF FINAL Differential Comment Assessment & Plan Diagnosis: (1) Nontraumatic acute hemorrhage of basal ganglia Plan: Plan to keep MAP 90-110 to perfuse the penumbra in the right hemisphere.She did not develop IVH or hydrocephalus but we will repeat the head CT in the am 04/16/16 She has remained very stable. She is now 6 days from CVA and can be weaned from the pressors. CT is still pending but the ICPs have been very stable for several days. 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 She now has poor right MCA flow with hemorrhagic conversion in the basal ganglia. The goal of treatment will be to maximize flow to the penumbra with hypertonic saline, low dose mannitol, fluids. Pressors were added today after intubation. A cranioplasty will be offered to the 04-13-16 Stable after cranioplasty, will keep sedated through the period of maximal brain edema 04/14/16 The ICP remains about 8 with persistent EVD drainage, 140 cc in 24 hrs. We will rescan later this week . Maximal brain edema expected for the next 2 days. 04/15/16 The EVD drainage has improved to 161 cc/day and the HORTENSIA drainage has decreased to 45 cc/day indicating decreased shift right to left. The sodium is 152 and the hypertonic saline is on hold. 04/16/16 HORTENSIA was removed today. CT is pending. Plan for normalization of perfusion pressures. Level of Visit: Post Op Mason Cannon Apr 16, 2016 13:17
[2016-04-16] MEDS: VANCOMYCIN INJ 1,500 MG in SODIUM CHLORID 0.9% 500 ML INJ 500 ML IV SCH (13:22)
[2016-04-16] MEDS ORDERED: POLYETHYLENE GLYCOL 17 GM PKG PO ONE (15:00)
--- NOTE | 2016-04-16 15:25 | HHI.CCPN ---
Subjective Remarks/Hospital Course 80-year-old female. Date of admission 04/10/2016. 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 She presents to the [place] ED with acute onset from [facility] that 10 AM this morning with left-sided weakness involving left arm/left leg. E VAC was called and a stroke was notified. NIH score was 7. addition with deficits involving dysarthria, right gaze preference, left facial palsy, dense hemiparesis left arm and leg. Normal sensation. Reflexes are equal and symmetric. NIH was route 7. CT of the head revealed no acute intracranial findings. CTA of the head and neck revealed dense right ICA occlusion. The case was discussed with Dr. Dozier with interventional radiology and the patient is not indicated for intervention given the complete occlusion of her right ICA. Patient was seen by Dr. Pham and alteplase was provided after benefits and risks discussed. Patient was hypertensive Cardene drip was initiated. Post alteplase infusion patient became more altered with worsening weakness to her left upper and lower extremity. Repeat CT head revealed no acute bleeding. NIH score is currently 17. She is also noted to have tremors involving her right upper lobe extremity. Neurology was notified and Keppra infusion was provided 1000 mg and stat EEG ordered. 04/11: Continues to have left-sided weakness. Complaining of headache. Episode of SVT resolved after receiving 10 mg IV Lopressor. Currently resting in bed complaining of headache and back pain. 04/12: Intubated last night secondary to altered mental status. After intubation, spontaneously moving left upper lobe extremity. Tube feeds are at goal. Episodes of bigeminy on EKG overnight. Perfusing well. Off Cardene drip. 04/13/16: Status post right craniostomy with left EVD placement secondary to cytotoxic edema right MCA CVA distribution. ICPs around 1. Low-grade temperatures 101.1. Currently 100.3. Resuming tube feeds. No bowel movement. 04/14/16: Tmax 99.8. Currently afebrile. Currently in sinus bradycardia. Likely secondary to inadequate sedation.. She was quite tachycardic after intubation and this did not resolve until sedation adequate. Episodes of sinus tach associated with agitation. Resolved. Tolerating tube feeding. No bowel movement. 04/15/16: Episode of SVT overnight 2 resolved with IV Lopressor. Currently in sinus bradycardia. Positive BM. Sedated on the ventilator per neurosurgery's recommendation. No sedation vacation. Subjective 04/16/16: Resting comfortably in bed in no acute distress. Heart rate remained stable. No beam overnight. Currently in sinus bradycardia. CT head currently pending. Objective Vital Signs Date Time Temp Pulse Resp B/P Pulse Ox O2 Delivery O2 Flow Rate FiO2 04/16/16 14:00 62 04/16/16 12:05 96 35 04/16/16 12:00 99.5 16 188/87 Intake and Output 04/15/16 04/15/16 04/16/16 08:00 16:00 00:00 Intake Total 3257 ml 2224 ml 1740 ml Output Total 653 ml 395 ml 2337 ml Balance 2604 ml 1829 ml -597 ml Result Diagram: 04/16/16 0620 04/16/16 0620 Other Results Microbiology Date/Time Procedure Status Source Growth 04/13/16 18:37 Aerobic Blood Culture - Preliminary Resulted Blood Peripheral NO GROWTH IN 3 DAYS 04/13/16 18:37 Anaerobic Blood Culture - Preliminary Resulted Blood Peripheral NO GROWTH IN 3 DAYS 04/13/16 11:00 Urine Culture - Final Complete Urine Catheterized Urine NO GROWTH IN 48 HOURS. 04/13/16 09:30 Gram Stain - Final Complete Sputum Endotracheal 04/13/16 09:30 Sputum Culture - Final Complete Sputum Endotracheal RARE GROWTH NORMAL RESPIRATORY OTTO Imaging Last Impressions Chest X-Ray 04/14/16 0600 Signed Impressions: Service Date/Time: Thursday, April 14, 2016 05:02 - CONCLUSION: Unchanged left lower lobe infiltrate. Bashir Dozier Jr., MD Head CT 04/13/16 0600 Signed Impressions: Service Date/Time: Wednesday, April 13, 2016 04:49 - CONCLUSION: Status post craniotomy with the residual placement of a subdural drain. Severe cytotoxic edema throughout the right cerebral hemisphere with a very dense right middle cerebral artery. There is now some mixed density to the medial left temporal lobe with low-grade persistent shift from [id number] at the level of the third ventricle. No significant new intraparenchymal hemorrhage Zoin Marin MD Head Magnetic Resonance Angiography 04/11/16 0000 Signed Impressions: Service Date/Time: Monday, April 11, 2016 13:17 - CONCLUSION: Significant new finding of total absence of flow in the right middle cerebral artery and minimal flow in the right A1 segment. This indicates total occlusion . Significant atherosclerotic high grade or complete occlusion of the internal carotid on the right free siphon and in the Mauro region Audi Schneider MD Brain MRI 04/11/16 0000 Signed Impressions: Service Date/Time: Monday, April 11, 2016 13:17 - CONCLUSION: 1. Acute infarction involving the right MCA territory. 2. Focal acute hemorrhage involving the right basal ganglia. 3. Cerebral edema with mass effect and midline shift to the left by approximately 5 - 6 mm. Marlon Darnell MD Neck CTA 04/10/16 1106 Signed Impressions: Service Date/Time: March 11:16 - CONCLUSION: Complete occlusion of the extracranial portion of the right ICA. The left carotid shows 20%% stenosis. Both vertebral arteries are patent. Bashir Dozier Jr., MD Head CTA 04/10/16 1100 Signed Impressions: Service Date/Time: March 11:16 - CONCLUSION: Occlusion of the [place] portion of the right ICA with reconstitution. There is good collateralization of the right middle cerebral and right anterior cerebral territories. I spoke with Dr. Pham at the time of the scan. Bashir Dozier Jr., MD Objective Remarks GENERAL: 80-year-old female, critically ill currently resting in bed in no acute distress currently orotracheally intubated SKIN: Warm and dry. HEAD: Left EVD in place. Status post right craniotomy EYES: Pupils equal and round about 2 mm bilaterally and reactive to 3 mm. No scleral icterus. No injection or drainage. ENT: No nasal bleeding or discharge. Mucous membranes pink and moist. NECK: Trachea midline. No JVD. CARDIOVASCULAR: Bradycardic, RR. S1, S2. No S4. Murmurs not appreciated RESPIRATORY: Distant breath sounds. Few crackles appreciated in bilateral lower lobes. Breath sounds equal bilaterally. GASTROINTESTINAL: Abdomen soft, non-tender, obese. Hypoactive bowel sounds. Hepatic and splenic margins not palpable. MUSCULOSKELETAL: Extremities one plus nonpitting edema bilateral lower extremities. No obvious deformities. NEUROLOGICAL: Sedated with propofol, Versed and Fentanyl on the ventilator.. Withdraws to pain right upper and lower extremity. Minimal left upper and lower extremity. Upgoing toes. Urinary Catheter: Yes Assessment to: Continue Mendez insert reason: Prolonged Immobilization Vascular Central Line Catheter: Yes Assessment to: Continue Date of Insertion: Apr 11, 2016 Line: Central Venous Catheter Side: Right Location: Internal, Jugular A/P Assessment and Plan Neuro/Psych: Acute right MCA CVA with left-sided hemiparesis Right basal ganglia hemorrhage - 2.6 x 1.8 cm with compression of the fourth ventricle and [id number] shift at 7 mm Postop day #1Right-sided frontotemporal parietal cranioplasty for decompression of the brain from malignant edema with left EVD placement. Currently on propofol 30 олег per kilo per minute/Versed drip at 8 mg an hour and fentanyl drip at 180 g per hour for sedation/analgesia while intubated Goal RASS -2 Daily sedation vacation on hold until Neurosurgery case Seen by neurology/Dr. Pham CT head on admission 2 revealed no acute findings CTA head and neck revealed occlusion right ICA with good collateral flows the right MCA and FLAVIA. Not amendable interventricular Dr. Dozier/CORINNA Received 90 mg total alteplase ED. Echocardiogram revealed EF 50-55%. NATANAEL 58 mmHg. No regional wall motion abnormality. No obvious source of cardiac emboli CT head 24 hours post alteplase 04/11 revealed right basal ganglia hemorrhage with right MCA to extubation CVA evolving infarct. MRA brain revealed right MCA distribution with occlusion not seen previously on CT. CT head 04/12 revealed evolving right MCA CVA, right basal ganglia hemorrhage 2.6 x 1.8 cm in the right left shift by [address] was asked to revealed status post right cranioplasty with left EVD placement. Significant cytotoxic edema right MCA distribution/palpation. Continue right to left shift. HORTENSIA - 25 cc SS EVD - 119 cc clear - -10 cm H2O Currently off 3% saline at 30 cc/hr/mannitol 12.5 % q8h. CV: Right internal carotid artery occlusion - not amendable to intervention Hypertension Dyslipidemia Currently on Gen-Synephrine at 25 g a minute drip to maintain MAP 90-110 Home medications include Avalide 300/12.5 one tablet by mouth, daily and nisoldipine 20 mg by mouth daily Elevated HDL, LDL and triglycerides. Patient has multiple drug allergies to lipid lowering agents 2-D echocardiogram revealed EF of 50-55%. No regional wall motion abnormality. Elevated pulmonary pressures 58 mmHg. Resp: Acute Respiratory failure secondary to AMS PRVC 16 ~ 550 tidal volume, iT 1.0. PEEP 5. 35% FiO2 Ventilator bundle As needed bronchodilator therapy Holding spontaneous breathing trials until okay with neurosurgery Chest x-ray 1/ revealed possible left lower lobe infiltrate versus effusion. GI: Nausea Gastroesophageal reflux disease Continue Protonix 40 mg by mouth/IV daily/home medication Vital 1.5 at 45 cc an hour. Colace/SenokotMiraLAX for bowel regimen Accurate I's and O's in a critically ill patient Endo: History of hypothyroidism Normal TSH. Patient is currently on any supplementation medication Sliding scale insulin Accu-Cheks to maintain euglycemia. Low regimen Renal: Creatinine currently within normal limits. Heme: CBC within normal limits. Coags within normal limits. Status post alteplase. Recheck CBC in a.m. ID: Monitor for infection Pertinent cultures / - blood cultures 2 -no growth / - urine -no growth / - sputum -no growth Day #4 vancomycin, aztreonam and Flagyl possible aspirationinfectious process. Likely discontinue soon FEN: Hypernatremia Replace electrolytes as clinically indicated MSK: Osteoarthritis history of chronic back pain due to sacroiliac joint arthritis status post injections History recent lumbar epidural steroid injection PT/OT evaluate and treat Access Right IJ CVL day #5 Prophylaxis - GI - Protonix - DVT - status post alteplase. DVT prophylaxis when okay with neurosurgery Critical Care: The total critical care time was 35 minutes. Time to perform other separately billable procedures was not included in the critical care time. Holden Haddad MD Apr 16, 2016 15:24
[2016-04-16] MEDS: fentaNYL DRIP 250 ML IV SCH (20:00)
[2016-04-17] VITALS (23 sets, daily range): BP systolic 122–165; BP diastolic 49–74; PULSE 57–92; RESP 16; TEMP 98.3–99.1; O2SAT 94–100
[2016-04-17] MEDS: MANNITOL 12.5 GM/50 ML VIAL IV SCH ×4 (00:11→23:57)
[2016-04-17] MEDS: PROPOFOL 1000 MG/100 ML INJ 100 ML IV SCH ×4 (01:45→21:00)
[2016-04-17] MEDS: ALBUMIN HUMAN 25% 25 GM/100 ML BAGP IV SCH (02:24)
[2016-04-17] MEDS: metroNIDAZOLE 500 MG INJ 100 ML IV SCH ×2 (03:26→10:55)
[2016-04-17] MEDS: METOPROLOL TARTRATE 5 MG/5 ML VIAL IV PUSH SCH ×5 (03:27→20:35)
[2016-04-17] MEDS: AZTREONAM INJ 1,000 MG in SODIUM CHLORIDE 0.9% INJ 100 ML IV SCH ×2 (04:11→10:55)
[2016-04-17] MEDS: CHLORHEXIDINE GLUCONATE 2 % 1 PACK (2 CLOTHS) TOP SCH (04:11)
[2016-04-17 04:56] LABS: AUTOMATED NEUTROPHIL # 6.2 TH/MM3 (1.8-7.7); BASOPHIL % 0.4 % (0.0-2.0); EOSINOPHIL # 0.2 TH/MM3 (0-0.4); EOSINOPHIL % 2.2 % (0.0-4.0); HEMATOCRIT 23.2 % (35.0-46.0); HEMO FLAGS DIFF FINAL; LYMPH % 11.5 % (9.0-44.0); LYMPHOCYTE # 0.9 TH/MM3 (1.0-4.8); MEAN CORPUSCULAR HEMOGLOBIN 27.6 PG (27.0-34.0); MONO % 8.5 % (0.0-8.0); NEUT % 77.4 % (16.0-70.0); PLATELET COUNT 157 TH/MM3 (150-450); RED CELL DISTRIBUTION WIDTH 15.9 % (11.6-17.2); WHITE BLOOD COUNT 8.1 TH/MM3 (4.0-11.0)
[2016-04-17 05:27] LABS: ALKALINE PHOSPHATASE 70 U/L (45-117); ALT (GPT) 17 U/L (10-53); ANION GAP 8 MEQ/L (5-15); AST (GOT) 24 U/L (15-37); BICARBONATE 19.9 MEQ/L (21.0-32.0); BLOOD UREA NITROGEN 14 MG/DL (7-18); CHLORIDE 121 MEQ/L (98-107); GLOMERULAR FILTRATION RATE 88 ML/MIN (>89); MAGNESIUM 1.9 MG/DL (1.5-2.5); POTASSIUM 3.9 MEQ/L (3.5-5.1); SODIUM (NA) 149 MEQ/L (136-145); TOTAL BILIRUBIN ADULT 0.3 MG/DL (0.2-1.0)
[2016-04-17] MEDS: INSULIN ASPART SUPPLEMENTAL SCALE SQ SCH ×5 (05:50→23:57)
[2016-04-17] MEDS: PHENYLEPHRINE INJ 40 MG in SODIUM CHLORID 0.9% 500 ML INJ 496 ML IV SCH (06:33)
--- NOTE | 2016-04-17 06:45 | HHI.NSPN ---
Subjective History Day 2 after right carotid occlusion, TPA followed by right MCA clot. She is intubated for airway protection. Her pupils remain small and she still follows commands 04/13/16 She is POD 1 after cranioplasty, right MCA infarction, sedated and ventilated, with MAP 90-100 on pressors. ICP has been in the normal range 5-10 and her right pupils remains small and reactive. 04/14/16 Day 2 after cranioplasty, day 4 after onset of infarction, sedated and ventilated. Versed added for comfort as she was awakening on propofol. Low dose mannitol and 3% saline are continued. 04/15/16 Day 3 after cranioplasty,, day 5 from CVA onset, stable ICP and hemodynamically. Follow up CT in the am. 04/16/16 Day 6 after CVA, Day 4 after cranioplasty, very stable ICP, no pupillary changes. CT is still pending. EVD is at 7 drained on 57 cc in 24 hrs 04/17/16 Day 7 after CVA, still very stable ICP but requiring some neosynephrine to keep CPP 70-80. EVD is draining well and ICP remains normal Vitals . Vital Signs Date Time Temp Pulse Resp B/P Pulse Ox O2 Delivery O2 Flow Rate FiO2 04/17/16 06:00 58 04/17/16 04:01 95 35 04/17/16 04:00 98.6 59 16 165/56 95 04/17/16 04:00 59 04/17/16 04:00 35 04/17/16 02:00 60 04/17/16 01:31 94 35 04/17/16 00:00 35 04/17/16 00:00 99.1 61 16 149/53 96 04/17/16 00:00 61 04/16/16 22:30 95 35 04/16/16 22:00 63 04/16/16 20:00 99.2 65 16 177/57 97 04/16/16 20:00 69 04/16/16 20:00 35 04/16/16 19:53 95 35 04/16/16 18:00 66 04/16/16 17:38 100 100 04/16/16 17:14 93 35 04/16/16 16:00 35 04/16/16 16:00 99.2 70 16 184/54 100 04/16/16 16:00 70 04/16/16 14:00 62 04/16/16 12:05 96 35 04/16/16 12:00 35 04/16/16 12:00 99.5 60 16 188/87 100 04/16/16 12:00 60 04/16/16 10:00 60 04/16/16 08:05 98 35 04/16/16 08:00 98.1 66 16 197/58 100 04/16/16 08:00 35 04/16/16 08:00 66 04/16/16 04/16/16 04/17/16 15:00 23:00 07:00 Intake Total 1859 ml 1619 ml 1627 ml Output Total 1080 ml 875 ml 641 ml Balance 779 ml 744 ml 986 ml Maximum Temperature: 98.6 Intracranial Pressure (mmHg): 10 Physical Exam Head Head: Incision (dry) Eyes Eyes: Pupils Equal Neuro Mental Status: Sedated Drips: Diprivan @, Fentanyl @ Pupils: Reactive Bilaterally Face: Symmetric [place] Coma Scale Best Eye Openin - None Best Verbal: 1 - None Best Motor: 3 - Flexion/decorticate Cardiac Cardiac: Regular Rate & Rhythm Respiratory Respiratory: CTA Gastrointestinal Gastrointestinal: Soft Bowel Sounds: Present Genitourinary Genitourinary: Mendez Catheter In Place Musculoskeletal Extremities Upper Extremities Deltoid Bicep Tricep HI W. Ext Right Left Lower Extremeties Ilio Quad Plantar Dorsi EHL Right Left Musculoskeletal Remarks known left hemiparesis, slight flexion of lower extremities to stimulation Extremities Edema: SCDs Objective Labs Laboratory Tests 04/16/16 18:00 04/17/16 04:50 Laboratory Tests Test 04/16/16 04/17/16 18:00 04:50 Sodium Level 150 MEQ/L 149 MEQ/L Serum Osmolality 308 MOSM/KG 310 MOSM/KG Potassium Level 3.9 MEQ/L Chloride Level 121 MEQ/L Carbon Dioxide Level 19.9 MEQ/L Anion Gap 8 MEQ/L Blood Urea Nitrogen 14 MG/DL Creatinine 0.65 MG/DL Estimat Glomerular Filtration 88 ML/MIN Rate Random Glucose 106 MG/DL Calcium Level 7.8 MG/DL Phosphorus Level 3.5 MG/DL Magnesium Level 1.9 MG/DL Total Bilirubin 0.3 MG/DL Aspartate Amino Transf 24 U/L (AST/SGOT) Alanine Aminotransferase 17 U/L (ALT/SGPT) Alkaline Phosphatase 70 U/L Total Protein 5.3 GM/DL Albumin 2.5 GM/DL Laboratory Tests Test 04/16/16 12:30 Vancomycin Level Trough 9.9 MCG/ML Assessment & Plan Diagnosis: (1) Nontraumatic acute hemorrhage of basal ganglia Plan: Plan to keep MAP to perfuse the penumbra in the right hemisphere.She did not develop IVH or hydrocephalus 04/16/16 She has remained very stable. She is now 6 days from CVA and can be weaned from the pressors. CT is still pending but the ICPs have been very stable for several days. 04/17/16 The neosynephrine was weaned a little. There is no need for sedation holidays until the edema resolves enough for the neosynephrine to be removed. EVD is draining well and CPP are maintained above 70 without difficulty. 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 She now has poor right MCA flow with hemorrhagic conversion in the basal ganglia. The goal of treatment will be to maximize flow to the penumbra with hypertonic saline, low dose mannitol, fluids. Pressors were added today after intubation. A cranioplasty will be offered to the 04-13-16 Stable after cranioplasty, will keep sedated through the period of maximal brain edema 04/14/16 The ICP remains about 8 with persistent EVD drainage, 140 cc in 24 hrs. We will rescan later this week . Maximal brain edema expected for the next 2 days. 04/15/16 The EVD drainage has improved to 161 cc/day and the HORTENSIA drainage has decreased to 45 cc/day indicating decreased shift right to left. The sodium is 152 and the hypertonic saline is on hold. 04/16/16 HORTENSIA was removed today. CT is pending. Plan for normalization of perfusion pressures. 04/17/16 CPP and ICP in the goal range, slowly weaning the neosynephrine support as the edema improves. She is sedated for cerebral protection. Level of Visit: Post Op Mason Cannon Apr 17, 2016 06:45
[2016-04-17] MEDS: DOCUSATE SODIUM 100 MG CAP PO SCH ×2 (08:47→20:35)
[2016-04-17] MEDS: POLYETHYLENE GLYCOL 17 GM PKG PO SCH (08:47)
[2016-04-17] MEDS: SENNOSIDES SYRUP 8.8 MG/5 ML CUP PO SCH ×2 (08:47→20:36)
[2016-04-17] MEDS: levETIRAcetam INJ 500 MG in SODIUM CHLORIDE 0.9% INJ 100 ML IV SCH ×2 (08:48→20:35)
[2016-04-17] MEDS: SODIUM CHLORIDE 0.9% FLUSH 5 ML FLUSH IVF SCH ×3 (08:48→20:35)
[2016-04-17] MEDS: CHLORHEXIDINE 0.12% (ORAL KIT) 15 ML CUP MT SCH ×2 (08:48→19:32)
[2016-04-17] MEDS: ARTIFICIAL TEARS OPTH SOLN 15 ML BTL EACH EYE SCH ×3 (08:48→18:00)
--- NOTE | 2016-04-17 10:51 | HHI.CCPN ---
Subjective Remarks/Hospital Course 80-year-old female. Date of admission 04/10/2016. 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 She presents to the [place] ED with acute onset from normocytic health that 10 AM this morning with left-sided weakness involving left arm/left leg. E VAC was called and a stroke was notified. NIH score was 7. addition with deficits involving dysarthria, right gaze preference, left facial palsy, dense hemiparesis left arm and leg. Normal sensation. Reflexes are equal and symmetric. NIH was route 7. CT of the head revealed no acute intracranial findings. CTA of the head and neck revealed dense right ICA occlusion. The case was discussed with Dr. Dozier with interventional radiology and the patient is not indicated for intervention given the complete occlusion of her right ICA. Patient was seen by Dr. Pham and alteplase was provided after benefits and risks discussed. Patient was hypertensive Cardene drip was initiated. Post alteplase infusion patient became more altered with worsening weakness to her left upper and lower extremity. Repeat CT head revealed no acute bleeding. NIH score is currently 17. She is also noted to have tremors involving her right upper lobe extremity. Neurology was notified and Keppra infusion was provided 1000 mg and stat EEG ordered. 04/11: Continues to have left-sided weakness. Complaining of headache. Episode of SVT resolved after receiving 10 mg IV Lopressor. Currently resting in bed complaining of headache and back pain. 04/12: Intubated last night secondary to altered mental status. After intubation, spontaneously moving left upper lobe extremity. Tube feeds are at goal. Episodes of bigeminy on EKG overnight. Perfusing well. Off Cardene drip. 04/13/16: Status post right craniostomy with left EVD placement secondary to cytotoxic edema right MCA CVA distribution. ICPs around 1. Low-grade temperatures 101.1. Currently 100.3. Resuming tube feeds. No bowel movement. 04/14/16: Tmax 99.8. Currently afebrile. Currently in sinus bradycardia. Likely secondary to inadequate sedation.. She was quite tachycardic after intubation and this did not resolve until sedation adequate. Episodes of sinus tach associated with agitation. Resolved. Tolerating tube feeding. No bowel movement. 04/15/16: Episode of SVT overnight 2 resolved with IV Lopressor. Currently in sinus bradycardia. Positive BM. Sedated on the ventilator per neurosurgery's recommendation. No sedation vacation. 04/16/16: Resting comfortably in bed in no acute distress. Heart rate remained stable. No new events overnight. Currently in sinus bradycardia. CT head currently pending. Subjective 04/17: Afebrile. Resting complains bed in no acute distress. Heart rate remained stable. Currently in sinus bradycardia. Head CT stable. Objective Vital Signs Date Time Temp Pulse Resp B/P Pulse Ox O2 Delivery O2 Flow Rate FiO2 04/17/16 10:00 57 04/17/16 08:38 96 35 04/17/16 04:00 98.6 16 165/56 Intake and Output 04/16/16 04/16/16 04/16/16 07:59 15:59 23:59 Intake Total 1606 ml 1859 ml 1619 ml Output Total 687 ml 1080 ml 875 ml Balance 919 ml 779 ml 744 ml Result Diagram: 04/17/16 0450 04/17/16 0450 Other Results Microbiology Date/Time Procedure Status Source Growth 04/13/16 18:37 Aerobic Blood Culture - Preliminary Resulted Blood Peripheral NO GROWTH IN 3 DAYS 04/13/16 18:37 Anaerobic Blood Culture - Preliminary Resulted Blood Peripheral NO GROWTH IN 3 DAYS 04/13/16 11:00 Urine Culture - Final Complete Urine Catheterized Urine NO GROWTH IN 48 HOURS. 04/13/16 09:30 Gram Stain - Final Complete Sputum Endotracheal 04/13/16 09:30 Sputum Culture - Final Complete Sputum Endotracheal RARE GROWTH NORMAL RESPIRATORY OTTO Imaging Last Impressions Chest X-Ray 04/14/16 06 Signed Impressions: Service Date/Time: Thursday, April 14, 2016 05:02 - CONCLUSION: Unchanged left lower lobe infiltrate. Bashir Dozier Jr., MD Head CT 04/13/16 0600 Signed Impressions: Service Date/Time: Wednesday, April 13, 2016 04:49 - CONCLUSION: Status post craniotomy with the residual placement of a subdural drain. Severe cytotoxic edema throughout the right cerebral hemisphere with a very dense right middle cerebral artery. There is now some mixed density to the medial left temporal lobe with low-grade persistent shift from [id number] at the level of the third ventricle. No significant new intraparenchymal hemorrhage Zion Marin MD Head Magnetic Resonance Angiography 04/11/16 0000 Signed Impressions: Service Date/Time: Monday, April 11, 2016 13:17 - CONCLUSION: Significant new finding of total absence of flow in the right middle cerebral artery and minimal flow in the right A1 segment. This indicates total occlusion . Significant atherosclerotic high grade or complete occlusion of the internal carotid on the right free siphon and in the Mauro region Audi Schneider MD Brain MRI 04/11/16 0000 Signed Impressions: Service Date/Time: Monday, April 11, 2016 13:17 - CONCLUSION: 1. Acute infarction involving the right MCA territory. 2. Focal acute hemorrhage involving the right basal ganglia. 3. Cerebral edema with mass effect and midline shift to the left by approximately 5 - 6 mm. Marlon Darnell MD Neck CTA 04/10/16 1106 Signed Impressions: Service Date/Time: March 11:16 - CONCLUSION: Complete occlusion of the extracranial portion of the right ICA. The left carotid shows 20%% stenosis. Both vertebral arteries are patent. Bashir Dozier Jr., MD Head CTA 04/10/16 1100 Signed Impressions: Service Date/Time: March 11:16 - CONCLUSION: Occlusion of the Mauro portion of the right ICA with reconstitution. There is good collateralization of the right middle cerebral and right anterior cerebral territories. I spoke with Dr. Pham at the time of the scan. Bashir Dozier Jr., MD Objective Remarks GENERAL: 80-year-old female, critically ill currently resting in bed in no acute distress currently orotracheally intubated SKIN: Warm and dry. No rash HEAD: Left EVD in place. Status post right craniotomy EYES: Pupils equal and round about 2 mm bilaterally and reactive to 3 mm. No scleral icterus. No injection or drainage. ENT: No nasal bleeding or discharge. Mucous membranes pink and moist. NECK: Trachea midline. No JVD. CARDIOVASCULAR: Bradycardic, RR. S1, S2. No S4. Murmurs not appreciated RESPIRATORY: Distant breath sounds. Few crackles appreciated in bilateral lower lobes. Breath sounds equal bilaterally. GASTROINTESTINAL: Abdomen soft, non-tender, obese. Hypoactive bowel sounds. Hepatic and splenic margins not palpable. MUSCULOSKELETAL: Extremities one plus nonpitting edema bilateral lower extremities. No obvious deformities. NEUROLOGICAL: Sedated with propofol, Versed and Fentanyl on the ventilator.. Withdraws to pain right upper and lower extremity. Minimal left upper and lower extremity. Upgoing toes. 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 Currently on propofol 30 олег per kilo per minute/Versed drip at 8 mg an hour and fentanyl drip at 125 g per hour for sedation/analgesia while intubated Goal RASS -2 Daily sedation vacation on hold until Neurosurgery case Seen by neurology/Dr. Pham CT head on admission 2 revealed no acute findings CTA head and neck revealed occlusion right ICA with good collateral flows the right MCA and FLAVIA. Not amendable interventricular Dr. Dozier/IR Received 90 mg total alteplase ED. Echocardiogram revealed EF 50-55%. NATANAEL 58 mmHg. No regional wall motion abnormality. No obvious source of cardiac emboli CT head 24 hours post alteplase 04/11 revealed right basal ganglia hemorrhage with right MCA to extubation CVA evolving infarct. MRA brain revealed right MCA distribution with occlusion not seen previously on CT. CT head 04/12 revealed evolving right MCA CVA, right basal ganglia hemorrhage 2.6 x 1.8 cm in the right left shift by [address] was asked to revealed status post right cranioplasty with left EVD placement. Significant cytotoxic edema right MCA distribution/palpation. Continue right to left shift. HORTENSIA -removed EVD - 146 cc clear - -10 cm H2O Currently off 3% saline at 30 cc/hr/mannitol 12.5 % q8h. CV: Right internal carotid artery occlusion - not amendable to intervention Hypertension Dyslipidemia Currently on Gen-Synephrine at 10 g a minute drip to maintain MAP 90-110 Home medications include Avalide 300/12.5 one tablet by mouth, daily and nisoldipine 20 mg by mouth daily Elevated HDL, LDL and triglycerides. Patient has multiple drug allergies to lipid lowering agents 2-D echocardiogram revealed EF of 50-55%. No regional wall motion abnormality. Elevated pulmonary pressures 58 mmHg. Resp: Acute Respiratory failure secondary to AMS PRVC 16 ~ 550 tidal volume, iT 1.0. PEEP 5. 35% FiO2 Ventilator bundle As needed bronchodilator therapy Holding spontaneous breathing trials until okay with neurosurgery Chest x-ray 1/ revealed possible left lower lobe infiltrate versus effusion. GI: Nausea Gastroesophageal reflux disease Continue Protonix 40 mg by mouth/IV daily/home medication Vital 1.5 at 45 cc an hour. Colace/SenokotMiraLAX for bowel regimen Accurate I's and O's in a critically ill patient Endo: History of hypothyroidism Normal TSH. Patient is currently on any supplementation medication Sliding scale insulin Accu-Cheks to maintain euglycemia. Low regimen Renal: Creatinine currently within normal limits. Heme: Anemia CBC slowly trending downward. Will transfuse 1 unit PRBCs/goal hemoglobin around 9 and neuro patient. Coags within normal limits. Status post alteplase. Recheck CBC in a.m. ID: Monitor for infection Pertinent cultures / - blood cultures 2 -no growth 04/13 - urine -no growth 1/ - sputum -no growth Day #5 vancomycin, aztreonam and Flagyl possible aspirationinfectious process. Will discontinue today FEN: Hypernatremia Replace electrolytes as clinically indicated MSK: Osteoarthritis history of chronic back pain due to sacroiliac joint arthritis status post injections History recent lumbar epidural steroid injection PT/OT evaluate and treat Access Right IJ CVL day #6 Prophylaxis - GI - Protonix - DVT - status post alteplase. DVT prophylaxis when okay with neurosurgery Critical Care: The total critical care time was 35 minutes. Time to perform other separately billable procedures was not included in the critical care time. Holden Haddad MD Apr 17, 2016 10:51
[2016-04-17] MEDS ORDERED: FUROSEMIDE 20 MG/2 ML VIAL IV PUSH ONE (11:00)
[2016-04-17] MEDS ORDERED: POTASSIUM CL 40 MEQ/30 ML LIQ UDC PO ONE (11:00)
[2016-04-17] MEDS: fentaNYL DRIP 250 ML IV SCH (12:24)
[2016-04-17] MEDS ORDERED: VANCOMYCIN INJ 2,000 MG in SODIUM CHLORID 0.9% 500 ML INJ 500 ML IV SCH (13:00)
[2016-04-17] MEDS: BUMETANIDE INJ 1 MG/4 ML VIAL IV PUSH SCH (18:25)
[2016-04-17] MEDS: MIDAZOLAM 100 MG/ML INJ 100 ML IV SCH (19:32)
[2016-04-18] VITALS (18 sets, daily range): BP systolic 128–157; BP diastolic 40–70; PULSE 63–82; RESP 16; TEMP 96.9–99.4; O2SAT 93–99
[2016-04-18] MEDS: PROPOFOL 1000 MG/100 ML INJ 100 ML IV SCH ×5 (01:20→17:53)
[2016-04-18] MEDS: METOPROLOL TARTRATE 5 MG/5 ML VIAL IV PUSH SCH ×6 (03:05→23:30)
[2016-04-18] MEDS: CHLORHEXIDINE GLUCONATE 2 % 1 PACK (2 CLOTHS) TOP SCH (03:38)
[2016-04-18 04:45] LABS: AUTOMATED NEUTROPHIL # 7.7 TH/MM3 (1.8-7.7); BASOPHIL % 0.3 % (0.0-2.0); EOSINOPHIL # 0.2 TH/MM3 (0-0.4); HEMATOCRIT 27.8 % (35.0-46.0); LYMPH % 10.9 % (9.0-44.0); LYMPHOCYTE # 1.1 TH/MM3 (1.0-4.8); MEAN CELL VOLUME 84.4 FL (80.0-100.0); MEAN CORPUSCULAR HEMOGLOBIN 27.7 PG (27.0-34.0); MEAN CORPUSCULAR HGB CONC 32.8 % (32.0-36.0); MONO % 8.3 % (0.0-8.0); NEUT % 78.5 % (16.0-70.0); PLATELET COUNT 170 TH/MM3 (150-450); RED BLOOD COUNT 3.29 MIL/MM3 (4.00-5.30); RED CELL DISTRIBUTION WIDTH 15.4 % (11.6-17.2); WHITE BLOOD COUNT 9.8 TH/MM3 (4.0-11.0)
[2016-04-18 04:49] LABS: HEMO FLAGS AUTO DIFF
[2016-04-18 05:14] LABS: ALT (GPT) 21 U/L (10-53); ANION GAP 9 MEQ/L (5-15); AST (GOT) 30 U/L (15-37); BLOOD UREA NITROGEN 16 MG/DL (7-18); CHLORIDE 118 MEQ/L (98-107); GLOMERULAR FILTRATION RATE 75 ML/MIN (>89); MAGNESIUM 1.8 MG/DL (1.5-2.5); POTASSIUM 3.8 MEQ/L (3.5-5.1); SODIUM (NA) 149 MEQ/L (136-145)
[2016-04-18 05:16] LABS: ALKALINE PHOSPHATASE 74 U/L (45-117); TOTAL BILIRUBIN ADULT 0.3 MG/DL (0.2-1.0)
[2016-04-18] MEDS: fentaNYL DRIP 250 ML IV SCH ×2 (05:22→21:15)
[2016-04-18] MEDS: INSULIN ASPART SUPPLEMENTAL SCALE SQ SCH ×2 (05:22→12:00)
[2016-04-18] MEDS: MIDAZOLAM 100 MG/ML INJ 100 ML IV SCH ×2 (05:23→19:05)
[2016-04-18 07:24] LABS: PLATELET ESTIMATE SMEAR NORMAL (NORMAL); PLATELET MORPHOLOGY NORMAL (NORMAL); SCAN/DIFF AUTO DIFF CONFIRMED
[2016-04-18] MEDS: CHLORHEXIDINE 0.12% (ORAL KIT) 15 ML CUP MT SCH ×2 (08:00→21:10)
[2016-04-18] MEDS: SODIUM CHLORIDE 0.9% FLUSH 5 ML FLUSH IVF SCH ×3 (09:00→21:00)
[2016-04-18] MEDS: ARTIFICIAL TEARS OPTH SOLN 15 ML BTL EACH EYE SCH ×3 (09:00→17:51)
[2016-04-18] MEDS: levETIRAcetam INJ 500 MG in SODIUM CHLORIDE 0.9% INJ 100 ML IV SCH ×2 (09:21→21:10)
[2016-04-18] MEDS: BUMETANIDE INJ 1 MG/4 ML VIAL IV PUSH SCH ×2 (09:27→17:50)
[2016-04-18] MEDS: MANNITOL 12.5 GM/50 ML VIAL IV SCH ×2 (09:31→16:00)
[2016-04-18] MEDS: POLYETHYLENE GLYCOL 17 GM PKG PO SCH ×2 (09:49→21:11)
[2016-04-18] MEDS: SENNOSIDES SYRUP 8.8 MG/5 ML CUP PO SCH ×2 (09:49→21:11)
[2016-04-18] MEDS: POTASSIUM CL 40 MEQ/30 ML LIQ UDC NG SCH (09:49)
[2016-04-18] MEDS: DOCUSATE SODIUM 100 MG CAP PO SCH ×2 (09:51→21:10)
--- NOTE | 2016-04-18 10:53 | PD.CONS ---
[facility] Service Rehabilitation Medicine Consult Requested By Reji Pham M.D. Reason for Consult Comprehensive rehabilitation evaluation. Primary Care Physician Marcus Shipman MD History of Present Illness Kate Bergman is a 81-year-old female admitted to [facility] 04/10/16 with left upper and lower extremity weakness. Head CT was negative. NIH stroke scale 7. She received IV TPA. Head CTA showed occlusion of the petrous portion of the right ICA. Neck CTA showed complete occlusion of the extra cranial portion of the right ICA. Follow-up head CT 04/11/16 showed large area of decreased density in the right mid parietal lobe characteristic for acute right MCA infarct, early mild hemorrhage in the right basal ganglia, mass effect with 5-6 mm of shift toward the left. She was intubated on 04/11/16. On 04/12/[address] showed evolving right MCA infarct, right basal ganglia hemorrhage 2.6 x 1.8 cm with right to left shift 7 mm. She underwent right frontotemporal parietal cranioplasty for decompression of brain from malignant edema with extraventricular drain placement on 04/12/16. Head CT 04/16/16 showed large infarct involving the right sylvian region with persistent mass effect but some improvement from 04/13/16. Review of Systems ROS Limitations: Clinical Condition, Intubated, Altered Mental Status Past Family Social History Allergies: Coded Allergies: Achromycin V (Verified Allergy, Severe, 04/10/16) Michelle (Verified Allergy, Severe, 04/10/16) Augmentin (Verified Allergy, Severe, 04/10/16) Capoten (Verified Allergy, Severe, 04/10/16) Diovan (Verified Allergy, Severe, 04/10/16) Enzymes Oral (Verified Allergy, Severe, 04/10/16) Lipitor (Verified Allergy, Severe, 04/10/16) Procardia (Verified Allergy, Severe, 04/10/16) Rynatan (Verified Allergy, Severe, 04/10/16) Zetia (Verified Allergy, Severe, 04/10/16) Zithromax (Verified Allergy, Severe, 04/10/16) Zocor (Verified Allergy, Severe, 04/10/16) Aspirin (Verified Allergy, Mild, 04/10/16) Cipro (Verified Allergy, Mild, 04/10/16) Codeine (Verified Allergy, Mild, 04/10/16) Keflex (Verified Allergy, Mild, 04/10/16) Morphine (Verified Allergy, Mild, 04/10/16) Blue Dyes - Various (Unverified Allergy, Unknown, Anaphylaxis, 04/10/16) Clonidine (Unverified Allergy, Unknown, itching, 04/10/16) okay to take the regular ones but is unable to take the ones provided by [facility] Past Medical History Chronic low back pain SI joint arthritis Hypertension Dyslipidemia Urethral stricture Esophageal stricture Past Surgical History Urethral dilation Esophageal dilation Cataract removal Appendectomy Hysterectomy Current Medications Current Medications Medications (Trade) Dose Ordered Sig/Beronica Route Start Time Stop Time Status Last Admin (NS Flush) 2 ml BID IVF 04/10/16 21:00 04/18/16 09:29 (NS Flush) 2 ml UNSCH PRN IVF 04/10/16 13:30 (Trandate Inj) 10 mg Q1HR PRN IV 04/10/16 13:30 04/10/16 17:58 (D50w (Vial) Inj) 25 ml UNSCH PRN IV PUSH 04/10/16 13:30 (Glucagon Inj) 1 mg UNSCH PRN IM/SQ 04/10/16 13:30 (Tylenol) 650 mg Q6H PRN PO 04/10/16 15:30 (Tears Naturale Opth Soln) 1 drop TID EACH EYE 04/10/16 18:00 04/17/16 18:00 (Colace) 100 mg BID PO 04/10/16 21:00 04/18/16 09:51 Miscellaneous Information 1 Q361D XX 04/10/16 15:30 (Chlorhexidine 2% Cloth) Taper DAILY@04 TOP 04/11/16 04:00 04/07/17 03:59 04/18/16 03:38 (Chlorhexidine 2% Cloth) 3 pack UNSCH PRN TOP 04/10/16 15:30 (Apresoline Inj) 10 mg Q1HR PRN IV PUSH 04/10/16 16:30 (Nitroglycerin 2% Oint) 2 inch Q6HR PRN TOPICAL 04/10/16 16:30 (Zofran Inj) 4 mg Q6H PRN IV PUSH 04/10/16 20:00 04/10/16 20:22 (Lopressor Inj) 10 mg STAT IV PUSH 04/11/16 12:45 04/11/16 16:26 (Dilaudid Pf Inj) 0.5 mg Q4H PRN IV PUSH 04/11/16 14:00 04/13/16 14:59 (NS Flush) DAILY IVF 04/11/16 15:00 04/17/16 08:48 IV Flush UNSCH PRN IVF 04/11/16 15:00 Sodium Chloride 500 ml @ 30 mls/hr CONTINUOUS IV 04/11/16 15:00 Hold 04/14/16 17:19 Potassium Chloride 100 ml @ 50 mls/hr Q2H PRN IV 04/11/16 15:00 04/11/16 16:21 (KCl 20 Meq Premix Inj) 100 ml @ 50 mls/hr Q2H PRN IV 04/11/16 15:00 Potassium Chloride 40 meq 40 meq UNSCH PRN PO/TUBE 04/11/16 15:00 Potassium Chloride 100 ml @ 25 mls/hr UNSCH PRN IV 04/11/16 15:00 Potassium Chloride 100 ml @ 50 mls/hr Q2H PRN IV 04/11/16 15:00 (Magnesium Sulfate Inj/NS Inj) 100 ml @ 50 mls/hr UNSCH PRN IV 04/11/16 15:00 Magnesium Oxide 800 mg 800 mg UNSCH PRN PO 04/11/16 15:00 (Magnesium Sulfate Inj/NS Inj) 100 ml @ 50 mls/hr UNSCH PRN IV 04/11/16 15:00 Potassium Phosphate 2000 mg 2,000 mg Q4H PRN PO 04/11/16 15:00 (Sodium Phosphate Inj/NS 250 ml Inj) 250 ml @ 42 mls/hr UNSCH PRN IV 04/11/16 15:00 (KCl 40 Meq/30 ml Liq) 40 meq UNSCH PRN PO/TUBE 04/11/16 15:00 Potassium Phosphate 2000 mg 2,000 mg UNSCH PRN PO/TUBE 04/11/16 15:00 (Potassium Phosphate Inj/NS 250 ml Inj) 260 ml @ 42 mls/hr UNSCH PRN IV 04/11/16 15:00 Mannitol 12.5 gm 12.5 gm Q8H IV 04/11/16 16:00 04/18/16 09:31 (Cardene Inj/NS 250 ml Inj) 260 ml @ 0 mls/hr TITRATE IV 04/11/16 16:00 04/11/16 16:51 Chlorhexidine Gluconate 15 ml 15 ml BID@08,20 MT 04/11/16 20:00 04/18/16 08:00 (Diprivan 1000 Mg/100ml Inj) 100 ml @ 0 mls/hr TITRATE IV 04/11/16 17:00 04/18/16 09:20 Sennosides 8.8 mg 8.8 mg BID PO 04/12/16 09:00 04/18/16 09:49 Phenylephrine HCl 40 mg/Sodium Chloride 500 ml @ 0 mls/hr TITRATE IV 04/13/16 20:20 04/17/16 06:33 (Levophed-Dextrose Drip) 250 ml @ 0 mls/hr TITRATE IV 04/14/16 06:45 (Brethine Inj) 1 mg UNSCH PRN SQ 04/14/16 06:45 Glycerin 2 gm 2 gm DAILY PRN RECTAL 04/14/16 06:45 04/14/16 10:06 Levetriacetam 500 mg/Sodium Chloride 105 ml @ 420 mls/hr Q12HR IV 04/14/16 21:00 04/18/16 09:21 Midazolam HCl 100 ml @ 0 mls/hr TITRATE IV 04/14/16 20:45 04/18/16 05:23 Fentanyl Citrate 250 ml @ 0 mls/hr TITRATE IV 04/14/16 20:45 04/18/16 05:22 (Precedex Inj) 50 ml @ 0 mls/hr TITRATE IV 04/14/16 20:45 (Lopressor Inj) 5 mg Q6H IV PUSH 04/14/16 21:00 04/18/16 03:05 (NovoLOG SUPPLEMENTAL SCALE) 1 Q6HR SQ 04/15/16 18:00 (Miralax) 17 gm DAILY PO 04/17/16 09:00 04/18/16 09:49 (Bumex Inj) 1 mg BID@,18 IV PUSH 04/17/16 18:00 04/18/16 09:27 (KCl 40 Meq/30 ml Liq) 40 meq DAILY NG 04/18/16 09:00 04/18/16 09:49 Family History Unable to obtain Social History Prior to admission patient lived in [place], [place] with her . She used a cane to ambulate. No tobacco history. Exam I&O / VS 04/17/16 04/17/16 04/18/16 15:00 23:00 07:00 Intake Total 1904 ml 939 ml 1168 ml Output Total 2105 ml 3056 ml 1250 ml Balance -201 ml -2117 ml -82 ml Intake IV Total 1284 ml 653 ml 838 ml Tube Feeding 370 ml 276 ml 330 ml Albumin 250 ml Tube Irrigant 0 ml 10 ml 0 ml Output Urine Total 2050 ml 3000 ml 1250 ml Stool Total 0 ml 0 ml 0 ml Tube Feeding Residual Discard 0 ml 0 ml 0 ml Drainage Total 55 ml 56 ml Vital Signs Date Time Temp Pulse Resp B/P Pulse Ox O2 Delivery O2 Flow Rate FiO2 04/18/16 06:00 73 04/18/16 04:01 95 35 04/18/16 04:00 35 04/18/16 04:00 63 04/18/16 04:00 98.0 63 16 147/47 98 04/18/16 02:00 65 04/18/16 01:44 98 35 04/18/16 00:00 35 04/18/16 00:00 65 04/18/16 00:00 98.1 74 16 156/50 99 04/17/16 22:20 98 35 04/17/16 22:00 69 04/17/16 20:26 97 35 04/17/16 20:00 35 04/17/16 20:00 62 04/17/16 20:00 98.3 63 16 157/51 97 04/17/16 18:30 98.8 60 16 155/50 96 04/17/16 18:00 58 04/17/16 17:30 98.7 59 16 154/74 98 04/17/16 16:00 65 04/17/16 16:00 98.6 64 16 122/68 100 04/17/16 16:00 35 04/17/16 15:47 97 35 04/17/16 15:45 98.6 64 16 150/49 100 04/17/16 15:30 98.4 70 16 146/50 98 04/17/16 14:00 60 04/17/16 12:00 35 04/17/16 12:00 64 04/17/16 12:00 98.8 66 16 153/52 100 04/17/16 11:16 95 35 General: Intubated, Sedated, Other (Ventriculostomy) Respiratory: Lungs CTA, Non-labored respirations, Coarse breath sounds Gastrointestinal: Positive Bowel Sounds, Non-Distended Cardiovascular: Normal rate, Regular Rhythm Musculoskeletal: ROM (Within functional limits) Orientation: unable to asses Self, unable to asses Place, unable to asses Time , unable to asses Situation Neurologic: Pupils (Reactive right up gaze) Motor: Right Upper Extremity (ROM WNL), Left Upper Extremity (ROM WNL), Right Lower Extremity (ROM WNL), Left Lower Extremity (ROM WNL) Sensory Unable to assess Babinski: Positive (Equivocal) Assessment and Plan Diagnosis: (1) Acute ischemic right middle cerebral artery (MCA) stroke (2) Nontraumatic acute hemorrhage of basal ganglia Plan 1. No formal rehab needs identified at this time, however will follow to initiate 2. Will need ongoing rehabilitation at discharge. Will follow for level of care. Thank you for this consult. Kathleen Nixon MD Apr 18, 2016 10:53
[2016-04-18] MEDS: hydrALAZINE HCL 20 MG/ML VIAL IV PUSH PRN (11:32)
--- NOTE | 2016-04-18 14:42 | HHI.CCPN ---
Subjective Remarks/Hospital Course 80-year-old female. Date of admission 04/10/2016. 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 She presents to the [facility] ED with acute onset from normocytic health that 10 AM this morning with left-sided weakness involving left arm/left leg. E VAC was called and a stroke was notified. NIH score was 7. addition with deficits involving dysarthria, right gaze preference, left facial palsy, dense hemiparesis left arm and leg. Normal sensation. Reflexes are equal and symmetric. NIH was route 7. CT of the head revealed no acute intracranial findings. CTA of the head and neck revealed dense right ICA occlusion. The case was discussed with Dr. Dozier with interventional radiology and the patient is not indicated for intervention given the complete occlusion of her right ICA. Patient was seen by Dr. Pham and alteplase was provided after benefits and risks discussed. Patient was hypertensive Cardene drip was initiated. Post alteplase infusion patient became more altered with worsening weakness to her left upper and lower extremity. Repeat CT head revealed no acute bleeding. NIH score is currently 17. She is also noted to have tremors involving her right upper lobe extremity. Neurology was notified and Keppra infusion was provided 1000 mg and stat EEG ordered. 04/11: Continues to have left-sided weakness. Complaining of headache. Episode of SVT resolved after receiving 10 mg IV Lopressor. Currently resting in bed complaining of headache and back pain. 04/12: Intubated last night secondary to altered mental status. After intubation, spontaneously moving left upper lobe extremity. Tube feeds are at goal. Episodes of bigeminy on EKG overnight. Perfusing well. Off Cardene drip. 04/13/16: Status post right craniostomy with left EVD placement secondary to cytotoxic edema right MCA CVA distribution. ICPs around 1. Low-grade temperatures 101.1. Currently 100.3. Resuming tube feeds. No bowel movement. 04/14/16: Tmax 99.8. Currently afebrile. Currently in sinus bradycardia. Likely secondary to inadequate sedation.. She was quite tachycardic after intubation and this did not resolve until sedation adequate. Episodes of sinus tach associated with agitation. Resolved. Tolerating tube feeding. No bowel movement. 04/15/16: Episode of SVT overnight 2 resolved with IV Lopressor. Currently in sinus bradycardia. Positive BM. Sedated on the ventilator per neurosurgery's recommendation. No sedation vacation. 04/16/16: Resting comfortably in bed in no acute distress. Heart rate remained stable. No new events overnight. Currently in sinus bradycardia. CT head currently pending. 04/17: Afebrile. Resting complains bed in no acute distress. Heart rate remained stable. Currently in sinus bradycardia. Head CT stable. Subjective 04/18: Afebrile. No acute distress. Off all vasopressors. Restarting 3% saline. Withdrawing to bilateral lower extremities only's morning Objective Vital Signs Date Time Temp Pulse Resp B/P Pulse Ox O2 Delivery O2 Flow Rate FiO2 04/18/16 13:10 97 35 04/18/16 12:00 96.9 78 16 157/67 Arterial Line Intake and Output 04/17/16 04/17/16 04/18/16 08:00 16:00 00:00 Intake Total 1627 ml 1904 ml 939 ml Output Total 641.0 ml 2105.0 ml 3056.0 ml Balance 986.0 ml -201.0 ml -2117.0 ml Result Diagram: 04/18/16 0420 04/18/16 0750 Other Results Microbiology Date/Time Procedure Status Source Growth 04/13/16 18:37 Aerobic Blood Culture - Final Complete Blood Peripheral NO GROWTH IN 5 DAYS 04/13/16 18:37 Anaerobic Blood Culture - Final Complete Blood Peripheral NO GROWTH IN 5 DAYS Imaging Last Impressions Chest X-Ray 04/14/16 0600 Signed Impressions: Service Date/Time: Thursday, April 14, 2016 05:02 - CONCLUSION: Unchanged left lower lobe infiltrate. Bashir Dozier Jr., MD Head CT 04/13/16 0600 Signed Impressions: Service Date/Time: Wednesday, April 13, 2016 04:49 - CONCLUSION: Status post craniotomy with the residual placement of a subdural drain. Severe cytotoxic edema throughout the right cerebral hemisphere with a very dense right middle cerebral artery. There is now some mixed density to the medial left temporal lobe with low-grade persistent shift from [id number] at the level of the third ventricle. No significant new intraparenchymal hemorrhage Zion Marin MD Head Magnetic Resonance Angiography 04/11/16 0000 Signed Impressions: Service Date/Time: Monday, April 11, 2016 13:17 - CONCLUSION: Significant new finding of total absence of flow in the right middle cerebral artery and minimal flow in the right A1 segment. This indicates total occlusion . Significant atherosclerotic high grade or complete occlusion of the internal carotid on the right free siphon and in the Mauro region Audi Schneider MD Brain MRI 04/11/16 0000 Signed Impressions: Service Date/Time: Monday, April 11, 2016 13:17 - CONCLUSION: 1. Acute infarction involving the right MCA territory. 2. Focal acute hemorrhage involving the right basal ganglia. 3. Cerebral edema with mass effect and midline shift to the left by approximately 5 - 6 mm. Marlon Darnell MD Neck CTA 04/10/16 1106 Signed Impressions: Service Date/Time: March 11:16 - CONCLUSION: Complete occlusion of the extracranial portion of the right ICA. The left carotid shows 20%% stenosis. Both vertebral arteries are patent. Bashir Dozier Jr., MD Head CTA 04/10/16 1100 Signed Impressions: Service Date/Time: March 11:16 - CONCLUSION: Occlusion of the Mauro portion of the right ICA with reconstitution. There is good collateralization of the right middle cerebral and right anterior cerebral territories. I spoke with Dr. Pham at the time of the scan. Bashir Dozier Jr., MD Objective Remarks GENERAL: 80-year-old female, critically ill currently resting in bed in no acute distress currently orotracheally intubated SKIN: Warm and dry. No rash HEAD: Left EVD in place. Status post right craniotomy EYES: Pupils equal and round about 2 mm bilaterally and reactive to 3 mm. No scleral icterus. No injection or drainage. ENT: No nasal bleeding or discharge. Mucous membranes pink and moist. NECK: Trachea midline. No JVD. CARDIOVASCULAR: Bradycardic, RR. S1, S2. No S4. Murmurs not appreciated RESPIRATORY: Distant breath sounds. Few crackles appreciated in bilateral lower lobes. Breath sounds equal bilaterally. GASTROINTESTINAL: Abdomen soft, non-tender, obese. Hypoactive bowel sounds. Hepatic and splenic margins not palpable. MUSCULOSKELETAL: Extremities one plus nonpitting edema bilateral lower extremities. No obvious deformities. NEUROLOGICAL: Sedated with propofol, Versed and Fentanyl on the ventilator.. Withdraws to pain right upper and lower extremity. Minimal left upper and lower extremity. Upgoing toes. 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 Currently on propofol 30 олег per kilo per minute/Versed drip at 8 mg an hour and fentanyl drip at 175 g per hour for sedation/analgesia while intubated Goal RASS -2 Daily sedation vacation on hold until Neurosurgery approves Seen by neurology/Dr. Pham CT head on admission 2 revealed no acute findings CTA head and neck revealed occlusion right ICA with good collateral flows the right MCA and FLAVIA. Not amendable interventricular Dr. Dozier/IR Received 90 mg total alteplase ED. Echocardiogram revealed EF 50-55%. NATANAEL 58 mmHg. No regional wall motion abnormality. No obvious source of cardiac emboli CT head 24 hours post alteplase 04/11 revealed right basal ganglia hemorrhage with right MCA to extubation CVA evolving infarct. MRA brain revealed right MCA distribution with occlusion not seen previously on CT. CT head 04/12 revealed evolving right MCA CVA, right basal ganglia hemorrhage 2.6 x 1.8 cm in the right left shift by [address] was asked to revealed status post right cranioplasty with left EVD placement. Significant cytotoxic edema right MCA distribution/palpation. Continue right to left shift. HORTENSIA -removed EVD - 111 cc clear - -10 cm H2O Currently on 3% saline at 10 cc/hr/mannitol 12.5 % q8h. CV: Right internal carotid artery occlusion - not amendable to intervention Hypertension Dyslipidemia Currently off all vasopressors. Goal MAP 90-110 Home medications include Avalide 300/12.5 one tablet by mouth, daily and nisoldipine 20 mg by mouth daily Elevated HDL, LDL and triglycerides. Patient has multiple drug allergies to lipid lowering agents 2-D echocardiogram revealed EF of 50-55%. No regional wall motion abnormality. Elevated pulmonary pressures 58 mmHg. Resp: Acute Respiratory failure secondary to AMS PRVC 16 ~ 550 tidal volume, iT 1.0. PEEP 5. 35% FiO2 Ventilator bundle As needed bronchodilator therapy Holding spontaneous breathing trials until okay with neurosurgery Chest x-ray 04/14 revealed possible left lower lobe infiltrate versus effusion. GI: Nausea Gastroesophageal reflux disease Continue Protonix 40 mg by mouth/IV daily/home medication Vital 1.5 at 45 cc an hour. Colace/SenokotMiraLAX for bowel regimen Accurate I's and O's in a critically ill patient Endo: History of hypothyroidism Normal TSH. Patient is currently on any supplementation medication Sliding scale insulin Accu-Cheks to maintain euglycemia. Low regimen Renal: Creatinine currently within normal limits. Heme: Anemia CBC slowly trending downward. Will transfuse 1 unit PRBCs/goal hemoglobin around 9 and neuro patient. Coags within normal limits. Status post alteplase. Recheck CBC in a.m. ID: Monitor for infection Pertinent cultures / - blood cultures 2 -no growth 04/13 - urine -no growth / - sputum -no growth Day #5 vancomycin, aztreonam and Flagyl possible aspirationinfectious process. Will discontinue today FEN: Hypernatremia Replace electrolytes as clinically indicated On 3% saline at 10 cc an hour MSK: Osteoarthritis history of chronic back pain due to sacroiliac joint arthritis status post injections History recent lumbar epidural steroid injection PT/OT evaluate and treat Access Right IJ CVL day #7 Prophylaxis - GI - Protonix - DVT - status post alteplase. DVT prophylaxis when okay with neurosurgery Critical Care: The total critical care time was 35 minutes. Time to perform other separately billable procedures was not included in the critical care time. Holden Haddad MD Apr 18, 2016 14:42
[2016-04-18] MEDS ORDERED: LACTULOSE SYRUP 20 GM/30 ML CUP PO ONE (15:00)
[2016-04-18] MEDS ORDERED: MINERAL OIL LIQUID 30 ML CUP PO ONE (15:00)
[2016-04-18] MEDS: 3% SALINE INJ 500 ML IV SCH (15:08)
--- NOTE | 2016-04-18 15:08 | RADRPT ---
EXAM DATE/TIME: 04/18/2016 14:47 [facility] COMPARISON: CHEST SINGLE AP, April 14, 2016, 5:02. INDICATIONS : Shortness of breath MEDICAL HISTORY : Hypertension. Pancreatitis SURGICAL HISTORY : Hysterectomy. Appendectomy. ENCOUNTER: Subsequent ACUITY: 1 week PAIN SCORE: Non-responsive. LOCATION: Bilateral chest FINDINGS: Endotracheal tube, nasogastric tube are stable. A right neck central line descends into the SVC. Ther e is hazy perihilar and bibasilar infiltrates and bilateral effusion which appears be worsening. CONCLUSION: Worsening aeration. Evan Rodas MD on April 18, 2016 at 15:05 Board Certified Radiologist. This report was verified electronically.
--- NOTE | 2016-04-18 17:28 | HHI.PR ---
Review/Management Diagnosis large right MCA distribution stroke with edema and mass effect and basal ganglia hemorrhage, s/p surgery for edema and mass effect right complete internal carotid artery occlusion elevated LDL Diagnosis/Plan: (1) Nontraumatic acute hemorrhage of basal ganglia Plan: Plan to keep MAP to perfuse the penumbra in the right hemisphere.She did not develop IVH or hydrocephalus 04/16/16 She has remained very stable. She is now 6 days from CVA and can be weaned from the pressors. CT is still pending but the ICPs have been very stable for several days. 04/17/16 The neosynephrine was weaned a little. There is no need for sedation holidays until the edema resolves enough for the neosynephrine to be removed. EVD is draining well and CPP are maintained above 70 without difficulty. 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 She now has poor right MCA flow with hemorrhagic conversion in the basal ganglia. The goal of treatment will be to maximize flow to the penumbra with hypertonic saline, low dose mannitol, fluids. Pressors were added today after intubation. A cranioplasty will be offered to the 04-13-16 Stable after cranioplasty, will keep sedated through the period of maximal brain edema 04/14/16 The ICP remains about 8 with persistent EVD drainage, 140 cc in 24 hrs. We will rescan later this week . Maximal brain edema expected for the next 2 days. 04/15/16 The EVD drainage has improved to 161 cc/day and the HORTENSIA drainage has decreased to 45 cc/day indicating decreased shift right to left. The sodium is 152 and the hypertonic saline is on hold. 04/16/16 HORTENSIA was removed today. CT is pending. Plan for normalization of perfusion pressures. 04/17/16 CPP and ICP in the goal range, slowly weaning the neosynephrine support as the edema improves. She is sedated for cerebral protection. Subjective Subjective Comments No acute events reported Active Medications Current Medications Medications (Trade) Dose Ordered Sig/Beronica Route Start Time Stop Time Status Last Admin (NS Flush) 2 ml BID IVF 04/10/16 21:00 04/18/16 09:29 (NS Flush) 2 ml UNSCH PRN IVF 04/10/16 13:30 (Trandate Inj) 10 mg Q1HR PRN IV 04/10/16 13:30 04/10/16 17:58 (Tylenol) 650 mg Q6H PRN PO 04/10/16 15:30 (Tears Naturale Opth Soln) 1 drop TID EACH EYE 04/10/16 18:00 04/18/16 13:19 (Colace) 100 mg BID PO 04/10/16 21:00 04/18/16 09:51 Miscellaneous Information 1 Q361D XX 04/10/16 15:30 (Chlorhexidine 2% Cloth) Taper DAILY@04 TOP 04/11/16 04:00 04/07/17 03:59 04/18/16 03:38 (Chlorhexidine 2% Cloth) 3 pack UNSCH PRN TOP 04/10/16 15:30 (Apresoline Inj) 10 mg Q1HR PRN IV PUSH 04/10/16 16:30 04/18/16 11:32 (Nitroglycerin 2% Oint) 2 inch Q6HR PRN TOPICAL 04/10/16 16:30 (Zofran Inj) 4 mg Q6H PRN IV PUSH 04/10/16 20:00 04/10/16 20:22 (Lopressor Inj) 10 mg STAT IV PUSH 04/11/16 12:45 04/11/16 16:26 (Dilaudid Pf Inj) 0.5 mg Q4H PRN IV PUSH 04/11/16 14:00 04/13/16 14:59 (NS Flush) DAILY IVF 04/11/16 15:00 04/17/16 08:48 IV Flush UNSCH PRN IVF 04/11/16 15:00 Potassium Chloride 100 ml @ 50 mls/hr Q2H PRN IV 04/11/16 15:00 04/11/16 16:21 (KCl 20 Meq Premix Inj) 100 ml @ 50 mls/hr Q2H PRN IV 04/11/16 15:00 Potassium Chloride 40 meq 40 meq UNSCH PRN PO/TUBE 04/11/16 15:00 Potassium Chloride 100 ml @ 25 mls/hr UNSCH PRN IV 04/11/16 15:00 Potassium Chloride 100 ml @ 50 mls/hr Q2H PRN IV 04/11/16 15:00 (Magnesium Sulfate Inj/NS Inj) 100 ml @ 50 mls/hr UNSCH PRN IV 04/11/16 15:00 Magnesium Oxide 800 mg 800 mg UNSCH PRN PO 04/11/16 15:00 (Magnesium Sulfate Inj/NS Inj) 100 ml @ 50 mls/hr UNSCH PRN IV 04/11/16 15:00 Potassium Phosphate 2000 mg 2,000 mg Q4H PRN PO 04/11/16 15:00 (Sodium Phosphate Inj/NS 250 ml Inj) 250 ml @ 42 mls/hr UNSCH PRN IV 04/11/16 15:00 (KCl 40 Meq/30 ml Liq) 40 meq UNSCH PRN PO/TUBE 04/11/16 15:00 Potassium Phosphate 2000 mg 2,000 mg UNSCH PRN PO/TUBE 04/11/16 15:00 (Potassium Phosphate Inj/NS 250 ml Inj) 260 ml @ 42 mls/hr UNSCH PRN IV 04/11/16 15:00 Mannitol 12.5 gm 12.5 gm Q8H IV 04/11/16 16:00 04/18/16 09:31 (Cardene Inj/NS 250 ml Inj) 260 ml @ 0 mls/hr TITRATE IV 04/11/16 16:00 04/11/16 16:51 Chlorhexidine Gluconate 15 ml 15 ml BID@08,20 MT 04/11/16 20:00 04/18/16 08:00 (Diprivan 1000 Mg/100ml Inj) 100 ml @ 0 mls/hr TITRATE IV 04/11/16 17:00 04/18/16 13:18 Sennosides 8.8 mg 8.8 mg BID PO 04/12/16 09:00 04/18/16 09:49 (Neosynephrine Inj/NS 500 ml Inj) 500 ml @ 0 mls/hr TITRATE IV 04/13/16 20:20 04/17/16 06:33 Glycerin 2 gm 2 gm DAILY PRN RECTAL 04/14/16 06:45 04/14/16 10:06 Levetriacetam 500 mg/Sodium Chloride 105 ml @ 420 mls/hr Q12HR IV 04/14/16 21:00 04/18/16 09:21 Midazolam HCl 100 ml @ 0 mls/hr TITRATE IV 04/14/16 20:45 04/18/16 05:23 Fentanyl Citrate 250 ml @ 0 mls/hr TITRATE IV 04/14/16 20:45 04/18/16 05:22 (Precedex Inj) 50 ml @ 0 mls/hr TITRATE IV 04/14/16 20:45 (Lopressor Inj) 5 mg Q6H IV PUSH 04/14/16 21:00 04/18/16 14:59 (Bumex Inj) 1 mg BID@09,18 IV PUSH 04/17/16 18:00 04/18/16 09:27 Potassium Chloride 40 meq 40 meq DAILY NG 04/18/16 09:00 04/18/16 09:49 (Sodium Chloride 3% Inj) 500 ml @ 10 mls/hr CONTINUOUS IV 04/18/16 15:00 04/18/16 15:08 (Miralax) 17 gm BID PO 04/18/16 21:00 (Lactulose Liq) 30 ml DAILY PO 04/19/16 09:00 Allergies Allergies Coded Allergies Achromycin V (Verified Allergy, Severe, 04/10/16) Michelle (Verified Allergy, Severe, 04/10/16) Augmentin (Verified Allergy, Severe, 04/10/16) Capoten (Verified Allergy, Severe, 04/10/16) Diovan (Verified Allergy, Severe, 04/10/16) Enzymes Oral (Verified Allergy, Severe, 04/10/16) Lipitor (Verified Allergy, Severe, 04/10/16) Procardia (Verified Allergy, Severe, 04/10/16) Rynatan (Verified Allergy, Severe, 04/10/16) Zetia (Verified Allergy, Severe, 04/10/16) Zithromax (Verified Allergy, Severe, 04/10/16) Zocor (Verified Allergy, Severe, 04/10/16) Aspirin (Verified Allergy, Mild, 04/10/16) Cipro (Verified Allergy, Mild, 04/10/16) Codeine (Verified Allergy, Mild, 04/10/16) Keflex (Verified Allergy, Mild, 04/10/16) Morphine (Verified Allergy, Mild, 04/10/16) Blue Dyes - Various (Unverified Allergy, Unknown, Anaphylaxis, 04/10/16) Clonidine (Unverified Allergy, Unknown, itching, 04/10/16) Exam I&O / VS 04/17/16 04/17/16 04/18/16 15:00 23:00 07:00 Intake Total 1904 ml 939 ml 1168 ml Output Total 2105 ml 3056 ml 1250 ml Balance -201 ml -2117 ml -82 ml IV Total 1284 ml 653 ml 838 ml Tube Feeding 370 ml 276 ml 330 ml Albumin 250 ml Tube Irrigant 0 ml 10 ml 0 ml Output Urine Total 2050 ml 3000 ml 1250 ml Stool Total 0 ml 0 ml 0 ml Tube Feeding Residual Discard 0 ml 0 ml 0 ml Drainage Total 55 ml 56 ml Vital Signs Date Time Temp Pulse Resp B/P Pulse Ox O2 Delivery O2 Flow Rate FiO2 04/18/16 16:33 97 35 04/18/16 16:00 79 04/18/16 16:00 99.0 78 16 152/70 97 04/18/16 16:00 35 04/18/16 14:00 73 04/18/16 13:10 97 35 04/18/16 12:00 35 04/18/16 12:00 96.9 78 16 157/67 98 Arterial Line 04/18/16 12:00 78 04/18/16 10:53 97 35 04/18/16 10:00 69 04/18/16 08:00 99.4 63 16 152/63 98 04/18/16 08:00 35 04/18/16 08:00 67 04/18/16 06:00 73 04/18/16 04:01 95 35 04/18/16 04:00 35 04/18/16 04:00 63 04/18/16 04:00 98.0 63 16 147/47 98 04/18/16 02:00 65 04/18/16 01:44 98 35 04/18/16 00:00 35 04/18/16 00:00 65 04/18/16 00:00 98.1 74 16 156/50 99 04/17/16 22:20 98 35 04/17/16 22:00 69 04/17/16 20:26 97 35 04/17/16 20:00 35 04/17/16 20:00 62 04/17/16 20:00 98.3 63 16 157/51 97 04/17/16 18:30 98.8 60 16 155/50 96 04/17/16 18:00 58 04/17/16 17:30 98.7 59 16 154/74 98 Respiratory: Lungs CTA, Non-labored respirations, Coarse breath sounds Cardiology: Normal rate, Regular Rhythm Musculoskeletal: ROM (Within functional limits) Exam Comments intubated does not respond pupils 2 mm bilateral reactive EOM limited to occulocephalics No spontaneous limb movement, Objective Micro and Labs Laboratory Tests Test 04/17/16 04/18/16 04/18/16 04/18/16 23:06 04:20 07:50 14:00 Serum Osmolality 308 307 White Blood Count 9.8 Red Blood Count 3.29 Hemoglobin 9.1 Hematocrit 27.8 Mean Corpuscular Volume 84.4 Mean Corpuscular Hemoglobin 27.7 Mean Corpuscular Hemoglobin 32.8 Concent Red Cell Distribution Width 15.4 Platelet Count 170 Mean Platelet Volume 10.1 Neutrophils (%) (Auto) 78.5 Lymphocytes (%) (Auto) 10.9 Monocytes (%) (Auto) 8.3 Eosinophils (%) (Auto) 2.0 Basophils (%) (Auto) 0.3 Neutrophils # (Auto) 7.7 Lymphocytes # (Auto) 1.1 Monocytes # (Auto) 0.8 Eosinophils # (Auto) 0.2 Basophils # (Auto) 0.0 CBC Comment AUTO DIFF Differential Comment AUTO DIFF CONFIRMED Platelet Estimate NORMAL Platelet Morphology Comment NORMAL Red Cell Morphology Comment NORMAL Sodium Level 149 148 149 Potassium Level 3.8 Chloride Level 118 Carbon Dioxide Level 22.0 Anion Gap 9 Blood Urea Nitrogen 16 Creatinine 0.75 Estimat Glomerular Filtration 75 Rate Random Glucose 111 Calcium Level 8.1 Phosphorus Level 4.1 Magnesium Level 1.8 Total Bilirubin 0.3 Aspartate Amino Transf 30 (AST/SGOT) Alanine Aminotransferase 21 (ALT/SGPT) Alkaline Phosphatase 74 Total Protein 5.1 Albumin 2.1 Date/Time Procedure Status Source Growth 04/13/16 18:37 Aerobic Blood Culture - Final Complete Blood Peripheral NO GROWTH IN 5 DAYS 04/13/16 18:37 Anaerobic Blood Culture - Final Complete Blood Peripheral NO GROWTH IN 5 DAYS Reji Pham PhD Apr 18, 2016 17:28
--- NOTE | 2016-04-18 23:47 | HHI.NSPN ---
History Chief Complaint: intubated Interval History 04/12/16: Decompressive craniotomy for progressive edema and mass effect status post CVA. Exam Results Vital Signs Date Time Temp Pulse Resp B/P Pulse Ox O2 Delivery O2 Flow Rate FiO2 04/18/16 20:47 93 35 04/18/16 20:00 98.9 82 16 128/40 Automatic Cuff Intake and Output 04/17/16 04/17/16 04/18/16 08:00 16:00 00:00 Intake Total 1627 ml 1904 ml 939 ml Output Total 641.0 ml 2105.0 ml 3056.0 ml Balance 986.0 ml -201.0 ml -2117.0 ml Physical Examination Intubated and sedated Respirations clear Cardiac regular Abdomen soft External ventricular drain in place with clear yellow drainage. Ventriculostomy reservoir set at 10 cm water pressure Pupils 2 mm nonreactive No eye opening to voice or deep pain Minimal oculocephalic responses No facial grimacing to deep pain No response to deep pain in all extremities Lab, Micro, Other Results Laboratory Tests Test 04/18/16 04/18/16 04/18/16 04:20 07:50 14:00 White Blood Count 9.8 TH/MM3 Red Blood Count 3.29 MIL/MM3 Hemoglobin 9.1 GM/DL Hematocrit 27.8 % Mean Corpuscular Volume 84.4 FL Mean Corpuscular Hemoglobin 27.7 PG Mean Corpuscular Hemoglobin 32.8 % Concent Red Cell Distribution Width 15.4 % Platelet Count 170 TH/MM3 Mean Platelet Volume 10.1 FL Neutrophils (%) (Auto) 78.5 % Lymphocytes (%) (Auto) 10.9 % Monocytes (%) (Auto) 8.3 % Eosinophils (%) (Auto) 2.0 % Basophils (%) (Auto) 0.3 % Neutrophils # (Auto) 7.7 TH/MM3 Lymphocytes # (Auto) 1.1 TH/MM3 Monocytes # (Auto) 0.8 TH/MM3 Eosinophils # (Auto) 0.2 TH/MM3 Basophils # (Auto) 0.0 TH/MM3 CBC Comment AUTO DIFF Differential Comment AUTO DIFF CONFIRMED Platelet Estimate NORMAL Platelet Morphology Comment NORMAL Red Cell Morphology Comment NORMAL Sodium Level 149 MEQ/L 148 MEQ/L 149 MEQ/L Potassium Level 3.8 MEQ/L Chloride Level 118 MEQ/L Carbon Dioxide Level 22.0 MEQ/L Anion Gap 9 MEQ/L Blood Urea Nitrogen 16 MG/DL Creatinine 0.75 MG/DL Estimat Glomerular Filtration 75 ML/MIN Rate Random Glucose 111 MG/DL Calcium Level 8.1 MG/DL Phosphorus Level 4.1 MG/DL Magnesium Level 1.8 MG/DL Total Bilirubin 0.3 MG/DL Aspartate Amino Transf 30 U/L (AST/SGOT) Alanine Aminotransferase 21 U/L (ALT/SGPT) Alkaline Phosphatase 74 U/L Total Protein 5.1 GM/DL Albumin 2.1 GM/DL Serum Osmolality 307 MOSM/KG 308 MOSM/KG Medical Decision Making Impression and Plan Impression: 1. Stable neurologic function status post craniectomy, status post CVA. External ventricular drain remains in place. Plan: We will begin to challenge ventricular drain. Continue ventilatory support Wean sedation as tolerated Ryne Traore MD Apr 18, 2016 23:47
[2016-04-19] VITALS (18 sets, daily range): BP systolic 141–152; BP diastolic 45–66; PULSE 72–99; RESP 16; TEMP 99–101; O2SAT 94–99
[2016-04-19 00:28] LABS: BICARBONATE 24.6 MEQ/L (21.0-32.0); POTASSIUM 3.9 MEQ/L (3.5-5.1)
[2016-04-19] MEDS: MANNITOL 12.5 GM/50 ML VIAL IV SCH ×3 (01:54→17:51)
[2016-04-19] MEDS: METOPROLOL TARTRATE 5 MG/5 ML VIAL IV PUSH SCH ×4 (02:59→21:00)
[2016-04-19 04:23] LABS: HEMATOCRIT 28.4 % (35.0-46.0); MEAN CELL VOLUME 83.8 FL (80.0-100.0); MEAN CORPUSCULAR HEMOGLOBIN 27.8 PG (27.0-34.0); MEAN CORPUSCULAR HGB CONC 33.2 % (32.0-36.0); PLATELET COUNT 210 TH/MM3 (150-450); RED BLOOD COUNT 3.39 MIL/MM3 (4.00-5.30); RED CELL DISTRIBUTION WIDTH 15.4 % (11.6-17.2); REVIEW FLAG FINAL; WHITE BLOOD COUNT 10.5 TH/MM3 (4.0-11.0)
[2016-04-19] MEDS: CHLORHEXIDINE GLUCONATE 2 % 1 PACK (2 CLOTHS) TOP SCH (04:40)
[2016-04-19] MEDS: hydrALAZINE HCL 20 MG/ML VIAL IV PUSH PRN (05:45)
[2016-04-19] MEDS: PROPOFOL 1000 MG/100 ML INJ 100 ML IV SCH ×3 (06:16→22:52)
[2016-04-19] MEDS: BUMETANIDE INJ 1 MG/4 ML VIAL IV PUSH SCH ×2 (08:07→18:08)
[2016-04-19] MEDS: LACTULOSE SYRUP 20 GM/30 ML CUP PO SCH (08:08)
[2016-04-19] MEDS: levETIRAcetam INJ 500 MG in SODIUM CHLORIDE 0.9% INJ 100 ML IV SCH ×2 (08:08→21:00)
[2016-04-19] MEDS: POTASSIUM CL 40 MEQ/30 ML LIQ UDC NG SCH (08:08)
[2016-04-19] MEDS: SENNOSIDES SYRUP 8.8 MG/5 ML CUP PO SCH ×2 (08:08→21:01)
[2016-04-19] MEDS: POLYETHYLENE GLYCOL 17 GM PKG PO SCH ×2 (08:08→21:01)
[2016-04-19] MEDS: CHLORHEXIDINE 0.12% (ORAL KIT) 15 ML CUP MT SCH ×2 (08:08→20:23)
[2016-04-19] MEDS: DOCUSATE SODIUM 100 MG CAP PO SCH ×2 (08:09→21:01)
[2016-04-19] MEDS: ARTIFICIAL TEARS OPTH SOLN 15 ML BTL EACH EYE SCH ×3 (08:09→18:08)
[2016-04-19] MEDS: SODIUM CHLORIDE 0.9% FLUSH 5 ML FLUSH IVF SCH ×3 (08:09→21:00)
--- NOTE | 2016-04-19 11:32 | RADRPT ---
EXAM DATE/TIME: 04/16/2016 16:10 [facility] COMPARISON: CTA CAROTID ARTERIES W 3D RECON, April 10, 2016, 11:16. MRA BRAIN W/O CONTRAST, April 11, 2016 , 13:17. MRI BRAIN W/O CONTRAST, April 11, 2016, 13:17. CT BRAIN W/O CONTRAST, April 10, 2016 , 11:52. CTA BRAIN W 3D RECON, April 10, 2016, 11:16. CT BRAIN W/O CONTRAST, April 13, 2016, 4 :49. INDICATIONS : Post op stroke RADIATION DOSE: 67.44 CTDIvol (mGy) MEDICAL HISTORY : Seizures. Hypertension. SURGICAL HISTORY : craniotomy ENCOUNTER: Subsequent ACUITY: 1 week PAIN SCALE: Non-responsive LOCATION: Cranial TECHNIQUE: Multiple contiguous axial images were obtained of the head. Using automated exposure control and adj ustment of the mA and/or kV according to patient size, radiation dose was kept as low as reasonably a chievable to obtain optimal diagnostic quality images. FINDINGS: There is a large infarct involving the right sylvian region with evidence for a previous craniotomy. There is persistent right to left shift on the order of 1.3 cm. Ventriculostomy is present on the l eft. Posterior fossa is unremarkable. CONCLUSION: Large infarct involving the right sylvian region with persistent mass effect, showing some improvemen t from 04/13/2016. Jose Luis Nava MD FACR on April 16, 2016 at 16:27 Board Certified Radiologist. This report was verified electronically.
--- NOTE | 2016-04-19 15:39 | HHI.CCPN ---
Subjective Remarks/Hospital Course 80-year-old female. Date of admission 04/10/2016. 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 She presents to the [facility] ED with acute onset from [facility] that 10 AM this morning with left-sided weakness involving left arm/left leg. E VAC was called and a stroke was notified. NIH score was 7. addition with deficits involving dysarthria, right gaze preference, left facial palsy, dense hemiparesis left arm and leg. Normal sensation. Reflexes are equal and symmetric. NIH was route 7. CT of the head revealed no acute intracranial findings. CTA of the head and neck revealed dense right ICA occlusion. The case was discussed with Dr. Dozier with interventional radiology and the patient is not indicated for intervention given the complete occlusion of her right ICA. Patient was seen by Dr. Pham and alteplase was provided after benefits and risks discussed. Patient was hypertensive Cardene drip was initiated. Post alteplase infusion patient became more altered with worsening weakness to her left upper and lower extremity. Repeat CT head revealed no acute bleeding. NIH score is currently 17. She is also noted to have tremors involving her right upper lobe extremity. Neurology was notified and Keppra infusion was provided 1000 mg and stat EEG ordered. 04/11: Continues to have left-sided weakness. Complaining of headache. Episode of SVT resolved after receiving 10 mg IV Lopressor. Currently resting in bed complaining of headache and back pain. 04/12: Intubated last night secondary to altered mental status. After intubation, spontaneously moving left upper lobe extremity. Tube feeds are at goal. Episodes of bigeminy on EKG overnight. Perfusing well. Off Cardene drip. 04/13/16: Status post right craniostomy with left EVD placement secondary to cytotoxic edema right MCA CVA distribution. ICPs around 1. Low-grade temperatures 101.1. Currently 100.3. Resuming tube feeds. No bowel movement. 04/14/16: Tmax 99.8. Currently afebrile. Currently in sinus bradycardia. Likely secondary to inadequate sedation.. She was quite tachycardic after intubation and this did not resolve until sedation adequate. Episodes of sinus tach associated with agitation. Resolved. Tolerating tube feeding. No bowel movement. 04/15/16: Episode of SVT overnight 2 resolved with IV Lopressor. Currently in sinus bradycardia. Positive BM. Sedated on the ventilator per neurosurgery's recommendation. No sedation vacation. 04/16/16: Resting comfortably in bed in no acute distress. Heart rate remained stable. No new events overnight. Currently in sinus bradycardia. CT head currently pending. 04/17: Afebrile. Resting complains bed in no acute distress. Heart rate remained stable. Currently in sinus bradycardia. Head CT stable. 04/18: Afebrile. No acute distress. Off all vasopressors. Restarting 3% saline. Withdrawing to bilateral lower extremities only's morning Subjective 04/19: Afebrile. Continues off all vasopressors. On 3% saline at 20 cc an hour. Only withdrawing to bilateral lower extremities again today. Nothing upper extremities. Ventriculostomy been challenged by neurosurgery today Objective Vital Signs Date Time Temp Pulse Resp B/P Pulse Ox O2 Delivery O2 Flow Rate FiO2 04/19/16 12:02 98 35 04/19/16 12:00 88 04/19/16 08:00 99.0 16 151/66 Intake and Output 04/18/16 04/18/16 04/19/16 08:00 16:00 00:00 Intake Total 1168 ml 1240 ml 1508 ml Output Total 1250.0 ml 3192.0 ml 2436.0 ml Balance -82.0 ml -1952.0 ml -928.0 ml Result Diagram: 04/19/16 0404 04/19/16 0404 Imaging Last Impressions Chest X-Ray 04/18/16 0000 Signed Impressions: Service Date/Time: Monday, April 18, 2016 14:47 - CONCLUSION: Worsening aeration. Evan Rodas MD Head CT 04/16/16 0000 Signed Impressions: Service Date/Time: Saturday, April 16, 2016 16:10 - CONCLUSION: Large infarct involving the right sylvian region with persistent mass effect, showing some improvement from 04/13/2016. Jose Luis Nava MD FACR Head Magnetic Resonance Angiography 04/11/16 0000 Signed Impressions: Service Date/Time: Monday, April 11, 2016 13:17 - CONCLUSION: Significant new finding of total absence of flow in the right middle cerebral artery and minimal flow in the right A1 segment. This indicates total occlusion . Significant atherosclerotic high grade or complete occlusion of the internal carotid on the right free siphon and in the Mauro region Audi Schneider MD Brain MRI 04/11/16 0000 Signed Impressions: Service Date/Time: Monday, April 11, 2016 13:17 - CONCLUSION: 1. Acute infarction involving the right MCA territory. 2. Focal acute hemorrhage involving the right basal ganglia. 3. Cerebral edema with mass effect and midline shift to the left by approximately 5 - 6 mm. Marlon Darnell MD Neck CTA 04/10/16 1106 Signed Impressions: Service Date/Time: March 11:16 - CONCLUSION: Complete occlusion of the extracranial portion of the right ICA. The left carotid shows 20%% stenosis. Both vertebral arteries are patent. Bashir Dozier Jr., MD Head CTA 04/10/16 1100 Signed Impressions: Service Date/Time: March 11:16 - CONCLUSION: Occlusion of the Mauro portion of the right ICA with reconstitution. There is good collateralization of the right middle cerebral and right anterior cerebral territories. I spoke with Dr. Pham at the time of the scan. Bashir Dozier Jr., MD Objective Remarks GENERAL: 80-year-old female, critically ill currently resting in bed in no acute distress currently orotracheally intubated SKIN: Warm and dry. No rash HEAD: Left EVD in place. Status post right craniotomy EYES: Pupils equal and round about 2 mm bilaterally and reactive to 3 mm. No scleral icterus. No injection or drainage. ENT: No nasal bleeding or discharge. Mucous membranes pink and moist. NECK: Trachea midline. No JVD. CARDIOVASCULAR: Bradycardic, RR. S1, S2. No S4. Murmurs not appreciated RESPIRATORY: Distant breath sounds. Few crackles appreciated in bilateral lower lobes. Breath sounds equal bilaterally. GASTROINTESTINAL: Abdomen soft, non-tender, obese. Hypoactive bowel sounds. Hepatic and splenic margins not palpable. MUSCULOSKELETAL: Extremities one plus nonpitting edema bilateral lower extremities. No obvious deformities. NEUROLOGICAL: Sedated with propofol, Versed and Fentanyl on the ventilator.. Withdraws to pain right and left lower extremity. Unable to elicit response left and right upper extremity. Upgoing toes. 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 Currently on propofol 30 олег per kilo per minute/Versed drip at 8 mg an hour and fentanyl drip at 100 g per hour for sedation/analgesia while intubated Goal RASS -2 Daily sedation vacation on hold until Neurosurgery approves Seen by neurology/Dr. Pham CT head on admission 2 revealed no acute findings CTA head and neck revealed occlusion right ICA with good collateral flows the right MCA and FLAVIA. Not amendable interventricular Dr. Dozier/IR Received 90 mg total alteplase ED. Echocardiogram revealed EF 50-55%. NATANAEL 58 mmHg. No regional wall motion abnormality. No obvious source of cardiac emboli CT head 24 hours post alteplase 04/11 revealed right basal ganglia hemorrhage with right MCA to extubation CVA evolving infarct. MRA brain revealed right MCA distribution with occlusion not seen previously on CT. CT head 04/12 revealed evolving right MCA CVA, right basal ganglia hemorrhage 2.6 x 1.8 cm in the right left shift by [address] was asked to revealed status post right cranioplasty with left EVD placement. Significant cytotoxic edema right MCA distribution/palpation. Continue right to left shift. HORTENSIA -removed EVD - 131 cc clear - -10 cm H2O Currently on 3% saline at 20 cc/hr. CV: Right internal carotid artery occlusion - not amendable to intervention Hypertension Dyslipidemia Currently off all vasopressors. Goal MAP 90-110 Home medications include Avalide 300/12.5 one tablet by mouth, daily and nisoldipine 20 mg by mouth daily Elevated HDL, LDL and triglycerides. Patient has multiple drug allergies to lipid lowering agents 2-D echocardiogram revealed EF of 50-55%. No regional wall motion abnormality. Elevated pulmonary pressures 58 mmHg. Resp: Acute Respiratory failure secondary to AMS PRVC 16 ~ 550 tidal volume, iT 1.0. PEEP 5. 35% FiO2 Ventilator bundle As needed bronchodilator therapy Holding spontaneous breathing trials until okay with neurosurgery Chest x-ray 1/ revealed worsening aeration. Recheck in a.m. GI: Nausea Gastroesophageal reflux disease Continue Protonix 40 mg by mouth/IV daily/home medication Vital 1.5 at 45 cc an hour. Colace/SenokotMiraLAX for bowel regimen Accurate I's and O's in a critically ill patient Endo: History of hypothyroidism Normal TSH. Patient is currently on any supplementation medication Sliding scale insulin Accu-Cheks to maintain euglycemia. Low regimen Renal: Creatinine currently within normal limits. Heme: Anemia Transfuse 1 unit. Received yesterday. She will currently 8/2 Coags within normal limits. Status post alteplase. Recheck CBC in a.m. ID: Monitor for infection Pertinent cultures 04/13 - blood cultures 2 -no growth 04/13 - urine -no growth 1/ - sputum -no growth Day #6 vancomycin, aztreonam and Flagyl possible aspirationinfectious process. FEN: Hypernatremia Replace electrolytes as clinically indicated On 3% saline at 20 cc an hour MSK: Osteoarthritis history of chronic back pain due to sacroiliac joint arthritis status post injections History recent lumbar epidural steroid injection PT/OT evaluate and treat Access Right IJ CVL day #8 Prophylaxis - GI - Protonix - DVT - status post alteplase. DVT prophylaxis when okay with neurosurgery Critical Care: The total critical care time was 35 minutes. Time to perform other separately billable procedures was not included in the critical care time. Holden Haddad MD Apr 19, 2016 15:39 Holden Haddad MD Apr 19, 2016 15:39
[2016-04-19] MEDS: fentaNYL DRIP 250 ML IV SCH (17:51)
--- NOTE | 2016-04-19 19:58 | HHI.PR ---
Review/Management Diagnosis large right MCA distribution stroke with edema and mass effect and basal ganglia hemorrhage, s/p surgery for edema and mass effect right complete internal carotid artery occlusion elevated LDL Diagnosis/Plan: (1) Nontraumatic acute hemorrhage of basal ganglia Plan: Plan to keep MAP to perfuse the penumbra in the right hemisphere.She did not develop IVH or hydrocephalus 04/16/16 She has remained very stable. She is now 6 days from CVA and can be weaned from the pressors. CT is still pending but the ICPs have been very stable for several days. 04/17/16 The neosynephrine was weaned a little. There is no need for sedation holidays until the edema resolves enough for the neosynephrine to be removed. EVD is draining well and CPP are maintained above 70 without difficulty. 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 She now has poor right MCA flow with hemorrhagic conversion in the basal ganglia. The goal of treatment will be to maximize flow to the penumbra with hypertonic saline, low dose mannitol, fluids. Pressors were added today after intubation. A cranioplasty will be offered to the 04-13-16 Stable after cranioplasty, will keep sedated through the period of maximal brain edema 04/14/16 The ICP remains about 8 with persistent EVD drainage, 140 cc in 24 hrs. We will rescan later this week . Maximal brain edema expected for the next 2 days. 04/15/16 The EVD drainage has improved to 161 cc/day and the HORTENSIA drainage has decreased to 45 cc/day indicating decreased shift right to left. The sodium is 152 and the hypertonic saline is on hold. 04/16/16 HORTENSIA was removed today. CT is pending. Plan for normalization of perfusion pressures. 04/17/16 CPP and ICP in the goal range, slowly weaning the neosynephrine support as the edema improves. She is sedated for cerebral protection. Subjective Subjective Comments No acute events reported Active Medications Current Medications Medications (Trade) Dose Ordered Sig/Beronica Route Start Time Stop Time Status Last Admin (NS Flush) 2 ml BID IVF 04/10/16 21:00 04/19/16 08:09 (NS Flush) 2 ml UNSCH PRN IVF 04/10/16 13:30 (Trandate Inj) 10 mg Q1HR PRN IV 04/10/16 13:30 04/10/16 17:58 (Tylenol) 650 mg Q6H PRN PO 04/10/16 15:30 04/19/16 17:53 (Tears Naturale Opth Soln) 1 drop TID EACH EYE 04/10/16 18:00 04/19/16 18:08 (Colace) 100 mg BID PO 04/10/16 21:00 04/19/16 08:09 Miscellaneous Information 1 Q361D XX 04/10/16 15:30 (Chlorhexidine 2% Cloth) Taper DAILY@04 TOP 04/11/16 04:00 04/07/17 03:59 04/19/16 04:40 (Chlorhexidine 2% Cloth) 3 pack UNSCH PRN TOP 04/10/16 15:30 (Apresoline Inj) 10 mg Q1HR PRN IV PUSH 04/10/16 16:30 04/19/16 05:45 (Nitroglycerin 2% Oint) 2 inch Q6HR PRN TOPICAL 04/10/16 16:30 (Zofran Inj) 4 mg Q6H PRN IV PUSH 04/10/16 20:00 04/10/16 20:22 (Lopressor Inj) 10 mg STAT IV PUSH 04/11/16 12:45 04/11/16 16:26 (Dilaudid Pf Inj) 0.5 mg Q4H PRN IV PUSH 04/11/16 14:00 04/13/16 14:59 (NS Flush) DAILY IVF 04/11/16 15:00 04/17/16 08:48 IV Flush UNSCH PRN IVF 04/11/16 15:00 Potassium Chloride 100 ml @ 50 mls/hr Q2H PRN IV 04/11/16 15:00 04/11/16 16:21 (KCl 20 Meq Premix Inj) 100 ml @ 50 mls/hr Q2H PRN IV 04/11/16 15:00 Potassium Chloride 40 meq 40 meq UNSCH PRN PO/TUBE 04/11/16 15:00 Potassium Chloride 100 ml @ 25 mls/hr UNSCH PRN IV 04/11/16 15:00 Potassium Chloride 100 ml @ 50 mls/hr Q2H PRN IV 12/30/16 15:00 (Magnesium Sulfate Inj/NS Inj) 100 ml @ 50 mls/hr UNSCH PRN IV 04/11/16 15:00 Magnesium Oxide 800 mg 800 mg UNSCH PRN PO 04/11/16 15:00 (Magnesium Sulfate Inj/NS Inj) 100 ml @ 50 mls/hr UNSCH PRN IV 04/11/16 15:00 Potassium Phosphate 2000 mg 2,000 mg Q4H PRN PO 04/11/16 15:00 (Sodium Phosphate Inj/NS 250 ml Inj) 250 ml @ 42 mls/hr UNSCH PRN IV 04/11/16 15:00 (KCl 40 Meq/30 ml Liq) 40 meq UNSCH PRN PO/TUBE 04/11/16 15:00 Potassium Phosphate 2000 mg 2,000 mg UNSCH PRN PO/TUBE 04/11/16 15:00 (Potassium Phosphate Inj/NS 250 ml Inj) 260 ml @ 42 mls/hr UNSCH PRN IV 04/11/16 15:00 Mannitol 12.5 gm 12.5 gm Q8H IV 04/11/16 16:00 04/19/16 17:51 (Cardene Inj/NS 250 ml Inj) 260 ml @ 0 mls/hr TITRATE IV 04/11/16 16:00 04/11/16 16:51 Chlorhexidine Gluconate 15 ml 15 ml BID@08,20 MT 04/11/16 20:00 04/19/16 08:08 (Diprivan 1000 Mg/100ml Inj) 100 ml @ 0 mls/hr TITRATE IV 04/11/16 17:00 04/19/16 17:50 Sennosides 8.8 mg 8.8 mg BID PO 04/12/16 09:00 04/19/16 08:08 (Neosynephrine Inj/NS 500 ml Inj) 500 ml @ 0 mls/hr TITRATE IV 04/13/16 20:20 04/17/16 06:33 Glycerin 2 gm 2 gm DAILY PRN RECTAL 04/14/16 06:45 04/14/16 10:06 Levetriacetam 500 mg/Sodium Chloride 105 ml @ 420 mls/hr Q12HR IV 04/14/16 21:00 04/19/16 08:08 Midazolam HCl 100 ml @ 0 mls/hr TITRATE IV 04/14/16 20:45 04/18/16 19:05 (fentaNYL DRIP) 250 ml @ 0 mls/hr TITRATE IV 04/14/16 20:45 04/19/16 17:51 (Lopressor Inj) 5 mg Q6H IV PUSH 04/14/16 21:00 04/19/16 16:00 Bumetanide 1 mg 1 mg BID@09,18 IV PUSH 04/17/16 18:00 04/19/16 18:08 (Sodium Chloride 3% Inj) 500 ml @ 20 mls/hr CONTINUOUS IV 04/18/16 15:00 04/18/16 15:08 (Miralax) 17 gm BID PO 04/18/16 21:00 04/19/16 08:08 (Lactulose Liq) 30 ml DAILY PO 04/19/16 09:00 04/19/16 08:08 Allergies Allergies Coded Allergies Achromycin V (Verified Allergy, Severe, 04/10/16) Michelle (Verified Allergy, Severe, 04/10/16) Augmentin (Verified Allergy, Severe, 04/10/16) Capoten (Verified Allergy, Severe, 04/10/16) Diovan (Verified Allergy, Severe, 04/10/16) Enzymes Oral (Verified Allergy, Severe, 04/10/16) Lipitor (Verified Allergy, Severe, 04/10/16) Procardia (Verified Allergy, Severe, 04/10/16) Rynatan (Verified Allergy, Severe, 04/10/16) Zetia (Verified Allergy, Severe, 04/10/16) Zithromax (Verified Allergy, Severe, 04/10/16) Zocor (Verified Allergy, Severe, 04/10/16) Aspirin (Verified Allergy, Mild, 04/10/16) Cipro (Verified Allergy, Mild, 04/10/16) Codeine (Verified Allergy, Mild, 04/10/16) Keflex (Verified Allergy, Mild, 04/10/16) Morphine (Verified Allergy, Mild, 04/10/16) Blue Dyes - Various (Unverified Allergy, Unknown, Anaphylaxis, 04/10/16) Clonidine (Unverified Allergy, Unknown, itching, 04/10/16) Exam I&O / VS 04/18/16 04/18/16 04/19/16 15:00 23:00 07:00 Intake Total 1240 ml 1508 ml 1209 ml Output Total 3192 ml 2436 ml 653 ml Balance -1952 ml -928 ml 556 ml Intake Oral 0 ml IV Total 940 ml 1128 ml 922 ml Tube Feeding 300 ml 380 ml 287 ml Tube Irrigant 0 ml 0 ml Output Urine Total 3150 ml 2400 ml 600 ml Stool Total 0 ml Tube Feeding Residual Discard 0 ml 0 ml 0 ml Drainage Total 42 ml 36 ml 53 ml # Bowel Movements 0 1 0 Vital Signs Date Time Temp Pulse Resp B/P Pulse Ox O2 Delivery O2 Flow Rate FiO2 04/19/16 18:00 78 04/19/16 16:26 98 35 04/19/16 16:00 101.0 79 16 141/45 97 04/19/16 16:00 77 04/19/16 16:00 35 04/19/16 14:00 89 04/19/16 12:02 98 35 04/19/16 12:00 35 04/19/16 12:00 88 04/19/16 12:00 99.9 89 16 149/55 98 04/19/16 10:00 89 04/19/16 08:38 96 35 04/19/16 08:00 99.0 98 16 151/66 95 04/19/16 08:00 35 04/19/16 08:00 88 04/19/16 06:00 99 04/19/16 04:45 96 35 04/19/16 04:00 99.2 80 16 152/56 94 04/19/16 04:00 35 04/19/16 04:00 80 04/19/16 02:00 88 04/19/16 01:31 96 35 04/19/16 00:00 80 04/19/16 00:00 35 04/19/16 00:00 99.7 80 16 152/50 98 04/18/16 22:00 78 04/18/16 20:47 93 35 04/18/16 20:00 98.9 82 16 128/40 96 Automatic Cuff 04/18/16 20:00 35 04/18/16 20:00 82 Respiratory: Lungs CTA, Non-labored respirations, Coarse breath sounds Cardiology: Normal rate, Regular Rhythm Musculoskeletal: ROM (Within functional limits) Exam Comments intubated does not respond pupils 2 mm bilateral reactive EOM limited to occulocephalics No spontaneous limb movement, Objective Micro and Labs Laboratory Tests Test 04/18/16 04/19/16 04/19/16 23:58 04:04 15:45 Sodium Level 149 147 145 Potassium Level 3.9 Chloride Level 115 Carbon Dioxide Level 24.6 Anion Gap 9 Blood Urea Nitrogen 18 Creatinine 0.75 Estimat Glomerular Filtration 75 Rate Random Glucose 112 Serum Osmolality 305 302 304 Calcium Level 7.6 White Blood Count 10.5 Red Blood Count 3.39 Hemoglobin 9.4 Hematocrit 28.4 Mean Corpuscular Volume 83.8 Mean Corpuscular Hemoglobin 27.8 Mean Corpuscular Hemoglobin 33.2 Concent Red Cell Distribution Width 15.4 Platelet Count 210 Mean Platelet Volume 10.8 Reji Pham. PhD Apr 19, 2016 19:58
--- NOTE | 2016-04-19 20:23 | HHI.NSPN ---
History Chief Complaint: intubated Interval History 04/12/16: Decompressive craniotomy for progressive edema and mass effect status post CVA. Exam Results Vital Signs Date Time Temp Pulse Resp B/P Pulse Ox O2 Delivery O2 Flow Rate FiO2 04/19/16 18:00 78 04/19/16 16:26 98 35 04/19/16 16:00 101.0 16 141/45 Intake and Output 04/18/16 04/18/16 04/19/16 08:00 16:00 00:00 Intake Total 1168 ml 1240 ml 1508 ml Output Total 1250.0 ml 3192.0 ml 2436.0 ml Balance -82.0 ml -1952.0 ml -928.0 ml Physical Examination Intubated and sedated Respirations clear Cardiac regular Abdomen soft External ventricular drain in place with clear yellow drainage. Ventriculostomy reservoir set at 10 cm water pressure Pupils 2 mm nonreactive No eye opening to voice or deep pain Minimal oculocephalic responses No facial grimacing to deep pain No response to deep pain in all extremities Lab, Micro, Other Results Laboratory Tests Test 04/18/16 04/19/16 04/19/16 23:58 04:04 15:45 Sodium Level 149 MEQ/L 147 MEQ/L 145 MEQ/L Potassium Level 3.9 MEQ/L Chloride Level 115 MEQ/L Carbon Dioxide Level 24.6 MEQ/L Anion Gap 9 MEQ/L Blood Urea Nitrogen 18 MG/DL Creatinine 0.75 MG/DL Estimat Glomerular Filtration 75 ML/MIN Rate Random Glucose 112 MG/DL Serum Osmolality 305 MOSM/KG 302 MOSM/KG 304 MOSM/KG Calcium Level 7.6 MG/DL White Blood Count 10.5 TH/MM3 Red Blood Count 3.39 MIL/MM3 Hemoglobin 9.4 GM/DL Hematocrit 28.4 % Mean Corpuscular Volume 83.8 FL Mean Corpuscular Hemoglobin 27.8 PG Mean Corpuscular Hemoglobin 33.2 % Concent Red Cell Distribution Width 15.4 % Platelet Count 210 TH/MM3 Mean Platelet Volume 10.8 FL Medical Decision Making Impression and Plan Impression: 1. Stable neurologic function status post craniectomy, status post CVA. External ventricular drain remains in place. Plan: We will begin to challenge ventricular drain. Rich site to 15 cm water today Continue ventilatory support Wean sedation as tolerated. Nursing staff reports positive hypertension with attempts at sedation wean Ryne Traore MD Apr 19, 2016 20:23
[2016-04-20] VITALS (19 sets, daily range): BP systolic 140–159; BP diastolic 49–69; PULSE 70–98; RESP 16; TEMP 97.5–98.6; O2SAT 97–99
[2016-04-20] MEDS: MANNITOL 12.5 GM/50 ML VIAL IV SCH ×3 (00:20→15:55)
[2016-04-20] MEDS: METOPROLOL TARTRATE 5 MG/5 ML VIAL IV PUSH SCH ×4 (04:05→20:16)
[2016-04-20] MEDS: CHLORHEXIDINE GLUCONATE 2 % 1 PACK (2 CLOTHS) TOP SCH (04:06)
[2016-04-20] MEDS: PROPOFOL 1000 MG/100 ML INJ 100 ML IV SCH ×5 (04:08→20:18)
[2016-04-20 05:43] LABS: AUTOMATED NEUTROPHIL # 7.4 TH/MM3 (1.8-7.7); BASOPHIL % 0.5 % (0.0-2.0); EOSINOPHIL # 0.2 TH/MM3 (0-0.4); EOSINOPHIL % 2.5 % (0.0-4.0); HEMATOCRIT 29.7 % (35.0-46.0); LYMPH % 13.6 % (9.0-44.0); LYMPHOCYTE # 1.3 TH/MM3 (1.0-4.8); MEAN CELL VOLUME 83.9 FL (80.0-100.0); MEAN CORPUSCULAR HEMOGLOBIN 27.6 PG (27.0-34.0); MEAN CORPUSCULAR HGB CONC 32.9 % (32.0-36.0); MONO % 7.9 % (0.0-8.0); NEUT % 75.5 % (16.0-70.0); PLATELET COUNT 228 TH/MM3 (150-450); RED BLOOD COUNT 3.54 MIL/MM3 (4.00-5.30); RED CELL DISTRIBUTION WIDTH 15.1 % (11.6-17.2); WHITE BLOOD COUNT 9.8 TH/MM3 (4.0-11.0)
[2016-04-20 06:00] LABS: HEMO FLAGS AUTO DIFF
[2016-04-20 06:19] LABS: ALKALINE PHOSPHATASE 86 U/L (45-117); ALT (GPT) 15 U/L (10-53); ANION GAP 8 MEQ/L (5-15); AST (GOT) 27 U/L (15-37); BICARBONATE 27.2 MEQ/L (21.0-32.0); BLOOD UREA NITROGEN 23 MG/DL (7-18); CHLORIDE 109 MEQ/L (98-107); CREATINE KINASE 107 U/L (26-192); GLOMERULAR FILTRATION RATE 83 ML/MIN (>89); POTASSIUM 3.8 MEQ/L (3.5-5.1); SODIUM (NA) 144 MEQ/L (136-145); TOTAL BILIRUBIN ADULT 0.2 MG/DL (0.2-1.0)
--- NOTE | 2016-04-20 07:01 | RADRPT ---
EXAM DATE/TIME: 04/20/2016 05:12 [facility] COMPARISON: CHEST SINGLE AP, April 18, 2016, 14:47. INDICATIONS : Evaluate after respiratory failure MEDICAL HISTORY : Hypertension. Pancreatitis. SURGICAL HISTORY : Hysterectomy. Appendectomy. ENCOUNTER: Subsequent ACUITY: 2 weeks PAIN SCORE: Non-responsive. LOCATION: Bilateral chest FINDINGS: Endotracheal tube tip 2.8 cm above the jb. Gastric tube in place with side port projected in the stomach. There is persistent consolidation in the left mid and lower lung with loss of delineation entire left hemidiaphragm. Hazy opacity right lower lung with loss of delineation of the right hemid iaphragm suggests pleural effusion. The heart is normal size. CONCLUSION: Persistent left lower lobe consolidation and right pleural effusion. Bashir Connell MD on April 20, 2016 at 6:59 Board Certified Radiologist. This report was verified electronically.
[2016-04-20 08:14] LABS: BANDS 1 % (0-6); CORRECTED NUCLEATED RBC 1 /100 WBC (0-0); MYELOCYTES 1 % (0-0); NEUTROPHIL # MANUAL DIFF 7.4 TH/MM3 (1.8-7.7); PLATELET ESTIMATE SMEAR NORMAL (NORMAL); PLATELET MORPHOLOGY ENLARGED (NORMAL); POLYS (SEG NEUTROPHILS) 74 % (16-70); SCAN/DIFF FINAL DIFF MANUAL; WBC DIFF SAMPLE 100
[2016-04-20] MEDS: BUMETANIDE INJ 1 MG/4 ML VIAL IV PUSH SCH ×2 (08:14→17:35)
[2016-04-20] MEDS: LACTULOSE SYRUP 20 GM/30 ML CUP PO SCH (08:15)
[2016-04-20] MEDS: 3% SALINE INJ 500 ML IV SCH (08:15)
[2016-04-20] MEDS: levETIRAcetam INJ 500 MG in SODIUM CHLORIDE 0.9% INJ 100 ML IV SCH ×2 (08:15→20:16)
[2016-04-20] MEDS: SENNOSIDES SYRUP 8.8 MG/5 ML CUP PO SCH ×2 (08:15→20:17)
[2016-04-20] MEDS: POLYETHYLENE GLYCOL 17 GM PKG PO SCH ×2 (08:15→20:17)
[2016-04-20] MEDS: CHLORHEXIDINE 0.12% (ORAL KIT) 15 ML CUP MT SCH ×2 (08:16→20:17)
[2016-04-20] MEDS: ARTIFICIAL TEARS OPTH SOLN 15 ML BTL EACH EYE SCH ×3 (08:16→17:35)
[2016-04-20] MEDS: SODIUM CHLORIDE 0.9% FLUSH 5 ML FLUSH IVF SCH ×3 (08:16→20:17)
[2016-04-20] MEDS: DOCUSATE SODIUM 100 MG CAP PO SCH ×2 (08:17→20:17)
[2016-04-20] MEDS ORDERED: PHARMACY ORDERED LAB XX ONE (12:45)
--- NOTE | 2016-04-20 12:50 | HHI.PR ---
Review/Management Diagnosis large right MCA distribution stroke with edema and mass effect and basal ganglia hemorrhage, s/p surgery for edema and mass effect right complete internal carotid artery occlusion elevated LDL Diagnosis/Plan: (1) Nontraumatic acute hemorrhage of basal ganglia Plan: Plan to keep MAP to perfuse the penumbra in the right hemisphere.She did not develop IVH or hydrocephalus 04/16/16 She has remained very stable. She is now 6 days from CVA and can be weaned from the pressors. CT is still pending but the ICPs have been very stable for several days. 04/17/16 The neosynephrine was weaned a little. There is no need for sedation holidays until the edema resolves enough for the neosynephrine to be removed. EVD is draining well and CPP are maintained above 70 without difficulty. 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 She now has poor right MCA flow with hemorrhagic conversion in the basal ganglia. The goal of treatment will be to maximize flow to the penumbra with hypertonic saline, low dose mannitol, fluids. Pressors were added today after intubation. A cranioplasty will be offered to the 04-13-16 Stable after cranioplasty, will keep sedated through the period of maximal brain edema 04/14/16 The ICP remains about 8 with persistent EVD drainage, 140 cc in 24 hrs. We will rescan later this week . Maximal brain edema expected for the next 2 days. 04/15/16 The EVD drainage has improved to 161 cc/day and the HORTENSIA drainage has decreased to 45 cc/day indicating decreased shift right to left. The sodium is 152 and the hypertonic saline is on hold. 04/16/16 HORTENSIA was removed today. CT is pending. Plan for normalization of perfusion pressures. 04/17/16 CPP and ICP in the goal range, slowly weaning the neosynephrine support as the edema improves. She is sedated for cerebral protection. Subjective Subjective Comments No acute events reported reducing sedation as tolerated Active Medications Current Medications Medications (Trade) Dose Ordered Sig/Beronica Route Start Time Stop Time Status Last Admin (NS Flush) 2 ml BID IVF 04/10/16 21:00 04/19/16 08:09 (NS Flush) 2 ml UNSCH PRN IVF 04/10/16 13:30 (Trandate Inj) 10 mg Q1HR PRN IV 04/10/16 13:30 04/10/16 17:58 (Tylenol) 650 mg Q6H PRN PO 04/10/16 15:30 04/19/16 17:53 (Tears Naturale Opth Soln) 1 drop TID EACH EYE 04/10/16 18:00 04/20/16 08:16 (Colace) 100 mg BID PO 04/10/16 21:00 04/19/16 21:01 Miscellaneous Information 1 [id number] XX 04/10/16 15:30 (Chlorhexidine 2% Cloth) Taper DAILY@04 TOP 04/11/16 04:00 04/07/17 03:59 04/20/16 04:06 (Chlorhexidine 2% Cloth) 3 pack UNSCH PRN TOP 04/10/16 15:30 (Apresoline Inj) 10 mg Q1HR PRN IV PUSH 04/10/16 16:30 04/19/16 05:45 (Nitroglycerin 2% Oint) 2 inch Q6HR PRN TOPICAL 04/10/16 16:30 (Zofran Inj) 4 mg Q6H PRN IV PUSH 04/10/16 20:00 04/10/16 20:22 (Lopressor Inj) 10 mg STAT IV PUSH 04/11/16 12:45 04/11/16 16:26 (Dilaudid Pf Inj) 0.5 mg Q4H PRN IV PUSH 04/11/16 14:00 04/13/16 14:59 (NS Flush) DAILY IVF 04/11/16 15:00 04/17/16 08:48 IV Flush UNSCH PRN IVF 04/11/16 15:00 Potassium Chloride 100 ml @ 50 mls/hr Q2H PRN IV 04/11/16 15:00 04/11/16 16:21 (KCl 20 Meq Premix Inj) 100 ml @ 50 mls/hr Q2H PRN IV 04/11/16 15:00 Potassium Chloride 40 meq 40 meq UNSCH PRN PO/TUBE 04/11/16 15:00 Potassium Chloride 100 ml @ 25 mls/hr UNSCH PRN IV 04/11/16 15:00 Potassium Chloride 100 ml @ 50 mls/hr Q2H PRN IV 04/11/16 15:00 (Magnesium Sulfate Inj/NS Inj) 100 ml @ 50 mls/hr UNSCH PRN IV 04/11/16 15:00 Magnesium Oxide 800 mg 800 mg UNSCH PRN PO 04/11/16 15:00 (Magnesium Sulfate Inj/NS Inj) 100 ml @ 50 mls/hr UNSCH PRN IV 04/11/16 15:00 Potassium Phosphate 2000 mg 2,000 mg Q4H PRN PO 04/11/16 15:00 (Sodium Phosphate Inj/NS 250 ml Inj) 250 ml @ 42 mls/hr UNSCH PRN IV 04/11/16 15:00 (KCl 40 Meq/30 ml Liq) 40 meq UNSCH PRN PO/TUBE 04/11/16 15:00 Potassium Phosphate 2000 mg 2,000 mg UNSCH PRN PO/TUBE 04/11/16 15:00 (Potassium Phosphate Inj/NS 250 ml Inj) 260 ml @ 42 mls/hr UNSCH PRN IV 04/11/16 15:00 Mannitol 12.5 gm 12.5 gm Q8H IV 04/11/16 16:00 04/20/16 08:00 (Cardene Inj/NS 250 ml Inj) 260 ml @ 0 mls/hr TITRATE IV 04/11/16 16:00 04/11/16 16:51 Chlorhexidine Gluconate 15 ml 15 ml BID@08,20 MT 04/11/16 20:00 04/20/16 08:16 (Diprivan 1000 Mg/100ml Inj) 100 ml @ 0 mls/hr TITRATE IV 04/11/16 17:00 04/20/16 11:03 Sennosides 8.8 mg 8.8 mg BID PO 04/12/16 09:00 04/20/16 08:15 (Neosynephrine Inj/NS 500 ml Inj) 500 ml @ 0 mls/hr TITRATE IV 04/13/16 20:20 04/17/16 06:33 Glycerin 2 gm 2 gm DAILY PRN RECTAL 04/14/16 06:45 04/14/16 10:06 Levetriacetam 500 mg/Sodium Chloride 105 ml @ 420 mls/hr Q12HR IV 04/14/16 21:00 04/20/16 08:15 Midazolam HCl 100 ml @ 0 mls/hr TITRATE IV 04/14/16 20:45 04/18/16 19:05 (fentaNYL DRIP) 250 ml @ 0 mls/hr TITRATE IV 04/14/16 20:45 04/19/16 17:51 (Lopressor Inj) 5 mg Q6H IV PUSH 04/14/16 21:00 04/20/16 08:15 Bumetanide 1 mg 1 mg BID@09,18 IV PUSH 04/17/16 18:00 04/20/16 08:14 (Sodium Chloride 3% Inj) 500 ml @ 20 mls/hr CONTINUOUS IV 04/18/16 15:00 04/20/16 08:15 (Miralax) 17 gm BID PO 04/18/16 21:00 04/20/16 08:15 (Lactulose Liq) 30 ml DAILY PO 04/19/16 09:00 04/20/16 08:15 Allergies Allergies Coded Allergies Achromycin V (Verified Allergy, Severe, 04/10/16) Michelle (Verified Allergy, Severe, 04/10/16) Augmentin (Verified Allergy, Severe, 04/10/16) Capoten (Verified Allergy, Severe, 04/10/16) Diovan (Verified Allergy, Severe, 04/10/16) Enzymes Oral (Verified Allergy, Severe, 04/10/16) Lipitor (Verified Allergy, Severe, 04/10/16) Procardia (Verified Allergy, Severe, 04/10/16) Rynatan (Verified Allergy, Severe, 04/10/16) Zetia (Verified Allergy, Severe, 04/10/16) Zithromax (Verified Allergy, Severe, 04/10/16) Zocor (Verified Allergy, Severe, 04/10/16) Aspirin (Verified Allergy, Mild, 04/10/16) Cipro (Verified Allergy, Mild, 04/10/16) Codeine (Verified Allergy, Mild, 04/10/16) Keflex (Verified Allergy, Mild, 04/10/16) Morphine (Verified Allergy, Mild, 04/10/16) Blue Dyes - Various (Unverified Allergy, Unknown, Anaphylaxis, 04/10/16) Clonidine (Unverified Allergy, Unknown, itching, 04/10/16) Exam I&O / VS 04/19/16 04/19/16 04/20/16 15:00 23:00 07:00 Intake Total 1019 ml 1034 ml 758 ml Output Total 2190 ml 1860 ml 854 ml Balance -1171 ml -826 ml -96 ml IV Total 585 ml 580 ml 428 ml Tube Feeding 374 ml 354 ml 330 ml Tube Irrigant 60 ml 100 ml 0 ml Output Urine Total 2150 ml 1825 ml 850 ml Tube Feeding Residual Discard 0 ml 0 ml 0 ml Drainage Total 40 ml 35 ml 4 ml # Bowel Movements 0 0 0 Vital Signs Date Time Temp Pulse Resp B/P Pulse Ox O2 Delivery O2 Flow Rate FiO2 04/20/16 12:00 35 04/20/16 12:00 85 04/20/16 12:00 97.5 85 16 148/51 98 04/20/16 11:42 98 35 04/20/16 10:00 73 04/20/16 08:50 99 35 04/20/16 08:00 35 04/20/16 08:00 98.5 78 16 150/66 97 04/20/16 08:00 78 04/20/16 06:00 82 04/20/16 04:26 98 35 04/20/16 04:00 98.5 70 16 140/49 98 04/20/16 04:00 35 04/20/16 04:00 70 04/20/16 02:00 84 04/20/16 00:07 98 35 04/20/16 00:00 98.0 76 16 154/56 98 04/20/16 00:00 76 04/20/16 00:00 35 04/19/16 22:00 72 04/19/16 21:05 99 35 04/19/16 20:00 86 04/19/16 20:00 99.5 86 16 144/58 94 04/19/16 20:00 35 04/19/16 18:00 78 04/19/16 16:26 98 35 04/19/16 16:00 101.0 79 16 141/45 97 04/19/16 16:00 77 04/19/16 16:00 35 04/19/16 14:00 89 Respiratory: Lungs CTA, Non-labored respirations, Coarse breath sounds Cardiology: Normal rate, Regular Rhythm Musculoskeletal: ROM (Within functional limits) Exam Comments intubated does not respond pupils 2 mm bilateral reactive EOM limited to occulocephalics No spontaneous limb movement, Objective Micro and Labs Laboratory Tests Test 04/19/16 04/19/16 04/20/16 15:45 22:47 04:50 Sodium Level 145 144 Serum Osmolality 304 304 307 White Blood Count 9.8 Red Blood Count 3.54 Hemoglobin 9.8 Hematocrit 29.7 Mean Corpuscular Volume 83.9 Mean Corpuscular Hemoglobin 27.6 Mean Corpuscular Hemoglobin 32.9 Concent Red Cell Distribution Width 15.1 Platelet Count 228 Mean Platelet Volume 11.4 Neutrophils (%) (Auto) 75.5 Lymphocytes (%) (Auto) 13.6 Monocytes (%) (Auto) 7.9 Eosinophils (%) (Auto) 2.5 Basophils (%) (Auto) 0.5 Neutrophils # (Auto) 7.4 Lymphocytes # (Auto) 1.3 Monocytes # (Auto) 0.8 Eosinophils # (Auto) 0.2 Basophils # (Auto) 0.0 CBC Comment AUTO DIFF Differential Total Cells 100 Counted Neutrophils % (Manual) 74 Band Neutrophils % 1 Lymphocytes % 14 Monocytes % 10 Neutrophils # (Manual) 7.4 Myelocytes 1 Nucleated Red Blood Cells 1 Differential Comment FINAL DIFF MANUAL Platelet Estimate NORMAL Platelet Morphology Comment ENLARGED Red Cell Morphology Comment NORMAL Potassium Level 3.8 Chloride Level 109 Carbon Dioxide Level 27.2 Anion Gap 8 Blood Urea Nitrogen 23 Creatinine 0.68 Estimat Glomerular Filtration 83 Rate Random Glucose 116 Calcium Level 8.4 Phosphorus Level 3.6 Magnesium Level 2.0 Total Bilirubin 0.2 Aspartate Amino Transf 27 (AST/SGOT) Alanine Aminotransferase 15 (ALT/SGPT) Alkaline Phosphatase 86 Total Creatine Kinase 107 Total Protein 5.5 Albumin 2.0 Reji Pham PhD Apr 20, 2016 12:50
[2016-04-20] MEDS: fentaNYL DRIP 250 ML IV SCH (17:35)
--- NOTE | 2016-04-20 17:39 | HHI.NSPN ---
History Chief Complaint: intubated Interval History 04/12/16: Decompressive craniotomy for progressive edema and mass effect status post CVA. Exam Results Vital Signs Date Time Temp Pulse Resp B/P Pulse Ox O2 Delivery O2 Flow Rate FiO2 04/20/16 17:07 98 35 04/20/16 16:00 98.1 81 16 159/69 Intake and Output 04/19/16 04/19/16 04/20/16 08:00 16:00 00:00 Intake Total 1209 ml 1019 ml 1034 ml Output Total 653.0 ml 2190.0 ml 1860.0 ml Balance 556.0 ml -1171.0 ml -826.0 ml Physical Examination Intubated and sedated Respirations clear Cardiac regular Abdomen soft External ventricular drain in place with clear yellow drainage. Ventriculostomy reservoir set at 10 cm water pressure Pupils 2 mm nonreactive No eye opening to voice or deep pain Minimal oculocephalic responses No facial grimacing to deep pain No response to deep pain in all extremities Lab, Micro, Other Results Laboratory Tests Test 04/19/16 04/20/16 04/20/16 22:47 04:50 14:50 Serum Osmolality 304 MOSM/KG 307 MOSM/KG 306 MOSM/KG White Blood Count 9.8 TH/MM3 Red Blood Count 3.54 MIL/MM3 Hemoglobin 9.8 GM/DL Hematocrit 29.7 % Mean Corpuscular Volume 83.9 FL Mean Corpuscular Hemoglobin 27.6 PG Mean Corpuscular Hemoglobin 32.9 % Concent Red Cell Distribution Width 15.1 % Platelet Count 228 TH/MM3 Mean Platelet Volume 11.4 FL Neutrophils (%) (Auto) 75.5 % Lymphocytes (%) (Auto) 13.6 % Monocytes (%) (Auto) 7.9 % Eosinophils (%) (Auto) 2.5 % Basophils (%) (Auto) 0.5 % Neutrophils # (Auto) 7.4 TH/MM3 Lymphocytes # (Auto) 1.3 TH/MM3 Monocytes # (Auto) 0.8 TH/MM3 Eosinophils # (Auto) 0.2 TH/MM3 Basophils # (Auto) 0.0 TH/MM3 CBC Comment AUTO DIFF Differential Total Cells 100 Counted Neutrophils % (Manual) 74 % Band Neutrophils % 1 % Lymphocytes % 14 % Monocytes % 10 % Neutrophils # (Manual) 7.4 TH/MM3 Myelocytes 1 % Nucleated Red Blood Cells 1 /100 WBC Differential Comment FINAL DIFF MANUAL Platelet Estimate NORMAL Platelet Morphology Comment ENLARGED Red Cell Morphology Comment NORMAL Sodium Level 144 MEQ/L 144 MEQ/L Potassium Level 3.8 MEQ/L Chloride Level 109 MEQ/L Carbon Dioxide Level 27.2 MEQ/L Anion Gap 8 MEQ/L Blood Urea Nitrogen 23 MG/DL Creatinine 0.68 MG/DL Estimat Glomerular Filtration 83 ML/MIN Rate Random Glucose 116 MG/DL Calcium Level 8.4 MG/DL Phosphorus Level 3.6 MG/DL Magnesium Level 2.0 MG/DL Total Bilirubin 0.2 MG/DL Aspartate Amino Transf 27 U/L (AST/SGOT) Alanine Aminotransferase 15 U/L (ALT/SGPT) Alkaline Phosphatase 86 U/L Total Creatine Kinase 107 U/L Total Protein 5.5 GM/DL Albumin 2.0 GM/DL Medical Decision Making Impression and Plan Impression: 1. Stable neurologic function status post craniectomy, status post CVA. External ventricular drain remains in place. Plan: Continue to challenge ventricular drain. [place] increased to 20 cm water today Continue ventilatory support Wean sedation as tolerated. Nursing staff reports positive hypertension with attempts at sedation wean Discussed at length with the patient's on the telephone today and all questions answered. Ryne Traore MD Apr 20, 2016 17:39
[2016-04-20] MEDS ORDERED: POTASSIUM CHLOR 20 MEQ PREMIX 100 ML IV ONE (18:45)
[2016-04-20 23:34] LABS: BICARBONATE 28.5 MEQ/L (21.0-32.0); POTASSIUM 3.9 MEQ/L (3.5-5.1)
[2016-04-21] VITALS (19 sets, daily range): BP systolic 138–154; BP diastolic 63–69; PULSE 68–95; RESP 16; TEMP 96.8–99.8; O2SAT 94–99
[2016-04-21] MEDS: MANNITOL 12.5 GM/50 ML VIAL IV SCH ×4 (00:08→23:54)
[2016-04-21] MEDS: PROPOFOL 1000 MG/100 ML INJ 100 ML IV SCH ×2 (02:42→22:14)
[2016-04-21] MEDS: 3% SALINE INJ 500 ML IV SCH ×2 (02:42→22:46)
[2016-04-21] MEDS: METOPROLOL TARTRATE 5 MG/5 ML VIAL IV PUSH SCH ×6 (03:58→21:04)
[2016-04-21] MEDS: CHLORHEXIDINE GLUCONATE 2 % 1 PACK (2 CLOTHS) TOP SCH (04:00)
[2016-04-21 04:31] LABS: AUTOMATED NEUTROPHIL # 7.3 TH/MM3 (1.8-7.7); BASOPHIL % 0.2 % (0.0-2.0); EOSINOPHIL # 0.3 TH/MM3 (0-0.4); EOSINOPHIL % 3.1 % (0.0-4.0); HEMATOCRIT 29.7 % (35.0-46.0); HEMO FLAGS DIFF FINAL; LYMPH % 10.9 % (9.0-44.0); MEAN CELL VOLUME 84.8 FL (80.0-100.0); MEAN CORPUSCULAR HEMOGLOBIN 27.5 PG (27.0-34.0); MEAN CORPUSCULAR HGB CONC 32.4 % (32.0-36.0); MONO % 8.6 % (0.0-8.0); NEUT % 77.2 % (16.0-70.0); PLATELET COUNT 250 TH/MM3 (150-450); RED CELL DISTRIBUTION WIDTH 15.3 % (11.6-17.2); WHITE BLOOD COUNT 9.4 TH/MM3 (4.0-11.0)
--- NOTE | 2016-04-21 05:51 | RADRPT ---
EXAM DATE/TIME: 04/21/2016 04:51 [facility] COMPARISON: CHEST SINGLE AP, April 20, 2016, 5:12. INDICATIONS : Shortness of breath, possible pulmonary disease. MEDICAL HISTORY : Hypertension. Pancreatitis. SURGICAL HISTORY : Hysterectomy. Appendectomy. ENCOUNTER: Subsequent ACUITY: 2 weeks PAIN SCORE: Non-responsive. LOCATION: Bilateral chest FINDINGS: A single view of the chest demonstrates cardiomegaly with bibasilar densities and probable small bila teral pleural effusions greater on the right. Endotracheal tube, nasogastric tube and right jugular c entral line are stable in position. The cardiomediastinal contours are unremarkable. Osseous structu res are intact. CONCLUSION: Bibasilar densities and probable small bilateral pleural effusions greater on the right. José Miguel Singletary MD on April 21, 2016 at 5:48 Board Certified Radiologist. This report was verified electronically.
[2016-04-21] MEDS: DEXMEDETOMIDINE INJ 50 ML IV SCH ×4 (06:40→19:58)
[2016-04-21] MEDS: CHLORHEXIDINE 0.12% (ORAL KIT) 15 ML CUP MT SCH ×2 (08:00→19:59)
[2016-04-21] MEDS: levETIRAcetam INJ 500 MG in SODIUM CHLORIDE 0.9% INJ 100 ML IV SCH ×2 (08:16→19:58)
[2016-04-21] MEDS: SENNOSIDES SYRUP 8.8 MG/5 ML CUP PO SCH ×2 (08:16→20:18)
[2016-04-21] MEDS: SODIUM CHLORIDE 0.9% FLUSH 5 ML FLUSH IVF SCH ×3 (08:16→19:59)
[2016-04-21] MEDS: POLYETHYLENE GLYCOL 17 GM PKG PO SCH ×3 (08:16→21:00)
[2016-04-21] MEDS: ARTIFICIAL TEARS OPTH SOLN 15 ML BTL EACH EYE SCH ×3 (08:16→16:57)
[2016-04-21] MEDS: LACTULOSE SYRUP 20 GM/30 ML CUP PO SCH ×4 (08:16→21:00)
[2016-04-21] MEDS: fentaNYL DRIP 250 ML IV SCH ×2 (08:52→20:00)
[2016-04-21] MEDS: DOCUSATE SODIUM 100 MG CAP PO SCH ×3 (08:54→21:00)
[2016-04-21 09:25] LABS: BICARBONATE 26.5 MEQ/L (21.0-32.0); MAGNESIUM 2.1 MG/DL (1.5-2.5); POTASSIUM 3.9 MEQ/L (3.5-5.1)
[2016-04-21] MEDS: CLEVIDIPINE INJ 50 ML IV SCH ×3 (09:54→19:58)
--- NOTE | 2016-04-21 10:40 | HHI.NSPN ---
Subjective History Day 2 after right carotid occlusion, TPA followed by right MCA clot. She is intubated for airway protection. Her pupils remain small and she still follows commands 04/13/16 She is POD 1 after cranioplasty, right MCA infarction, sedated and ventilated, with MAP 90-100 on pressors. ICP has been in the normal range 5-10 and her right pupils remains small and reactive. 04/14/16 Day 2 after cranioplasty, day 4 after onset of infarction, sedated and ventilated. Versed added for comfort as she was awakening on propofol. Low dose mannitol and 3% saline are continued. 04/15/16 Day 3 after cranioplasty,, day 5 from CVA onset, stable ICP and hemodynamically. Follow up CT in the am. 04/16/16 Day 6 after CVA, Day 4 after cranioplasty, very stable ICP, no pupillary changes. CT is still pending. EVD is at 7 drained on 57 cc in 24 hrs 04/17/16 Day 7 after CVA, still very stable ICP but requiring some neosynephrine to keep CPP 70-80. EVD is draining well and ICP remains normal 04/21/15 The EVD has been challenged. She remains on precedex and propofol and sedated Vitals . Vital Signs Date Time Temp Pulse Resp B/P Pulse Ox O2 Delivery O2 Flow Rate FiO2 04/21/16 10:23 96 35 04/21/16 08:07 99 35 04/21/16 06:00 90 04/21/16 04:00 83 04/21/16 04:00 35 04/21/16 04:00 99.8 83 16 147/65 97 04/21/16 03:28 97 35 04/21/16 02:00 95 04/21/16 01:18 99 35 04/21/16 00:00 35 04/21/16 00:00 94 04/21/16 00:00 96.8 94 16 154/67 94 04/20/16 22:00 93 04/20/16 21:42 99 35 04/20/16 20:34 98 35 04/20/16 20:00 35 04/20/16 20:00 98.6 98 16 156/56 99 04/20/16 20:00 98 04/20/16 18:00 90 04/20/16 17:07 98 35 04/20/16 16:00 35 04/20/16 16:00 98.1 81 16 159/69 99 04/20/16 16:00 81 04/20/16 14:00 78 04/20/16 12:00 35 04/20/16 12:00 85 04/20/16 12:00 97.5 85 16 148/51 98 04/20/16 11:42 98 35 04/20/16 04/20/16 04/21/16 15:00 23:00 07:00 Intake Total 912 ml 1212 ml 935 ml Output Total 2062 ml 1561 ml 487 ml Balance -1150 ml -349 ml 448 ml Intracranial Pressure (mmHg): 8 Physical Exam Head Head: Atraumatic Eyes Eyes: Pupils Equal Neuro Mental Status: Sedated Drips: Diprivan @ (and precedex) Pupils: Reactive Bilaterally Marc Coma Scale Best Eye Openin - None Best Verbal: 1 - None Best Motor: 4 - Withdraws to pain Cardiac Cardiac: Regular Rate & Rhythm Respiratory Respiratory: CTA Gastrointestinal Gastrointestinal: Soft Musculoskeletal Extremities Upper Extremities Deltoid Bicep Tricep HI W. Ext Right Left Lower Extremeties Ilio Quad Plantar Dorsi EHL Right Left Musculoskeletal Remarks known left hemiparesis, slight flexion of lower extremities to stimulation Dermatologic Dermatologic: Skin Intact Extremities Edema: SCDs Objective Labs Laboratory Tests 04/20/16 14:50 04/20/16 23:00 04/21/16 03:58 04/21/16 06:30 Laboratory Tests Test 04/20/16 04/20/16 04/21/16 14:50 23:00 06:30 Sodium Level 144 MEQ/L 145 MEQ/L 146 MEQ/L Serum Osmolality 306 MOSM/KG 308 MOSM/KG 313 MOSM/KG Potassium Level 3.9 MEQ/L 3.9 MEQ/L Chloride Level 109 MEQ/L 110 MEQ/L Carbon Dioxide Level 28.5 MEQ/L 26.5 MEQ/L Anion Gap 8 MEQ/L 9 MEQ/L Blood Urea Nitrogen 26 MG/DL 26 MG/DL Creatinine 0.70 MG/DL 0.68 MG/DL Estimat Glomerular Filtration 81 ML/MIN 83 ML/MIN Rate Random Glucose 107 MG/DL 117 MG/DL Calcium Level 8.3 MG/DL 8.1 MG/DL Phosphorus Level 4.0 MG/DL 3.7 MG/DL Magnesium Level 2.0 MG/DL 2.1 MG/DL Assessment & Plan Diagnosis: (1) Nontraumatic acute hemorrhage of basal ganglia Plan: Plan to keep MAP to perfuse the penumbra in the right hemisphere.She did not develop IVH or hydrocephalus 04/16/16 She has remained very stable. She is now 6 days from CVA and can be weaned from the pressors. CT is still pending but the ICPs have been very stable for several days. 04/17/16 The neosynephrine was weaned a little. There is no need for sedation holidays until the edema resolves enough for the neosynephrine to be removed. EVD is draining well and CPP are maintained above 70 without difficulty. 04/21/15 Day 9 from craniectomy. She is off pressors and weaning from the EVD, drained only 35 cc in [address] in the am. 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 She now has poor right MCA flow with hemorrhagic conversion in the basal ganglia. The goal of treatment will be to maximize flow to the penumbra with hypertonic saline, low dose mannitol, fluids. Pressors were added today after intubation. A cranioplasty will be offered to the 04-13-16 Stable after cranioplasty, will keep sedated through the period of maximal brain edema 04/14/16 The ICP remains about 8 with persistent EVD drainage, 140 cc in 24 hrs. We will rescan later this week . Maximal brain edema expected for the next 2 days. 04/15/16 The EVD drainage has improved to 161 cc/day and the HORTENSIA drainage has decreased to 45 cc/day indicating decreased shift right to left. The sodium is 152 and the hypertonic saline is on hold. 04/16/16 HORTENSIA was removed today. CT is pending. Plan for normalization of perfusion pressures. 04/17/16 CPP and ICP in the goal range, slowly weaning the neosynephrine support as the edema improves. She is sedated for cerebral protection. 04/21/15 ICP is normal with the EVD at 20 cm water pressure, will be removed tomorrow after head CT. We can wean the sedation as tolerated as cerebral edema has improved. Level of Visit: Post Op Mason Cannon Apr 21, 2016 10:40
--- NOTE | 2016-04-21 14:02 | RADRPT ---
EXAM DATE/TIME: 04/21/2016 13:21 [facility] COMPARISON: CHEST SINGLE AP, April 21, 2016, 4:51. INDICATIONS : Post PICC line placement MEDICAL HISTORY : Hypertension. Pancreatitis. SURGICAL HISTORY : Appendectomy. Hysterectomy. ENCOUNTER: Subsequent ACUITY: 1 week PAIN SCORE: Non-responsive. LOCATION: Bilateral chest FINDINGS: Single view of the chest demonstrates interval insertion of a right upper terminate PICC line. The PI CC line is in good position within the superior aspect of the right atrium. There is improving lung aeration with decreasing basilar opacity. Heart and mediastinal structures are stable. Supportive devices which include a right jugular catheter, endotracheal tube and nasogastric tube rem ain in good position. CONCLUSION: Status post right upper extremity PICC line which is in good position. Improving lung aeration with decreasing congestion. Benny Valverde MD on April 21, 2016 at 13:59 Board Certified Radiologist. This report was verified electronically.
--- NOTE | 2016-04-21 15:31 | HHI.CCPN ---
Subjective Remarks/Hospital Course 80-year-old female. Date of admission 04/10/2016. 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 She presents to the [place] [facility] ED with acute onset from normocytic health that 10 AM this morning with left-sided weakness involving left arm/left leg. E VAC was called and a stroke was notified. NIH score was 7. addition with deficits involving dysarthria, right gaze preference, left facial palsy, dense hemiparesis left arm and leg. Normal sensation. Reflexes are equal and symmetric. NIH was route 7. CT of the head revealed no acute intracranial findings. CTA of the head and neck revealed dense right ICA occlusion. The case was discussed with Dr. Dozier with interventional radiology and the patient is not indicated for intervention given the complete occlusion of her right ICA. Patient was seen by Dr. Pham and alteplase was provided after benefits and risks discussed. Patient was hypertensive Cardene drip was initiated. Post alteplase infusion patient became more altered with worsening weakness to her left upper and lower extremity. Repeat CT head revealed no acute bleeding. NIH score is currently 17. She is also noted to have tremors involving her right upper lobe extremity. Neurology was notified and Keppra infusion was provided 1000 mg and stat EEG ordered. 04/11: Continues to have left-sided weakness. Complaining of headache. Episode of SVT resolved after receiving 10 mg IV Lopressor. Currently resting in bed complaining of headache and back pain. 04/12: Intubated last night secondary to altered mental status. After intubation, spontaneously moving left upper lobe extremity. Tube feeds are at goal. Episodes of bigeminy on EKG overnight. Perfusing well. Off Cardene drip. 04/13/16: Status post right craniostomy with left EVD placement secondary to cytotoxic edema right MCA CVA distribution. ICPs around 1. Low-grade temperatures 101.1. Currently 100.3. Resuming tube feeds. No bowel movement. 04/14/16: Tmax 99.8. Currently afebrile. Currently in sinus bradycardia. Likely secondary to inadequate sedation.. She was quite tachycardic after intubation and this did not resolve until sedation adequate. Episodes of sinus tach associated with agitation. Resolved. Tolerating tube feeding. No bowel movement. 04/15/16: Episode of SVT overnight 2 resolved with IV Lopressor. Currently in sinus bradycardia. Positive BM. Sedated on the ventilator per neurosurgery's recommendation. No sedation vacation. 04/16/16: Resting comfortably in bed in no acute distress. Heart rate remained stable. No new events overnight. Currently in sinus bradycardia. CT head currently pending. 04/17: Afebrile. Resting complains bed in no acute distress. Heart rate remained stable. Currently in sinus bradycardia. Head CT stable. 04/18: Afebrile. No acute distress. Off all vasopressors. Restarting 3% saline. Withdrawing to bilateral lower extremities only's morning 04/19: Afebrile. Continues off all vasopressors. On 3% saline at 20 cc an hour. Only withdrawing to bilateral lower extremities again today. Nothing upper extremities. Ventriculostomy been challenged by neurosurgery today Subjective 04/21: Afebrile. Currently weaning sedation. On low-dose Cleviprex. Withdrawing and spontaneous movement noted to bilateral lower extremities. No response from upper extremity's. Positive gag. Decreased urine output today. PICC line placed Note that patient seen and examined 04/20. Note was not saved. See that orders were placed and patient currently seen and examined. Objective Vital Signs Date Time Temp Pulse Resp B/P Pulse Ox O2 Delivery O2 Flow Rate FiO2 04/21/16 14:00 69 04/21/16 13:09 99 35 04/21/16 12:00 99.3 16 151/69 Intake and Output 04/20/16 04/20/16 04/21/16 08:00 16:00 00:00 Intake Total 758 ml 912 ml 1212 ml Output Total 854.0 ml 2062.0 ml 1561.0 ml Balance -96.0 ml -1150.0 ml -349.0 ml Result Diagram: 04/21/16 0358 04/21/16 1430 Imaging Last Impressions Chest X-Ray 04/21/16 0600 Signed Impressions: Service Date/Time: Thursday, April 21, 2016 04:51 - CONCLUSION: Bibasilar densities and probable small bilateral pleural effusions greater on the right. José Miguel Singletary MD Head CT 04/16/16 0000 Signed Impressions: Service Date/Time: Saturday, April 16, 2016 16:10 - CONCLUSION: Large infarct involving the right sylvian region with persistent mass effect, showing some improvement from 04/13/2016. Jose Luis Nava MD FACR Head Magnetic Resonance Angiography 04/11/16 0000 Signed Impressions: Service Date/Time: Monday, April 11, 2016 13:17 - CONCLUSION: Significant new finding of total absence of flow in the right middle cerebral artery and minimal flow in the right A1 segment. This indicates total occlusion . Significant atherosclerotic high grade or complete occlusion of the internal carotid on the right free siphon and in the Mauro region Audi Schneider MD Brain MRI 04/11/16 0000 Signed Impressions: Service Date/Time: Monday, April 11, 2016 13:17 - CONCLUSION: 1. Acute infarction involving the right MCA territory. 2. Focal acute hemorrhage involving the right basal ganglia. 3. Cerebral edema with mass effect and midline shift to the left by approximately 5 - 6 mm. Marlon Darnell MD Neck CTA 04/10/16 1106 Signed Impressions: Service Date/Time: March 11:16 - CONCLUSION: Complete occlusion of the extracranial portion of the right ICA. The left carotid shows 20%% stenosis. Both vertebral arteries are patent. Bashir Dozier Jr., MD Head CTA 04/10/16 1100 Signed Impressions: Service Date/Time: March 11:16 - CONCLUSION: Occlusion of the Mauro portion of the right ICA with reconstitution. There is good collateralization of the right middle cerebral and right anterior cerebral territories. I spoke with Dr. Pham at the time of the scan. Bashir Dozier Jr., MD Objective Remarks GENERAL: 80-year-old female, critically ill currently resting in bed in no acute distress currently orotracheally intubated SKIN: Warm and dry. No rash HEAD: Left EVD in place. Status post right craniotomy EYES: Pupils equal and round about 2 mm bilaterally and reactive to 3 mm. No scleral icterus. No injection or drainage. ENT: No nasal bleeding or discharge. Mucous membranes pink and moist. NECK: Trachea midline. No JVD. CARDIOVASCULAR: Bradycardic, RR. S1, S2. No S4. Murmurs not appreciated RESPIRATORY: Distant breath sounds. Few crackles appreciated in bilateral lower lobes. Breath sounds equal bilaterally. GASTROINTESTINAL: Abdomen soft, non-tender, obese. Hypoactive bowel sounds. Hepatic and splenic margins not palpable. MUSCULOSKELETAL: Extremities one plus nonpitting edema bilateral lower extremities. No obvious deformities. NEUROLOGICAL: Sedated with Versed and Fentanyl on the ventilator.. Moves spontaneously and to pain right and left lower extremity. Unable to elicit response left and right upper extremity. Upgoing toes. 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 Currently on propofol 30 олег per kilo per minute/Precedex drip at 0.4 mcg/kg per hour and and fentanyl drip at 100 g per hour for sedation/analgesia while intubated Goal RASS -2 Daily sedation vacation okay with neurosurgery. Seen by neurology/Dr. Pham CT head on admission 2 revealed no acute findings CTA head and neck revealed occlusion right ICA with good collateral flows the right MCA and FLAVIA. Not amendable interventricular Dr. Dozier/IR Received 90 mg total alteplase ED. Echocardiogram revealed EF 50-55%. NATANAEL 58 mmHg. No regional wall motion abnormality. No obvious source of cardiac emboli CT head 24 hours post alteplase 04/11 revealed right basal ganglia hemorrhage with right MCA to extubation CVA evolving infarct. MRA brain revealed right MCA distribution with occlusion not seen previously on CT. CT head 04/12 revealed evolving right MCA CVA, right basal ganglia hemorrhage 2.6 x 1.8 cm in the right left shift by [address] was asked to revealed status post right cranioplasty with left EVD placement. Significant cytotoxic edema right MCA distribution/palpation. Continue right to left shift. HORTENSIA -removed EVD - 10 cc clear - -20 cm H2O Currently on 3% saline at 30 cc/hr. Plan CT head a.m. CV: Right internal carotid artery occlusion - not amendable to intervention Hypertension Dyslipidemia Currently off all vasopressors. Goal MAP 90-110 On Lopressor 5 mill grams IV every 4 hours and as needed Cleviprex for systolic blood pressure greater than 160 Home medications include Avalide 300/12.5 one tablet by mouth, daily and nisoldipine 20 mg by mouth daily Elevated HDL, LDL and triglycerides. Patient has multiple drug allergies to lipid lowering agents 2-D echocardiogram revealed EF of 50-55%. No regional wall motion abnormality. Elevated pulmonary pressures 58 mmHg. Resp: Acute Respiratory failure secondary to AMS PRVC 16 ~ 550 tidal volume, iT 1.1. PEEP 8. 45% FiO2 Ventilator bundle As needed bronchodilator therapy Holding spontaneous breathing trials likely in a.m. Chest x-ray 04/21 revealed stable bilateral infiltrates. Sub-adequate aeration GI: Nausea Gastroesophageal reflux disease Continue Protonix 40 mg by mouth/IV daily/home medication Vital 1.5 at 45 cc an hour. Colace/SenokotMiraLAX for bowel regimen Accurate I's and O's in a critically ill patient Endo: History of hypothyroidism Normal TSH. Patient is currently on any supplementation medication Sliding scale insulin Accu-Cheks to maintain euglycemia. Low regimen Renal: Creatinine currently within normal limits. Heme: Anemia Transfuse 1 unit. Received yesterday. She will currently 8/2 Coags within normal limits. Status post alteplase. Recheck CBC in a.m. ID: Monitor for infection Pertinent cultures 04/13 - blood cultures 2 -no growth 04/13 - urine -no growth 1/ - sputum -no growth Day #8 vancomycin, aztreonam and Flagyl possible aspirationinfectious process. Discontinue FEN: Hypernatremia Replace electrolytes as clinically indicated On 3% saline at 30 cc an hour MSK: Osteoarthritis history of chronic back pain due to sacroiliac joint arthritis status post injections History recent lumbar epidural steroid injection PT/OT evaluate and treat Access Right IJ CVL day #8 Prophylaxis - GI - Protonix - DVT - status post alteplase. DVT prophylaxis when okay with neurosurgery Critical Care: The total critical care time was 35 minutes. Time to perform other separately billable procedures was not included in the critical care time. Holden Haddad MD Apr 21, 2016 15:31
[2016-04-21] MEDS ORDERED: ALBUMIN HUMAN 25% 25 GM/100 ML BAGP IV SCH (16:00)
[2016-04-21] MEDS ORDERED: SODIUM CHLORID 0.9% 500 ML INJ 500 ML IV ONE (16:00)
[2016-04-21] MEDS ORDERED: METHYLNALTREXONE BROMIDE 12 MG/0.6 ML VIAL SQ ONE (16:15)
[2016-04-21] MEDS ORDERED: MINERAL OIL LIQUID 30 ML CUP PO ONE (16:30)
--- NOTE | 2016-04-21 16:54 | HHI.PR ---
Review/Management Diagnosis large right MCA distribution stroke with edema and mass effect and basal ganglia hemorrhage, s/p surgery for edema and mass effect right complete internal carotid artery occlusion elevated LDL Diagnosis/Plan: (1) Nontraumatic acute hemorrhage of basal ganglia Plan: Plan to keep MAP to perfuse the penumbra in the right hemisphere.She did not develop IVH or hydrocephalus 04/16/16 She has remained very stable. She is now 6 days from CVA and can be weaned from the pressors. CT is still pending but the ICPs have been very stable for several days. 04/17/16 The neosynephrine was weaned a little. There is no need for sedation holidays until the edema resolves enough for the neosynephrine to be removed. EVD is draining well and CPP are maintained above 70 without difficulty. 04/21/15 Day 9 from craniectomy. She is off pressors and weaning from the EVD, drained only 35 cc in [address] in the am. 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 She now has poor right MCA flow with hemorrhagic conversion in the basal ganglia. The goal of treatment will be to maximize flow to the penumbra with hypertonic saline, low dose mannitol, fluids. Pressors were added today after intubation. A cranioplasty will be offered to the 04-13-16 Stable after cranioplasty, will keep sedated through the period of maximal brain edema 04/14/16 The ICP remains about 8 with persistent EVD drainage, 140 cc in 24 hrs. We will rescan later this week . Maximal brain edema expected for the next 2 days. 04/15/16 The EVD drainage has improved to 161 cc/day and the HORTENSIA drainage has decreased to 45 cc/day indicating decreased shift right to left. The sodium is 152 and the hypertonic saline is on hold. 04/16/16 HORTENSIA was removed today. CT is pending. Plan for normalization of perfusion pressures. 04/17/16 CPP and ICP in the goal range, slowly weaning the neosynephrine support as the edema improves. She is sedated for cerebral protection. 04/21/15 ICP is normal with the EVD at 20 cm water pressure, will be removed tomorrow after head CT. We can wean the sedation as tolerated as cerebral edema has improved. Subjective Subjective Comments No acute events reported Active Medications Current Medications Medications (Trade) Dose Ordered Sig/Beronica Route Start Time Stop Time Status Last Admin (NS Flush) 2 ml BID IVF 04/10/16 21:00 04/20/16 20:17 (NS Flush) 2 ml UNSCH PRN IVF 04/10/16 13:30 (Trandate Inj) 10 mg Q1HR PRN IV 04/10/16 13:30 04/10/16 17:58 (Tylenol) 650 mg Q6H PRN PO 04/10/16 15:30 04/19/16 17:53 (Tears Naturale Opth Soln) 1 drop TID EACH EYE 04/10/16 18:00 04/21/16 13:00 (Colace) 100 mg BID PO 04/10/16 21:00 04/20/16 20:17 Miscellaneous Information 1 Q361D XX 04/10/16 15:30 (Chlorhexidine 2% Cloth) Taper DAILY@04 TOP 04/11/16 04:00 04/07/17 03:59 04/20/16 04:06 (Chlorhexidine 2% Cloth) 3 pack UNSCH PRN TOP 04/10/16 15:30 (Apresoline Inj) 10 mg Q1HR PRN IV PUSH 04/10/16 16:30 04/19/16 05:45 (Nitroglycerin 2% Oint) 2 inch Q6HR PRN TOPICAL 04/10/16 16:30 (Zofran Inj) 4 mg Q6H PRN IV PUSH 04/10/16 20:00 04/10/16 20:22 (Lopressor Inj) 10 mg STAT IV PUSH 04/11/16 12:45 04/11/16 16:26 (Dilaudid Pf Inj) 0.5 mg Q4H PRN IV PUSH 04/11/16 14:00 04/13/16 14:59 (NS Flush) DAILY IVF 04/11/16 15:00 04/17/16 08:48 IV Flush UNSCH PRN IVF 04/11/16 15:00 Potassium Chloride 100 ml @ 50 mls/hr Q2H PRN IV 04/11/16 15:00 04/11/16 16:21 (KCl 20 Meq Premix Inj) 100 ml @ 50 mls/hr Q2H PRN IV 04/11/16 15:00 Potassium Chloride 40 meq 40 meq UNSCH PRN PO/TUBE 04/11/16 15:00 Potassium Chloride 100 ml @ 25 mls/hr UNSCH PRN IV 04/11/16 15:00 Potassium Chloride 100 ml @ 50 mls/hr Q2H PRN IV 04/11/16 15:00 (Magnesium Sulfate Inj/NS Inj) 100 ml @ 50 mls/hr UNSCH PRN IV 04/11/16 15:00 Magnesium Oxide 800 mg 800 mg UNSCH PRN PO 04/11/16 15:00 (Magnesium Sulfate Inj/NS Inj) 100 ml @ 50 mls/hr UNSCH PRN IV 04/11/16 15:00 Potassium Phosphate 2000 mg 2,000 mg Q4H PRN PO 04/11/16 15:00 (Sodium Phosphate Inj/NS 250 ml Inj) 250 ml @ 42 mls/hr UNSCH PRN IV 04/11/16 15:00 (KCl 40 Meq/30 ml Liq) 40 meq UNSCH PRN PO/TUBE 04/11/16 15:00 Potassium Phosphate 2000 mg 2,000 mg UNSCH PRN PO/TUBE 04/11/16 15:00 (Potassium Phosphate Inj/NS 250 ml Inj) 260 ml @ 42 mls/hr UNSCH PRN IV 04/11/16 15:00 (Mannitol Inj) 12.5 gm Q8H IV 04/11/16 16:00 04/21/16 00:08 Chlorhexidine Gluconate 15 ml 15 ml BID@08,20 MT 04/11/16 20:00 04/21/16 08:00 (Diprivan 1000 Mg/100ml Inj) 100 ml @ 0 mls/hr TITRATE IV 04/11/16 17:00 04/21/16 02:42 Sennosides 8.8 mg 8.8 mg BID PO 04/12/16 09:00 04/21/16 08:16 (Neosynephrine Inj/NS 500 ml Inj) 500 ml @ 0 mls/hr TITRATE IV 04/13/16 20:20 04/17/16 06:33 Glycerin 2 gm 2 gm DAILY PRN RECTAL 04/14/16 06:45 04/14/16 10:06 Levetriacetam 500 mg/Sodium Chloride 105 ml @ 420 mls/hr Q12HR IV 04/14/16 21:00 04/21/16 08:16 Fentanyl Citrate 250 ml @ 0 mls/hr TITRATE IV 04/14/16 20:45 04/21/16 08:52 (Sodium Chloride 3% Inj) 500 ml @ 30 mls/hr CONTINUOUS IV 04/18/16 15:00 04/21/16 02:42 Polyethylene Glycol 17 gm 17 gm BID PO 04/18/16 21:00 04/21/16 08:16 Dexmedetomidine HCl 50 ml @ 0 mls/hr TITRATE IV 04/20/16 18:45 04/21/16 15:51 (Cleviprex Inj) 50 ml @ 0 mls/hr TITRATE IV 04/20/16 19:00 04/21/16 09:54 (Lopressor Inj) 5 mg Q4HR IV PUSH 04/20/16 20:00 04/21/16 16:00 (NS Flush) See Protocol DAILY IVF 04/22/16 09:00 (NS Flush) See Protocol UNSCH PRN IVF 04/21/16 12:00 (Heparin Central Flush) See Protocol DAILY IVF 04/22/16 09:00 (Heparin Central Flush) See Protocol UNSCH PRN IVF 04/21/16 12:00 (NS Flush) See Protocol UNSCH PRN IVF 04/21/16 12:00 Albumin Human 25 gm 25 gm Q6HR IV 04/21/16 16:00 04/22/16 06:01 04/21/16 15:51 (NS 500 ml Inj) 500 ml @ 500 mls/hr BOLUS ONCE IV 04/21/16 16:00 04/21/16 16:59 04/21/16 15:51 (Lactulose Liq) 30 ml QID PO 04/21/16 18:00 Allergies Allergies Coded Allergies Achromycin V (Verified Allergy, Severe, 04/10/16) Michelle (Verified Allergy, Severe, 04/10/16) Augmentin (Verified Allergy, Severe, 04/10/16) Capoten (Verified Allergy, Severe, 04/10/16) Diovan (Verified Allergy, Severe, 04/10/16) Enzymes Oral (Verified Allergy, Severe, 04/10/16) Lipitor (Verified Allergy, Severe, 04/10/16) Procardia (Verified Allergy, Severe, 04/10/16) Rynatan (Verified Allergy, Severe, 04/10/16) Zetia (Verified Allergy, Severe, 04/10/16) Zithromax (Verified Allergy, Severe, 04/10/16) Zocor (Verified Allergy, Severe, 04/10/16) Aspirin (Verified Allergy, Mild, 04/10/16) Cipro (Verified Allergy, Mild, 04/10/16) Codeine (Verified Allergy, Mild, 04/10/16) Keflex (Verified Allergy, Mild, 04/10/16) Morphine (Verified Allergy, Mild, 04/10/16) Blue Dyes - Various (Unverified Allergy, Unknown, Anaphylaxis, 04/10/16) Clonidine (Unverified Allergy, Unknown, itching, 04/10/16) Exam I&O / VS 04/20/16 04/20/16 04/21/16 15:00 23:00 07:00 Intake Total 912 ml 1212 ml 935 ml Output Total 2062 ml 1561 ml 487 ml Balance -1150 ml -349 ml 448 ml IV Total 555 ml 857 ml 572 ml Tube Feeding 332 ml 355 ml 333 ml Tube Irrigant 25 ml 30 ml Output Urine Total 2050 ml 1550 ml 475 ml Tube Feeding Residual Discard 0 ml 0 ml 0 ml Drainage Total 12 ml 11 ml 12 ml # Bowel Movements 0 0 0 Vital Signs Date Time Temp Pulse Resp B/P Pulse Ox O2 Delivery O2 Flow Rate FiO2 04/21/16 15:28 94 45 04/21/16 14:00 69 04/21/16 13:09 99 35 04/21/16 12:00 82 04/21/16 12:00 35 04/21/16 12:00 99.3 82 16 151/69 96 04/21/16 10:23 96 35 04/21/16 10:00 82 04/21/16 08:07 99 35 04/21/16 08:00 90 04/21/16 08:00 35 04/21/16 08:00 98.8 90 16 145/63 97 04/21/16 06:00 90 04/21/16 04:00 83 04/21/16 04:00 35 04/21/16 04:00 99.8 83 16 147/65 97 04/21/16 03:28 97 35 04/21/16 02:00 95 04/21/16 01:18 99 35 04/21/16 00:00 35 04/21/16 00:00 94 04/21/16 00:00 96.8 94 16 154/67 94 04/20/16 22:00 93 04/20/16 21:42 99 35 04/20/16 20:34 98 35 04/20/16 20:00 35 04/20/16 20:00 98.6 98 16 156/56 99 04/20/16 20:00 98 04/20/16 18:00 90 04/20/16 17:07 98 35 Respiratory: Lungs CTA, Non-labored respirations, Coarse breath sounds Cardiology: Normal rate, Regular Rhythm Musculoskeletal: ROM (Within functional limits) Exam Comments intubated does not respond pupils 2 mm bilateral reactive EOM limited to occulocephalics No spontaneous limb movement, Objective Micro and Labs Laboratory Tests Test 04/20/16 04/21/16 04/21/16 04/21/16 23:00 03:58 06:30 14:30 Sodium Level 145 146 147 Potassium Level 3.9 3.9 Chloride Level 109 110 Carbon Dioxide Level 28.5 26.5 Anion Gap 8 9 Blood Urea Nitrogen 26 26 Creatinine 0.70 0.68 Estimat Glomerular Filtration 81 83 Rate Random Glucose 107 117 Serum Osmolality 308 313 311 Calcium Level 8.3 8.1 Phosphorus Level 4.0 3.7 Magnesium Level 2.0 2.1 White Blood Count 9.4 Red Blood Count 3.50 Hemoglobin 9.6 Hematocrit 29.7 Mean Corpuscular Volume 84.8 Mean Corpuscular Hemoglobin 27.5 Mean Corpuscular Hemoglobin 32.4 Concent Red Cell Distribution Width 15.3 Platelet Count 250 Mean Platelet Volume 11.0 Neutrophils (%) (Auto) 77.2 Lymphocytes (%) (Auto) 10.9 Monocytes (%) (Auto) 8.6 Eosinophils (%) (Auto) 3.1 Basophils (%) (Auto) 0.2 Neutrophils # (Auto) 7.3 Lymphocytes # (Auto) 1.0 Monocytes # (Auto) 0.8 Eosinophils # (Auto) 0.3 Basophils # (Auto) 0.0 CBC Comment DIFF FINAL Differential Comment Reji Pahm PhD Apr 21, 2016 16:54
[2016-04-21] MEDS ORDERED: LACTULOSE SYRUP 20 GM/30 ML CUP PO SCH (18:00)
[2016-04-21] MEDS: ALBUMIN HUMAN 25% 25 GM/100 ML BAGP IV SCH (20:18)
[2016-04-21 23:31] LABS: ALKALINE PHOSPHATASE 82 U/L (45-117); ALT (GPT) 18 U/L (10-53); ANION GAP 8 MEQ/L (5-15); AST (GOT) 29 U/L (15-37); BICARBONATE 26.5 MEQ/L (21.0-32.0); BLOOD UREA NITROGEN 27 MG/DL (7-18); CHLORIDE 114 MEQ/L (98-107); GLOMERULAR FILTRATION RATE 90 ML/MIN (>89); MAGNESIUM 2.3 MG/DL (1.5-2.5); POTASSIUM 3.6 MEQ/L (3.5-5.1); SODIUM (NA) 148 MEQ/L (136-145); TOTAL BILIRUBIN ADULT 0.2 MG/DL (0.2-1.0)
[2016-04-21 23:32] LABS: CREATINE KINASE 51 U/L (26-192)
[2016-04-22] VITALS (17 sets, daily range): BP systolic 132–157; BP diastolic 48–65; PULSE 57–94; RESP 16–19; TEMP 98.2–98.7; O2SAT 93–100
[2016-04-22] MEDS: DEXMEDETOMIDINE INJ 50 ML IV SCH ×5 (00:31→21:53)
[2016-04-22] MEDS: METOPROLOL TARTRATE 5 MG/5 ML VIAL IV PUSH SCH ×6 (00:32→21:12)
[2016-04-22] MEDS: CHLORHEXIDINE GLUCONATE 2 % 1 PACK (2 CLOTHS) TOP SCH (04:00)
[2016-04-22] MEDS ORDERED: EPINEPHrine HCL (1:10,000) 1 MG/10 ML SYRINGE ONE (04:12)
[2016-04-22] MEDS ORDERED: LIDOCAINE HCL 2% 100 MG/5 ML SYRINGE ONE (04:12)
[2016-04-22] MEDS ORDERED: CALCIUM CHLORIDE 10% SOLN 1 GRAM/10 ML SYR ONE (04:12)
[2016-04-22] MEDS ORDERED: ATROPINE SULFATE 1 MG/10 ML SYRINGE ONE (04:13)
--- NOTE | 2016-04-22 05:10 | RADRPT ---
EXAM DATE/TIME: 04/22/2016 04:25 [facility] COMPARISON: CT BRAIN W/O CONTRAST, April 16, 2016, 16:10. INDICATIONS : Follow up after right MCA infarction RADIATION DOSE: 66.78 CTDIvol (mGy) MEDICAL HISTORY : Seizures. Hypertension. SURGICAL HISTORY : Craniotomy. ENCOUNTER: Subsequent ACUITY: 1 week PAIN SCALE: Non-responsive LOCATION: cranial TECHNIQUE: Multiple contiguous axial images were obtained of the head. Using automated exposure control and adj ustment of the mA and/or kV according to patient size, radiation dose was kept as low as reasonably a chievable to obtain optimal diagnostic quality images. FINDINGS: CEREBRUM: Large right middle cerebral artery distribution evolving infarct again noted. Mass effect and right-t o-left midline shift a 1.3 cm. Right-sided craniotomy defects. There is small right subdural hemorrha ge measures 5 mm. Left-sided frontal ventriculostomy catheter is stable in position. No evidence of mass lesion. POSTERIOR FOSSA: The cerebellum and brainstem are intact. The 4th ventricle is midline. The cerebellopontine angle i s unremarkable. EXTRACRANIAL: The visualized portion of the orbits is intact. SKULL: Right craniotomy. CONCLUSION: 1. Low age right middle stream artery distribution infarct with mass effect and [id number] midline shift of 13 mm. 2. Small right subdural hemorrhage measures 5 mm. José Miguel Singletary MD on April 22, 2016 at 5:05 Board Certified Radiologist. This report was verified electronically.
[2016-04-22] MEDS: ALBUMIN HUMAN 25% 25 GM/100 ML BAGP IV SCH ×2 (05:31→10:28)
[2016-04-22] MEDS: fentaNYL DRIP 250 ML IV SCH (05:31)
[2016-04-22 05:41] LABS: AUTOMATED NEUTROPHIL # 5.1 TH/MM3 (1.8-7.7); BASOPHIL % 0.6 % (0.0-2.0); EOSINOPHIL # 0.3 TH/MM3 (0-0.4); HEMATOCRIT 24.9 % (35.0-46.0); HEMO FLAGS DIFF FINAL; LYMPH % 15.8 % (9.0-44.0); LYMPHOCYTE # 1.1 TH/MM3 (1.0-4.8); MEAN CELL VOLUME 84.7 FL (80.0-100.0); MEAN CORPUSCULAR HEMOGLOBIN 27.7 PG (27.0-34.0); MEAN CORPUSCULAR HGB CONC 32.7 % (32.0-36.0); MONO % 7.2 % (0.0-8.0); NEUT % 72.4 % (16.0-70.0); PLATELET COUNT 216 TH/MM3 (150-450); RED BLOOD COUNT 2.94 MIL/MM3 (4.00-5.30); RED CELL DISTRIBUTION WIDTH 15.2 % (11.6-17.2)
[2016-04-22] MEDS: CLEVIDIPINE INJ 50 ML IV SCH ×3 (05:57→21:18)
[2016-04-22] MEDS: MANNITOL 12.5 GM/50 ML VIAL IV SCH (08:00)
[2016-04-22] MEDS: LACTULOSE SYRUP 20 GM/30 ML CUP PO SCH ×4 (09:00→21:00)
[2016-04-22] MEDS: DOCUSATE SODIUM 100 MG CAP PO SCH ×2 (09:00→21:00)
[2016-04-22] MEDS: POLYETHYLENE GLYCOL 17 GM PKG PO SCH ×2 (09:00→21:00)
[2016-04-22] MEDS: SENNOSIDES SYRUP 8.8 MG/5 ML CUP PO SCH ×2 (09:00→21:00)
[2016-04-22] MEDS: SODIUM CHLORIDE 0.9% FLUSH 5 ML FLUSH IVF SCH ×3 (09:00→21:00)
[2016-04-22] MEDS: PROPOFOL 1000 MG/100 ML INJ 100 ML IV SCH ×3 (09:15→21:18)
[2016-04-22] MEDS: ARTIFICIAL TEARS OPTH SOLN 15 ML BTL EACH EYE SCH ×3 (09:17→18:31)
[2016-04-22] MEDS: CHLORHEXIDINE 0.12% (ORAL KIT) 15 ML CUP MT SCH ×2 (09:17→20:00)
[2016-04-22] MEDS: levETIRAcetam INJ 500 MG in SODIUM CHLORIDE 0.9% INJ 100 ML IV SCH ×2 (09:19→21:12)
[2016-04-22] MEDS: 3% SALINE INJ 500 ML IV SCH (13:12)
--- NOTE | 2016-04-22 14:09 | HHI.NSPN ---
Subjective History Day 2 after right carotid occlusion, TPA followed by right MCA clot. She is intubated for airway protection. Her pupils remain small and she still follows commands 04/13/16 She is POD 1 after cranioplasty, right MCA infarction, sedated and ventilated, with MAP 90-100 on pressors. ICP has been in the normal range 5-10 and her right pupils remains small and reactive. 04/14/16 Day 2 after cranioplasty, day 4 after onset of infarction, sedated and ventilated. Versed added for comfort as she was awakening on propofol. Low dose mannitol and 3% saline are continued. 04/15/16 Day 3 after cranioplasty,, day 5 from CVA onset, stable ICP and hemodynamically. Follow up CT in the am. 04/16/16 Day 6 after CVA, Day 4 after cranioplasty, very stable ICP, no pupillary changes. CT is still pending. EVD is at 7 drained on 57 cc in 24 hrs 04/17/16 Day 7 after CVA, still very stable ICP but requiring some neosynephrine to keep CPP 70-80. EVD is draining well and ICP remains normal 04/21/15 The EVD has been challenged. She remains on precedex and propofol and sedated 04/22/[address] this am shows completed right MCA infarctions. The inferior right temporal lobe and the left hemisphere are good. We will wean sedation and the hyperosmolar fluids.ICP remains about 8 with minimal CSF drainage, the drain was removed today. Vitals . Vital Signs Date Time Temp Pulse Resp B/P Pulse Ox O2 Delivery O2 Flow Rate FiO2 04/22/16 12:00 60 04/22/16 12:00 98.4 61 16 142/48 95 04/22/16 12:00 50 04/22/16 10:00 58 04/22/16 08:47 95 50 04/22/16 08:00 57 04/22/16 08:00 98.2 58 16 150/62 93 04/22/16 08:00 50 04/22/16 06:00 57 04/22/16 04:49 95 50 04/22/16 04:00 66 04/22/16 04:00 50 04/22/16 04:00 100 100 04/22/16 04:00 98.7 58 16 151/52 95 04/22/16 02:00 60 04/22/16 00:27 95 50 04/22/16 00:00 50 04/22/16 00:00 98.6 62 16 132/65 95 04/22/16 00:00 66 04/21/16 22:00 72 04/21/16 20:41 96 50 04/21/16 20:00 98.6 68 16 138/64 95 04/21/16 20:00 68 04/21/16 20:00 50 04/21/16 18:21 50 04/21/16 18:00 74 04/21/16 17:00 45 04/21/16 16:00 35 04/21/16 16:00 98.6 73 16 143/63 95 04/21/16 16:00 73 04/21/16 15:28 94 45 04/21/16 04/21/16 04/22/16 15:00 23:00 07:00 Intake Total 1068 ml 1288 ml 636 ml Output Total 460 ml 760 ml 505 ml Balance 608 ml 528 ml 131 ml Physical Exam Head Head: Incision (dry, intact) Eyes Eyes Remarks Pupils 1 1/2 right and 1 mm left Neuro Mental Status: Sedated Drips: Diprivan @, Fentanyl @ [place] Coma Scale Best Eye Openin - None Best Verbal: 1 - None Best Motor: 1 - None Cardiac Cardiac: Regular Rate & Rhythm Gastrointestinal Gastrointestinal: Soft Genitourinary Genitourinary: Mendez Catheter In Place Musculoskeletal Extremities Upper Extremities Deltoid Bicep Tricep HI W. Ext Right Left Lower Extremeties Ilio Quad Plantar Dorsi EHL Right Left Musculoskeletal Remarks known left hemiparesis, slight flexion of lower extremities to stimulation Extremities Edema: SCDs Objective Labs Laboratory Tests 04/21/16 14:30 04/21/16 22:50 04/22/16 05:20 Laboratory Tests Test 04/21/16 04/21/16 04/22/16 14:30 22:50 05:20 Sodium Level 147 MEQ/L 148 MEQ/L 149 MEQ/L Serum Osmolality 311 MOSM/KG 315 MOSM/KG Potassium Level 3.6 MEQ/L Chloride Level 114 MEQ/L Carbon Dioxide Level 26.5 MEQ/L Anion Gap 8 MEQ/L Blood Urea Nitrogen 27 MG/DL Creatinine 0.64 MG/DL Estimat Glomerular Filtration 90 ML/MIN Rate Random Glucose 116 MG/DL Calcium Level 8.1 MG/DL Phosphorus Level 3.1 MG/DL Magnesium Level 2.3 MG/DL Total Bilirubin 0.2 MG/DL Aspartate Amino Transf 29 U/L (AST/SGOT) Alanine Aminotransferase 18 U/L (ALT/SGPT) Alkaline Phosphatase 82 U/L Total Creatine Kinase 51 U/L Total Protein 6.0 GM/DL Albumin 2.8 GM/DL Imaging Remarks Last Impressions Head CT 04/22/16 0600 Signed Impressions: Service Date/Time: Friday, April 22, 2016 04:25 - CONCLUSION: 1. Low age right middle stream artery distribution infarct with mass effect and [id number] midline shift of 13 mm. 2. Small right subdural hemorrhage measures 5 mm. José Miguel Singletary MD Chest X-Ray 04/21/16 0600 Signed Impressions: Service Date/Time: Thursday, April 21, 2016 04:51 - CONCLUSION: Bibasilar densities and probable small bilateral pleural effusions greater on the right. José Miguel Singletary MD Head Magnetic Resonance Angiography 04/11/16 0000 Signed Impressions: Service Date/Time: Monday, April 11, 2016 13:17 - CONCLUSION: Significant new finding of total absence of flow in the right middle cerebral artery and minimal flow in the right A1 segment. This indicates total occlusion . Significant atherosclerotic high grade or complete occlusion of the internal carotid on the right free siphon and in the Mauro region Audi Schneider MD Brain MRI 04/11/16 0000 Signed Impressions: Service Date/Time: Monday, April 11, 2016 13:17 - CONCLUSION: 1. Acute infarction involving the right MCA territory. 2. Focal acute hemorrhage involving the right basal ganglia. 3. Cerebral edema with mass effect and midline shift to the left by approximately 5 - 6 mm. Marlon Darnell MD Neck CTA 04/10/16 1106 Signed Impressions: Service Date/Time: March 11:16 - CONCLUSION: Complete occlusion of the extracranial portion of the right ICA. The left carotid shows 20%% stenosis. Both vertebral arteries are patent. Bashir Dozier Jr., MD Head CTA 04/10/16 1100 Signed Impressions: Service Date/Time: March 11:16 - CONCLUSION: Occlusion of the Mauro portion of the right ICA with reconstitution. There is good collateralization of the right middle cerebral and right anterior cerebral territories. I spoke with Dr. Pham at the time of the scan. Bashir Dozier Jr., MD Assessment & Plan Diagnosis: (1) Nontraumatic acute hemorrhage of basal ganglia Plan: Plan to keep MAP to perfuse the penumbra in the right hemisphere.She did not develop IVH or hydrocephalus 04/16/16 She has remained very stable. She is now 6 days from CVA and can be weaned from the pressors. CT is still pending but the ICPs have been very stable for several days. 04/17/16 The neosynephrine was weaned a little. There is no need for sedation holidays until the edema resolves enough for the neosynephrine to be removed. EVD is draining well and CPP are maintained above 70 without difficulty. 04/21/15 Day 9 from craniectomy. She is off pressors and weaning from the EVD, drained only 35 cc in [address] in the am. 04/22/16 CT showed a completed right MCA CVA. We can start weaning the sedation and the hypertonic saline. The left hemisphere perfusion has been good. 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 She now has poor right MCA flow with hemorrhagic conversion in the basal ganglia. The goal of treatment will be to maximize flow to the penumbra with hypertonic saline, low dose mannitol, fluids. Pressors were added today after intubation. A cranioplasty will be offered to the 04-13-16 Stable after cranioplasty, will keep sedated through the period of maximal brain edema 04/14/16 The ICP remains about 8 with persistent EVD drainage, 140 cc in 24 hrs. We will rescan later this week . Maximal brain edema expected for the next 2 days. 04/15/16 The EVD drainage has improved to 161 cc/day and the HORTENSIA drainage has decreased to 45 cc/day indicating decreased shift right to left. The sodium is 152 and the hypertonic saline is on hold. 04/16/16 HORTENSIA was removed today. CT is pending. Plan for normalization of perfusion pressures. 04/17/16 CPP and ICP in the goal range, slowly weaning the neosynephrine support as the edema improves. She is sedated for cerebral protection. 04/21/15 ICP is normal with the EVD at 20 cm water pressure, will be removed tomorrow after head CT. We can wean the sedation as tolerated as cerebral edema has improved. 04/22/16 Completed right MCA infarction, EVD was removed and sedation will be weaned. Map remains above 70. Critical Care Time (minutes): 10 Mason Cannon Apr 22, 2016 14:09
--- NOTE | 2016-04-22 16:10 | HHI.CCPN ---
Subjective Remarks/Hospital Course 80-year-old female. Date of admission 04/10/2016. 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 She presents to the [place] ED with acute onset from [facility] that 10 AM this morning with left-sided weakness involving left arm/left leg. E VAC was called and a stroke was notified. NIH score was 7. addition with deficits involving dysarthria, right gaze preference, left facial palsy, dense hemiparesis left arm and leg. Normal sensation. Reflexes are equal and symmetric. NIH was route 7. CT of the head revealed no acute intracranial findings. CTA of the head and neck revealed dense right ICA occlusion. The case was discussed with Dr. Dozier with interventional radiology and the patient is not indicated for intervention given the complete occlusion of her right ICA. Patient was seen by Dr. Pham and alteplase was provided after benefits and risks discussed. Patient was hypertensive Cardene drip was initiated. Post alteplase infusion patient became more altered with worsening weakness to her left upper and lower extremity. Repeat CT head revealed no acute bleeding. NIH score is currently 17. She is also noted to have tremors involving her right upper lobe extremity. Neurology was notified and Keppra infusion was provided 1000 mg and stat EEG ordered. 04/11: Continues to have left-sided weakness. Complaining of headache. Episode of SVT resolved after receiving 10 mg IV Lopressor. Currently resting in bed complaining of headache and back pain. 04/12: Intubated last night secondary to altered mental status. After intubation, spontaneously moving left upper lobe extremity. Tube feeds are at goal. Episodes of bigeminy on EKG overnight. Perfusing well. Off Cardene drip. 04/13/16: Status post right craniostomy with left EVD placement secondary to cytotoxic edema right MCA CVA distribution. ICPs around 1. Low-grade temperatures 101.1. Currently 100.3. Resuming tube feeds. No bowel movement. 04/14/16: Tmax 99.8. Currently afebrile. Currently in sinus bradycardia. Likely secondary to inadequate sedation.. She was quite tachycardic after intubation and this did not resolve until sedation adequate. Episodes of sinus tach associated with agitation. Resolved. Tolerating tube feeding. No bowel movement. 04/15/16: Episode of SVT overnight 2 resolved with IV Lopressor. Currently in sinus bradycardia. Positive BM. Sedated on the ventilator per neurosurgery's recommendation. No sedation vacation. 04/16/16: Resting comfortably in bed in no acute distress. Heart rate remained stable. No new events overnight. Currently in sinus bradycardia. CT head currently pending. 04/17: Afebrile. Resting complains bed in no acute distress. Heart rate remained stable. Currently in sinus bradycardia. Head CT stable. 04/18: Afebrile. No acute distress. Off all vasopressors. Restarting 3% saline. Withdrawing to bilateral lower extremities only's morning 04/19: Afebrile. Continues off all vasopressors. On 3% saline at 20 cc an hour. Only withdrawing to bilateral lower extremities again today. Nothing upper extremities. Ventriculostomy been challenged by neurosurgery today Subjective 04/21: Afebrile. Currently weaning sedation. On low-dose Cleviprex. Withdrawing and spontaneous movement noted to bilateral lower extremities. No response from upper extremity's. Positive gag. Decreased urine output today. PICC line placed Note that patient seen and examined 04/20. Note was not saved. See that orders were placed and patient currently seen and examined. Objective Vital Signs Date Time Temp Pulse Resp B/P Pulse Ox O2 Delivery O2 Flow Rate FiO2 04/22/16 15:45 96 45 04/22/16 14:00 64 04/22/16 12:00 98.4 16 142/48 Intake and Output 04/21/16 04/21/16 04/21/16 07:59 15:59 23:59 Intake Total 935 ml 1068 ml 1288 ml Output Total 487 ml 460 ml 760 ml Balance 448 ml 608 ml 528 ml Result Diagram: 04/22/16 0520 04/22/16 0520 Imaging Last Impressions Chest X-Ray 04/21/16 0600 Signed Impressions: Service Date/Time: Thursday, April 21, 2016 04:51 - CONCLUSION: Bibasilar densities and probable small bilateral pleural effusions greater on the right. José Miguel Singletary MD Head CT 04/16/16 0000 Signed Impressions: Service Date/Time: Saturday, April 16, 2016 16:10 - CONCLUSION: Large infarct involving the right sylvian region with persistent mass effect, showing some improvement from 04/13/2016. Jose Luis Nava MD FACR Head Magnetic Resonance Angiography 04/11/16 0000 Signed Impressions: Service Date/Time: Monday, April 11, 2016 13:17 - CONCLUSION: Significant new finding of total absence of flow in the right middle cerebral artery and minimal flow in the right A1 segment. This indicates total occlusion . Significant atherosclerotic high grade or complete occlusion of the internal carotid on the right free siphon and in the Mauro region Audi Schneider MD Brain MRI 04/11/16 0000 Signed Impressions: Service Date/Time: Monday, April 11, 2016 13:17 - CONCLUSION: 1. Acute infarction involving the right MCA territory. 2. Focal acute hemorrhage involving the right basal ganglia. 3. Cerebral edema with mass effect and midline shift to the left by approximately 5 - 6 mm. Marlon Darnell MD Neck CTA 04/10/16 1106 Signed Impressions: Service Date/Time: March 11:16 - CONCLUSION: Complete occlusion of the extracranial portion of the right ICA. The left carotid shows 20%% stenosis. Both vertebral arteries are patent. Bashir Dozier Jr., MD Head CTA 04/10/16 1100 Signed Impressions: Service Date/Time: March 11:16 - CONCLUSION: Occlusion of the Mauro portion of the right ICA with reconstitution. There is good collateralization of the right middle cerebral and right anterior cerebral territories. I spoke with Dr. Pham at the time of the scan. Bashir Dozier Jr., MD Objective Remarks GENERAL: 80-year-old female, critically ill currently resting in bed in no acute distress currently orotracheally intubated SKIN: Warm and dry. No rash HEAD: Left EVD in place. Status post right craniotomy EYES: Pupils equal and round about 2 mm bilaterally and reactive to 3 mm. No scleral icterus. No injection or drainage. ENT: No nasal bleeding or discharge. Mucous membranes pink and moist. NECK: Trachea midline. No JVD. CARDIOVASCULAR: Bradycardic, RR. S1, S2. No S4. Murmurs not appreciated RESPIRATORY: Distant breath sounds. Few crackles appreciated in bilateral lower lobes. Breath sounds equal bilaterally. GASTROINTESTINAL: Abdomen soft, non-tender, obese. Hypoactive bowel sounds. Hepatic and splenic margins not palpable. MUSCULOSKELETAL: Extremities one plus nonpitting edema bilateral lower extremities. No obvious deformities. NEUROLOGICAL: Sedated with Versed and Fentanyl on the ventilator.. Moves spontaneously and to pain right and left lower extremity. Unable to elicit response left and right upper extremity. Upgoing toes. Date of Insertion: Apr 21, 2016 Line: PICC Side: Right Location: Antecubital A/P Assessment and Plan Neuro/Psych: Acute right MCA CVA with left-sided hemiparesis Right basal ganglia hemorrhage - 2.6 x 1.8 cm with compression of the fourth ventricle and [id number] shift at 7 mm Postop day #8 Right-sided frontotemporal parietal cranioplasty for decompression of the brain from malignant edema with left EVD placement. Currently on propofol 30 олег per kilo per minute/Precedex drip at 0.4 mcg/kg per hour and and fentanyl drip at 100 g per hour for sedation/analgesia while intubated Goal RASS -2 Daily sedation vacation okay with neurosurgery. Seen by neurology/Dr. Pham CT head on admission 2 revealed no acute findings CTA head and neck revealed occlusion right ICA with good collateral flows the right MCA and FLAVIA. Not amendable interventricular Dr. Dozier/IR Received 90 mg total alteplase ED. Echocardiogram revealed EF 50-55%. NATANAEL 58 mmHg. No regional wall motion abnormality. No obvious source of cardiac emboli CT head 24 hours post alteplase 04/11 revealed right basal ganglia hemorrhage with right MCA to extubation CVA evolving infarct. MRA brain revealed right MCA distribution with occlusion not seen previously on CT. CT head 04/12 revealed evolving right MCA CVA, right basal ganglia hemorrhage 2.6 x 1.8 cm in the right left shift by [address] was asked to revealed status post right cranioplasty with left EVD placement. Significant cytotoxic edema right MCA distribution/palpation. Continue right to left shift. HORTENSIA -removed EVD - 10 cc clear - -20 cm H2O Currently on 3% saline at 30 cc/hr. Stroke chapman completed Wallace start to wean off sedation CV: Right internal carotid artery occlusion - not amendable to intervention Hypertension Dyslipidemia Currently off all vasopressors. Goal MAP 90-110 - will de-escalate On Lopressor 5 mill grams IV every 4 hours and as needed Cleviprex for systolic blood pressure greater than 160 Home medications include Avalide 300/12.5 one tablet by mouth, daily and nisoldipine 20 mg by mouth daily Elevated HDL, LDL and triglycerides. Patient has multiple drug allergies to lipid lowering agents 2-D echocardiogram revealed EF of 50-55%. No regional wall motion abnormality. Elevated pulmonary pressures 58 mmHg. Resp: Acute Respiratory failure secondary to AMS PRVC 16 ~ 550 tidal volume, iT 1.1. PEEP 8. 45% FiO2 Ventilator bundle Aerosols PRN Start spontaneous breathing trials in a.m. Chest x-ray 04/21 revealed stable bilateral infiltrates. Sub-adequate aeration GI: Nausea Gastroesophageal reflux disease Continue Protonix 40 mg by mouth/IV daily/home medication Vital 1.5 at 45 cc an hour. Colace/SenokotMiraLAX for bowel regimen Accurate I's and O's in a critically ill patient Endo: History of hypothyroidism Normal TSH. Patient is currently on any supplementation medication Sliding scale insulin Accu-Cheks to maintain euglycemia. Low regimen Renal: Creatinine currently within normal limits. Heme: Anemia Transfuse 1 unit. Received 1. Coags within normal limits. Status post alteplase. Recheck CBC in a.m. ID: Monitor for infection Pertinent cultures 04/13 - blood cultures 2 -no growth 04/13 - urine -no growth / - sputum -no growth Day #8 vancomycin, aztreonam and Flagyl possible aspirationinfectious process. Discontinue FEN: Hypernatremia Replace electrolytes as clinically indicated On 3% saline at 30 cc an hour MSK: Osteoarthritis history of chronic back pain due to sacroiliac joint arthritis status post injections History recent lumbar epidural steroid injection PT/OT evaluate and treat Access Right IJ CVL day #8 Prophylaxis - GI - Protonix - DVT - status post alteplase. DVT prophylaxis when okay with neurosurgery Level 3 Tin Dickey MD Apr 22, 2016 16:10
--- NOTE | 2016-04-22 21:24 | HHI.PR ---
Review/Management Diagnosis large right MCA distribution stroke with edema and mass effect and basal ganglia hemorrhage, s/p surgery for edema and mass effect right complete internal carotid artery occlusion elevated LDL Diagnosis/Plan: (1) Nontraumatic acute hemorrhage of basal ganglia Plan: Plan to keep MAP to perfuse the penumbra in the right hemisphere.She did not develop IVH or hydrocephalus 04/16/16 She has remained very stable. She is now 6 days from CVA and can be weaned from the pressors. CT is still pending but the ICPs have been very stable for several days. 04/17/16 The neosynephrine was weaned a little. There is no need for sedation holidays until the edema resolves enough for the neosynephrine to be removed. EVD is draining well and CPP are maintained above 70 without difficulty. 04/21/15 Day 9 from craniectomy. She is off pressors and weaning from the EVD, drained only 35 cc in [address] in the am. 04/22/16 CT showed a completed right MCA CVA. We can start weaning the sedation and the hypertonic saline. The left hemisphere perfusion has been good. 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 She now has poor right MCA flow with hemorrhagic conversion in the basal ganglia. The goal of treatment will be to maximize flow to the penumbra with hypertonic saline, low dose mannitol, fluids. Pressors were added today after intubation. A cranioplasty will be offered to the 04-13-16 Stable after cranioplasty, will keep sedated through the period of maximal brain edema 04/14/16 The ICP remains about 8 with persistent EVD drainage, 140 cc in 24 hrs. We will rescan later this week . Maximal brain edema expected for the next 2 days. 04/15/16 The EVD drainage has improved to 161 cc/day and the HORTENSIA drainage has decreased to 45 cc/day indicating decreased shift right to left. The sodium is 152 and the hypertonic saline is on hold. 04/16/16 HORTENSIA was removed today. CT is pending. Plan for normalization of perfusion pressures. 04/17/16 CPP and ICP in the goal range, slowly weaning the neosynephrine support as the edema improves. She is sedated for cerebral protection. 04/21/15 ICP is normal with the EVD at 20 cm water pressure, will be removed tomorrow after head CT. We can wean the sedation as tolerated as cerebral edema has improved. 04/22/16 Completed right MCA infarction, EVD was removed and sedation will be weaned. Map remains above 70. Subjective Subjective Comments No acute events reported Active Medications Current Medications Medications (Trade) Dose Ordered Sig/Beronica Route Start Time Stop Time Status Last Admin (NS Flush) 2 ml BID IVF 04/10/16 21:00 04/22/16 21:00 (NS Flush) 2 ml UNSCH PRN IVF 04/10/16 13:30 (Trandate Inj) 10 mg Q1HR PRN IV 04/10/16 13:30 04/10/16 17:58 (Tylenol) 650 mg Q6H PRN PO 04/10/16 15:30 04/19/16 17:53 (Tears Naturale Opth Soln) 1 drop TID EACH EYE 04/10/16 18:00 04/22/16 18:31 (Colace) 100 mg BID PO 04/10/16 21:00 04/20/16 20:17 Miscellaneous Information 1 Q361D XX 04/10/16 15:30 (Chlorhexidine 2% Cloth) Taper DAILY@04 TOP 04/11/16 04:00 04/07/17 03:59 04/20/16 04:06 (Chlorhexidine 2% Cloth) 3 pack UNSCH PRN TOP 04/10/16 15:30 (Apresoline Inj) 10 mg Q1HR PRN IV PUSH 04/10/16 16:30 04/19/16 05:45 (Nitroglycerin 2% Oint) 2 inch Q6HR PRN TOPICAL 04/10/16 16:30 (Zofran Inj) 4 mg Q6H PRN IV PUSH 04/10/16 20:00 04/10/16 20:22 (Lopressor Inj) 10 mg STAT IV PUSH 04/11/16 12:45 04/11/16 16:26 (Dilaudid Pf Inj) 0.5 mg Q4H PRN IV PUSH 04/11/16 14:00 04/13/16 14:59 (NS Flush) DAILY IVF 04/11/16 15:00 04/17/16 08:48 IV Flush UNSCH PRN IVF 04/11/16 15:00 Potassium Chloride 100 ml @ 50 mls/hr Q2H PRN IV 04/11/16 15:00 04/11/16 16:21 (KCl 20 Meq Premix Inj) 100 ml @ 50 mls/hr Q2H PRN IV 04/11/16 15:00 Potassium Chloride 40 meq 40 meq UNSCH PRN PO/TUBE 04/11/16 15:00 Potassium Chloride 100 ml @ 25 mls/hr UNSCH PRN IV 04/11/16 15:00 Potassium Chloride 100 ml @ 50 mls/hr Q2H PRN IV 04/11/16 15:00 (Magnesium Sulfate Inj/NS Inj) 100 ml @ 50 mls/hr UNSCH PRN IV 04/11/16 15:00 Magnesium Oxide 800 mg 800 mg UNSCH PRN PO 04/11/16 15:00 (Magnesium Sulfate Inj/NS Inj) 100 ml @ 50 mls/hr UNSCH PRN IV 04/11/16 15:00 Potassium Phosphate 2000 mg 2,000 mg Q4H PRN PO 04/11/16 15:00 (Sodium Phosphate Inj/NS 250 ml Inj) 250 ml @ 42 mls/hr UNSCH PRN IV 04/11/16 15:00 (KCl 40 Meq/30 ml Liq) 40 meq UNSCH PRN PO/TUBE 04/11/16 15:00 Potassium Phosphate 2000 mg 2,000 mg UNSCH PRN PO/TUBE 04/11/16 15:00 (Potassium Phosphate Inj/NS 250 ml Inj) 260 ml @ 42 mls/hr UNSCH PRN IV 04/11/16 15:00 Chlorhexidine Gluconate 15 ml 15 ml BID@08,20 MT 04/11/16 20:00 04/22/16 20:00 (Diprivan 1000 Mg/100ml Inj) 100 ml @ 0 mls/hr TITRATE IV 04/11/16 17:00 04/22/16 21:18 Sennosides 8.8 mg 8.8 mg BID PO 04/12/16 09:00 04/21/16 20:18 (Neosynephrine Inj/NS 500 ml Inj) 500 ml @ 0 mls/hr TITRATE IV 04/13/16 20:20 04/17/16 06:33 Glycerin 2 gm 2 gm DAILY PRN RECTAL 04/14/16 06:45 04/14/16 10:06 Levetriacetam 500 mg/Sodium Chloride 105 ml @ 420 mls/hr Q12HR IV 04/14/16 21:00 04/22/16 21:12 Fentanyl Citrate 250 ml @ 0 mls/hr TITRATE IV 04/14/16 20:45 04/22/16 05:31 (Sodium Chloride 3% Inj) 500 ml @ 10 mls/hr CONTINUOUS IV 04/18/16 15:00 04/22/16 13:12 Polyethylene Glycol 17 gm 17 gm BID PO 04/18/16 21:00 04/21/16 08:16 Dexmedetomidine HCl 50 ml @ 0 mls/hr TITRATE IV 04/20/16 18:45 04/22/16 18:31 (Cleviprex Inj) 50 ml @ 0 mls/hr TITRATE IV 04/20/16 19:00 04/22/16 21:18 (Lopressor Inj) 5 mg Q4HR IV PUSH 04/20/16 20:00 04/22/16 21:12 (NS Flush) See Protocol DAILY IVF 04/22/16 09:00 04/22/16 09:18 (NS Flush) See Protocol UNSCH PRN IVF 04/21/16 12:00 (Heparin Central Flush) See Protocol DAILY IVF 04/22/16 09:00 04/22/16 09:17 (Heparin Central Flush) See Protocol UNSCH PRN IVF 04/21/16 12:00 (NS Flush) See Protocol UNSCH PRN IVF 04/21/16 12:00 (Lactulose Liq) 30 ml QID PO 04/21/16 18:00 04/21/16 16:56 Allergies Allergies Coded Allergies Achromycin V (Verified Allergy, Severe, 04/10/16) Michelle (Verified Allergy, Severe, 04/10/16) Augmentin (Verified Allergy, Severe, 04/10/16) Capoten (Verified Allergy, Severe, 04/10/16) Diovan (Verified Allergy, Severe, 04/10/16) Enzymes Oral (Verified Allergy, Severe, 04/10/16) Lipitor (Verified Allergy, Severe, 04/10/16) Procardia (Verified Allergy, Severe, 04/10/16) Rynatan (Verified Allergy, Severe, 04/10/16) Zetia (Verified Allergy, Severe, 04/10/16) Zithromax (Verified Allergy, Severe, 04/10/16) Zocor (Verified Allergy, Severe, 04/10/16) Aspirin (Verified Allergy, Mild, 04/10/16) Cipro (Verified Allergy, Mild, 04/10/16) Codeine (Verified Allergy, Mild, 04/10/16) Keflex (Verified Allergy, Mild, 04/10/16) Morphine (Verified Allergy, Mild, 04/10/16) Blue Dyes - Various (Unverified Allergy, Unknown, Anaphylaxis, 04/10/16) Clonidine (Unverified Allergy, Unknown, itching, 04/10/16) Exam I&O / VS 04/21/16 04/21/16 04/22/16 15:00 23:00 07:00 Intake Total 1068 ml 1288 ml 636 ml Output Total 460 ml 760 ml 505 ml Balance 608 ml 528 ml 131 ml IV Total 693 ml 1288 ml 636 ml Tube Feeding 315 ml Tube Irrigant 60 ml Output Urine Total 450 ml 750 ml 350 ml Stool Total 150 ml Tube Feeding Residual Discard 0 ml 0 ml Drainage Total 10 ml 10 ml 5 ml # Bowel Movements 0 2 Vital Signs Date Time Temp Pulse Resp B/P Pulse Ox O2 Delivery O2 Flow Rate FiO2 04/22/16 20:04 94 45 04/22/16 18:00 82 04/22/16 16:00 70 04/22/16 16:00 98.2 94 16 150/52 94 04/22/16 16:00 45 04/22/16 15:45 96 45 04/22/16 14:00 64 04/22/16 12:00 60 04/22/16 12:00 98.4 61 16 142/48 95 04/22/16 12:00 50 04/22/16 10:00 58 04/22/16 08:47 95 50 04/22/16 08:00 57 04/22/16 08:00 98.2 58 16 150/62 93 04/22/16 08:00 50 04/22/16 06:00 57 04/22/16 04:49 95 50 04/22/16 04:00 66 04/22/16 04:00 50 04/22/16 04:00 100 100 04/22/16 04:00 98.7 58 16 151/52 95 04/22/16 02:00 60 04/22/16 00:27 95 50 04/22/16 00:00 50 04/22/16 00:00 98.6 62 16 132/65 95 04/22/16 00:00 66 04/21/16 22:00 72 Respiratory: Lungs CTA, Non-labored respirations, Coarse breath sounds Cardiology: Normal rate, Regular Rhythm Musculoskeletal: ROM (Within functional limits) Exam Comments intubated does not respond pupils 2 mm bilateral reactive EOM limited to occulocephalics No spontaneous limb movement, Objective Micro and Labs Laboratory Tests Test 04/21/16 04/22/16 22:50 05:20 Sodium Level 148 149 Potassium Level 3.6 Chloride Level 114 Carbon Dioxide Level 26.5 Anion Gap 8 Blood Urea Nitrogen 27 Creatinine 0.64 Estimat Glomerular Filtration 90 Rate Random Glucose 116 Serum Osmolality 315 Calcium Level 8.1 Phosphorus Level 3.1 Magnesium Level 2.3 Total Bilirubin 0.2 Aspartate Amino Transf 29 (AST/SGOT) Alanine Aminotransferase 18 (ALT/SGPT) Alkaline Phosphatase 82 Total Creatine Kinase 51 Total Protein 6.0 Albumin 2.8 White Blood Count 7.0 Red Blood Count 2.94 Hemoglobin 8.2 Hematocrit 24.9 Mean Corpuscular Volume 84.7 Mean Corpuscular Hemoglobin 27.7 Mean Corpuscular Hemoglobin 32.7 Concent Red Cell Distribution Width 15.2 Platelet Count 216 Mean Platelet Volume 11.1 Neutrophils (%) (Auto) 72.4 Lymphocytes (%) (Auto) 15.8 Monocytes (%) (Auto) 7.2 Eosinophils (%) (Auto) 4.0 Basophils (%) (Auto) 0.6 Neutrophils # (Auto) 5.1 Lymphocytes # (Auto) 1.1 Monocytes # (Auto) 0.5 Eosinophils # (Auto) 0.3 Basophils # (Auto) 0.0 CBC Comment DIFF FINAL Differential Comment Reji Pham PhD Apr 22, 2016 21:24
[2016-04-22 22:56] LABS: ALT (GPT) 20 U/L (10-53); ANION GAP 7 MEQ/L (5-15); AST (GOT) 32 U/L (15-37); BICARBONATE 25.4 MEQ/L (21.0-32.0); BLOOD UREA NITROGEN 34 MG/DL (7-18); CHLORIDE 118 MEQ/L (98-107); GLOMERULAR FILTRATION RATE 78 ML/MIN (>89); MAGNESIUM 2.3 MG/DL (1.5-2.5); POTASSIUM 3.7 MEQ/L (3.5-5.1); SODIUM (NA) 150 MEQ/L (136-145)
[2016-04-22 22:59] LABS: ALKALINE PHOSPHATASE 88 U/L (45-117); TOTAL BILIRUBIN ADULT 0.4 MG/DL (0.2-1.0)
[2016-04-23] VITALS (18 sets, daily range): BP systolic 141–172; BP diastolic 52–68; PULSE 66–120; RESP 16–25; TEMP 98.7–99.8; O2SAT 92–96
[2016-04-23] MEDS: CLEVIDIPINE INJ 50 ML IV SCH ×7 (01:29→20:21)
[2016-04-23] MEDS: PROPOFOL 1000 MG/100 ML INJ 100 ML IV SCH ×3 (01:29→20:20)
[2016-04-23] MEDS: DEXMEDETOMIDINE INJ 50 ML IV SCH ×7 (01:29→20:22)
[2016-04-23] MEDS: METOPROLOL TARTRATE 5 MG/5 ML VIAL IV PUSH SCH ×6 (01:29→20:27)
[2016-04-23] MEDS: CHLORHEXIDINE GLUCONATE 2 % 1 PACK (2 CLOTHS) TOP SCH (04:00)
[2016-04-23 05:12] LABS: AUTOMATED NEUTROPHIL # 10.3 TH/MM3 (1.8-7.7); BASOPHIL % 0.4 % (0.0-2.0); EOSINOPHIL # 0.2 TH/MM3 (0-0.4); EOSINOPHIL % 1.8 % (0.0-4.0); HEMATOCRIT 25.1 % (35.0-46.0); HEMO FLAGS DIFF FINAL; LYMPHOCYTE # 1.1 TH/MM3 (1.0-4.8); MEAN CELL VOLUME 85.4 FL (80.0-100.0); MEAN CORPUSCULAR HEMOGLOBIN 27.2 PG (27.0-34.0); MEAN CORPUSCULAR HGB CONC 31.8 % (32.0-36.0); MONO % 4.6 % (0.0-8.0); NEUT % 84.2 % (16.0-70.0); PLATELET COUNT 233 TH/MM3 (150-450); RED BLOOD COUNT 2.94 MIL/MM3 (4.00-5.30); RED CELL DISTRIBUTION WIDTH 15.7 % (11.6-17.2); WHITE BLOOD COUNT 12.2 TH/MM3 (4.0-11.0)
[2016-04-23 05:29] LABS: BLOOD GAS BASE EXCESS -2.7 mmol/L (-2-2); BLOOD GAS CARBOXYHEMOGLOBIN 1.4 % (0-4); BLOOD GAS HCO3 21 mmol/L (22-26); BLOOD GAS METHEMOGLOBIN 0.5 % (0-2); BLOOD GAS O2 HGB SATURATION 93 % (90-100); BLOOD GAS OXYGEN CONTENT 9.6 Vol % (12.0-20.0); BLOOD GAS PCO2 33 mmHg (38-42); BLOOD GAS PO2 79 mmHg (61-120); BLOOD GAS TOTAL HGB 7.3 G/DL (12.0-16.0); CRITICAL VALUE NO; OXYGEN DEVICE VENTILATOR; TEMP CORR TO 98.6
[2016-04-23 05:30] LABS: FIO2 45 %
[2016-04-23 05:31] LABS: DRAW SITE ART LINE; NUMBER OF ARTERIAL PUNCTURES 0; STAT NO; ULNAR PULSE PRESENT
--- NOTE | 2016-04-23 05:45 | RADRPT ---
EXAM DATE/TIME: 04/23/2016 04:55 [facility] COMPARISON: CHEST SINGLE AP, April 21, 2016, 13:21. INDICATIONS : Respiratory failure MEDICAL HISTORY : Hypertension. Pancreatitis. SURGICAL HISTORY : Appendectomy. ENCOUNTER: Subsequent ACUITY: 4 - 6 days PAIN SCORE: 10/10 LOCATION: Bilateral chest FINDINGS: A single view of the chest demonstrates interstitial edema with bibasilar airspace disease. Mild card iomegaly. Endotracheal tube, nasogastric tube and right PICC line in stable position. Right jugular c entral line has been removed. The cardiomediastinal contours are unremarkable. Osseous structures ar e intact. CONCLUSION: 1. Increasing congestion with interstitial edema and worsening bibasilar densities. Probable small pl eural effusions bilaterally. 2. Support lines and tubes stable in position. Right jugular central line has been removed. José Miguel Singletary MD on April 23, 2016 at 5:42 Board Certified Radiologist. This report was verified electronically.
[2016-04-23] MEDS: CHLORHEXIDINE 0.12% (ORAL KIT) 15 ML CUP MT SCH ×2 (07:30→20:00)
[2016-04-23] MEDS: FUROSEMIDE 20 MG/2 ML VIAL IV PUSH SCH ×3 (08:02→20:21)
[2016-04-23] MEDS: levETIRAcetam INJ 500 MG in SODIUM CHLORIDE 0.9% INJ 100 ML IV SCH ×2 (08:03→20:28)
[2016-04-23] MEDS: ARTIFICIAL TEARS OPTH SOLN 15 ML BTL EACH EYE SCH ×3 (08:03→18:00)
[2016-04-23] MEDS: LACTULOSE SYRUP 20 GM/30 ML CUP PO SCH ×4 (08:04→20:27)
[2016-04-23] MEDS: POLYETHYLENE GLYCOL 17 GM PKG PO SCH ×2 (08:04→20:23)
[2016-04-23] MEDS: SENNOSIDES SYRUP 8.8 MG/5 ML CUP PO SCH ×2 (08:04→20:23)
[2016-04-23] MEDS: DOCUSATE SODIUM 100 MG CAP PO SCH ×2 (08:04→20:28)
[2016-04-23] MEDS: SODIUM CHLORIDE 0.9% FLUSH 5 ML FLUSH IVF SCH ×3 (08:04→20:28)
[2016-04-23] MEDS: hydrALAZINE HCL 20 MG/ML VIAL IV PUSH PRN (09:00)
--- NOTE | 2016-04-23 09:39 | HHI.NSPN ---
Subjective History Day 2 after right carotid occlusion, TPA followed by right MCA clot. She is intubated for airway protection. Her pupils remain small and she still follows commands 04/13/16 She is POD 1 after cranioplasty, right MCA infarction, sedated and ventilated, with MAP 90-100 on pressors. ICP has been in the normal range 5-10 and her right pupils remains small and reactive. 04/14/16 Day 2 after cranioplasty, day 4 after onset of infarction, sedated and ventilated. Versed added for comfort as she was awakening on propofol. Low dose mannitol and 3% saline are continued. 04/15/16 Day 3 after cranioplasty,, day 5 from CVA onset, stable ICP and hemodynamically. Follow up CT in the am. 04/16/16 Day 6 after CVA, Day 4 after cranioplasty, very stable ICP, no pupillary changes. CT is still pending. EVD is at 7 drained on 57 cc in 24 hrs 04/17/16 Day 7 after CVA, still very stable ICP but requiring some neosynephrine to keep CPP 70-80. EVD is draining well and ICP remains normal 04/21/15 The EVD has been challenged. She remains on precedex and propofol and sedated 04/22/[address] this am shows completed right MCA infarctions. The inferior right temporal lobe and the left hemisphere are good. We will wean sedation and the hyperosmolar fluids.ICP remains about 8 with minimal CSF drainage, the drain was removed today. 04/23/16 Sedation is being weaned but she is still lethargic. Pupils are unequal slightly larger on the right. Vitals . Vital Signs Date Time Temp Pulse Resp B/P Pulse Ox O2 Delivery O2 Flow Rate FiO2 04/23/16 08:00 45 04/23/16 08:00 73 04/23/16 08:00 99.6 72 18 168/66 94 04/23/16 07:50 93 45 04/23/16 06:00 66 04/23/16 04:00 45 04/23/16 04:00 99.8 73 16 144/54 93 04/23/16 04:00 73 04/23/16 03:39 93 45 04/23/16 02:00 70 04/23/16 01:09 95 45 04/23/16 00:00 99.8 74 16 144/54 96 04/23/16 00:00 45 04/23/16 00:00 74 04/22/16 22:00 86 04/22/16 20:04 94 45 04/22/16 20:00 45 04/22/16 20:00 70 04/22/16 20:00 98.7 85 19 157/61 94 04/22/16 18:00 82 04/22/16 16:00 70 04/22/16 16:00 98.2 94 16 150/52 94 04/22/16 16:00 45 04/22/16 15:45 96 45 04/22/16 14:00 64 04/22/16 12:00 60 04/22/16 12:00 98.4 61 16 142/48 95 04/22/16 12:00 50 04/22/16 10:00 58 04/22/16 04/22/16 04/23/16 15:00 23:00 07:00 Intake Total 1615 ml 824 ml 549 ml Output Total 350 ml 500 ml 500 ml Balance 1265 ml 324 ml 49 ml Physical Exam Eyes Eyes Remarks Pupils 31/2 right and 3 mm left Neuro Mental Status: Lethargic, Sedated Drips: Diprivan @, Fentanyl @ Pupils: Reactive Bilaterally Marc Coma Scale Best Eye Openin - To pain Best Verbal: 1 - None Best Motor: 4 - Withdraws to pain Cardiac Cardiac: Regular Rate & Rhythm Gastrointestinal Gastrointestinal: Soft Musculoskeletal Extremities Upper Extremities Deltoid Bicep Tricep HI W. Ext Right Left Lower Extremeties Ilio Quad Plantar Dorsi EHL Right Left Musculoskeletal Remarks flexion of lower extremities to stimulation Extremities Edema: Edematous, SCDs Objective Infectious Disease Cultures Microbiology Date/Time Procedure Status Source Growth 04/23/16 06:50 Aerobic Blood Culture Received Blood Peripheral Pending 04/23/16 06:50 Anaerobic Blood Culture Received Blood Peripheral Pending 04/23/16 06:50 Gram Stain Received Sputum Endotracheal Pending 04/23/16 06:50 Sputum Culture Received Sputum Endotracheal Pending 04/23/16 06:50 Urine Culture Received Urine Catheterized Urine Pending Labs Laboratory Tests 04/22/16 22:15 04/23/16 04:55 Laboratory Tests Test 04/22/16 04/23/16 22:15 04:55 Sodium Level 150 MEQ/L 151 MEQ/L Potassium Level 3.7 MEQ/L Chloride Level 118 MEQ/L Carbon Dioxide Level 25.4 MEQ/L Anion Gap 7 MEQ/L Blood Urea Nitrogen 34 MG/DL Creatinine 0.72 MG/DL Estimat Glomerular Filtration 78 ML/MIN Rate Random Glucose 138 MG/DL Serum Osmolality 323 MOSM/KG 326 MOSM/KG Calcium Level 8.5 MG/DL Phosphorus Level 3.8 MG/DL Magnesium Level 2.3 MG/DL Total Bilirubin 0.4 MG/DL Aspartate Amino Transf 32 U/L (AST/SGOT) Alanine Aminotransferase 20 U/L (ALT/SGPT) Alkaline Phosphatase 88 U/L Total Protein 6.0 GM/DL Albumin 2.9 GM/DL Assessment & Plan Diagnosis: (1) Nontraumatic acute hemorrhage of basal ganglia Plan: Plan to keep MAP to perfuse the penumbra in the right hemisphere.She did not develop IVH or hydrocephalus 04/16/16 She has remained very stable. She is now 6 days from CVA and can be weaned from the pressors. CT is still pending but the ICPs have been very stable for several days. 04/17/16 The neosynephrine was weaned a little. There is no need for sedation holidays until the edema resolves enough for the neosynephrine to be removed. EVD is draining well and CPP are maintained above 70 without difficulty. 04/21/15 Day 9 from craniectomy. She is off pressors and weaning from the EVD, drained only 35 cc in [address] in the am. 04/22/16 CT showed a completed right MCA CVA. We can start weaning the sedation and the hypertonic saline. The left hemisphere perfusion has been good. 04/23/16 Slowly weaning from the sedation, hypertonic saline is on hold for serum osmolarity > 320. The neurologic goal is to preserved the dominant left hemisphere function. 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 She now has poor right MCA flow with hemorrhagic conversion in the basal ganglia. The goal of treatment will be to maximize flow to the penumbra with hypertonic saline, low dose mannitol, fluids. Pressors were added today after intubation. A cranioplasty will be offered to the 04-13-16 Stable after cranioplasty, will keep sedated through the period of maximal brain edema 04/14/16 The ICP remains about 8 with persistent EVD drainage, 140 cc in 24 hrs. We will rescan later this week . Maximal brain edema expected for the next 2 days. 04/15/16 The EVD drainage has improved to 161 cc/day and the HORTENSIA drainage has decreased to 45 cc/day indicating decreased shift right to left. The sodium is 152 and the hypertonic saline is on hold. 04/16/16 HORTENSIA was removed today. CT is pending. Plan for normalization of perfusion pressures. 04/17/16 CPP and ICP in the goal range, slowly weaning the neosynephrine support as the edema improves. She is sedated for cerebral protection. 04/21/15 ICP is normal with the EVD at 20 cm water pressure, will be removed tomorrow after head CT. We can wean the sedation as tolerated as cerebral edema has improved. 04/22/16 Completed right MCA infarction, EVD was removed and sedation will be weaned. Map remains above 70. 04/23/16 Weaning from sedation, will need BP management to keep MAP 70-90 Critical Care Time (minutes): 10 Level of Visit: Post Op Mason Cannon Apr 23, 2016 09:39
[2016-04-23] MEDS: hydrALAZINE HCL 50 MG TAB PO SCH ×3 (12:08→20:22)
[2016-04-23] MEDS: METOPROLOL SUCCINATE 50 MG EXTENDED RELEASE TAB PO SCH ×2 (12:13→20:27)
[2016-04-23] MEDS: fentaNYL DRIP 250 ML IV SCH (13:53)
--- NOTE | 2016-04-23 14:06 | HHI.CCPN ---
Subjective Remarks/Hospital Course 80-year-old female. Date of admission 04/10/2016. 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 She presents to the [place] ED with acute onset from normocytic health that 10 AM this morning with left-sided weakness involving left arm/left leg. E VAC was called and a stroke was notified. NIH score was 7. addition with deficits involving dysarthria, right gaze preference, left facial palsy, dense hemiparesis left arm and leg. Normal sensation. Reflexes are equal and symmetric. NIH was route 7. CT of the head revealed no acute intracranial findings. CTA of the head and neck revealed dense right ICA occlusion. The case was discussed with Dr. Dozier with interventional radiology and the patient is not indicated for intervention given the complete occlusion of her right ICA. Patient was seen by Dr. Pham and alteplase was provided after benefits and risks discussed. Objective Vital Signs Date Time Temp Pulse Resp B/P Pulse Ox O2 Delivery O2 Flow Rate FiO2 04/23/16 12:00 45 04/23/16 12:00 90 04/23/16 11:19 96 04/23/16 08:00 99.6 18 168/66 Intake and Output 04/22/16 04/22/16 04/23/16 08:00 16:00 00:00 Intake Total 636 ml 1615 ml 824 ml Output Total 505 ml 350 ml 500 ml Balance 131 ml 1265 ml 324 ml Result Diagram: 04/23/16 0455 04/23/16 0455 Other Results Laboratory Tests Test 04/23/16 05:18 Blood Gas Puncture Site ART LINE Blood Gas Patient Temperature 98.6 Blood Gas HCO3 21 mmol/L (22-26) Blood Gas Base Excess -2.7 mmol/L (-2-2) Blood Gas Oxygen Saturation 93 % (90-100) Arterial Blood pH 7.42 (7.380-7.420) Arterial Blood Partial 33 mmHg (38-42) Pressure CO2 Arterial Blood Partial 79 mmHg Pressure O2 (61-120) Arterial Blood Oxygen Content 9.6 Vol % (12.0-20.0) Arterial Blood 1.4 % (0-4) Carboxyhemoglobin Arterial Blood Methemoglobin 0.5 % (0-2) Blood Gas Hemoglobin 7.3 G/DL (12.0-16.0) Oxygen Delivery Device VENTILATOR Blood Gas Ventilator Setting SEE COMMENT Blood Gas Inspired Oxygen 45 % Imaging Last Impressions Chest X-Ray 04/21/16 0600 Signed Impressions: Service Date/Time: Thursday, April 21, 2016 04:51 - CONCLUSION: Bibasilar densities and probable small bilateral pleural effusions greater on the right. José Miguel Singletary MD Head CT 04/16/16 0000 Signed Impressions: Service Date/Time: Saturday, April 16, 2016 16:10 - CONCLUSION: Large infarct involving the right sylvian region with persistent mass effect, showing some improvement from 04/13/2016. Jose Luis Nava MD FACR Head Magnetic Resonance Angiography 04/11/16 0000 Signed Impressions: Service Date/Time: Monday, April 11, 2016 13:17 - CONCLUSION: Significant new finding of total absence of flow in the right middle cerebral artery and minimal flow in the right A1 segment. This indicates total occlusion . Significant atherosclerotic high grade or complete occlusion of the internal carotid on the right free siphon and in the Mauro region Audi Schneider MD Brain MRI 04/11/16 0000 Signed Impressions: Service Date/Time: Monday, April 11, 2016 13:17 - CONCLUSION: 1. Acute infarction involving the right MCA territory. 2. Focal acute hemorrhage involving the right basal ganglia. 3. Cerebral edema with mass effect and midline shift to the left by approximately 5 - 6 mm. Marlon Darnell MD Neck CTA 04/10/16 1106 Signed Impressions: Service Date/Time: March 11:16 - CONCLUSION: Complete occlusion of the extracranial portion of the right ICA. The left carotid shows 20%% stenosis. Both vertebral arteries are patent. Bashir Dozier Jr., MD Head CTA 04/10/16 1100 Signed Impressions: Service Date/Time: March 11:16 - CONCLUSION: Occlusion of the Mauro portion of the right ICA with reconstitution. There is good collateralization of the right middle cerebral and right anterior cerebral territories. I spoke with Dr. Pham at the time of the scan. Bashir Dozier Jr., MD Objective Remarks GENERAL: 80-year-old female, critically ill currently resting in bed in no acute distress currently orotracheally intubated SKIN: Warm and dry. No rash HEAD: Left EVD in place. Status post right craniotomy EYES: Pupils equal and round about 2 mm bilaterally and reactive to 3 mm. No scleral icterus. No injection or drainage. ENT: No nasal bleeding or discharge. Mucous membranes pink and moist. NECK: Trachea midline. No JVD. CARDIOVASCULAR: Bradycardic, RR. S1, S2. No S4. Murmurs not appreciated RESPIRATORY: Distant breath sounds. Few crackles appreciated in bilateral lower lobes. Breath sounds equal bilaterally. GASTROINTESTINAL: Abdomen soft, non-tender, obese. Hypoactive bowel sounds. Hepatic and splenic margins not palpable. MUSCULOSKELETAL: Extremities one plus nonpitting edema bilateral lower extremities. No obvious deformities. NEUROLOGICAL: Sedated with Versed and Fentanyl on the ventilator.. Moves spontaneously and to pain right and left lower extremity. Unable to elicit response left and right upper extremity. Upgoing toes. 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 Pham - Status post 90 mg total alteplase infusion - EVD removed 04/23 - Stroke has completed - continue to wean off sedation CV: Right internal carotid artery occlusion - not amendable to intervention Hypertension Dyslipidemia Currently off all vasopressors. Goal MAP 90-110 - will de-escalate On Lopressor 5 mill grams IV every 4 hours and as needed Cleviprex for systolic blood pressure greater than 160 Home medications include Avalide 300/12.5 one tablet by mouth, daily and nisoldipine 20 mg by mouth daily Elevated HDL, LDL and triglycerides. Patient has multiple drug allergies to lipid lowering agents 2-D echocardiogram revealed EF of 50-55%. No regional wall motion abnormality. Elevated pulmonary pressures 58 mmHg. Resp: Acute Respiratory failure secondary to AMS PRVC 16 ~ 550 tidal volume, iT 1.1. PEEP 8. 45% FiO2 Ventilator bundle Aerosols PRN Started spontaneous breathing trials in a.m. Chest x-ray 04/21 revealed stable bilateral infiltrates. Sub-adequate aeration GI: Nausea Gastroesophageal reflux disease Continue Protonix 40 mg by mouth/IV daily/home medication Vital 1.5 at 45 cc an hour. Colace/SenokotMiraLAX for bowel regimen Accurate I's and O's in a critically ill patient Endo: History of hypothyroidism Normal TSH. Patient is currently on any supplementation medication Sliding scale insulin Accu-Cheks to maintain euglycemia. Low regimen Renal: Creatinine currently within normal limits. Heme: Anemia Transfuse 1 unit. Received 1. Coags within normal limits. Status post alteplase. Recheck CBC in a.m. ID: Monitor for infection Pertinent cultures 04/13 - blood cultures 2 -no growth 04/13 - urine -no growth / - sputum -no growth Day #8 vancomycin, aztreonam and Flagyl possible aspirationinfectious process. Discontinue FEN: Hypernatremia Replace electrolytes as clinically indicated On 3% saline at 30 cc an hour MSK: Osteoarthritis history of chronic back pain due to sacroiliac joint arthritis status post injections History recent lumbar epidural steroid injection PT/OT evaluate and treat Access Right IJ CVL day #8 Prophylaxis - GI - Protonix - DVT - status post alteplase. DVT prophylaxis when okay with neurosurgery Level 3 Tin Dickey MD Apr 23, 2016 14:06
[2016-04-24] VITALS (17 sets, daily range): BP systolic 126–156; BP diastolic 58–80; PULSE 86–117; RESP 16–22; TEMP 98.4–99.7; O2SAT 94–99
[2016-04-24] MEDS: PROPOFOL 1000 MG/100 ML INJ 100 ML IV SCH ×5 (00:59→23:24)
[2016-04-24] MEDS: DEXMEDETOMIDINE INJ 50 ML IV SCH ×6 (00:59→17:32)
[2016-04-24] MEDS: METOPROLOL TARTRATE 5 MG/5 ML VIAL IV PUSH SCH ×7 (00:59→23:45)
[2016-04-24] MEDS: FUROSEMIDE 20 MG/2 ML VIAL IV PUSH SCH ×4 (01:00→20:35)
[2016-04-24] MEDS: CHLORHEXIDINE GLUCONATE 2 % 1 PACK (2 CLOTHS) TOP SCH ×2 (04:00→23:45)
[2016-04-24] MEDS: hydrALAZINE HCL 50 MG TAB PO SCH ×3 (05:20→20:34)
[2016-04-24 05:48] LABS: BLOOD GAS BASE EXCESS -3.1 mmol/L (-2-2); BLOOD GAS CARBOXYHEMOGLOBIN 1.2 % (0-4); BLOOD GAS HCO3 21 mmol/L (22-26); BLOOD GAS METHEMOGLOBIN 0.6 % (0-2); BLOOD GAS O2 HGB SATURATION 98 % (90-100); BLOOD GAS OXYGEN CONTENT 11.8 Vol % (12.0-20.0); BLOOD GAS PCO2 34 mmHg (38-42); BLOOD GAS PO2 294 mmHg (61-120); CRITICAL VALUE NO; OXYGEN DEVICE VENTILATOR; TEMP CORR TO 98.6
[2016-04-24 05:49] LABS: DRAW SITE ART LINE; FIO2 45 %; STAT NO; VENT SETTINGS PRVC/AC
--- NOTE | 2016-04-24 05:57 | RADRPT ---
EXAM DATE/TIME: 04/24/2016 05:21 [facility] COMPARISON: CHEST SINGLE AP, April 23, 2016, 4:55. INDICATIONS : Evaluate for pulmonary disease. MEDICAL HISTORY : Hypertension. Pancreatitis. SURGICAL HISTORY : Appendectomy. ENCOUNTER: Subsequent ACUITY: 1 week PAIN SCORE: Non-responsive. LOCATION: Bilateral chest FINDINGS: A single view of the chest demonstrates cardiomegaly and bibasilar densities, unchanged. Endotracheal tube and nasogastric tube are unchanged in position. Right-sided PICC line with tip in the right atr ium. The cardiomediastinal contours are unremarkable. Osseous structures are intact. CONCLUSION: 1. Stable chest with cardiomegaly and bibasilar densities with probable small pleural effusions. José Miguel Singletary MD on April 24, 2016 at 5:55 Board Certified Radiologist. This report was verified electronically.
[2016-04-24 06:05] LABS: AUTOMATED NEUTROPHIL # 9.3 TH/MM3 (1.8-7.7); BASOPHIL % 0.4 % (0.0-2.0); EOSINOPHIL % 0.4 % (0.0-4.0); HEMATOCRIT 24.7 % (35.0-46.0); HEMO FLAGS DIFF FINAL; LYMPH % 10.4 % (9.0-44.0); LYMPHOCYTE # 1.2 TH/MM3 (1.0-4.8); MEAN CELL VOLUME 85.4 FL (80.0-100.0); MEAN CORPUSCULAR HEMOGLOBIN 27.2 PG (27.0-34.0); MEAN CORPUSCULAR HGB CONC 31.8 % (32.0-36.0); MONO % 4.9 % (0.0-8.0); NEUT % 83.9 % (16.0-70.0); PLATELET COUNT 267 TH/MM3 (150-450); RED BLOOD COUNT 2.89 MIL/MM3 (4.00-5.30); RED CELL DISTRIBUTION WIDTH 15.6 % (11.6-17.2); WHITE BLOOD COUNT 11.1 TH/MM3 (4.0-11.0)
[2016-04-24 06:24] LABS: ALKALINE PHOSPHATASE 147 U/L (45-117); ALT (GPT) 25 U/L (10-53); ANION GAP 11 MEQ/L (5-15); AST (GOT) 44 U/L (15-37); BICARBONATE 22.2 MEQ/L (21.0-32.0); BLOOD UREA NITROGEN 35 MG/DL (7-18); CHLORIDE 117 MEQ/L (98-107); GLOMERULAR FILTRATION RATE 65 ML/MIN (>89); MAGNESIUM 2.2 MG/DL (1.5-2.5); POTASSIUM 3.3 MEQ/L (3.5-5.1); SODIUM (NA) 150 MEQ/L (136-145); TOTAL BILIRUBIN ADULT 0.4 MG/DL (0.2-1.0)
--- NOTE | 2016-04-24 07:48 | HHI.CCPN ---
Subjective Remarks/Hospital Course 80-year-old female. Date of admission 04/10/2016. 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 She presents to the [place] ED with acute onset from normocytic health that 10 AM this morning with left-sided weakness involving left arm/left leg. E VAC was called and a stroke was notified. NIH score was 7. addition with deficits involving dysarthria, right gaze preference, left facial palsy, dense hemiparesis left arm and leg. Normal sensation. Reflexes are equal and symmetric. NIH was route 7. CT of the head revealed no acute intracranial findings. CTA of the head and neck revealed dense right ICA occlusion. The case was discussed with Dr. Dozier with interventional radiology and the patient is not indicated for intervention given the complete occlusion of her right ICA. Patient was seen by Dr. Pham and alteplase was provided after benefits and risks discussed. Objective Vital Signs Date Time Temp Pulse Resp B/P Pulse Ox O2 Delivery O2 Flow Rate FiO2 04/24/16 06:00 106 04/24/16 04:15 94 45 04/24/16 04:00 99.7 18 126/62 Intake and Output 04/23/16 04/23/16 04/24/16 08:00 16:00 00:00 Intake Total 549 ml 956 ml 940 ml Output Total 500 ml 1100 ml 1250 ml Balance 49 ml -144 ml -310 ml Result Diagram: 04/24/16 0530 04/24/16 0530 Other Results Laboratory Tests Test 04/24/16 05:39 Blood Gas Puncture Site ART LINE Blood Gas Patient Temperature 98.6 Blood Gas HCO3 21 mmol/L (22-26) Blood Gas Base Excess -3.1 mmol/L (-2-2) Blood Gas Oxygen Saturation 98 % (90-100) Arterial Blood pH 7.41 (7.380-7.420) Arterial Blood Partial 34 mmHg (38-42) Pressure CO2 Arterial Blood Partial 294 mmHg Pressure O2 (61-120) Arterial Blood Oxygen Content 11.8 Vol % (12.0-20.0) Arterial Blood 1.2 % (0-4) Carboxyhemoglobin Arterial Blood Methemoglobin 0.6 % (0-2) Blood Gas Hemoglobin 8.0 G/DL (12.0-16.0) Oxygen Delivery Device VENTILATOR Blood Gas Ventilator Setting PRVC/AC Blood Gas Inspired Oxygen 45 % Imaging Last Impressions Chest X-Ray 04/21/16 0600 Signed Impressions: Service Date/Time: Thursday, April 21, 2016 04:51 - CONCLUSION: Bibasilar densities and probable small bilateral pleural effusions greater on the right. José Miguel Singletary MD Head CT 04/16/16 0000 Signed Impressions: Service Date/Time: Saturday, April 16, 2016 16:10 - CONCLUSION: Large infarct involving the right sylvian region with persistent mass effect, showing some improvement from 04/13/2016. Jose Luis Nava MD FACR Head Magnetic Resonance Angiography 04/11/16 0000 Signed Impressions: Service Date/Time: Monday, April 11, 2016 13:17 - CONCLUSION: Significant new finding of total absence of flow in the right middle cerebral artery and minimal flow in the right A1 segment. This indicates total occlusion . Significant atherosclerotic high grade or complete occlusion of the internal carotid on the right free siphon and in the Mauro region Audi Schneider MD Brain MRI 04/11/16 0000 Signed Impressions: Service Date/Time: Monday, April 11, 2016 13:17 - CONCLUSION: 1. Acute infarction involving the right MCA territory. 2. Focal acute hemorrhage involving the right basal ganglia. 3. Cerebral edema with mass effect and midline shift to the left by approximately 5 - 6 mm. Marlon Darnell MD Neck CTA 04/10/16 1106 Signed Impressions: Service Date/Time: March 11:16 - CONCLUSION: Complete occlusion of the extracranial portion of the right ICA. The left carotid shows 20%% stenosis. Both vertebral arteries are patent. Bashir Dozier Jr., MD Head CTA 04/10/16 1100 Signed Impressions: Service Date/Time: March 11:16 - CONCLUSION: Occlusion of the Mauro portion of the right ICA with reconstitution. There is good collateralization of the right middle cerebral and right anterior cerebral territories. I spoke with Dr. Pham at the time of the scan. Bashir Dozier Jr., MD Objective Remarks GENERAL: 80-year-old female, critically ill currently resting in bed in no acute distress currently orotracheally intubated SKIN: Warm and dry. No rash HEAD: Left EVD in place. Status post right craniotomy EYES: Pupils equal and round about 2 mm bilaterally and reactive to 3 mm. No scleral icterus. No injection or drainage. ENT: No nasal bleeding or discharge. Mucous membranes pink and moist. NECK: Trachea midline. No JVD. CARDIOVASCULAR: Bradycardic, RR. S1, S2. No S4. Murmurs not appreciated RESPIRATORY: Distant breath sounds. Few crackles appreciated in bilateral lower lobes. Breath sounds equal bilaterally. GASTROINTESTINAL: Abdomen soft, non-tender, obese. Hypoactive bowel sounds. Hepatic and splenic margins not palpable. MUSCULOSKELETAL: Extremities one plus nonpitting edema bilateral lower extremities. No obvious deformities. NEUROLOGICAL: Sedated with Versed and Fentanyl on the ventilator.. Moves spontaneously and to pain right and left lower extremity. Unable to elicit response left and right upper extremity. Upgoing toes. 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 Pham - Status post 90 mg total alteplase infusion - EVD removed 04/23 - Stroke has completed - continue to wean off sedation Right internal carotid artery occlusion - not amendable to intervention - antiplatelet when ok with NSGY - supportive care Hypertension - Goal to keep normotensive - Lopressor 5 mill grams IV every 4 hours - Cleviprex PRN for systolic blood pressure greater than 160 - resume medications Avalide 300/12.5 daily - Nisoldipine 20 mg daily - 2-D echocardiogram EF of 50-55%. - No regional wall motion abnormality. - Elevated pulmonary pressures 58 mmHg. Dyslipidemia - Elevated HDL, LDL and triglycerides. - Patient has multiple drug allergies to lipid lowering agents Acute Respiratory failure - intubated for an airway protection secondary to AMS - PRVC 16 ~ 550 tidal volume, iT 1.1. PEEP 8. 45% FiO2 - Ventilator bundle - Aerosols PRN - SBT daily Gastroesophageal reflux disease - Continue Protonix 40 mg by mouth/IV - Colace/SenokotMiraLAX for bowel regimen Access Right IJ CVL day #8 Prophylaxis - GI - Protonix - DVT - status post alteplase. DVT prophylaxis when okay with neurosurgery Level 3 Tin Dickey MD Apr 24, 2016 07:48
--- NOTE | 2016-04-24 08:48 | HHI.NSPN ---
Subjective History Day 2 after right carotid occlusion, TPA followed by right MCA clot. She is intubated for airway protection. Her pupils remain small and she still follows commands 04/13/16 She is POD 1 after cranioplasty, right MCA infarction, sedated and ventilated, with MAP 90-100 on pressors. ICP has been in the normal range 5-10 and her right pupils remains small and reactive. 04/14/16 Day 2 after cranioplasty, day 4 after onset of infarction, sedated and ventilated. Versed added for comfort as she was awakening on propofol. Low dose mannitol and 3% saline are continued. 04/15/16 Day 3 after cranioplasty,, day 5 from CVA onset, stable ICP and hemodynamically. Follow up CT in the am. 04/16/16 Day 6 after CVA, Day 4 after cranioplasty, very stable ICP, no pupillary changes. CT is still pending. EVD is at 7 drained on 57 cc in 24 hrs 04/17/16 Day 7 after CVA, still very stable ICP but requiring some neosynephrine to keep CPP 70-80. EVD is draining well and ICP remains normal 04/21/15 The EVD has been challenged. She remains on precedex and propofol and sedated 04/22/[address] this am shows completed right MCA infarctions. The inferior right temporal lobe and the left hemisphere are good. We will wean sedation and the hyperosmolar fluids.ICP remains about 8 with minimal CSF drainage, the drain was removed today. 04/23/16 Sedation is being weaned but she is still lethargic. Pupils are unequal slightly larger on the right. 04/24/16 Awakening but very weak, not moving spontaneously and having difficulty with CPAP trials. Secretions have increased. Vitals . Vital Signs Date Time Temp Pulse Resp B/P Pulse Ox O2 Delivery O2 Flow Rate FiO2 04/24/16 08:00 94 40 04/24/16 08:00 40 04/24/16 06:00 106 04/24/16 04:15 94 45 04/24/16 04:00 99.7 109 18 126/62 96 04/24/16 04:00 93 04/24/16 04:00 45 04/24/16 02:00 86 04/24/16 01:10 96 45 04/24/16 00:00 45 04/24/16 00:00 93 04/24/16 00:00 99.7 109 18 126/62 96 04/23/16 22:00 120 04/23/16 20:27 93 45 04/23/16 20:00 93 04/23/16 20:00 45 04/23/16 20:00 99.8 93 21 172/68 94 04/23/16 18:00 79 04/23/16 16:00 45 04/23/16 16:00 95 04/23/16 16:00 98.7 72 25 141/52 96 04/23/16 15:59 93 45 04/23/16 14:00 89 04/23/16 12:00 45 04/23/16 12:00 99.4 94 20 148/54 92 04/23/16 12:00 90 04/23/16 11:19 96 45 04/23/16 10:00 106 04/23/16 04/23/16 04/24/16 15:00 23:00 07:00 Intake Total 956 ml 940 ml 776 ml Output Total 1100 ml 1250 ml 1050 ml Balance -144 ml -310 ml -274 ml Physical Exam Eyes Eyes: Pupils Equal Eyes Remarks 3mm talisha and reactive Marc Coma Scale Best Eye Openin - None Best Verbal: 1 - None Best Motor: 3 - Flexion/decorticate Total Glascow Coma Scale (GCS): 5 Cardiac Cardiac: Regular Rate & Rhythm Respiratory Respiratory: CTA Gastrointestinal Gastrointestinal: Soft Genitourinary Genitourinary: Mendez Catheter In Place Musculoskeletal Extremities Upper Extremities Deltoid Bicep Tricep HI W. Ext Right Left Lower Extremeties Ilio Quad Plantar Dorsi EHL Right Left Musculoskeletal Remarks flexion of lower extremities to stimulation Extremities Edema: Edematous, SCDs Objective Infectious Disease Cultures Microbiology Date/Time Procedure Status Source Growth 04/23/16 09:18 Aerobic Blood Culture Received Blood Peripheral Pending 04/23/16 09:18 Anaerobic Blood Culture Received Blood Peripheral Pending Labs Laboratory Tests 04/23/16 18:40 04/24/16 05:30 Laboratory Tests Test 04/23/16 04/24/16 18:40 05:30 Sodium Level 148 MEQ/L 150 MEQ/L Serum Osmolality 325 MOSM/KG 322 MOSM/KG Potassium Level 3.3 MEQ/L Chloride Level 117 MEQ/L Carbon Dioxide Level 22.2 MEQ/L Anion Gap 11 MEQ/L Blood Urea Nitrogen 35 MG/DL Creatinine 0.84 MG/DL Estimat Glomerular Filtration 65 ML/MIN Rate Random Glucose 137 MG/DL Calcium Level 7.8 MG/DL Phosphorus Level 4.2 MG/DL Magnesium Level 2.2 MG/DL Total Bilirubin 0.4 MG/DL Aspartate Amino Transf 44 U/L (AST/SGOT) Alanine Aminotransferase 25 U/L (ALT/SGPT) Alkaline Phosphatase 147 U/L Total Protein 6.1 GM/DL Albumin 2.5 GM/DL Assessment & Plan Diagnosis: (1) Nontraumatic acute hemorrhage of basal ganglia Plan: Plan to keep MAP to perfuse the penumbra in the right hemisphere.She did not develop IVH or hydrocephalus 04/16/16 She has remained very stable. She is now 6 days from CVA and can be weaned from the pressors. CT is still pending but the ICPs have been very stable for several days. 04/17/16 The neosynephrine was weaned a little. There is no need for sedation holidays until the edema resolves enough for the neosynephrine to be removed. EVD is draining well and CPP are maintained above 70 without difficulty. 04/21/15 Day 9 from craniectomy. She is off pressors and weaning from the EVD, drained only 35 cc in [address] in the am. 04/22/16 CT showed a completed right MCA CVA. We can start weaning the sedation and the hypertonic saline. The left hemisphere perfusion has been good. 04/23/16 Slowly weaning from the sedation, hypertonic saline is on hold for serum osmolarity > 320. The neurologic goal is to preserved the dominant left hemisphere function. 04/24/16 Weaning off sedation but very weak, will need more time for CPAP trials. Hunt cultured yesterday. No contraindication for prophylactic lovenox (2) Acute ischemic right middle cerebral artery (MCA) stroke Plan: She presented with good MCA flow but a right ICA occlusion below the petrous level. She now has poor right MCA flow with hemorrhagic conversion in the basal ganglia. The goal of treatment will be to maximize flow to the penumbra with hypertonic saline, low dose mannitol, fluids. Pressors were added today after intubation. A cranioplasty will be offered to the 04-13-16 Stable after cranioplasty, will keep sedated through the period of maximal brain edema 04/14/16 The ICP remains about 8 with persistent EVD drainage, 140 cc in 24 hrs. We will rescan later this week . Maximal brain edema expected for the next 2 days. 04/15/16 The EVD drainage has improved to 161 cc/day and the HORTENSIA drainage has decreased to 45 cc/day indicating decreased shift right to left. The sodium is 152 and the hypertonic saline is on hold. 04/16/16 HORTENSIA was removed today. CT is pending. Plan for normalization of perfusion pressures. 04/17/16 CPP and ICP in the goal range, slowly weaning the neosynephrine support as the edema improves. She is sedated for cerebral protection. 04/21/15 ICP is normal with the EVD at 20 cm water pressure, will be removed tomorrow after head CT. We can wean the sedation as tolerated as cerebral edema has improved. 04/22/16 Completed right MCA infarction, EVD was removed and sedation will be weaned. Map remains above 70. 04/23/16 Weaning from sedation, will need BP management to keep MAP 70-90 04/24/16 Completed MCA, weaning hyperosmolar therapy and sedation, supportive care continued Critical Care Time (minutes): 10 Level of Visit: Post Op Mason Cannon Apr 24, 2016 08:47
[2016-04-24] MEDS: POLYETHYLENE GLYCOL 17 GM PKG PO SCH ×2 (09:00→20:40)
[2016-04-24] MEDS: LACTULOSE SYRUP 20 GM/30 ML CUP PO SCH ×4 (09:00→20:34)
[2016-04-24] MEDS: SENNOSIDES SYRUP 8.8 MG/5 ML CUP PO SCH ×2 (09:00→20:40)
[2016-04-24] MEDS: DOCUSATE SODIUM 100 MG CAP PO SCH ×2 (09:00→20:40)
[2016-04-24] MEDS: fentaNYL DRIP 250 ML IV SCH (09:04)
[2016-04-24] MEDS: METOPROLOL SUCCINATE 50 MG EXTENDED RELEASE TAB PO SCH ×2 (09:14→20:34)
[2016-04-24] MEDS: levETIRAcetam INJ 500 MG in SODIUM CHLORIDE 0.9% INJ 100 ML IV SCH ×2 (09:15→20:35)
[2016-04-24] MEDS: SODIUM CHLORIDE 0.9% FLUSH 5 ML FLUSH IVF SCH ×3 (09:15→20:36)
[2016-04-24] MEDS: CHLORHEXIDINE 0.12% (ORAL KIT) 15 ML CUP MT SCH ×2 (09:16→20:36)
[2016-04-24] MEDS: ARTIFICIAL TEARS OPTH SOLN 15 ML BTL EACH EYE SCH ×3 (09:16→17:33)
[2016-04-24 17:05] LABS: POTASSIUM 3.7 MEQ/L (3.5-5.1)
--- NOTE | 2016-04-24 20:15 | HHI.PR ---
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 She is now 6 days from CVA and can be weaned from the pressors. CT is still pending but the ICPs have been very stable for several days. 04/17/16 The neosynephrine was weaned a little. There is no need for sedation holidays until the edema resolves enough for the neosynephrine to be removed. EVD is draining well and CPP are maintained above 70 without difficulty. 04/21/15 Day 9 from craniectomy. She is off pressors and weaning from the EVD, drained only 35 cc in [address] in the am. 04/22/16 CT showed a completed right MCA CVA. We can start weaning the sedation and the hypertonic saline. The left hemisphere perfusion has been good. 04/23/16 Slowly weaning from the sedation, hypertonic saline is on hold for serum osmolarity > 320. The neurologic goal is to preserved the dominant left hemisphere function. 04/24/16 Weaning off sedation but very weak, will need more time for CPAP trials. Hunt cultured yesterday. No contraindication for prophylactic lovenox (2) Acute ischemic right middle cerebral artery (MCA) stroke Plan: She presented with good MCA flow but a right ICA occlusion below the petrous level. She now has poor right MCA flow with hemorrhagic conversion in the basal ganglia. The goal of treatment will be to maximize flow to the penumbra with hypertonic saline, low dose mannitol, fluids. Pressors were added today after intubation. A cranioplasty will be offered to the 04-13-16 Stable after cranioplasty, will keep sedated through the period of maximal brain edema 04/14/16 The ICP remains about 8 with persistent EVD drainage, 140 cc in 24 hrs. We will rescan later this week . Maximal brain edema expected for the next 2 days. 04/15/16 The EVD drainage has improved to 161 cc/day and the HORTENSIA drainage has decreased to 45 cc/day indicating decreased shift right to left. The sodium is 152 and the hypertonic saline is on hold. 04/16/16 HORTENSIA was removed today. CT is pending. Plan for normalization of perfusion pressures. 04/17/16 CPP and ICP in the goal range, slowly weaning the neosynephrine support as the edema improves. She is sedated for cerebral protection. 04/21/15 ICP is normal with the EVD at 20 cm water pressure, will be removed tomorrow after head CT. We can wean the sedation as tolerated as cerebral edema has improved. 04/22/16 Completed right MCA infarction, EVD was removed and sedation will be weaned. Map remains above 70. 04/23/16 Weaning from sedation, will need BP management to keep MAP 70-90 04/24/16 Completed MCA, weaning hyperosmolar therapy and sedation, supportive care continued Subjective Subjective Comments No acute events reported Active Medications Current Medications Medications (Trade) Dose Ordered Sig/Beronica Route Start Time Stop Time Status Last Admin (NS Flush) 2 ml BID IVF 04/10/16 21:00 04/24/16 09:15 (NS Flush) 2 ml UNSCH PRN IVF 04/10/16 13:30 (Trandate Inj) 10 mg Q1HR PRN IV 04/10/16 13:30 04/10/16 17:58 (Tylenol) 650 mg Q6H PRN PO 04/10/16 15:30 04/19/16 17:53 (Tears Naturale Opth Soln) 1 drop TID EACH EYE 04/10/16 18:00 04/24/16 17:33 (Colace) 100 mg BID PO 04/10/16 21:00 04/23/16 08:04 Miscellaneous Information 1 Q361D XX 04/10/16 15:30 (Chlorhexidine 2% Cloth) Taper DAILY@04 TOP 04/11/16 04:00 04/07/17 03:59 04/24/16 04:00 (Chlorhexidine 2% Cloth) 3 pack UNSCH PRN TOP 04/10/16 15:30 (Apresoline Inj) 10 mg Q1HR PRN IV PUSH 04/10/16 16:30 04/23/16 09:00 (Nitroglycerin 2% Oint) 2 inch Q6HR PRN TOPICAL 04/10/16 16:30 (Zofran Inj) 4 mg Q6H PRN IV PUSH 04/10/16 20:00 04/10/16 20:22 (Lopressor Inj) 10 mg STAT IV PUSH 04/11/16 12:45 04/11/16 16:26 (Dilaudid Pf Inj) 0.5 mg Q4H PRN IV PUSH 04/11/16 14:00 04/13/16 14:59 (NS Flush) DAILY IVF 04/11/16 15:00 04/24/16 09:16 IV Flush UNSCH PRN IVF 04/11/16 15:00 Potassium Chloride 100 ml @ 50 mls/hr Q2H PRN IV 04/11/16 15:00 04/11/16 16:21 (KCl 20 Meq Premix Inj) 100 ml @ 50 mls/hr Q2H PRN IV 04/11/16 15:00 04/24/16 11:06 Potassium Chloride 40 meq 40 meq UNSCH PRN PO/TUBE 04/11/16 15:00 Potassium Chloride 100 ml @ 25 mls/hr UNSCH PRN IV 04/11/16 15:00 Potassium Chloride 100 ml @ 50 mls/hr Q2H PRN IV 04/11/16 15:00 (Magnesium Sulfate Inj/NS Inj) 100 ml @ 50 mls/hr UNSCH PRN IV 04/11/16 15:00 Magnesium Oxide 800 mg 800 mg UNSCH PRN PO 04/11/16 15:00 (Magnesium Sulfate Inj/NS Inj) 100 ml @ 50 mls/hr UNSCH PRN IV 04/11/16 15:00 Potassium Phosphate 2000 mg 2,000 mg Q4H PRN PO 04/11/16 15:00 (Sodium Phosphate Inj/NS 250 ml Inj) 250 ml @ 42 mls/hr UNSCH PRN IV 04/11/16 15:00 (KCl 40 Meq/30 ml Liq) 40 meq UNSCH PRN PO/TUBE 04/11/16 15:00 Potassium Phosphate 2000 mg 2,000 mg UNSCH PRN PO/TUBE 04/11/16 15:00 (Potassium Phosphate Inj/NS 250 ml Inj) 260 ml @ 42 mls/hr UNSCH PRN IV 04/11/16 15:00 Chlorhexidine Gluconate 15 ml 15 ml BID@08,20 MT 04/11/16 20:00 04/24/16 09:16 (Diprivan 1000 Mg/100ml Inj) 100 ml @ 0 mls/hr TITRATE IV 04/11/16 17:00 04/24/16 17:32 Sennosides 8.8 mg 8.8 mg BID PO 04/12/16 09:00 04/21/16 20:18 (Neosynephrine Inj/NS 500 ml Inj) 500 ml @ 0 mls/hr TITRATE IV 04/13/16 20:20 04/17/16 06:33 Glycerin 2 gm 2 gm DAILY PRN RECTAL 04/14/16 06:45 04/14/16 10:06 Levetriacetam 500 mg/Sodium Chloride 105 ml @ 420 mls/hr Q12HR IV 04/14/16 21:00 04/24/16 09:15 (fentaNYL DRIP) 250 ml @ 0 mls/hr TITRATE IV 04/14/16 20:45 04/24/16 09:04 Polyethylene Glycol 17 gm 17 gm BID PO 04/18/16 21:00 04/21/16 08:16 Dexmedetomidine HCl 50 ml @ 0 mls/hr TITRATE IV 04/20/16 18:45 04/24/16 17:32 (Cleviprex Inj) 50 ml @ 0 mls/hr TITRATE IV 04/20/16 19:00 04/23/16 20:21 (Lopressor Inj) 5 mg Q4HR IV PUSH 04/20/16 20:00 04/24/16 15:10 (NS Flush) See Protocol DAILY IVF 04/22/16 09:00 04/24/16 09:15 (NS Flush) See Protocol UNSCH PRN IVF 04/21/16 12:00 (Heparin Central Flush) See Protocol DAILY IVF 04/22/16 09:00 04/24/16 09:15 (Heparin Central Flush) See Protocol UNSCH PRN IVF 04/21/16 12:00 (NS Flush) See Protocol UNSCH PRN IVF 04/21/16 12:00 (Lactulose Liq) 30 ml QID PO 04/21/16 18:00 04/24/16 17:33 (Toprol Xl) 50 mg BID PO 04/23/16 10:30 04/24/16 09:14 (Apresoline) 50 mg Q8HR PO 04/23/16 10:30 04/24/16 13:47 (Lasix Inj) 20 mg Q6H IV PUSH 04/24/16 09:00 04/24/16 14:19 Allergies Allergies Coded Allergies Achromycin V (Verified Allergy, Severe, 04/10/16) Michelle (Verified Allergy, Severe, 04/10/16) Augmentin (Verified Allergy, Severe, 04/10/16) Capoten (Verified Allergy, Severe, 04/10/16) Diovan (Verified Allergy, Severe, 04/10/16) Enzymes Oral (Verified Allergy, Severe, 04/10/16) Lipitor (Verified Allergy, Severe, 04/10/16) Procardia (Verified Allergy, Severe, 04/10/16) Rynatan (Verified Allergy, Severe, 04/10/16) Zetia (Verified Allergy, Severe, 04/10/16) Zithromax (Verified Allergy, Severe, 04/10/16) Zocor (Verified Allergy, Severe, 04/10/16) Aspirin (Verified Allergy, Mild, 04/10/16) Cipro (Verified Allergy, Mild, 04/10/16) Codeine (Verified Allergy, Mild, 04/10/16) Keflex (Verified Allergy, Mild, 04/10/16) Morphine (Verified Allergy, Mild, 04/10/16) Blue Dyes - Various (Unverified Allergy, Unknown, Anaphylaxis, 04/10/16) Clonidine (Unverified Allergy, Unknown, itching, 04/10/16) Exam I&O / VS 04/23/16 04/23/16 04/24/16 15:00 23:00 07:00 Intake Total 956 ml 940 ml 776 ml Output Total 1100 ml 1250 ml 1050 ml Balance -144 ml -310 ml -274 ml Intake Oral 0 ml IV Total 848 ml 717 ml 640 ml Tube Feeding 88 ml Lipid 223 ml 136 ml Tube Irrigant 20 ml Output Urine Total 1000 ml 1150 ml 850 ml Stool Total 100 ml 100 ml 200 ml Vital Signs Date Time Temp Pulse Resp B/P Pulse Ox O2 Delivery O2 Flow Rate FiO2 04/24/16 18:00 93 04/24/16 16:06 97 45 04/24/16 16:00 45 04/24/16 16:00 98.6 108 16 131/58 97 04/24/16 16:00 108 04/24/16 14:00 110 04/24/16 12:00 97 04/24/16 12:00 98.9 103 16 135/72 98 04/24/16 12:00 40 04/24/16 10:56 98 55 04/24/16 10:00 108 04/24/16 08:00 98.7 116 16 156/74 94 04/24/16 08:00 94 40 04/24/16 08:00 40 04/24/16 08:00 40 04/24/16 08:00 113 04/24/16 06:00 106 04/24/16 04:15 94 45 04/24/16 04:00 99.7 109 18 126/62 96 04/24/16 04:00 93 04/24/16 04:00 45 04/24/16 02:00 86 04/24/16 01:10 96 45 04/24/16 00:00 45 04/24/16 00:00 93 04/24/16 00:00 99.7 109 18 126/62 96 04/23/16 22:00 120 04/23/16 20:27 93 45 Respiratory: Lungs CTA, Non-labored respirations, Coarse breath sounds Cardiology: Normal rate, Regular Rhythm Musculoskeletal: ROM (Within functional limits) Exam Comments intubated does not respond pupils 2 mm bilateral reactive EOM limited to occulocephalics No spontaneous limb movement, Objective Micro and Labs Laboratory Tests Test 04/24/16 04/24/16 04/24/16 05:30 05:39 16:01 White Blood Count 11.1 Red Blood Count 2.89 Hemoglobin 7.8 Hematocrit 24.7 Mean Corpuscular Volume 85.4 Mean Corpuscular Hemoglobin 27.2 Mean Corpuscular Hemoglobin 31.8 Concent Red Cell Distribution Width 15.6 Platelet Count 267 Mean Platelet Volume 11.6 Neutrophils (%) (Auto) 83.9 Lymphocytes (%) (Auto) 10.4 Monocytes (%) (Auto) 4.9 Eosinophils (%) (Auto) 0.4 Basophils (%) (Auto) 0.4 Neutrophils # (Auto) 9.3 Lymphocytes # (Auto) 1.2 Monocytes # (Auto) 0.5 Eosinophils # (Auto) 0.0 Basophils # (Auto) 0.0 CBC Comment DIFF FINAL Differential Comment Sodium Level 150 147 Potassium Level 3.3 3.7 Chloride Level 117 Carbon Dioxide Level 22.2 Anion Gap 11 Blood Urea Nitrogen 35 Creatinine 0.84 Estimat Glomerular Filtration 65 Rate Random Glucose 137 Serum Osmolality 322 318 Calcium Level 7.8 Phosphorus Level 4.2 Magnesium Level 2.2 Total Bilirubin 0.4 Aspartate Amino Transf 44 (AST/SGOT) Alanine Aminotransferase 25 (ALT/SGPT) Alkaline Phosphatase 147 Total Protein 6.1 Albumin 2.5 Blood Gas Puncture Site ART LINE Blood Gas Patient Temperature 98.6 Blood Gas HCO3 21 Blood Gas Base Excess -3.1 Blood Gas Oxygen Saturation 98 Arterial Blood pH 7.41 Arterial Blood Partial 34 Pressure CO2 Arterial Blood Partial 294 Pressure O2 Arterial Blood Oxygen Content 11.8 Arterial Blood 1.2 Carboxyhemoglobin Arterial Blood Methemoglobin 0.6 Blood Gas Hemoglobin 8.0 Oxygen Delivery Device VENTILATOR Blood Gas Ventilator Setting PRVC/AC Blood Gas Inspired Oxygen 45 Date/Time Procedure Status Source Growth 04/23/16 09:18 Aerobic Blood Culture - Preliminary Resulted Blood Peripheral NO GROWTH IN 1 DAY 04/23/16 09:18 Anaerobic Blood Culture - Preliminary Resulted Blood Peripheral NO GROWTH IN 1 DAY 04/23/16 06:50 Urine Culture - Preliminary Resulted Urine Catheterized Urine NO GROWTH IN 24 HOURS. 04/23/16 06:50 Gram Stain - Final Resulted Sputum Endotracheal 04/23/16 06:50 Sputum Culture - Preliminary Resulted Sputum Endotracheal NO GROWTH IN 24 HOURS. Reji Pham PhD Apr 24, 2016 20:14
[2016-04-24 23:45] LABS: ALT (GPT) 46 U/L (10-53); ANION GAP 10 MEQ/L (5-15); AST (GOT) 67 U/L (15-37); BICARBONATE 25.7 MEQ/L (21.0-32.0); BLOOD UREA NITROGEN 35 MG/DL (7-18); CHLORIDE 115 MEQ/L (98-107); GLOMERULAR FILTRATION RATE 72 ML/MIN (>89); MAGNESIUM 2.2 MG/DL (1.5-2.5); POTASSIUM 3.4 MEQ/L (3.5-5.1); SODIUM (NA) 151 MEQ/L (136-145)
[2016-04-24 23:48] LABS: ALKALINE PHOSPHATASE 135 U/L (45-117); TOTAL BILIRUBIN ADULT 0.3 MG/DL (0.2-1.0)
[2016-04-25] VITALS (18 sets, daily range): BP systolic 119–166; BP diastolic 57–76; PULSE 97–134; RESP 16–24; TEMP 98.5–100.1; O2SAT 95–100
[2016-04-25] MEDS: POTASSIUM CL 40 MEQ/30 ML LIQ UDC PO/TUBE PRN (01:00)
[2016-04-25] MEDS ORDERED: METOPROLOL TARTRATE 5 MG/5 ML VIAL IV PUSH PRN ×2 (02:30→04:30)
[2016-04-25] MEDS ORDERED: PHENYLEPHRINE HCL 10 MG/ML VIAL ONE (02:45)
[2016-04-25] MEDS ORDERED: METOPROLOL TARTRATE 50 MG TAB PO ONE (02:45)
[2016-04-25] MEDS ORDERED: AMIODARONE INJ 150 MG in DEXTROSE 5% IN WATER 100ML INJ 97 ML IV ONE ×2 (02:45)
[2016-04-25] MEDS: PROPOFOL 1000 MG/100 ML INJ 100 ML IV SCH ×2 (02:54→05:33)
[2016-04-25] MEDS: FUROSEMIDE 20 MG/2 ML VIAL IV PUSH SCH ×4 (02:56→19:56)
[2016-04-25] MEDS: PHENYLEPHRINE INJ 40 MG in SODIUM CHLORID 0.9% 500 ML INJ 496 ML IV SCH (02:57)
[2016-04-25] MEDS: AMIODARONE INJ 450 MG in DEXTROSE 5% IN WATE(EXCEL) INJ 241 ML IV SCH ×4 (03:04→13:23)
[2016-04-25 03:34] LABS: MAGNESIUM 2.3 MG/DL (1.5-2.5)
[2016-04-25] MEDS: METOPROLOL TARTRATE 5 MG/5 ML VIAL IV PUSH SCH ×6 (03:50→23:43)
[2016-04-25] MEDS: hydrALAZINE HCL 50 MG TAB PO SCH ×3 (05:10→21:01)
[2016-04-25 05:27] LABS: BLOOD GAS HCO3 22 mmol/L (22-26); BLOOD GAS METHEMOGLOBIN 0.6 % (0-2); BLOOD GAS O2 HGB SATURATION 96 % (90-100); BLOOD GAS OXYGEN CONTENT 13.1 Vol % (12.0-20.0); BLOOD GAS PCO2 36 mmHg (38-42); BLOOD GAS PO2 117 mmHg (61-120); BLOOD GAS TOTAL HGB 9.5 G/DL (12.0-16.0); CRITICAL VALUE NO; OXYGEN DEVICE VENTILATOR; TEMP CORR TO 98.6; VENT SETTINGS PRVC/AC
[2016-04-25 05:28] LABS: DRAW SITE ART LINE; FIO2 45 %; STAT NO
[2016-04-25 06:07] LABS: AUTOMATED NEUTROPHIL # 10.3 TH/MM3 (1.8-7.7); BASOPHIL # 0.1 TH/MM3 (0-0.2); BASOPHIL % 0.7 % (0.0-2.0); EOSINOPHIL # 0.4 TH/MM3 (0-0.4); EOSINOPHIL % 3.1 % (0.0-4.0); HEMATOCRIT 26.8 % (35.0-46.0); HEMO FLAGS DIFF FINAL; LYMPH % 12.9 % (9.0-44.0); LYMPHOCYTE # 1.7 TH/MM3 (1.0-4.8); MEAN CELL VOLUME 85.5 FL (80.0-100.0); MEAN CORPUSCULAR HGB CONC 31.6 % (32.0-36.0); MONO % 5.6 % (0.0-8.0); NEUT % 77.7 % (16.0-70.0); PLATELET COUNT 337 TH/MM3 (150-450); RED BLOOD COUNT 3.14 MIL/MM3 (4.00-5.30); RED CELL DISTRIBUTION WIDTH 15.7 % (11.6-17.2); WHITE BLOOD COUNT 13.3 TH/MM3 (4.0-11.0)
--- NOTE | 2016-04-25 06:30 | RADRPT ---
EXAM DATE/TIME: 04/25/2016 05:59 [facility] COMPARISON: CHEST SINGLE AP, April 24, 2016, 5:21. INDICATIONS : Evaluate after respiratory failure. MEDICAL HISTORY : Hypertension. Pancreatitis. SURGICAL HISTORY : Appendectomy. ENCOUNTER: Subsequent ACUITY: 2 weeks PAIN SCORE: Non-responsive. LOCATION: Bilateral chest FINDINGS: The cardiac silhouette is enlarged in transverse diameter. Support lines and tubes are in satisfactor y position. There are findings of congestive heart failure with interstitial and alveolar opacity talisha aterally. There is left lower lobe atelectasis versus pneumonia. The findings have worsened when comp ared with the prior examination. CONCLUSION: 1. Cardiomegaly and findings of congestive heart failure. The findings have worsened when compared wi th the prior examination. Dorian Nunn MD on April 25, 2016 at 6:28 Board Certified Radiologist. This report was verified electronically.
[2016-04-25 07:02] LABS: ALT (GPT) 56 U/L (10-53); ANION GAP 10 MEQ/L (5-15); AST (GOT) 77 U/L (15-37); BICARBONATE 23.4 MEQ/L (21.0-32.0); BLOOD UREA NITROGEN 35 MG/DL (7-18); CHLORIDE 115 MEQ/L (98-107); GLOMERULAR FILTRATION RATE 64 ML/MIN (>89); POTASSIUM 3.8 MEQ/L (3.5-5.1); SODIUM (NA) 148 MEQ/L (136-145)
[2016-04-25 07:05] LABS: ALKALINE PHOSPHATASE 152 U/L (45-117); TOTAL BILIRUBIN ADULT 0.4 MG/DL (0.2-1.0)
[2016-04-25] MEDS: CHLORHEXIDINE 0.12% (ORAL KIT) 15 ML CUP MT SCH ×2 (08:00→19:55)
[2016-04-25] MEDS: ARTIFICIAL TEARS OPTH SOLN 15 ML BTL EACH EYE SCH ×3 (09:00→17:27)
[2016-04-25] MEDS: POLYETHYLENE GLYCOL 17 GM PKG PO SCH ×2 (09:00→20:05)
[2016-04-25] MEDS: LACTULOSE SYRUP 20 GM/30 ML CUP PO SCH ×4 (09:00→20:05)
[2016-04-25] MEDS: METOPROLOL SUCCINATE 50 MG EXTENDED RELEASE TAB PO SCH ×2 (09:00→19:57)
[2016-04-25] MEDS: SODIUM CHLORIDE 0.9% FLUSH 5 ML FLUSH IVF SCH ×3 (09:00→19:56)
[2016-04-25] MEDS: SENNOSIDES SYRUP 8.8 MG/5 ML CUP PO SCH ×2 (09:00→20:05)
[2016-04-25] MEDS: DOCUSATE SODIUM 100 MG CAP PO SCH ×2 (09:00→20:05)
[2016-04-25] MEDS: levETIRAcetam INJ 500 MG in SODIUM CHLORIDE 0.9% INJ 100 ML IV SCH ×2 (09:00→19:56)
[2016-04-25] MEDS: DEXMEDETOMIDINE INJ 50 ML IV SCH ×3 (09:11→23:43)
[2016-04-25] MEDS: fentaNYL DRIP 250 ML IV SCH (09:11)
--- NOTE | 2016-04-25 11:52 | HHI.CCPN ---
Subjective Remarks/Hospital Course 80-year-old female. Date of admission 04/10/2016. 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 She presents to the [facility] ED with acute onset from normocytic health that 10 AM this morning with left-sided weakness involving left arm/left leg. E VAC was called and a stroke was notified. NIH score was 7. addition with deficits involving dysarthria, right gaze preference, left facial palsy, dense hemiparesis left arm and leg. Normal sensation. Reflexes are equal and symmetric. NIH was route 7. CT of the head revealed no acute intracranial findings. CTA of the head and neck revealed dense right ICA occlusion. The case was discussed with Dr. Dozier with interventional radiology and the patient is not indicated for intervention given the complete occlusion of her right ICA. Patient was seen by Dr. Pham and alteplase was provided after benefits and risks discussed. Objective Vital Signs Date Time Temp Pulse Resp B/P Pulse Ox O2 Delivery O2 Flow Rate FiO2 04/25/16 11:15 97 45 04/25/16 10:00 105 04/25/16 08:00 98.6 16 126/64 Intake and Output 04/24/16 04/24/16 04/25/16 08:00 16:00 00:00 Intake Total 776 ml 797 ml 905 ml Output Total 1050 ml 1050 ml 1650 ml Balance -274 ml -253 ml -745 ml Result Diagram: 04/25/16 0515 04/25/16 0515 Other Results Microbiology Date/Time Procedure Status Source Growth 04/23/16 06:50 Urine Culture - Final Complete Urine Catheterized Urine NO GROWTH IN 48 HOURS. Laboratory Tests Test 04/25/16 05:18 Blood Gas Puncture Site ART LINE Blood Gas Patient Temperature 98.6 Blood Gas HCO3 22 mmol/L (22-26) Blood Gas Base Excess -2.0 mmol/L (-2-2) Blood Gas Oxygen Saturation 96 % (90-100) Arterial Blood pH 7.41 (7.380-7.420) Arterial Blood Partial 36 mmHg (38-42) Pressure CO2 Arterial Blood Partial 117 mmHg Pressure O2 (61-120) Arterial Blood Oxygen Content 13.1 Vol % (12.0-20.0) Arterial Blood 1.0 % (0-4) Carboxyhemoglobin Arterial Blood Methemoglobin 0.6 % (0-2) Blood Gas Hemoglobin 9.5 G/DL (12.0-16.0) Oxygen Delivery Device VENTILATOR Blood Gas Ventilator Setting PRVC/AC Blood Gas Inspired Oxygen 45 % Imaging Last Impressions Chest X-Ray 04/21/16 0600 Signed Impressions: Service Date/Time: Thursday, April 21, 2016 04:51 - CONCLUSION: Bibasilar densities and probable small bilateral pleural effusions greater on the right. José Miguel Singletary MD Head CT 04/16/16 0000 Signed Impressions: Service Date/Time: Saturday, April 16, 2016 16:10 - CONCLUSION: Large infarct involving the right sylvian region with persistent mass effect, showing some improvement from 04/13/2016. Jose Luis Nava MD FACR Head Magnetic Resonance Angiography 04/11/16 0000 Signed Impressions: Service Date/Time: Monday, April 11, 2016 13:17 - CONCLUSION: Significant new finding of total absence of flow in the right middle cerebral artery and minimal flow in the right A1 segment. This indicates total occlusion . Significant atherosclerotic high grade or complete occlusion of the internal carotid on the right free siphon and in the Mauro region Audi Schneider MD Brain MRI 04/11/16 0000 Signed Impressions: Service Date/Time: Monday, April 11, 2016 13:17 - CONCLUSION: 1. Acute infarction involving the right MCA territory. 2. Focal acute hemorrhage involving the right basal ganglia. 3. Cerebral edema with mass effect and midline shift to the left by approximately 5 - 6 mm. Marlon Darnell MD Neck CTA 04/10/16 1106 Signed Impressions: Service Date/Time: March 11:16 - CONCLUSION: Complete occlusion of the extracranial portion of the right ICA. The left carotid shows 20%% stenosis. Both vertebral arteries are patent. Bashir Dozier Jr., MD Head CTA 04/10/16 1100 Signed Impressions: Service Date/Time: March 11:16 - CONCLUSION: Occlusion of the Mauro portion of the right ICA with reconstitution. There is good collateralization of the right middle cerebral and right anterior cerebral territories. I spoke with Dr. Pham at the time of the scan. Bashir Dozier Jr., MD Objective Remarks GENERAL: 80-year-old female, critically ill currently resting in bed in no acute distress currently orotracheally intubated SKIN: Warm and dry. No rash HEAD: Left EVD in place. Status post right craniotomy EYES: Pupils equal and round about 2 mm bilaterally and reactive to 3 mm. No scleral icterus. No injection or drainage. ENT: No nasal bleeding or discharge. Mucous membranes pink and moist. NECK: Trachea midline. No JVD. CARDIOVASCULAR: Bradycardic, RR. S1, S2. No S4. Murmurs not appreciated RESPIRATORY: Distant breath sounds. Few crackles appreciated in bilateral lower lobes. Breath sounds equal bilaterally. GASTROINTESTINAL: Abdomen soft, non-tender, obese. Hypoactive bowel sounds. Hepatic and splenic margins not palpable. MUSCULOSKELETAL: Extremities one plus nonpitting edema bilateral lower extremities. No obvious deformities. NEUROLOGICAL: Sedated with Versed and Fentanyl on the ventilator.. Moves spontaneously and to pain right and left lower extremity. Unable to elicit response left and right upper extremity. Upgoing toes. Date of Insertion: Apr 21, 2016 Line: PICC Side: Right Location: Antecubital A/P Assessment and Plan Acute right MCA CVA - left-sided hemiparesis - Right basal ganglia hemorrhage - Status post Right-sided frontotemporal parietal cranioplasty for decompression - Postop day #12 - Seen by neurology/Dr. Pham - Status post 90 mg total alteplase infusion - EVD removed 04/23 - Stroke has completed - continue to wean off sedation Right internal carotid artery occlusion - not amendable to intervention - antiplatelet when ok with NSGY - supportive care Hypertension - Goal to keep normotensive - Lopressor 5 mill grams IV every 4 hours - Cleviprex PRN for systolic blood pressure greater than 160 - resume medications Avalide 300/12.5 daily - Nisoldipine 20 mg daily - 2-D echocardiogram EF of 50-55%. - No regional wall motion abnormality. - Elevated pulmonary pressures 58 mmHg. Dyslipidemia - Elevated HDL, LDL and triglycerides. - Patient has multiple drug allergies to lipid lowering agents Acute Respiratory failure - intubated for an airway protection secondary to AMS - PRVC 16 ~ 550 tidal volume, iT 1.1. PEEP 8. 45% FiO2 - Ventilator bundle - Aerosols PRN - SBT daily - failed yesterday due to rapid shallow breathing Gastroesophageal reflux disease - Continue Protonix 40 mg by mouth/IV - Colace/SenokotMiraLAX for bowel regimen Access Right IJ CVL day #8 Prophylaxis - GI - Protonix - DVT - status post alteplase. DVT prophylaxis when okay with neurosurgery Level 3 Tin Dickey MD Apr 25, 2016 11:52
[2016-04-25] MEDS: LABETALOL HCL 100 MG/20 ML VIAL IV PRN ×2 (13:23→18:29)
--- NOTE | 2016-04-25 16:46 | HHI.PR ---
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 She is now 6 days from CVA and can be weaned from the pressors. CT is still pending but the ICPs have been very stable for several days. 04/17/16 The neosynephrine was weaned a little. There is no need for sedation holidays until the edema resolves enough for the neosynephrine to be removed. EVD is draining well and CPP are maintained above 70 without difficulty. 04/21/15 Day 9 from craniectomy. She is off pressors and weaning from the EVD, drained only 35 cc in [address] in the am. 04/22/16 CT showed a completed right MCA CVA. We can start weaning the sedation and the hypertonic saline. The left hemisphere perfusion has been good. 04/23/16 Slowly weaning from the sedation, hypertonic saline is on hold for serum osmolarity > 320. The neurologic goal is to preserved the dominant left hemisphere function. 04/24/16 Weaning off sedation but very weak, will need more time for CPAP trials. Hunt cultured yesterday. No contraindication for prophylactic lovenox (2) Acute ischemic right middle cerebral artery (MCA) stroke Plan: She presented with good MCA flow but a right ICA occlusion below the petrous level. She now has poor right MCA flow with hemorrhagic conversion in the basal ganglia. The goal of treatment will be to maximize flow to the penumbra with hypertonic saline, low dose mannitol, fluids. Pressors were added today after intubation. A cranioplasty will be offered to the 04-13-16 Stable after cranioplasty, will keep sedated through the period of maximal brain edema 04/14/16 The ICP remains about 8 with persistent EVD drainage, 140 cc in 24 hrs. We will rescan later this week . Maximal brain edema expected for the next 2 days. 04/15/16 The EVD drainage has improved to 161 cc/day and the HORTENSIA drainage has decreased to 45 cc/day indicating decreased shift right to left. The sodium is 152 and the hypertonic saline is on hold. 04/16/16 HORTENSIA was removed today. CT is pending. Plan for normalization of perfusion pressures. 04/17/16 CPP and ICP in the goal range, slowly weaning the neosynephrine support as the edema improves. She is sedated for cerebral protection. 04/21/15 ICP is normal with the EVD at 20 cm water pressure, will be removed tomorrow after head CT. We can wean the sedation as tolerated as cerebral edema has improved. 04/22/16 Completed right MCA infarction, EVD was removed and sedation will be weaned. Map remains above 70. 04/23/16 Weaning from sedation, will need BP management to keep MAP 70-90 04/24/16 Completed MCA, weaning hyperosmolar therapy and sedation, supportive care continued Subjective Subjective Comments No acute events reported Active Medications Current Medications Medications (Trade) Dose Ordered Sig/Beronica Route Start Time Stop Time Status Last Admin (NS Flush) 2 ml BID IVF 04/10/16 21:00 04/25/16 09:00 (NS Flush) 2 ml UNSCH PRN IVF 04/10/16 13:30 (Trandate Inj) 10 mg Q1HR PRN IV 04/10/16 13:30 04/25/16 13:23 (Tylenol) 650 mg Q6H PRN PO 04/10/16 15:30 04/19/16 17:53 (Tears Naturale Opth Soln) 1 drop TID EACH EYE 04/10/16 18:00 04/25/16 12:40 (Colace) 100 mg BID PO 04/10/16 21:00 04/23/16 08:04 Miscellaneous Information 1 Q361D XX 04/10/16 15:30 (Chlorhexidine 2% Cloth) Taper DAILY@04 TOP 04/11/16 04:00 04/07/17 03:59 04/24/16 04:00 (Chlorhexidine 2% Cloth) 3 pack UNSCH PRN TOP 04/10/16 15:30 (Apresoline Inj) 10 mg Q1HR PRN IV PUSH 04/10/16 16:30 04/23/16 09:00 (Nitroglycerin 2% Oint) 2 inch Q6HR PRN TOPICAL 04/10/16 16:30 (Zofran Inj) 4 mg Q6H PRN IV PUSH 04/10/16 20:00 04/10/16 20:22 (Lopressor Inj) 10 mg STAT IV PUSH 04/11/16 12:45 04/11/16 16:26 (Dilaudid Pf Inj) 0.5 mg Q4H PRN IV PUSH 04/11/16 14:00 04/13/16 14:59 (NS Flush) DAILY IVF 04/11/16 15:00 04/25/16 09:00 IV Flush UNSCH PRN IVF 04/11/16 15:00 Potassium Chloride 100 ml @ 50 mls/hr Q2H PRN IV 04/11/16 15:00 04/11/16 16:21 (KCl 20 Meq Premix Inj) 100 ml @ 50 mls/hr Q2H PRN IV 04/11/16 15:00 04/24/16 11:06 Potassium Chloride 40 meq 40 meq UNSCH PRN PO/TUBE 04/11/16 15:00 04/25/16 01:00 Potassium Chloride 100 ml @ 25 mls/hr UNSCH PRN IV 04/11/16 15:00 Potassium Chloride 100 ml @ 50 mls/hr Q2H PRN IV 04/11/16 15:00 (Magnesium Sulfate Inj/NS Inj) 100 ml @ 50 mls/hr UNSCH PRN IV 04/11/16 15:00 Magnesium Oxide 800 mg 800 mg UNSCH PRN PO 04/11/16 15:00 (Magnesium Sulfate Inj/NS Inj) 100 ml @ 50 mls/hr UNSCH PRN IV 04/11/16 15:00 Potassium Phosphate 2000 mg 2,000 mg Q4H PRN PO 04/11/16 15:00 (Sodium Phosphate Inj/NS 250 ml Inj) 250 ml @ 42 mls/hr UNSCH PRN IV 04/11/16 15:00 (KCl 40 Meq/30 ml Liq) 40 meq UNSCH PRN PO/TUBE 04/11/16 15:00 Potassium Phosphate 2000 mg 2,000 mg UNSCH PRN PO/TUBE 04/11/16 15:00 (Potassium Phosphate Inj/NS 250 ml Inj) 260 ml @ 42 mls/hr UNSCH PRN IV 04/11/16 15:00 Chlorhexidine Gluconate 15 ml 15 ml BID@08,20 MT 04/11/16 20:00 04/25/16 08:00 (Diprivan 1000 Mg/100ml Inj) 100 ml @ 0 mls/hr TITRATE IV 04/11/16 17:00 04/25/16 05:33 Sennosides 8.8 mg 8.8 mg BID PO 04/12/16 09:00 04/21/16 20:18 (Neosynephrine Inj/NS 500 ml Inj) 500 ml @ 0 mls/hr TITRATE IV 04/13/16 20:20 04/25/16 02:57 Glycerin 2 gm 2 gm DAILY PRN RECTAL 04/14/16 06:45 04/14/16 10:06 Levetriacetam 500 mg/Sodium Chloride 105 ml @ 420 mls/hr Q12HR IV 04/14/16 21:00 04/25/16 09:00 (fentaNYL DRIP) 250 ml @ 0 mls/hr TITRATE IV 04/14/16 20:45 04/25/16 09:11 Polyethylene Glycol 17 gm 17 gm BID PO 04/18/16 21:00 04/21/16 08:16 Dexmedetomidine HCl 50 ml @ 0 mls/hr TITRATE IV 04/20/16 18:45 04/25/16 09:11 (Cleviprex Inj) 50 ml @ 0 mls/hr TITRATE IV 04/20/16 19:00 04/23/16 20:21 (Lopressor Inj) 5 mg Q4HR IV PUSH 04/20/16 20:00 04/25/16 14:52 (NS Flush) See Protocol DAILY IVF 04/22/16 09:00 04/25/16 09:00 (NS Flush) See Protocol UNSCH PRN IVF 04/21/16 12:00 (Heparin Central Flush) See Protocol DAILY IVF 04/22/16 09:00 04/25/16 09:00 (Heparin Central Flush) See Protocol UNSCH PRN IVF 04/21/16 12:00 (NS Flush) See Protocol UNSCH PRN IVF 04/21/16 12:00 (Lactulose Liq) 30 ml QID PO 04/21/16 18:00 04/24/16 20:34 (Toprol Xl) 50 mg BID PO 04/23/16 10:30 04/24/16 20:34 (Apresoline) 50 mg Q8HR PO 04/23/16 10:30 04/25/16 13:23 (Lasix Inj) 20 mg Q6H IV PUSH 04/24/16 09:00 04/25/16 14:52 Metoprolol Tartrate 5 mg 5 mg Q2H PRN IV PUSH 04/25/16 04:30 04/25/16 02:55 (Cordarone Inj/ D5W ([place]) Inj) 250 ml @ 0 mls/hr CONTINUOUS IV 04/25/16 02:45 04/25/16 13:23 Allergies Allergies Coded Allergies Achromycin V (Verified Allergy, Severe, 04/10/16) Michelle (Verified Allergy, Severe, 04/10/16) Augmentin (Verified Allergy, Severe, 04/10/16) Capoten (Verified Allergy, Severe, 04/10/16) Diovan (Verified Allergy, Severe, 04/10/16) Enzymes Oral (Verified Allergy, Severe, 04/10/16) Lipitor (Verified Allergy, Severe, 04/10/16) Procardia (Verified Allergy, Severe, 04/10/16) Rynatan (Verified Allergy, Severe, 04/10/16) Zetia (Verified Allergy, Severe, 04/10/16) Zithromax (Verified Allergy, Severe, 04/10/16) Zocor (Verified Allergy, Severe, 04/10/16) Aspirin (Verified Allergy, Mild, 04/10/16) Cipro (Verified Allergy, Mild, 04/10/16) Codeine (Verified Allergy, Mild, 04/10/16) Keflex (Verified Allergy, Mild, 04/10/16) Morphine (Verified Allergy, Mild, 04/10/16) Blue Dyes - Various (Unverified Allergy, Unknown, Anaphylaxis, 04/10/16) Clonidine (Unverified Allergy, Unknown, itching, 04/10/16) Exam I&O / VS 04/24/16 04/24/16 04/25/16 15:00 23:00 07:00 Intake Total 797 ml 905 ml 926 ml Output Total 1050 ml 1650 ml 750 ml Balance -253 ml -745 ml 176 ml IV Total 673 ml 602 ml 579 ml Tube Feeding 153 ml 287 ml Lipid 124 ml Tube Irrigant 150 ml 60 ml Output Urine Total 850 ml 1250 ml 650 ml Stool Total 200 ml 400 ml 100 ml Vital Signs Date Time Temp Pulse Resp B/P Pulse Ox O2 Delivery O2 Flow Rate FiO2 04/25/16 14:00 121 04/25/16 12:00 45 04/25/16 12:00 99.1 102 24 159/76 97 04/25/16 12:00 102 04/25/16 11:15 97 45 04/25/16 10:00 105 04/25/16 08:00 98.6 112 16 126/64 100 04/25/16 08:00 45 04/25/16 08:00 115 04/25/16 06:00 111 04/25/16 04:08 99 45 04/25/16 04:00 99.0 97 16 119/57 97 04/25/16 04:00 97 04/25/16 04:00 45 04/25/16 02:00 134 04/25/16 01:06 98 45 04/25/16 00:00 103 04/25/16 00:00 98.5 103 16 130/60 99 04/25/16 00:00 45 04/24/16 22:00 117 04/24/16 20:15 99 45 04/24/16 20:00 98.4 101 22 147/80 99 04/24/16 20:00 101 04/24/16 20:00 45 04/24/16 18:00 93 Respiratory: Lungs CTA, Non-labored respirations, Coarse breath sounds Cardiology: Normal rate, Regular Rhythm Musculoskeletal: ROM (Within functional limits) Exam Comments intubated eyes open, but does not respond pupils 2 mm bilateral reactive EOM limited to occulocephalics No spontaneous limb movement, Objective Micro and Labs Laboratory Tests Test 04/24/16 04/25/16 04/25/16 04/25/16 22:10 02:59 05:15 05:18 Sodium Level 151 148 Potassium Level 3.4 3.8 Chloride Level 115 115 Carbon Dioxide Level 25.7 23.4 Anion Gap 10 10 Blood Urea Nitrogen 35 35 Creatinine 0.77 0.86 Estimat Glomerular Filtration 72 64 Rate Random Glucose 105 115 Serum Osmolality 316 321 Calcium Level 8.1 8.4 Phosphorus Level 4.1 3.8 Magnesium Level 2.2 2.3 Total Bilirubin 0.3 0.4 Aspartate Amino Transf 67 77 (AST/SGOT) Alanine Aminotransferase 46 56 (ALT/SGPT) Alkaline Phosphatase 135 152 Total Protein 5.5 5.7 Albumin 2.6 2.7 White Blood Count 13.3 Red Blood Count 3.14 Hemoglobin 8.5 Hematocrit 26.8 Mean Corpuscular Volume 85.5 Mean Corpuscular Hemoglobin 27.0 Mean Corpuscular Hemoglobin 31.6 Concent Red Cell Distribution Width 15.7 Platelet Count 337 Mean Platelet Volume 11.7 Neutrophils (%) (Auto) 77.7 Lymphocytes (%) (Auto) 12.9 Monocytes (%) (Auto) 5.6 Eosinophils (%) (Auto) 3.1 Basophils (%) (Auto) 0.7 Neutrophils # (Auto) 10.3 Lymphocytes # (Auto) 1.7 Monocytes # (Auto) 0.7 Eosinophils # (Auto) 0.4 Basophils # (Auto) 0.1 CBC Comment DIFF FINAL Differential Comment Blood Gas Puncture Site ART LINE Blood Gas Patient Temperature 98.6 Blood Gas HCO3 22 Blood Gas Base Excess -2.0 Blood Gas Oxygen Saturation 96 Arterial Blood pH 7.41 Arterial Blood Partial 36 Pressure CO2 Arterial Blood Partial 117 Pressure O2 Arterial Blood Oxygen Content 13.1 Arterial Blood 1.0 Carboxyhemoglobin Arterial Blood Methemoglobin 0.6 Blood Gas Hemoglobin 9.5 Oxygen Delivery Device VENTILATOR Blood Gas Ventilator Setting PRVC/AC Blood Gas Inspired Oxygen 45 Date/Time Procedure Status Source Growth 04/23/16 09:18 Aerobic Blood Culture - Preliminary Resulted Blood Peripheral NO GROWTH IN 2 DAYS 04/23/16 09:18 Anaerobic Blood Culture - Preliminary Resulted Blood Peripheral NO GROWTH IN 2 DAYS 04/23/16 06:50 Urine Culture - Final Complete Urine Catheterized Urine NO GROWTH IN 48 HOURS. 04/23/16 06:50 Gram Stain - Final Resulted Sputum Endotracheal 04/23/16 06:50 Sputum Culture - Preliminary Resulted Sputum Endotracheal NO GROWTH IN 24 HOURS. Reji Pham PhD Apr 25, 2016 16:46
--- NOTE | 2016-04-25 18:37 | HHI.NSPN ---
Subjective History Day 2 after right carotid occlusion, TPA followed by right MCA clot. She is intubated for airway protection. Her pupils remain small and she still follows commands 04/13/16 She is POD 1 after cranioplasty, right MCA infarction, sedated and ventilated, with MAP 90-100 on pressors. ICP has been in the normal range 5-10 and her right pupils remains small and reactive. 04/14/16 Day 2 after cranioplasty, day 4 after onset of infarction, sedated and ventilated. Versed added for comfort as she was awakening on propofol. Low dose mannitol and 3% saline are continued. 04/15/16 Day 3 after cranioplasty,, day 5 from CVA onset, stable ICP and hemodynamically. Follow up CT in the am. 04/16/16 Day 6 after CVA, Day 4 after cranioplasty, very stable ICP, no pupillary changes. CT is still pending. EVD is at 7 drained on 57 cc in 24 hrs 04/17/16 Day 7 after CVA, still very stable ICP but requiring some neosynephrine to keep CPP 70-80. EVD is draining well and ICP remains normal 04/21/15 The EVD has been challenged. She remains on precedex and propofol and sedated 04/22/[address] this am shows completed right MCA infarctions. The inferior right temporal lobe and the left hemisphere are good. We will wean sedation and the hyperosmolar fluids.ICP remains about 8 with minimal CSF drainage, the drain was removed today. 04/23/16 Sedation is being weaned but she is still lethargic. Pupils are unequal slightly larger on the right. 04/24/16 Awakening but very weak, not moving spontaneously and having difficulty with CPAP trials. Secretions have increased. 04/25/16 More awake but cannot keep her eyes open yet on light sedation. She did better with the CPAP trials but is not yet following commands on the right. Sutures were removed today Vitals . Vital Signs Date Time Temp Pulse Resp B/P Pulse Ox O2 Delivery O2 Flow Rate FiO2 04/25/16 18:00 118 04/25/16 16:46 96 35 04/25/16 16:00 98.7 110 19 158/66 95 04/25/16 16:00 102 04/25/16 16:00 45 04/25/16 14:00 121 04/25/16 12:00 45 04/25/16 12:00 99.1 102 24 159/76 97 04/25/16 12:00 102 04/25/16 11:15 97 45 04/25/16 11:15 45 04/25/16 10:00 105 04/25/16 08:00 98.6 112 16 126/64 100 04/25/16 08:00 45 04/25/16 08:00 115 04/25/16 06:00 111 04/25/16 04:08 99 45 04/25/16 04:00 99.0 97 16 119/57 97 04/25/16 04:00 97 04/25/16 04:00 45 04/25/16 02:00 134 04/25/16 01:06 98 45 04/25/16 00:00 103 04/25/16 00:00 98.5 103 16 130/60 99 04/25/16 00:00 45 04/24/16 22:00 117 04/24/16 20:15 99 45 04/24/16 20:00 98.4 101 22 147/80 99 04/24/16 20:00 101 04/24/16 20:00 45 04/24/16 04/24/16 04/25/16 15:00 23:00 07:00 Intake Total 797 ml 905 ml 926 ml Output Total 1050 ml 1650 ml 750 ml Balance -253 ml -745 ml 176 ml Physical Exam Eyes Eyes Remarks 3mm talisha and reactive Marc Coma Scale Best Eye Openin - To speech Best Verbal: 1 - None Best Motor: 5 - Localizes pain Total Glascow Coma Scale (GCS): 9 Cardiac Cardiac: Regular Rate & Rhythm Gastrointestinal Gastrointestinal: Soft Genitourinary Genitourinary: Mednez Catheter In Place Musculoskeletal Extremities Upper Extremities Deltoid Bicep Tricep HI W. Ext Right Left Lower Extremeties Ilio Quad Plantar Dorsi EHL Right Left Musculoskeletal Remarks flexion of lower extremities to stimulation, using the right hand purposefully Extremities Edema: SCDs Objective Labs Laboratory Tests 04/24/16 22:10 04/25/16 05:15 Laboratory Tests Test 04/24/16 04/25/16 04/25/16 22:10 02:59 05:15 Sodium Level 151 MEQ/L 148 MEQ/L Potassium Level 3.4 MEQ/L 3.8 MEQ/L Chloride Level 115 MEQ/L 115 MEQ/L Carbon Dioxide Level 25.7 MEQ/L 23.4 MEQ/L Anion Gap 10 MEQ/L 10 MEQ/L Blood Urea Nitrogen 35 MG/DL 35 MG/DL Creatinine 0.77 MG/DL 0.86 MG/DL Estimat Glomerular Filtration 72 ML/MIN 64 ML/MIN Rate Random Glucose 105 MG/DL 115 MG/DL Serum Osmolality 316 MOSM/KG 321 MOSM/KG Calcium Level 8.1 MG/DL 8.4 MG/DL Phosphorus Level 4.1 MG/DL 3.8 MG/DL Magnesium Level 2.2 MG/DL 2.3 MG/DL Total Bilirubin 0.3 MG/DL 0.4 MG/DL Aspartate Amino Transf 67 U/L 77 U/L (AST/SGOT) Alanine Aminotransferase 46 U/L 56 U/L (ALT/SGPT) Alkaline Phosphatase 135 U/L 152 U/L Total Protein 5.5 GM/DL 5.7 GM/DL Albumin 2.6 GM/DL 2.7 GM/DL Assessment & Plan Diagnosis: (1) Nontraumatic acute hemorrhage of basal ganglia Plan: Plan to keep MAP to perfuse the penumbra in the right hemisphere.She did not develop IVH or hydrocephalus 04/16/16 She has remained very stable. She is now 6 days from CVA and can be weaned from the pressors. CT is still pending but the ICPs have been very stable for several days. 04/17/16 The neosynephrine was weaned a little. There is no need for sedation holidays until the edema resolves enough for the neosynephrine to be removed. EVD is draining well and CPP are maintained above 70 without difficulty. 04/21/15 Day 9 from craniectomy. She is off pressors and weaning from the EVD, drained only 35 cc in [address] in the am. 04/22/16 CT showed a completed right MCA CVA. We can start weaning the sedation and the hypertonic saline. The left hemisphere perfusion has been good. 04/23/16 Slowly weaning from the sedation, hypertonic saline is on hold for serum osmolarity > 320. The neurologic goal is to preserved the dominant left hemisphere function. 04/24/16 Weaning off sedation but very weak, will need more time for CPAP trials. Hunt cultured yesterday. No contraindication for prophylactic lovenox (2) Acute ischemic right middle cerebral artery (MCA) stroke Plan: She presented with good MCA flow but a right ICA occlusion below the petrous level. She now has poor right MCA flow with hemorrhagic conversion in the basal ganglia. The goal of treatment will be to maximize flow to the penumbra with hypertonic saline, low dose mannitol, fluids. Pressors were added today after intubation. A cranioplasty will be offered to the 04-13-16 Stable after cranioplasty, will keep sedated through the period of maximal brain edema 04/14/16 The ICP remains about 8 with persistent EVD drainage, 140 cc in 24 hrs. We will rescan later this week . Maximal brain edema expected for the next 2 days. 04/15/16 The EVD drainage has improved to 161 cc/day and the HORTENSIA drainage has decreased to 45 cc/day indicating decreased shift right to left. The sodium is 152 and the hypertonic saline is on hold. 04/16/16 HORTENSIA was removed today. CT is pending. Plan for normalization of perfusion pressures. 04/17/16 CPP and ICP in the goal range, slowly weaning the neosynephrine support as the edema improves. She is sedated for cerebral protection. 04/21/15 ICP is normal with the EVD at 20 cm water pressure, will be removed tomorrow after head CT. We can wean the sedation as tolerated as cerebral edema has improved. 04/22/16 Completed right MCA infarction, EVD was removed and sedation will be weaned. Map remains above 70. 04/23/16 Weaning from sedation, will need BP management to keep MAP 70-90 04/24/16 Completed MCA, weaning hyperosmolar therapy and sedation, supportive care continued 04/25/16 As above, continued weaning of sedation and supportive care Critical Care Time (minutes): Mason Escalona Apr 25, 2016 18:37
[2016-04-25] MEDS: VANCOMYCIN 1,000 MG/NS 250 ML IV SCH ×2 (20:07)
--- NOTE | 2016-04-25 22:12 | EKG ---
Date Performed: 04/25/2016 Time Performed: 01:55:02 PTAGE: 81 years EKG: Atrial fibrillation with rapid ventricular response Possible anterior infarct - age undeter mined Inferior/lateral ST-T changes are nonspecific Compared to previous tracing, the atrial fibrilla tion with rapid ventricular response is a new finding; poor R wave transition was previously noted. A bnormal ECG PREVIOUS TRACING : 04/12/2016 10.38.12 DOCTOR: Jeane Lam Interpretating Date/Time 04/25/2016 22:12:04
[2016-04-26] VITALS (18 sets, daily range): BP systolic 115–171; BP diastolic 53–82; PULSE 85–127; RESP 17–27; TEMP 97.8–99.1; O2SAT 93–100
[2016-04-26 01:42] LABS: ALT (GPT) 57 U/L (10-53); ANION GAP 8 MEQ/L (5-15); AST (GOT) 60 U/L (15-37); BICARBONATE 25.6 MEQ/L (21.0-32.0); BLOOD UREA NITROGEN 35 MG/DL (7-18); CHLORIDE 111 MEQ/L (98-107); GLOMERULAR FILTRATION RATE 64 ML/MIN (>89); MAGNESIUM 2.1 MG/DL (1.5-2.5); POTASSIUM 3.4 MEQ/L (3.5-5.1); SODIUM (NA) 145 MEQ/L (136-145)
[2016-04-26 01:43] LABS: ALKALINE PHOSPHATASE 163 U/L (45-117); TOTAL BILIRUBIN ADULT 0.3 MG/DL (0.2-1.0)
[2016-04-26] MEDS: DEXMEDETOMIDINE INJ 50 ML IV SCH ×9 (01:48→23:16)
[2016-04-26] MEDS: POTASSIUM CL 40 MEQ/30 ML LIQ UDC PO/TUBE PRN (01:48)
[2016-04-26] MEDS: FUROSEMIDE 20 MG/2 ML VIAL IV PUSH SCH ×4 (02:30→19:48)
[2016-04-26] MEDS: AMIODARONE INJ 450 MG in DEXTROSE 5% IN WATE(EXCEL) INJ 241 ML IV SCH ×2 (02:31)
[2016-04-26] MEDS: METOPROLOL TARTRATE 5 MG/5 ML VIAL IV PUSH SCH ×6 (03:39→23:16)
[2016-04-26] MEDS: CHLORHEXIDINE GLUCONATE 2 % 1 PACK (2 CLOTHS) TOP SCH (03:40)
[2016-04-26 05:17] LABS: ALKALINE PHOSPHATASE 169 U/L (45-117); ALT (GPT) 59 U/L (10-53); ANION GAP 11 MEQ/L (5-15); AST (GOT) 64 U/L (15-37); BICARBONATE 24.9 MEQ/L (21.0-32.0); BLOOD UREA NITROGEN 35 MG/DL (7-18); CHLORIDE 109 MEQ/L (98-107); GLOMERULAR FILTRATION RATE 68 ML/MIN (>89); POTASSIUM 3.6 MEQ/L (3.5-5.1); SODIUM (NA) 145 MEQ/L (136-145); TOTAL BILIRUBIN ADULT 0.4 MG/DL (0.2-1.0)
[2016-04-26 05:18] LABS: AUTOMATED NEUTROPHIL # 10.2 TH/MM3 (1.8-7.7); BASOPHIL # 0.1 TH/MM3 (0-0.2); BASOPHIL % 0.7 % (0.0-2.0); EOSINOPHIL # 0.2 TH/MM3 (0-0.4); HEMATOCRIT 25.4 % (35.0-46.0); HEMO FLAGS DIFF FINAL; LYMPH % 9.4 % (9.0-44.0); LYMPHOCYTE # 1.2 TH/MM3 (1.0-4.8); MEAN CELL VOLUME 85.4 FL (80.0-100.0); MEAN CORPUSCULAR HEMOGLOBIN 26.8 PG (27.0-34.0); MEAN CORPUSCULAR HGB CONC 31.3 % (32.0-36.0); MONO % 6.4 % (0.0-8.0); NEUT % 81.5 % (16.0-70.0); PLATELET COUNT 320 TH/MM3 (150-450); RED BLOOD COUNT 2.97 MIL/MM3 (4.00-5.30); RED CELL DISTRIBUTION WIDTH 15.9 % (11.6-17.2); WHITE BLOOD COUNT 12.5 TH/MM3 (4.0-11.0)
[2016-04-26 05:24] LABS: BLOOD GAS CARBOXYHEMOGLOBIN 1.3 % (0-4); BLOOD GAS HCO3 23 mmol/L (22-26); BLOOD GAS METHEMOGLOBIN 0.5 % (0-2); BLOOD GAS O2 HGB SATURATION 96 % (90-100); BLOOD GAS OXYGEN CONTENT 11.6 Vol % (12.0-20.0); BLOOD GAS PCO2 33 mmHg (38-42); BLOOD GAS PO2 100 mmHg (61-120); BLOOD GAS TOTAL HGB 8.5 G/DL (12.0-16.0); CRITICAL VALUE NO; OXYGEN DEVICE VENTILATOR; TEMP CORR TO 98.6
[2016-04-26 05:25] LABS: DRAW SITE ART LINE; FIO2 35 %; STAT NO; VENT SETTINGS AC/16/500/PEEP5
[2016-04-26] MEDS: hydrALAZINE HCL 50 MG TAB PO SCH ×3 (06:00→21:49)
--- NOTE | 2016-04-26 06:37 | RADRPT ---
EXAM DATE/TIME: 04/26/2016 05:32 [facility] COMPARISON: CHEST SINGLE AP, April 25, 2016, 5:59. INDICATIONS : Shortness of breath. MEDICAL HISTORY : Hypertension. Pancreatitis. SURGICAL HISTORY : Appendectomy. ENCOUNTER: Subsequent ACUITY: 2 weeks PAIN SCORE: Non-responsive. LOCATION: Bilateral chest FINDINGS: The cardiac silhouette is enlarged in transverse diameter. There is patchy alveolar disease bilateral ly compatible with edema or pneumonia. There is dense consolidation of the left lower lobe. Nasogastr ic tube has its proximal sidehole at the gastric esophageal junction and could be advanced 5-10 cm. CONCLUSION: 1. Cardiomegaly. Diffuse edema versus pneumonia. The findings are similar to the prior exam. 2. Nasogastric tube as above. Dorian Nunn MD on April 26, 2016 at 6:34 Board Certified Radiologist. This report was verified electronically.
--- NOTE | 2016-04-26 07:11 | HHI.NSPN ---
History Chief Complaint: intubated Right MCA stroke. Interval History Day 2 after right carotid occlusion, TPA followed by right MCA clot. She is intubated for airway protection. Her pupils remain small and she still follows commands 04/13/16 She is POD 1 after cranioplasty, right MCA infarction, sedated and ventilated, with MAP 90-100 on pressors. ICP has been in the normal range 5-10 and her right pupils remains small and reactive. 04/14/16 Day 2 after cranioplasty, day 4 after onset of infarction, sedated and ventilated. Versed added for comfort as she was awakening on propofol. Low dose mannitol and 3% saline are continued. 04/15/16 Day 3 after cranioplasty,, day 5 from CVA onset, stable ICP and hemodynamically. Follow up CT in the am. 04/16/16 Day 6 after CVA, Day 4 after cranioplasty, very stable ICP, no pupillary changes. CT is still pending. EVD is at 7 drained on 57 cc in 24 hrs 04/17/16 Day 7 after CVA, still very stable ICP but requiring some neosynephrine to keep CPP 70-80. EVD is draining well and ICP remains normal 04/21/15 The EVD has been challenged. She remains on precedex and propofol and sedated 04/22/[address] this am shows completed right MCA infarctions. The inferior right temporal lobe and the left hemisphere are good. We will wean sedation and the hyperosmolar fluids.ICP remains about 8 with minimal CSF drainage, the drain was removed today. 04/23/16 Sedation is being weaned but she is still lethargic. Pupils are unequal slightly larger on the right. 04/24/16 Awakening but very weak, not moving spontaneously and having difficulty with CPAP trials. Secretions have increased. 04/25/16 More awake but cannot keep her eyes open yet on light sedation. She did better with the CPAP trials but is not yet following commands on the right. Sutures were removed today 04/26/16: Pt with bo puss draining from right craniotomy incision worse with pt coughing. Pupils 3mm bilaterally, reactive bilaterally. Not following commands. Intubated. System Review Comments Not able to obtain given clinical condition. Exam Results Vital Signs Date Time Temp Pulse Resp B/P Pulse Ox O2 Delivery O2 Flow Rate FiO2 04/26/16 06:00 85 04/26/16 04:18 96 45 04/26/16 04:00 99.0 17 147/63 Intake and Output 04/25/16 04/25/16 04/26/16 08:00 16:00 00:00 Intake Total 926 ml 1170 ml 1185 ml Output Total 750 ml 1050 ml 1675 ml Balance 176 ml 120 ml -490 ml Physical Examination Resp: Intubated. Volume control rate 16 FiO2 30% Heart: Irregular. Amiodarone drip. No murmurs. Abd: Soft positive bs. On TFs. Skin: Right craniotomy incision with bo pus draining since last night, worse with cough. Muscle: Withdraws LEs to peripheral pain. Slight shoulder internal rotation to deep pain in upper chest. Neuro: Pt not opening eyes. Pupils 3mm bilaterally reactive bilaterally.She is on Precedex, Fentanyl, and Diprivan drips. Positive cough and gag to ET suctioning. Lab, Micro, Other Results Last Impressions Chest X-Ray 04/26/16 0600 Signed Impressions: Service Date/Time: Tuesday, April 26, 2016 05:32 - CONCLUSION: 1. Cardiomegaly. Diffuse edema versus pneumonia. The findings are similar to the prior exam. 2. Nasogastric tube as above. Dorian Nunn MD Head CT 04/22/16 0600 Signed Impressions: Service Date/Time: Friday, April 22, 2016 04:25 - CONCLUSION: 1. Low age right middle stream artery distribution infarct with mass effect and [id number] midline shift of 13 mm. 2. Small right subdural hemorrhage measures 5 mm. José Miguel Singletary MD Head Magnetic Resonance Angiography 04/11/16 0000 Signed Impressions: Service Date/Time: Monday, April 11, 2016 13:17 - CONCLUSION: Significant new finding of total absence of flow in the right middle cerebral artery and minimal flow in the right A1 segment. This indicates total occlusion . Significant atherosclerotic high grade or complete occlusion of the internal carotid on the right free siphon and in the Mauro region Audi Schneider MD Brain MRI 04/11/16 0000 Signed Impressions: Service Date/Time: Monday, April 11, 2016 13:17 - CONCLUSION: 1. Acute infarction involving the right MCA territory. 2. Focal acute hemorrhage involving the right basal ganglia. 3. Cerebral edema with mass effect and midline shift to the left by approximately 5 - 6 mm. Marlon Darnell MD Neck CTA 04/10/16 1106 Signed Impressions: Service Date/Time: March 11:16 - CONCLUSION: Complete occlusion of the extracranial portion of the right ICA. The left carotid shows 20%% stenosis. Both vertebral arteries are patent. Bashir Dozier Jr., MD Head CTA 04/10/16 1100 Signed Impressions: Service Date/Time: March 11:16 - CONCLUSION: Occlusion of the Mauro portion of the right ICA with reconstitution. There is good collateralization of the right middle cerebral and right anterior cerebral territories. I spoke with Dr. Pham at the time of the scan. Bashir Dozier Jr., MD Laboratory Tests Test 04/25/16 04/26/16 04/26/16 04/26/16 19:00 01:12 04:20 05:14 Sodium Level 146 MEQ/L 145 MEQ/L 145 MEQ/L Serum Osmolality 312 MOSM/KG 310 MOSM/KG Potassium Level 3.4 MEQ/L 3.6 MEQ/L Chloride Level 111 MEQ/L 109 MEQ/L Carbon Dioxide Level 25.6 MEQ/L 24.9 MEQ/L Anion Gap 8 MEQ/L 11 MEQ/L Blood Urea Nitrogen 35 MG/DL 35 MG/DL Creatinine 0.86 MG/DL 0.81 MG/DL Estimat Glomerular Filtration 64 ML/MIN 68 ML/MIN Rate Random Glucose 132 MG/DL 139 MG/DL Calcium Level 8.2 MG/DL 8.0 MG/DL Phosphorus Level 3.5 MG/DL Magnesium Level 2.1 MG/DL Total Bilirubin 0.3 MG/DL 0.4 MG/DL Aspartate Amino Transf 60 U/L 64 U/L (AST/SGOT) Alanine Aminotransferase 57 U/L 59 U/L (ALT/SGPT) Alkaline Phosphatase 163 U/L 169 U/L Total Protein 6.1 GM/DL 6.4 GM/DL Albumin 2.4 GM/DL 2.4 GM/DL White Blood Count 12.5 TH/MM3 Red Blood Count 2.97 MIL/MM3 Hemoglobin 8.0 GM/DL Hematocrit 25.4 % Mean Corpuscular Volume 85.4 FL Mean Corpuscular Hemoglobin 26.8 PG Mean Corpuscular Hemoglobin 31.3 % Concent Red Cell Distribution Width 15.9 % Platelet Count 320 TH/MM3 Mean Platelet Volume 11.9 FL Neutrophils (%) (Auto) 81.5 % Lymphocytes (%) (Auto) 9.4 % Monocytes (%) (Auto) 6.4 % Eosinophils (%) (Auto) 2.0 % Basophils (%) (Auto) 0.7 % Neutrophils # (Auto) 10.2 TH/MM3 Lymphocytes # (Auto) 1.2 TH/MM3 Monocytes # (Auto) 0.8 TH/MM3 Eosinophils # (Auto) 0.2 TH/MM3 Basophils # (Auto) 0.1 TH/MM3 CBC Comment DIFF FINAL Differential Comment Blood Gas Puncture Site ART LINE Blood Gas Patient Temperature 98.6 Blood Gas HCO3 23 mmol/L Blood Gas Base Excess -1.0 mmol/L Blood Gas Oxygen Saturation 96 % Arterial Blood pH 7.45 Arterial Blood Partial 33 mmHg Pressure CO2 Arterial Blood Partial 100 mmHg Pressure O2 Arterial Blood Oxygen Content 11.6 Vol % Arterial Blood 1.3 % Carboxyhemoglobin Arterial Blood Methemoglobin 0.5 % Blood Gas Hemoglobin 8.5 G/DL Oxygen Delivery Device VENTILATOR Blood Gas Ventilator Setting AC/16/500/PEEP5 Blood Gas Inspired Oxygen 35 % 04/25/16 04/25/16 04/26/16 15:00 23:00 07:00 Intake Total 1170 ml 1185 ml 795 ml Output Total 1050 ml 1675 ml 1050 ml Balance 120 ml -490 ml -255 ml IV Total 710 ml 733 ml 404 ml Tube Feeding 400 ml 332 ml 331 ml Tube Irrigant 120 ml 60 ml Other 60 ml Output Urine Total 1050 ml 1675 ml 1050 ml Stool Total 0 ml 0 ml 0 ml Microbiology Date/Time Procedure Status Source Growth 04/23/16 09:18 Aerobic Blood Culture - Preliminary Resulted Blood Peripheral NO GROWTH IN 2 DAYS 04/23/16 09:18 Anaerobic Blood Culture - Preliminary Resulted Blood Peripheral NO GROWTH IN 2 DAYS 04/25/16 19:30 Gram Stain Received Wound Drainage Pending 04/25/16 19:30 Wound Culture Received Wound Drainage Pending Medical Decision Making Impression and Plan A: 81 y/o FM with nontraumatic acute hemorrhage basal ganglia Acute ischemic Right MCA stroke. Draining right craniotomy scalp incision. P: Continue with critical care Continue with Neuro checks. Cultures of draining incision were sent last night and pt was started on Vancomycin. Discuss with Neurosurgeon. José Miguel Shabazz Apr 26, 2016 07:11
[2016-04-26] MEDS: CHLORHEXIDINE 0.12% (ORAL KIT) 15 ML CUP MT SCH ×2 (08:00→19:49)
[2016-04-26] MEDS: levETIRAcetam INJ 500 MG in SODIUM CHLORIDE 0.9% INJ 100 ML IV SCH ×2 (08:35→19:47)
[2016-04-26] MEDS: ARTIFICIAL TEARS OPTH SOLN 15 ML BTL EACH EYE SCH ×3 (08:35→18:00)
[2016-04-26] MEDS: METOPROLOL SUCCINATE 50 MG EXTENDED RELEASE TAB PO SCH ×2 (08:37→19:47)
[2016-04-26] MEDS: DOCUSATE SODIUM 100 MG CAP PO SCH ×3 (08:37→20:22)
[2016-04-26] MEDS: LACTULOSE SYRUP 20 GM/30 ML CUP PO SCH ×4 (08:37→19:49)
[2016-04-26] MEDS: POLYETHYLENE GLYCOL 17 GM PKG PO SCH ×3 (08:37→20:22)
[2016-04-26] MEDS: SENNOSIDES SYRUP 8.8 MG/5 ML CUP PO SCH ×2 (08:37→19:50)
[2016-04-26] MEDS: SODIUM CHLORIDE 0.9% FLUSH 5 ML FLUSH IVF SCH ×3 (09:03→19:48)
[2016-04-26] MEDS: CEFEPIME INJ 2,000 MG in SODIUM CHLORIDE 0.9% INJ 100 ML IV SCH ×2 (09:03→20:16)
[2016-04-26] MEDS: VANCOMYCIN 1,000 MG/NS 250 ML IV SCH ×4 (09:04→19:47)
--- NOTE | 2016-04-26 15:32 | HHI.CCPN ---
Subjective Remarks/Hospital Course 80-year-old female. Date of admission 04/10/2016. 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 She presents to the [place] ED with acute onset from normocytic health that 10 AM this morning with left-sided weakness involving left arm/left leg. E VAC was called and a stroke was notified. NIH score was 7. addition with deficits involving dysarthria, right gaze preference, left facial palsy, dense hemiparesis left arm and leg. Normal sensation. Reflexes are equal and symmetric. NIH was route 7. CT of the head revealed no acute intracranial findings. CTA of the head and neck revealed dense right ICA occlusion. The case was discussed with Dr. Dozier with interventional radiology and the patient is not indicated for intervention given the complete occlusion of her right ICA. Patient was seen by Dr. Pham and alteplase was provided after benefits and risks discussed. Objective Vital Signs Date Time Temp Pulse Resp B/P Pulse Ox O2 Delivery O2 Flow Rate FiO2 04/26/16 14:50 93 65 04/26/16 12:00 104 04/26/16 10:10 Ventilator 04/26/16 08:00 97.8 17 135/74 134/75 Intake and Output 04/25/16 04/25/16 04/26/16 08:00 16:00 00:00 Intake Total 926 ml 1170 ml 1185 ml Output Total 750 ml 1050 ml 1675 ml Balance 176 ml 120 ml -490 ml Result Diagram: 04/26/16 0420 04/26/16 1236 Other Results Laboratory Tests Test 04/26/16 05:14 Blood Gas Puncture Site ART LINE Blood Gas Patient Temperature 98.6 Blood Gas HCO3 23 mmol/L (22-26) Blood Gas Base Excess -1.0 mmol/L (-2-2) Blood Gas Oxygen Saturation 96 % (90-100) Arterial Blood pH 7.45 (7.380-7.420) Arterial Blood Partial 33 mmHg (38-42) Pressure CO2 Arterial Blood Partial 100 mmHg Pressure O2 (61-120) Arterial Blood Oxygen Content 11.6 Vol % (12.0-20.0) Arterial Blood 1.3 % (0-4) Carboxyhemoglobin Arterial Blood Methemoglobin 0.5 % (0-2) Blood Gas Hemoglobin 8.5 G/DL (12.0-16.0) Oxygen Delivery Device VENTILATOR Blood Gas Ventilator Setting AC/16/500/PEEP5 Blood Gas Inspired Oxygen 35 % Imaging Last Impressions Chest X-Ray 04/21/16 0600 Signed Impressions: Service Date/Time: Thursday, April 21, 2016 04:51 - CONCLUSION: Bibasilar densities and probable small bilateral pleural effusions greater on the right. José Miguel Singletary MD Head CT 04/16/16 0000 Signed Impressions: Service Date/Time: Saturday, April 16, 2016 16:10 - CONCLUSION: Large infarct involving the right sylvian region with persistent mass effect, showing some improvement from 04/13/2016. Jose Luis Nava MD FACR Head Magnetic Resonance Angiography 04/11/16 0000 Signed Impressions: Service Date/Time: Monday, April 11, 2016 13:17 - CONCLUSION: Significant new finding of total absence of flow in the right middle cerebral artery and minimal flow in the right A1 segment. This indicates total occlusion . Significant atherosclerotic high grade or complete occlusion of the internal carotid on the right free siphon and in the Mauro region Audi Schneider MD Brain MRI 04/11/16 0000 Signed Impressions: Service Date/Time: Monday, April 11, 2016 13:17 - CONCLUSION: 1. Acute infarction involving the right MCA territory. 2. Focal acute hemorrhage involving the right basal ganglia. 3. Cerebral edema with mass effect and midline shift to the left by approximately 5 - 6 mm. Marlon Darnell MD Neck CTA 04/10/16 1106 Signed Impressions: Service Date/Time: March 11:16 - CONCLUSION: Complete occlusion of the extracranial portion of the right ICA. The left carotid shows 20%% stenosis. Both vertebral arteries are patent. Bashir Dozier Jr., MD Head CTA 04/10/16 1100 Signed Impressions: Service Date/Time: March 11:16 - CONCLUSION: Occlusion of the Mauro portion of the right ICA with reconstitution. There is good collateralization of the right middle cerebral and right anterior cerebral territories. I spoke with Dr. Pham at the time of the scan. Bashir Dozier Jr., MD Objective Remarks GENERAL: 80-year-old female, critically ill currently resting in bed in no acute distress currently orotracheally intubated SKIN: Warm and dry. No rash HEAD: Left EVD in place. Status post right craniotomy EYES: Pupils equal and round about 2 mm bilaterally and reactive to 3 mm. No scleral icterus. No injection or drainage. ENT: No nasal bleeding or discharge. Mucous membranes pink and moist. NECK: Trachea midline. No JVD. CARDIOVASCULAR: Bradycardic, RR. S1, S2. No S4. Murmurs not appreciated RESPIRATORY: Distant breath sounds. Few crackles appreciated in bilateral lower lobes. Breath sounds equal bilaterally. GASTROINTESTINAL: Abdomen soft, non-tender, obese. Hypoactive bowel sounds. Hepatic and splenic margins not palpable. MUSCULOSKELETAL: Extremities one plus nonpitting edema bilateral lower extremities. No obvious deformities. NEUROLOGICAL: Sedated with Versed and Fentanyl on the ventilator.. Moves spontaneously and to pain right and left lower extremity. Unable to elicit response left and right upper extremity. Upgoing toes. Date of Insertion: Apr 21, 2016 Line: PICC Side: Right Location: Antecubital A/P Assessment and Plan Acute right MCA CVA - left-sided hemiparesis - Right basal ganglia hemorrhage - Status post Right-sided frontotemporal parietal cranioplasty for decompression - Postop day #13 - Seen by neurology/Dr. Pham - Status post 90 mg total alteplase infusion - EVD removed 04/23 - Stroke has completed - continue to wean off sedation A Fib with RVR - amiodarone Right internal carotid artery occlusion - not amendable to intervention - antiplatelet when ok with NSGY - supportive care Hypertension - Goal to keep normotensive - Lopressor 5 mill grams IV every 4 hours - Cleviprex PRN for systolic blood pressure greater than 160 - resume medications Avalide 300/12.5 daily - Nisoldipine 20 mg daily - 2-D echocardiogram EF of 50-55%. - No regional wall motion abnormality. - Elevated pulmonary pressures 58 mmHg. Dyslipidemia - Elevated HDL, LDL and triglycerides. - Patient has multiple drug allergies to lipid lowering agents Acute Respiratory failure - intubated for an airway protection secondary to AMS - PRVC 16 ~ 550 tidal volume, iT 1.1. PEEP 8. 45% FiO2 - Ventilator bundle - Aerosols PRN - SBT failure daily due to rapid shallow breathing - will schedule Tracheostomy Gastroesophageal reflux disease - Continue Protonix 40 mg by mouth/IV - Colace/SenokotMiraLAX for bowel regimen Access Right IJ CVL day #8 Prophylaxis - GI - Protonix - DVT - status post alteplase. DVT prophylaxis when okay with neurosurgery Level 3 Tin Dickey MD Apr 26, 2016 15:32
--- NOTE | 2016-04-26 16:35 | PD.CAR.PN ---
CVT Progress Note Subjective/Hospital Course: Patient seen and evaluated For Blue Rhino tracheostomy tomorrow Thanks J Objective: Vital Signs Date Time Temp Pulse Resp B/P Pulse Ox O2 Delivery O2 Flow Rate FiO2 04/26/16 14:50 93 65 04/26/16 14:00 98.0 96 17 127/53 96 04/26/16 14:00 103 04/26/16 12:00 104 04/26/16 12:00 35 04/26/16 10:10 97 Ventilator 35 04/26/16 10:10 97 35 04/26/16 10:00 94 04/26/16 08:00 99 04/26/16 08:00 97.8 99 17 135/74 96 134/75 04/26/16 08:00 35 04/26/16 06:00 85 04/26/16 04:18 96 45 04/26/16 04:00 99.0 96 17 96 147/63 04/26/16 04:00 96 04/26/16 04:00 35 04/26/16 02:00 102 04/26/16 01:34 95 45 04/26/16 00:00 97.9 95 18 145/65 97 04/26/16 00:00 35 04/26/16 00:00 95 04/25/16 22:05 97 45 04/25/16 22:00 101 04/25/16 20:00 100.1 103 18 166/75 96 04/25/16 20:00 35 04/25/16 20:00 103 04/25/16 19:52 95 35 04/25/16 18:00 118 04/25/16 16:46 96 35 Labs: Laboratory Tests Test 04/26/16 04/26/16 05:14 12:36 Blood Gas Puncture Site ART LINE Blood Gas Patient Temperature 98.6 Blood Gas HCO3 23 mmol/L (22-26) Blood Gas Base Excess -1.0 mmol/L (-2-2) Blood Gas Oxygen Saturation 96 % (90-100) Arterial Blood pH 7.45 (7.380-7.420) Arterial Blood Partial 33 mmHg (38-42) Pressure CO2 Arterial Blood Partial 100 mmHg Pressure O2 (61-120) Arterial Blood Oxygen Content 11.6 Vol % (12.0-20.0) Arterial Blood 1.3 % (0-4) Carboxyhemoglobin Arterial Blood Methemoglobin 0.5 % (0-2) Blood Gas Hemoglobin 8.5 G/DL (12.0-16.0) Oxygen Delivery Device VENTILATOR Blood Gas Ventilator Setting AC/16/500/PEEP5 Blood Gas Inspired Oxygen 35 % Sodium Level 145 MEQ/L (136-145) Serum Osmolality 315 MOSM/KG (275-295) Result Diagram: 04/26/16 0420 04/26/16 1236 Cinda Payne MD Apr 26, 2016 16:35
[2016-04-26] MEDS: fentaNYL DRIP 250 ML IV SCH (23:39)
[2016-04-27] VITALS (15 sets, daily range): BP systolic 115–181; BP diastolic 53–96; PULSE 81–141; RESP 16–24; TEMP 97.9–98.8; O2SAT 92–100
[2016-04-27] MEDS: DEXMEDETOMIDINE INJ 50 ML IV SCH ×5 (00:51→09:06)
[2016-04-27 01:36] LABS: ALT (GPT) 67 U/L (10-53); ANION GAP 9 MEQ/L (5-15); AST (GOT) 59 U/L (15-37); BICARBONATE 27.3 MEQ/L (21.0-32.0); BLOOD UREA NITROGEN 36 MG/DL (7-18); CHLORIDE 109 MEQ/L (98-107); GLOMERULAR FILTRATION RATE 67 ML/MIN (>89); MAGNESIUM 2.1 MG/DL (1.5-2.5); POTASSIUM 3.7 MEQ/L (3.5-5.1); SODIUM (NA) 145 MEQ/L (136-145)
[2016-04-27 01:38] LABS: ALKALINE PHOSPHATASE 166 U/L (45-117); TOTAL BILIRUBIN ADULT 0.4 MG/DL (0.2-1.0)
[2016-04-27] MEDS: FUROSEMIDE 20 MG/2 ML VIAL IV PUSH SCH ×3 (02:40→14:20)
[2016-04-27] MEDS: CHLORHEXIDINE GLUCONATE 2 % 1 PACK (2 CLOTHS) TOP SCH (04:00)
[2016-04-27] MEDS: METOPROLOL TARTRATE 5 MG/5 ML VIAL IV PUSH SCH ×6 (04:01→22:59)
[2016-04-27 04:47] LABS: INTERNATIONAL NORMALIZED RATIO 1.1 RATIO; PROTHROMBIN TIME - PATIENT 11.7 SEC (9.8-11.6)
[2016-04-27 04:51] LABS: AUTOMATED NEUTROPHIL # 11.8 TH/MM3 (1.8-7.7); BASOPHIL # 0.1 TH/MM3 (0-0.2); BASOPHIL % 0.5 % (0.0-2.0); EOSINOPHIL # 0.2 TH/MM3 (0-0.4); EOSINOPHIL % 1.5 % (0.0-4.0); HEMATOCRIT 25.6 % (35.0-46.0); HEMO FLAGS DIFF FINAL; LYMPH % 9.9 % (9.0-44.0); LYMPHOCYTE # 1.4 TH/MM3 (1.0-4.8); MEAN CELL VOLUME 84.7 FL (80.0-100.0); MEAN CORPUSCULAR HEMOGLOBIN 26.9 PG (27.0-34.0); MEAN CORPUSCULAR HGB CONC 31.8 % (32.0-36.0); MONO % 7.6 % (0.0-8.0); NEUT % 80.5 % (16.0-70.0); PLATELET COUNT 312 TH/MM3 (150-450); RED BLOOD COUNT 3.02 MIL/MM3 (4.00-5.30); RED CELL DISTRIBUTION WIDTH 15.6 % (11.6-17.2); WHITE BLOOD COUNT 14.6 TH/MM3 (4.0-11.0)
--- NOTE | 2016-04-27 04:58 | RADRPT ---
EXAM DATE/TIME: 04/27/2016 04:01 [facility] COMPARISON: CHEST SINGLE AP, April 26, 2016, 5:32. INDICATIONS : Please evaluate after respiratory failure. MEDICAL HISTORY : Hypertension. Pancreatitis. SURGICAL HISTORY : Appendectomy. ENCOUNTER: Subsequent ACUITY: 2 weeks PAIN SCORE: Non-responsive. LOCATION: Bilateral chest FINDINGS: The cardiac silhouette is enlarged in transverse diameter. There is bilateral lower lobe atelectasis versus pneumonia left greater than right. Support lines and tubes are in satisfactory position. A mo derate size right sided effusion is present. CONCLUSION: 1. Bilateral lower lobe atelectasis versus pneumonia. Right-sided effusion. There has been no signifi cant change when compared to the prior exam. Dorian Nunn MD on April 27, 2016 at 4:56 Board Certified Radiologist. This report was verified electronically.
[2016-04-27] MEDS: hydrALAZINE HCL 50 MG TAB PO SCH ×3 (05:31→22:00)
[2016-04-27 05:46] LABS: BLOOD GAS BASE EXCESS 0.2 mmol/L (-2-2); BLOOD GAS CARBOXYHEMOGLOBIN 1.3 % (0-4); BLOOD GAS HCO3 24 mmol/L (22-26); BLOOD GAS METHEMOGLOBIN 0.7 % (0-2); BLOOD GAS O2 HGB SATURATION 95 % (90-100); BLOOD GAS OXYGEN CONTENT 11.2 Vol % (12.0-20.0); BLOOD GAS PCO2 38 mmHg (38-42); BLOOD GAS PO2 94 mmHg (61-120); BLOOD GAS TOTAL HGB 8.2 G/DL (12.0-16.0); CRITICAL VALUE NO; TEMP CORR TO 98.6
[2016-04-27 05:47] LABS: DRAW SITE ART LINE; FIO2 50 %; OXYGEN DEVICE A/C16/500/PEEP5; STAT NO
--- NOTE | 2016-04-27 07:16 | HHI.NSPN ---
History Chief Complaint: intubated Right MCA stroke. Interval History Day 2 after right carotid occlusion, TPA followed by right MCA clot. She is intubated for airway protection. Her pupils remain small and she still follows commands 04/13/16 She is POD 1 after cranioplasty, right MCA infarction, sedated and ventilated, with MAP 90-100 on pressors. ICP has been in the normal range 5-10 and her right pupils remains small and reactive. 04/14/16 Day 2 after cranioplasty, day 4 after onset of infarction, sedated and ventilated. Versed added for comfort as she was awakening on propofol. Low dose mannitol and 3% saline are continued. 04/15/16 Day 3 after cranioplasty,, day 5 from CVA onset, stable ICP and hemodynamically. Follow up CT in the am. 04/16/16 Day 6 after CVA, Day 4 after cranioplasty, very stable ICP, no pupillary changes. CT is still pending. EVD is at 7 drained on 57 cc in 24 hrs 04/17/16 Day 7 after CVA, still very stable ICP but requiring some neosynephrine to keep CPP 70-80. EVD is draining well and ICP remains normal 04/21/15 The EVD has been challenged. She remains on precedex and propofol and sedated 04/22/[address] this am shows completed right MCA infarctions. The inferior right temporal lobe and the left hemisphere are good. We will wean sedation and the hyperosmolar fluids.ICP remains about 8 with minimal CSF drainage, the drain was removed today. 04/23/16 Sedation is being weaned but she is still lethargic. Pupils are unequal slightly larger on the right. 04/24/16 Awakening but very weak, not moving spontaneously and having difficulty with CPAP trials. Secretions have increased. 04/25/16 More awake but cannot keep her eyes open yet on light sedation. She did better with the CPAP trials but is not yet following commands on the right. Sutures were removed today 04/26/16: Pt with bo puss draining from right craniotomy incision worse with pt coughing. Pupils 3mm bilaterally, reactive bilaterally. Not following commands. Intubated. 04/27/16: Pt opens eyes to pain. Exudative drainage from right craniotomy incision. Pupils 3mm bilaterally reactive bilaterally. Not following commands. Slight LUE withdrawal to pain in upper chest. Withdraws LEs to pain. System Review Comments Not able to obtain given clinical condition. Exam Results Vital Signs Date Time Temp Pulse Resp B/P Pulse Ox O2 Delivery O2 Flow Rate FiO2 04/27/16 06:00 99 04/27/16 04:00 50 04/27/16 04:00 98.5 16 141/67 95 04/26/16 10:10 Ventilator Intake and Output 04/26/16 04/26/16 04/27/16 08:00 16:00 00:00 Intake Total 795 ml 1420 ml 1169 ml Output Total 1050 ml 1050 ml 1400 ml Balance -255 ml 370 ml -231 ml Physical Examination Resp: Intubated. Volume control rate 16 FiO2 50% Heart: Irregular. Amiodarone drip. No murmurs. Abd: Soft positive bs. On TFs. Skin: Right craniotomy incision with exudative drainage, worse with cough. Muscle: Withdraws LEs to peripheral pain. Slight LUE withdrawal to deep pain in upper chest. Neuro: Opens eyes to deep pain. Pupils 3mm bilaterally reactive bilaterally.She is on Precedex, Fentanyl, and Diprivan drips. Positive cough and gag to ET suctioning. Lab, Micro, Other Results Laboratory Tests Test 04/26/16 04/26/16 04/27/16 04/27/16 12:36 22:00 00:40 04:00 Sodium Level 145 MEQ/L 145 MEQ/L Serum Osmolality 315 MOSM/KG 310 MOSM/KG Blood Type A POSITIVE Antibody Screen NEGATIVE Crossmatch Leukocyte-Reduced Red Blood Cells Blood Bank Comment Potassium Level 3.7 MEQ/L Chloride Level 109 MEQ/L Carbon Dioxide Level 27.3 MEQ/L Anion Gap 9 MEQ/L Blood Urea Nitrogen 36 MG/DL Creatinine 0.82 MG/DL Estimat Glomerular Filtration 67 ML/MIN Rate Random Glucose 119 MG/DL Calcium Level 8.0 MG/DL Phosphorus Level 3.3 MG/DL Magnesium Level 2.1 MG/DL Total Bilirubin 0.4 MG/DL Aspartate Amino Transf 59 U/L (AST/SGOT) Alanine Aminotransferase 67 U/L (ALT/SGPT) Alkaline Phosphatase 166 U/L Total Protein 6.0 GM/DL Albumin 2.3 GM/DL White Blood Count 14.6 TH/MM3 Red Blood Count 3.02 MIL/MM3 Hemoglobin 8.1 GM/DL Hematocrit 25.6 % Mean Corpuscular Volume 84.7 FL Mean Corpuscular Hemoglobin 26.9 PG Mean Corpuscular Hemoglobin 31.8 % Concent Red Cell Distribution Width 15.6 % Platelet Count 312 TH/MM3 Mean Platelet Volume 11.4 FL Neutrophils (%) (Auto) 80.5 % Lymphocytes (%) (Auto) 9.9 % Monocytes (%) (Auto) 7.6 % Eosinophils (%) (Auto) 1.5 % Basophils (%) (Auto) 0.5 % Neutrophils # (Auto) 11.8 TH/MM3 Lymphocytes # (Auto) 1.4 TH/MM3 Monocytes # (Auto) 1.1 TH/MM3 Eosinophils # (Auto) 0.2 TH/MM3 Basophils # (Auto) 0.1 TH/MM3 CBC Comment DIFF FINAL Differential Comment Prothrombin Time 11.7 SEC Prothromb Time International 1.1 RATIO Ratio Test 04/27/16 05:32 Blood Gas Puncture Site ART LINE Blood Gas Patient Temperature 98.6 Blood Gas HCO3 24 mmol/L Blood Gas Base Excess 0.2 mmol/L Blood Gas Oxygen Saturation 95 % Arterial Blood pH 7.42 Arterial Blood Partial 38 mmHg Pressure CO2 Arterial Blood Partial 94 mmHg Pressure O2 Arterial Blood Oxygen Content 11.2 Vol % Arterial Blood 1.3 % Carboxyhemoglobin Arterial Blood Methemoglobin 0.7 % Blood Gas Hemoglobin 8.2 G/DL Oxygen Delivery Device A/C16/500/PEEP5 Blood Gas Inspired Oxygen 50 % 04/26/16 04/26/16 04/27/16 15:00 23:00 07:00 Intake Total 1420 ml 1169 ml 736 ml Output Total 1050 ml 1400 ml 650 ml Balance 370 ml -231 ml 86 ml IV Total 1270 ml 740 ml 575 ml Tube Feeding 150 ml 309 ml 61 ml Tube Irrigant 120 ml 100 ml Output Urine Total 950 ml 1000 ml 650 ml Stool Total 100 ml 400 ml 0 ml Medical Decision Making Impression and Plan A: 81 y/o FM with nontraumatic acute hemorrhage basal ganglia Acute ischemic Right MCA stroke. Draining right craniotomy scalp incision. P: Continue with critical care Continue with Neuro checks. Continue with antibiotics. José Miguel Shabazz Apr 27, 2016 07:16
[2016-04-27] MEDS: CHLORHEXIDINE 0.12% (ORAL KIT) 15 ML CUP MT SCH ×2 (08:36→20:01)
[2016-04-27] MEDS: ARTIFICIAL TEARS OPTH SOLN 15 ML BTL EACH EYE SCH ×3 (08:36→17:21)
[2016-04-27] MEDS: levETIRAcetam INJ 500 MG in SODIUM CHLORIDE 0.9% INJ 100 ML IV SCH ×2 (08:40→20:01)
[2016-04-27] MEDS: VANCOMYCIN 1,000 MG/NS 250 ML IV SCH ×4 (08:42→20:01)
--- NOTE | 2016-04-27 08:43 | HHI.CCPN ---
Subjective Remarks/Hospital Course 80-year-old female. Date of admission 04/10/2016. 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 She presents to the [place] ED with acute onset from normocytic health that 10 AM this morning with left-sided weakness involving left arm/left leg. E VAC was called and a stroke was notified. NIH score was 7. addition with deficits involving dysarthria, right gaze preference, left facial palsy, dense hemiparesis left arm and leg. Normal sensation. Reflexes are equal and symmetric. NIH was route 7. CT of the head revealed no acute intracranial findings. CTA of the head and neck revealed dense right ICA occlusion. The case was discussed with Dr. Dozier with interventional radiology and the patient is not indicated for intervention given the complete occlusion of her right ICA. Patient was seen by Dr. Pham and alteplase was provided after benefits and risks discussed. Objective Vital Signs Date Time Temp Pulse Resp B/P Pulse Ox O2 Delivery O2 Flow Rate FiO2 04/27/16 08:20 96 50 04/27/16 08:00 98 04/27/16 08:00 98.5 17 115/77 Arterial Line 04/26/16 10:10 Ventilator Intake and Output 04/26/16 04/26/16 04/27/16 08:00 16:00 00:00 Intake Total 795 ml 1420 ml 1169 ml Output Total 1050 ml 1050 ml 1400 ml Balance -255 ml 370 ml -231 ml Result Diagram: 04/27/16 0400 04/27/16 0040 Other Results Laboratory Tests Test 04/27/16 05:32 Blood Gas Puncture Site ART LINE Blood Gas Patient Temperature 98.6 Blood Gas HCO3 24 mmol/L (22-26) Blood Gas Base Excess 0.2 mmol/L (-2-2) Blood Gas Oxygen Saturation 95 % (90-100) Arterial Blood pH 7.42 (7.380-7.420) Arterial Blood Partial 38 mmHg (38-42) Pressure CO2 Arterial Blood Partial 94 mmHg Pressure O2 (61-120) Arterial Blood Oxygen Content 11.2 Vol % (12.0-20.0) Arterial Blood 1.3 % (0-4) Carboxyhemoglobin Arterial Blood Methemoglobin 0.7 % (0-2) Blood Gas Hemoglobin 8.2 G/DL (12.0-16.0) Oxygen Delivery Device A/C16/500/PEEP5 Blood Gas Inspired Oxygen 50 % Objective Remarks GENERAL: 80-year-old female, critically ill currently resting in bed in no acute distress currently orotracheally intubated SKIN: Warm and dry. No rash HEAD: Left EVD in place. Status post right craniotomy EYES: Pupils equal and round about 2 mm bilaterally and reactive to 3 mm. No scleral icterus. No injection or drainage. ENT: No nasal bleeding or discharge. Mucous membranes pink and moist. NECK: Trachea midline. No JVD. CARDIOVASCULAR: Bradycardic, RR. S1, S2. No S4. Murmurs not appreciated RESPIRATORY: Distant breath sounds. Few crackles appreciated in bilateral lower lobes. Breath sounds equal bilaterally. GASTROINTESTINAL: Abdomen soft, non-tender, obese. Hypoactive bowel sounds. Hepatic and splenic margins not palpable. MUSCULOSKELETAL: Extremities one plus nonpitting edema bilateral lower extremities. No obvious deformities. NEUROLOGICAL: Sedated with Versed and Fentanyl on the ventilator.. Moves spontaneously and to pain right and left lower extremity. Unable to elicit response left and right upper extremity. Upgoing toes. Date of Insertion: Apr 21, 2016 Line: PICC Side: Right Location: Antecubital A/P Assessment and Plan Acute right MCA CVA - left-sided hemiparesis - Right basal ganglia hemorrhage - Status post Right-sided frontotemporal parietal cranioplasty for decompression - Postop day #14 - Seen by neurology/Dr. Pham - EVD removed 04/23 - Stroke has completed - continue to wean off sedation - unable to extubate, Trach today A Fib with RVR - amiodarone transition to p.o. Right internal carotid artery occlusion - not amendable to intervention - antiplatelet when ok with NSGY - supportive care Hypertension - Goal to keep normotensive - Lopressor 5 mill grams IV every 4 hours - Cleviprex PRN for systolic blood pressure greater than 160 - resume medications Avalide 300/12.5 daily - Nisoldipine 20 mg daily - 2-D echocardiogram EF of 50-55%. Dyslipidemia - Elevated HDL, LDL and triglycerides. - Patient has multiple drug allergies to lipid lowering agents - supportive care Acute Respiratory failure - intubated for an airway protection secondary to AMS - PRVC 16 ~ 550 tidal volume, iT 1.1. PEEP 8. 45% FiO2 - Ventilator bundle - Aerosols PRN - SBT failure daily due to rapid shallow breathing - will proceed with Tracheostomy today if ok with Gastroesophageal reflux disease - Continue Protonix 40 mg by mouth/IV - Colace/SenokotMiraLAX for bowel regimen Access Right IJ CVL day #8 Prophylaxis - GI - Protonix - DVT - status post alteplase. DVT prophylaxis when okay with neurosurgery Level 3 Tin Dickey MD Apr 27, 2016 08:43
[2016-04-27] MEDS: DOCUSATE SODIUM 100 MG CAP PO SCH ×2 (08:58→20:00)
[2016-04-27] MEDS: SODIUM CHLORIDE 0.9% FLUSH 5 ML FLUSH IVF SCH ×3 (08:58→19:59)
[2016-04-27] MEDS: LACTULOSE SYRUP 20 GM/30 ML CUP PO SCH ×4 (08:59→20:31)
[2016-04-27] MEDS: METOPROLOL SUCCINATE 50 MG EXTENDED RELEASE TAB PO SCH ×2 (08:59→20:00)
[2016-04-27] MEDS: POLYETHYLENE GLYCOL 17 GM PKG PO SCH ×2 (08:59→20:00)
[2016-04-27] MEDS: SENNOSIDES SYRUP 8.8 MG/5 ML CUP PO SCH ×2 (08:59→20:31)
[2016-04-27] MEDS: CEFEPIME INJ 2,000 MG in SODIUM CHLORIDE 0.9% INJ 100 ML IV SCH ×2 (09:06→19:59)
[2016-04-27] MEDS ORDERED: ROCURONIUM INJ 50 MG/5 ML VIAL ONE (09:52)
[2016-04-27] MEDS ORDERED: MIDAZOLAM HCL 5 MG/ML VIAL (1 ML) ONE (09:52)
[2016-04-27] MEDS: AMIODARONE 200 MG TAB PO SCH ×2 (10:00→20:00)
--- NOTE | 2016-04-27 11:27 | RADRPT ---
EXAM DATE/TIME: 04/27/2016 11:14 [facility] COMPARISON: No previous studies available for comparison. INDICATIONS : Evaluate tracheostomy MEDICAL HISTORY : Hypertension. Pancreatitis. SURGICAL HISTORY : Appendectomy. ENCOUNTER: Subsequent ACUITY: 2 weeks PAIN SCORE: Non-responsive. LOCATION: Bilateral chest FINDINGS: A single view of the chest demonstrates interval placement of tracheostomy tube. Nasogastric tube in the stomach. Right-sided PICC line in good position. There is bilateral perihilar vascular congestion . The cardiomediastinal contours are unremarkable. Osseous structures are intact. CONCLUSION: Tubing catheter is in good position. Diffuse perihilar vascular congestion is unchanged. Zion Marin MD on April 27, 2016 at 11:25 Board Certified Radiologist. This report was verified electronically.
[2016-04-27] MEDS: LABETALOL HCL 100 MG/20 ML VIAL IV PRN ×2 (14:35→16:10)
--- NOTE | 2016-04-27 15:54 | MB ---
cc: CINDA SANDOVAL MD DATE OF CONSULTATION: 04/27/2016. REASON FOR CONSULTATION: Respiratory failure, right hemispheric stroke, permanent ventilatory support, need for tracheostomy. CRITICAL CARE: Forty (40) minutes. HISTORY OF PRESENT ILLNESS: This 80-year-old lady was brought to the hospital with a left hemiparesis caused by a right hemispheric stroke. She was found to have a total right internal carotid artery occlusion. Repeated CT scans revealed bleeding in the basal ganglia. The patient is currently on the ventilator and cannot protect upper airway; therefore, the consultation is placed. PAST MEDICAL HISTORY: 1. Esophageal stricture. 2. Hypertension. PAST SURGICAL HISTORY: 1. Urethral dilatation. 2. Esophageal dilatation. 3. Appendectomy. 4. Hysterectomy. MEDICATIONS: Medications can be found on the record. SOCIAL HISTORY: Noncontributory. The patient does not smoke. REVIEW OF SYSTEMS: A review of systems cannot be performed. PHYSICAL EXAMINATION: GENERAL: A 81-year-old female on the ventilator. HEAD, EYES, EARS, NOSE, THROAT: Normocephalic. No trauma to the head. Pupils equal, 3 mm and poorly reactive. Extraocular muscles cannot be tested. NECK: Bilateral carotid pulses. Slightly enlarged thyroid but we can get around that with the tracheostomy. LUNGS: Bilateral breath sounds fully ventilatory supported. ABDOMEN: Soft. EXTREMITIES: Grossly within normal limits. NEUROLOGIC: The neurologic exam is complex and the patient's Marc Coma Scale is 5 to 7. PLAN: Bedside Rhino tracheostomy tomorrow. Thank you very much for the referral. Cinda FIGUEROA/KULWINDER /11:51 AM /3:29 PM
[2016-04-27] MEDS: HYDROmorphone HCL PF 1 MG/ML VIAL IV PUSH PRN (16:28)
[2016-04-27] MEDS: PROPOFOL 1000 MG/100 ML INJ 100 ML IV SCH ×2 (16:53→20:03)
[2016-04-27] MEDS ORDERED: SODIUM CHLOR 0.9% 1000 ML INJ 1,000 ML IV ONE ×2 (17:15→17:30)
[2016-04-27 23:45] LABS: BLOOD GAS BASE EXCESS -11.1 mmol/L (-2-2); BLOOD GAS CARBOXYHEMOGLOBIN 0.7 % (0-4); BLOOD GAS HCO3 15 mmol/L (22-26); BLOOD GAS METHEMOGLOBIN 0.7 % (0-2); BLOOD GAS O2 HGB SATURATION 94 % (90-100); BLOOD GAS OXYGEN CONTENT 11.5 Vol % (12.0-20.0); BLOOD GAS PCO2 40 mmHg (38-42); BLOOD GAS PO2 102 mmHg (61-120); BLOOD GAS TOTAL HGB 8.6 G/DL (12.0-16.0); TEMP CORR TO 98.6
[2016-04-27 23:46] LABS: CRITICAL VALUE YES; OXYGEN DEVICE VENTILATOR
[2016-04-27 23:47] LABS: DRAW SITE ART LINE; FIO2 60 %; STAT YES; VENT SETTINGS AC/22/450./.60/PEEP5
[2016-04-28] VITALS (10 sets, daily range): BP systolic 97–155; BP diastolic 52–65; PULSE 68–129; RESP 22–27; TEMP 97.7–99.4; O2SAT 71–98
[2016-04-28] MEDS ORDERED: SODIUM BICARBONATE 8.4% INJ 50 MEQ/50 ML SYR ONE ×2 (00:26→00:34)
[2016-04-28] MEDS ORDERED: SODIUM CHLOR 0.9% 1000 ML INJ 1,000 ML IV ONE ×3 (01:15→09:00)
[2016-04-28] MEDS ORDERED: SODIUM BICARBONATE 8.4% SOLN 50 MEQ/50 ML VIAL IVS ONE (01:15)
[2016-04-28] MEDS: CHLORHEXIDINE GLUCONATE 2 % 1 PACK (2 CLOTHS) TOP SCH (01:21)
[2016-04-28] MEDS: PHENYLEPHRINE INJ 40 MG in SODIUM CHLORID 0.9% 500 ML INJ 496 ML IV SCH (01:53)
[2016-04-28] MEDS: PROPOFOL 1000 MG/100 ML INJ 100 ML IV SCH (01:58)
[2016-04-28] MEDS: fentaNYL DRIP 250 ML IV SCH (01:58)
[2016-04-28 02:58] LABS: AUTOMATED NEUTROPHIL # 18.7 TH/MM3 (1.8-7.7); BASOPHIL # 0.1 TH/MM3 (0-0.2); BASOPHIL % 0.4 % (0.0-2.0); EOSINOPHIL # 0.1 TH/MM3 (0-0.4); EOSINOPHIL % 0.3 % (0.0-4.0); HEMATOCRIT 28.3 % (35.0-46.0); LYMPH % 9.6 % (9.0-44.0); LYMPHOCYTE # 2.2 TH/MM3 (1.0-4.8); MEAN CELL VOLUME 87.2 FL (80.0-100.0); MEAN CORPUSCULAR HEMOGLOBIN 26.6 PG (27.0-34.0); MEAN CORPUSCULAR HGB CONC 30.5 % (32.0-36.0); MONO % 8.8 % (0.0-8.0); NEUT % 80.9 % (16.0-70.0); PLATELET COUNT 369 TH/MM3 (150-450); RED BLOOD COUNT 3.24 MIL/MM3 (4.00-5.30); RED CELL DISTRIBUTION WIDTH 16.1 % (11.6-17.2); WHITE BLOOD COUNT 23.2 TH/MM3 (4.0-11.0)
[2016-04-28 03:07] LABS: HEMO FLAGS AUTO DIFF
[2016-04-28 03:25] LABS: ALKALINE PHOSPHATASE 212 U/L (45-117); ALT (GPT) 1099 U/L (10-53); ANION GAP 16 MEQ/L (5-15); AST (GOT) 1687 U/L (15-37); BICARBONATE 18.9 MEQ/L (21.0-32.0); BLOOD UREA NITROGEN 45 MG/DL (7-18); CHLORIDE 110 MEQ/L (98-107); GLOMERULAR FILTRATION RATE 31 ML/MIN (>89); MAGNESIUM 2.4 MG/DL (1.5-2.5); POTASSIUM 4.2 MEQ/L (3.5-5.1); SODIUM (NA) 145 MEQ/L (136-145); TOTAL BILIRUBIN ADULT 1.1 MG/DL (0.2-1.0)
[2016-04-28 03:27] LABS: BANDS 8 % (0-6); CORRECTED NUCLEATED RBC 3 /100 WBC (0-0); METAMYELOCYTES 2 % (0-1); POLYS (SEG NEUTROPHILS) 75 % (16-70); PROMYELOCYTES 1 % (0-0); WBC DIFF SAMPLE 100
[2016-04-28 03:28] LABS: PLATELET ESTIMATE SMEAR NORMAL (NORMAL); PLATELET MORPHOLOGY NORMAL (NORMAL); SCAN/DIFF FINAL DIFF MANUAL
[2016-04-28] MEDS: METOPROLOL TARTRATE 5 MG/5 ML VIAL IV PUSH SCH ×3 (04:00→08:35)
[2016-04-28 04:39] LABS: BLOOD GAS BASE EXCESS -9.6 mmol/L (-2-2); BLOOD GAS CARBOXYHEMOGLOBIN 0.9 % (0-4); BLOOD GAS HCO3 16 mmol/L (22-26); BLOOD GAS METHEMOGLOBIN 0.9 % (0-2); BLOOD GAS O2 HGB SATURATION 94 % (90-100); BLOOD GAS OXYGEN CONTENT 11.3 Vol % (12.0-20.0); BLOOD GAS PCO2 38 mmHg (38-42); BLOOD GAS PO2 100 mmHg (61-120); BLOOD GAS TOTAL HGB 8.4 G/DL (12.0-16.0); CRITICAL VALUE YES; OXYGEN DEVICE VENTILATOR; TEMP CORR TO 98.6
[2016-04-28 04:40] LABS: DRAW SITE ALINE; FIO2 60 %; STAT NO; VENT SETTINGS AC/22/450/PEEP5
[2016-04-28] MEDS ORDERED: SODIUM BICARBONATE 8.4% INJ 50 MEQ/50 ML SYR IV PUSH ONE ×3 (04:45→09:15)
--- NOTE | 2016-04-28 05:25 | RADRPT ---
EXAM DATE/TIME: 04/28/2016 04:39 [facility] COMPARISON: CHEST SINGLE AP, April 27, 2016, 11:14. INDICATIONS : Shortness of breath. MEDICAL HISTORY : Pancreatitis. SURGICAL HISTORY : Appendectomy. ENCOUNTER: Subsequent ACUITY: 2 weeks PAIN SCORE: Non-responsive. LOCATION: Bilateral chest FINDINGS: Tracheostomy is present good position. Nasogastric tube descends to the stomach. Right arm PICC line is stable area of persistent consolidation and effusion in the bases and mild perihilar joints or mu ma. CONCLUSION: No significant interval change Evan Rodas MD on April 28, 2016 at 5:23 Board Certified Radiologist. This report was verified electronically.
[2016-04-28] MEDS: hydrALAZINE HCL 50 MG TAB PO SCH (06:00)
[2016-04-28] MEDS: LACTULOSE SYRUP 20 GM/30 ML CUP PO SCH (08:33)
[2016-04-28] MEDS: VANCOMYCIN 1,000 MG/NS 250 ML IV SCH ×2 (08:34)
[2016-04-28] MEDS: levETIRAcetam INJ 500 MG in SODIUM CHLORIDE 0.9% INJ 100 ML IV SCH (08:34)
[2016-04-28] MEDS: AMIODARONE 200 MG TAB PO SCH (08:35)
[2016-04-28] MEDS: CHLORHEXIDINE 0.12% (ORAL KIT) 15 ML CUP MT SCH (08:35)
[2016-04-28] MEDS: POLYETHYLENE GLYCOL 17 GM PKG PO SCH (08:36)
[2016-04-28] MEDS: SENNOSIDES SYRUP 8.8 MG/5 ML CUP PO SCH (08:36)
[2016-04-28] MEDS: METOPROLOL SUCCINATE 50 MG EXTENDED RELEASE TAB PO SCH (08:36)
[2016-04-28] MEDS: SODIUM CHLORIDE 0.9% FLUSH 5 ML FLUSH IVF SCH ×2 (08:36)
[2016-04-28] MEDS: DOCUSATE SODIUM 100 MG CAP PO SCH (08:36)
[2016-04-28] MEDS: ARTIFICIAL TEARS OPTH SOLN 15 ML BTL EACH EYE SCH ×2 (08:37→13:00)
[2016-04-28] MEDS: CEFEPIME INJ 2,000 MG in SODIUM CHLORIDE 0.9% INJ 100 ML IV SCH (08:44)
--- NOTE | 2016-04-28 09:00 | HHI.CCPN ---
Subjective Remarks/Hospital Course 80-year-old female. Date of admission 04/10/2016. 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 She presents to the [place] ED with acute onset from normocytic health that 10 AM this morning with left-sided weakness involving left arm/left leg. E VAC was called and a stroke was notified. NIH score was 7. addition with deficits involving dysarthria, right gaze preference, left facial palsy, dense hemiparesis left arm and leg. Normal sensation. Reflexes are equal and symmetric. NIH was route 7. CT of the head revealed no acute intracranial findings. CTA of the head and neck revealed dense right ICA occlusion. The case was discussed with Dr. Dozier with interventional radiology and the patient is not indicated for intervention given the complete occlusion of her right ICA. Patient was seen by Dr. Pham and alteplase was provided after benefits and risks discussed. Objective Vital Signs Date Time Temp Pulse Resp B/P Pulse Ox O2 Delivery O2 Flow Rate FiO2 04/28/16 08:05 96 60 04/28/16 06:00 68 04/28/16 04:00 98.2 26 131/60 04/26/16 10:10 Ventilator Intake and Output 04/27/16 04/27/16 04/27/16 07:59 15:59 23:59 Intake Total 736 ml 959 ml 2037 ml Output Total 650 ml 550 ml 500 ml Balance 86 ml 409 ml 1537 ml Result Diagram: 04/28/16 0248 04/28/16 0248 Other Results Laboratory Tests Test 04/27/16 04/28/16 23:32 04:29 Blood Gas Puncture Site ART LINE NIKIA Blood Gas Patient Temperature 98.6 98.6 Blood Gas HCO3 15 mmol/L 16 mmol/L (22-26) (22-26) Blood Gas Base Excess -11.1 mmol/L -9.6 mmol/L (-2-2) (-2-2) Blood Gas Oxygen Saturation 94 % (90-100) 94 % (90-100) Arterial Blood pH 7.21 7.25 (7.380-7.420) (7.380-7.420) Arterial Blood Partial 40 mmHg (38-42) 38 mmHg (38-42) Pressure CO2 Arterial Blood Partial 102 mmHg 100 mmHg Pressure O2 (61-120) (61-120) Arterial Blood Oxygen Content 11.5 Vol % 11.3 Vol % (12.0-20.0) (12.0-20.0) Arterial Blood 0.7 % (0-4) 0.9 % (0-4) Carboxyhemoglobin Arterial Blood Methemoglobin 0.7 % (0-2) 0.9 % (0-2) Blood Gas Hemoglobin 8.6 G/DL 8.4 G/DL (12.0-16.0) (12.0-16.0) Oxygen Delivery Device VENTILATOR VENTILATOR Blood Gas Ventilator Setting AC//450./.60/PEEP5 AC//450/PEEP5 Blood Gas Inspired Oxygen 60 % 60 % Objective Remarks GENERAL: 81-year-old female, critically ill currently resting in bed in no acute distress currently intubated via Tracheostomy SKIN: Warm and dry. No rash HEAD: Status post right craniotomy EYES: Pupils equal and round about 2 mm bilaterally and reactive to 3 mm. No scleral icterus. No injection or drainage. ENT: No nasal bleeding or discharge. Mucous membranes pink and moist. NECK: Trachea midline. No JVD. CARDIOVASCULAR: Bradycardic, RR. S1, S2. No S4. Murmurs not appreciated RESPIRATORY: Distant breath sounds. Few crackles appreciated in bilateral lower lobes. Breath sounds equal bilaterally. GASTROINTESTINAL: Abdomen soft, non-tender, obese. Hypoactive bowel sounds. Hepatic and splenic margins not palpable. MUSCULOSKELETAL: Extremities one plus nonpitting edema bilateral lower extremities. No obvious deformities. NEUROLOGICAL: Sedated with Versed and Fentanyl on the ventilator.. Moves spontaneously and to pain right and left lower extremity. Unable to elicit response left and right upper extremity. Upgoing toes. Date of Insertion: Apr 21, 2016 Line: PICC Side: Right Location: Antecubital A/P Assessment and Plan Acute right MCA CVA - left-sided hemiparesis - Right basal ganglia hemorrhage - Status post Right-sided frontotemporal parietal cranioplasty for decompression - Postop day #15 - Seen by neurology/Dr. Pham - EVD removed 04/23 - Stroke has completed - continue to wean off sedation - unable to extubate due to multiple SBT trial failures - Trach 04/28 A Fib with RVR - amiodarone transition to p.o. Right internal carotid artery occlusion - not amendable to intervention - antiplatelet when ok with NSGY - supportive care Hypertension - Goal to keep normotensive - Lopressor 5 mill grams IV every 4 hours - Cleviprex PRN for systolic blood pressure greater than 160 - on hold - patient currently hypotensive Dyslipidemia - Elevated HDL, LDL and triglycerides. - Patient has multiple drug allergies to lipid lowering agents - supportive care Acute Respiratory failure - intubated for an airway protection secondary to AMS - PRVC 16 ~ 550 tidal volume, iT 1.1. PEEP 8. 45% FiO2 - Ventilator bundle - Aerosols PRN - SBT failure daily due to rapid shallow breathing - Tracheostomy 04/27 Gastroesophageal reflux disease - Continue Protonix 40 mg by mouth/IV - Colace/SenokotMiraLAX for bowel regimen Access Right IJ CVL day #8 Prophylaxis - GI - Protonix - DVT - status post alteplase. DVT prophylaxis when okay with neurosurgery I have reviewed CT head images with patient's and explained to him her neurological recovery prognosis. Him and his had many conversations in the past and she would not want to be kept alive on life support machines. I have consulted palliative care medicine and placed DNR order on a chart per patient' s 's wishes. Level 2 Tin Dickey MD Apr 28, 2016 09:00
--- NOTE | 2016-04-28 11:13 | HHI.PR ---
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 She is now 6 days from CVA and can be weaned from the pressors. CT is still pending but the ICPs have been very stable for several days. 04/17/16 The neosynephrine was weaned a little. There is no need for sedation holidays until the edema resolves enough for the neosynephrine to be removed. EVD is draining well and CPP are maintained above 70 without difficulty. 04/21/15 Day 9 from craniectomy. She is off pressors and weaning from the EVD, drained only 35 cc in [address] in the am. 04/22/16 CT showed a completed right MCA CVA. We can start weaning the sedation and the hypertonic saline. The left hemisphere perfusion has been good. 04/23/16 Slowly weaning from the sedation, hypertonic saline is on hold for serum osmolarity > 320. The neurologic goal is to preserved the dominant left hemisphere function. 04/24/16 Weaning off sedation but very weak, will need more time for CPAP trials. Hunt cultured yesterday. No contraindication for prophylactic lovenox (2) Acute ischemic right middle cerebral artery (MCA) stroke Plan: She presented with good MCA flow but a right ICA occlusion below the petrous level. She now has poor right MCA flow with hemorrhagic conversion in the basal ganglia. The goal of treatment will be to maximize flow to the penumbra with hypertonic saline, low dose mannitol, fluids. Pressors were added today after intubation. A cranioplasty will be offered to the 04-13-16 Stable after cranioplasty, will keep sedated through the period of maximal brain edema 04/14/16 The ICP remains about 8 with persistent EVD drainage, 140 cc in 24 hrs. We will rescan later this week . Maximal brain edema expected for the next 2 days. 04/15/16 The EVD drainage has improved to 161 cc/day and the HORTENSIA drainage has decreased to 45 cc/day indicating decreased shift right to left. The sodium is 152 and the hypertonic saline is on hold. 04/16/16 HORTENSIA was removed today. CT is pending. Plan for normalization of perfusion pressures. 04/17/16 CPP and ICP in the goal range, slowly weaning the neosynephrine support as the edema improves. She is sedated for cerebral protection. 04/21/15 ICP is normal with the EVD at 20 cm water pressure, will be removed tomorrow after head CT. We can wean the sedation as tolerated as cerebral edema has improved. 04/22/16 Completed right MCA infarction, EVD was removed and sedation will be weaned. Map remains above 70. 04/23/16 Weaning from sedation, will need BP management to keep MAP 70-90 04/24/16 Completed MCA, weaning hyperosmolar therapy and sedation, supportive care continued 04/25/16 As above, continued weaning of sedation and supportive care Subjective Subjective Comments No acute events reported Active Medications Current Medications Medications (Trade) Dose Ordered Sig/Beronica Route Start Time Stop Time Status Last Admin (NS Flush) 2 ml BID IVF 04/10/16 21:00 04/27/16 19:59 (NS Flush) 2 ml UNSCH PRN IVF 04/10/16 13:30 (Trandate Inj) 10 mg Q1HR PRN IV 04/10/16 13:30 04/27/16 16:10 (Tylenol) 650 mg Q6H PRN PO 04/10/16 15:30 04/19/16 17:53 (Tears Naturale Opth Soln) 1 drop TID EACH EYE 04/10/16 18:00 04/28/16 08:37 (Colace) 100 mg BID PO 04/10/16 21:00 04/27/16 20:00 Miscellaneous Information 1 Q361D XX 04/10/16 15:30 (Chlorhexidine 2% Cloth) Taper DAILY@04 TOP 04/11/16 04:00 04/07/17 03:59 04/24/16 04:00 (Chlorhexidine 2% Cloth) 3 pack UNSCH PRN TOP 04/10/16 15:30 (Apresoline Inj) 10 mg Q1HR PRN IV PUSH 04/10/16 16:30 04/23/16 09:00 (Nitroglycerin 2% Oint) 2 inch Q6HR PRN TOPICAL 04/10/16 16:30 (Zofran Inj) 4 mg Q6H PRN IV PUSH 04/10/16 20:00 04/10/16 20:22 (Lopressor Inj) 10 mg STAT IV PUSH 04/11/16 12:45 04/11/16 16:26 (Dilaudid Pf Inj) 0.5 mg Q4H PRN IV PUSH 04/11/16 14:00 04/27/16 16:28 (NS Flush) DAILY IVF 04/11/16 15:00 04/26/16 09:03 IV Flush UNSCH PRN IVF 04/11/16 15:00 Potassium Chloride 100 ml @ 50 mls/hr Q2H PRN IV 04/11/16 15:00 04/11/16 16:21 (KCl 20 Meq Premix Inj) 100 ml @ 50 mls/hr Q2H PRN IV 04/11/16 15:00 04/24/16 11:06 Potassium Chloride 40 meq 40 meq UNSCH PRN PO/TUBE 04/11/16 15:00 04/26/16 01:48 Potassium Chloride 100 ml @ 25 mls/hr UNSCH PRN IV 04/11/16 15:00 Potassium Chloride 100 ml @ 50 mls/hr Q2H PRN IV 04/11/16 15:00 (Magnesium Sulfate Inj/NS Inj) 100 ml @ 50 mls/hr UNSCH PRN IV 04/11/16 15:00 Magnesium Oxide 800 mg 800 mg UNSCH PRN PO 04/11/16 15:00 (Magnesium Sulfate Inj/NS Inj) 100 ml @ 50 mls/hr UNSCH PRN IV 04/11/16 15:00 Potassium Phosphate 2000 mg 2,000 mg Q4H PRN PO 04/11/16 15:00 (Sodium Phosphate Inj/NS 250 ml Inj) 250 ml @ 42 mls/hr UNSCH PRN IV 04/11/16 15:00 (KCl 40 Meq/30 ml Liq) 40 meq UNSCH PRN PO/TUBE 04/11/16 15:00 Potassium Phosphate 2000 mg 2,000 mg UNSCH PRN PO/TUBE 04/11/16 15:00 (Potassium Phosphate Inj/NS 250 ml Inj) 260 ml @ 42 mls/hr UNSCH PRN IV 04/11/16 15:00 Chlorhexidine Gluconate 15 ml 15 ml BID@08,20 MT 04/11/16 20:00 04/28/16 08:35 (Diprivan 1000 Mg/100ml Inj) 100 ml @ 0 mls/hr TITRATE IV 04/11/16 17:00 04/28/16 01:58 Sennosides 8.8 mg 8.8 mg BID PO 04/12/16 09:00 04/26/16 08:37 (Neosynephrine Inj/NS 500 ml Inj) 500 ml @ 0 mls/hr TITRATE IV 04/13/16 20:20 04/28/16 01:53 Glycerin 2 gm 2 gm DAILY PRN RECTAL 04/14/16 06:45 04/14/16 10:06 Levetriacetam 500 mg/Sodium Chloride 105 ml @ 420 mls/hr Q12HR IV 04/14/16 21:00 04/28/16 08:34 (fentaNYL DRIP) 250 ml @ 0 mls/hr TITRATE IV 04/14/16 20:45 04/28/16 01:58 Polyethylene Glycol 17 gm 17 gm BID PO 04/18/16 21:00 04/27/16 20:00 Dexmedetomidine HCl 50 ml @ 0 mls/hr TITRATE IV 04/20/16 18:45 04/27/16 09:06 (Cleviprex Inj) 50 ml @ 0 mls/hr TITRATE IV 04/20/16 19:00 04/23/16 20:21 (Lopressor Inj) 5 mg Q4HR IV PUSH 04/20/16 20:00 04/28/16 08:35 (NS Flush) See Protocol DAILY IVF 04/22/16 09:00 04/28/16 08:35 (NS Flush) See Protocol UNSCH PRN IVF 04/21/16 12:00 (Heparin Central Flush) See Protocol DAILY IVF 04/22/16 09:00 04/28/16 08:35 (Heparin Central Flush) See Protocol UNSCH PRN IVF 04/21/16 12:00 (NS Flush) See Protocol UNSCH PRN IVF 04/21/16 12:00 (Lactulose Liq) 30 ml QID PO 04/21/16 18:00 04/28/16 08:33 (Toprol Xl) 50 mg BID PO 04/23/16 10:30 04/28/16 08:36 (Apresoline) 50 mg Q8HR PO 04/23/16 10:30 04/27/16 14:19 (Lasix Inj) 20 mg Q6H IV PUSH 04/24/16 09:00 Hold 04/27/16 14:20 Metoprolol Tartrate 5 mg 5 mg Q2H PRN IV PUSH 04/25/16 04:30 04/25/16 02:55 Vancomycin HCl 1000 mg/Sodium Chloride 250 ml @ 250 mls/hr Q12H IV 04/25/16 20:00 04/28/16 08:34 (Maxipime Inj/NS Inj) 100 ml @ 200 mls/hr Q12H IV 04/26/16 09:00 04/28/16 08:44 (Cordarone) 200 mg Q12HR PO 04/27/16 10:00 04/28/16 08:35 (Morphine Inj) 4 mg Q30M PRN IV PUSH 04/28/16 11:15 UNV (Ativan Inj) 1 mg Q15M PRN IV PUSH 04/28/16 11:15 UNV Allergies Allergies Coded Allergies Achromycin V (Verified Allergy, Severe, 04/10/16) Michelle (Verified Allergy, Severe, 04/10/16) Augmentin (Verified Allergy, Severe, 04/10/16) Capoten (Verified Allergy, Severe, 04/10/16) Diovan (Verified Allergy, Severe, 04/10/16) Enzymes Oral (Verified Allergy, Severe, 04/10/16) Lipitor (Verified Allergy, Severe, 04/10/16) Procardia (Verified Allergy, Severe, 04/10/16) Rynatan (Verified Allergy, Severe, 04/10/16) Zetia (Verified Allergy, Severe, 04/10/16) Zithromax (Verified Allergy, Severe, 04/10/16) Zocor (Verified Allergy, Severe, 04/10/16) Aspirin (Verified Allergy, Mild, 04/10/16) Cipro (Verified Allergy, Mild, 04/10/16) Codeine (Verified Allergy, Mild, 04/10/16) Keflex (Verified Allergy, Mild, 04/10/16) Morphine (Verified Allergy, Mild, 04/10/16) Blue Dyes - Various (Unverified Allergy, Unknown, Anaphylaxis, 04/10/16) Clonidine (Unverified Allergy, Unknown, itching, 04/10/16) Exam I&O / VS 04/27/16 04/27/16 04/28/16 15:00 23:00 07:00 Intake Total 959 ml 2037 ml 2431 ml Output Total 550 ml 500 ml 0 ml Balance 409 ml 1537 ml 2431 ml IV Total 836 ml 1614 ml 2037 ml Tube Feeding 123 ml 303 ml 394 ml Tube Irrigant 120 ml Output Urine Total 550 ml 500 ml 0 ml Stool Total 0 ml 0 ml Gastric Drainage Total 0 ml Tube Feeding Residual Discard 0 ml 0 ml # Bowel Movements 1 Vital Signs Date Time Temp Pulse Resp B/P Pulse Ox O2 Delivery O2 Flow Rate FiO2 04/28/16 08:05 96 60 04/28/16 08:00 99.4 71 22 155/65 92 04/28/16 08:00 60 04/28/16 06:00 68 04/28/16 04:03 96 60 04/28/16 04:00 68 04/28/16 04:00 60 04/28/16 04:00 98.2 68 26 131/60 97 04/28/16 02:00 129 04/28/16 00:12 97 60 04/28/16 00:00 129 04/28/16 00:00 60 04/28/16 00:00 97.7 129 25 102/63 97 04/27/16 22:00 131 04/27/16 20:57 94 60 04/27/16 20:00 60 04/27/16 20:00 98.3 141 21 127/66 95 04/27/16 20:00 141 04/27/16 16:00 95 50 04/27/16 16:00 98.8 128 24 181/96 96 04/27/16 16:00 128 04/27/16 14:10 97 50 04/27/16 12:00 97.9 103 17 130/66 93 04/27/16 12:00 60 04/27/16 12:00 103 04/27/16 11:51 92 60 Respiratory: Lungs CTA, Non-labored respirations, Coarse breath sounds Cardiology: Normal rate, Regular Rhythm Musculoskeletal: ROM (Within functional limits) Exam Comments eyes open, but does not respond pupils 2 mm bilateral reactive EOM limited to occulocephalics No spontaneous limb movement, Objective Micro and Labs Laboratory Tests Test 04/27/16 04/28/16 04/28/16 04/28/16 23:32 02:48 04:29 04:40 Blood Gas Puncture Site ART LINE NIKIA Blood Gas Patient Temperature 98.6 98.6 Blood Gas HCO3 15 16 Blood Gas Base Excess -11.1 -9.6 Blood Gas Oxygen Saturation 94 94 Arterial Blood pH 7.21 7.25 Arterial Blood Partial 40 38 Pressure CO2 Arterial Blood Partial 102 100 Pressure O2 Arterial Blood Oxygen Content 11.5 11.3 Arterial Blood 0.7 0.9 Carboxyhemoglobin Arterial Blood Methemoglobin 0.7 0.9 Blood Gas Hemoglobin 8.6 8.4 Oxygen Delivery Device VENTILATOR VENTILATOR Blood Gas Ventilator Setting AC//450./.60/PEEP5 AC/450/PEEP5 Blood Gas Inspired Oxygen 60 60 White Blood Count 23.2 Red Blood Count 3.24 Hemoglobin 8.6 Hematocrit 28.3 Mean Corpuscular Volume 87.2 Mean Corpuscular Hemoglobin 26.6 Mean Corpuscular Hemoglobin 30.5 Concent Red Cell Distribution Width 16.1 Platelet Count 369 Mean Platelet Volume 11.4 Neutrophils (%) (Auto) 80.9 Lymphocytes (%) (Auto) 9.6 Monocytes (%) (Auto) 8.8 Eosinophils (%) (Auto) 0.3 Basophils (%) (Auto) 0.4 Neutrophils # (Auto) 18.7 Lymphocytes # (Auto) 2.2 Monocytes # (Auto) 2.0 Eosinophils # (Auto) 0.1 Basophils # (Auto) 0.1 CBC Comment AUTO DIFF Differential Total Cells 100 Counted Neutrophils % (Manual) 75 Band Neutrophils % 8 Lymphocytes % 10 Monocytes % 4 Neutrophils # (Manual) 20.0 Metamyelocytes 2 Promyelocytes 1 Nucleated Red Blood Cells 3 Differential Comment FINAL DIFF MANUAL Platelet Estimate NORMAL Platelet Morphology Comment NORMAL Sodium Level 145 Potassium Level 4.2 Chloride Level 110 Carbon Dioxide Level 18.9 Anion Gap 16 Blood Urea Nitrogen 45 Creatinine 1.59 Estimat Glomerular Filtration 31 Rate Random Glucose 70 Calcium Level 7.9 Phosphorus Level 7.0 Magnesium Level 2.4 Total Bilirubin 1.1 Aspartate Amino Transf 1687 (AST/SGOT) Alanine Aminotransferase 1099 (ALT/SGPT) Alkaline Phosphatase 212 Total Protein 6.4 Albumin 2.3 Lactic Acid Level 5.5 Date/Time Procedure Status Source Growth 04/25/16 19:30 Gram Stain - Final Resulted Wound Drainage 04/25/16 19:30 Wound Culture - Preliminary Resulted Wound Drainage NO GROWTH IN 48 HOURS. Reji Pham PhD Apr 28, 2016 11:13
--- NOTE | 2016-04-28 12:23 | PD.CONS ---
Consult Service Palliative Care . Consult Requested By Dr. Dickey . Primary Care Physician Marcus Shipman MD . Reason for Consultation a. To assist with evaluation and management of symptoms including: pain, dyspnea b. To assist medical decision maker(s) with: better understanding of current medical conditions; weighing benefits/burdens of medical treatment options; making medical treatment decisions. . (Cynthia Penny) HPI History of Present Illness Mrs. Bergman is a 81 year old female who presented to [place] ED via EMS on 04/10/16 as a stroke alert. She was last seen normal about 50 minutes prior to arrival. The patient had gone into the bathroom to urinate and was unable to raise herself off the toilet when she was finished due to feeling weak. She called her for assistance, and that was when they noticed patient had left-sided weakness and left-sided facial droop. NIH score was 7. The patient had additional deficits including dysarthria, right gaze preference, left facial palsy and dense hemiparesis of the left arm and leg. 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 Additional diagnostic findings in the ED include: * Vital signs: Pulse 61, respirations 20, BP 223/93, oxygen saturation 100% on 2 L via nasal cannula, oral temperature 98.2 * WBC: 9.6, hemoglobin 12.2, hematocrit 37.3, platelets 213, neutrophils 75.3% * Sodium: 139, potassium 5.3, chloride 105, glucose 97 * BUN: 33, creatinine 1.1 * Total creatine kinase: 159 * Troponin <0.02 * PT: 10.1, INR 0.9, APTT 22.6, fibrinogen 432 * Toxicology screening negative * Urinalysis negative * CT brain: No acute cranial abnormalities identified, periventricular white matter low attenuation characteristic of chronic microvascular ischemia. 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 There is good collateralization of the right middle cerebral and right anterior cerebral territories. * CTA neck: Complete occlusion of the extracranial portion of the right ICA the left carotid shows 20% stenosis both vertebral arteries are patent. * Chest x-ray: No acute cardiopulmonary abnormalities identified. * EF: 50% to 55% Discussed with Dr. Dozier, interventional radiology, and the patient was not a candidate for intervention given the complete occlusion of her right ICA. She was placed on a Cardene drip, her blood pressure improved with systolic in the 180s range. Neurology was consulted and the patient was seen by Dr. Pham. The patient was a candidate for IV TPA with blood pressure control. TPA was provided after benefits and risks discussed. Post alteplase infusion patient became more altered with worsening weakness to her left upper and lower extremity. Repeat CT head revealed no acute bleeding. NIH score is currently 17. She is also noted to have tremors involving her right upper lobe extremity. Neurology was notified and Keppra infusion was ordered and stat EEG ordered. EEG was abnormal on the basis of mild slowing of the right hemisphere consistent with previous history of stroke, no evidence of any ongoing seizure activity was noted. 04/11/16: CT head reveals a large area of decreased density predominantly in the right mid parietal lobe characteristic for acute infarct involving the right MCA territory. There appears to be some early mild hemorrhaging in the right basal ganglia. There is a mass effect and midline shift to the left leg approximately 56 millimeters. Brain MRI which showed acute infarction involving the right MCA territory. Focal acute hemorrhage involving the right basal ganglia. Cerebral edema with mass effect and midline shift to the left by approximately 56 millimeters. Neurosurgery was consulted. Follow up CT brain on 04/12/16 showed an evolving large right middle cerebral artery distribution infarct, hemorrhage in the right basal ganglia measuring 2.6 x 1.8 cm and a right to left midline shift of 7 mm. The patient was taken to the OR for a right-sided frontotemporal parietal cranioplasty for decompression of the brain from malignant edema. 04/13/16 She is POD 1 after cranioplasty, right MCA infarction.Patient remained sedated and ventilated With MAP 90-100 on pressors. ICP has been in the normal range 5-10 and her right pupils remains small and reactive. Febrile. T-max: 101.1. WBC: 13.4 Chest x-ray reveals a small consolidation in the left lower lobe. Patient had episodes of SVT overnight 2 , resolved with IV Lopressor. A follow -up CT brain on 04/16/16 showed a large infarct involving the right sylvian region with persistent right to left shift approximately 1.3 cm, some improvement from 04/13/16. 04/18/16: Afebrile. WBC: 9.8. Restarting 3% saline. Withdrawing BLE only. Sodium : 149, potassium 3.8, chloride 118, carbon dioxide 22.0, serum osmolality 307, calcium 8.1. F/U chest x-ray showing worsening aeration. Follow-up CT of the brain on 04/22/16 revealed low age right middle stream artery distribution infarct with mass effect and [id number] midline shift of 13 mm and a small right subdural hemorrhage measuring 5 mm. Blood cultures on 04/23/16: + Enterococcus Faecalis, Staph Sp Coagulase Negative. EVD removed. On 04/26/16 Silvio puss noted from right craniotomy incisional site, worse with patient cough. Patient remains intubated, not tolerating CPAP trials. Not following commands. 04/28/16: Status-post tracheostomy secondary to multiple SBT trail failures. Patient remains sedated (Fentanyl and Diprivan) and ventilated. FiO2 60%, rate 22, PEEP 5. Remains on Gen-Synephrine 80 mcg/m. Pupils equal and round approximately 2 mm and sluggish. Opens eyes spontaneously, does not follow. No spontaneous limb movement Does not withdrawal to noxious stimuli. Lab work: Sodium 145, potassium 4.2, chloride 110, carbon dioxide 18.9, BUN 45, creatinine 1.59 ( increased from 0.82 on 04/27/16), GFR 31, glucose 70, lactic acid 5.5, calcium 7.9, phosphorus 7.0, magnesium 2.4, total bilirubin 1.1, AST 1687 (increased from 59 on 04/27/16), ALT 1099 (increased from 67 on 04/27/16), alkaline phosphatase 212. Dr. Dickey reviewed CT head imaging with the patient's /family, discussing at length patient's neurological recovery prognosis. Patient's states he and his had many conversations in the past and she would not want to be kept alive on life support. Code status changed to DNR per patient's 's. Palliative Care was consulted to assist with symptom management and to discuss with the family the benefits and burdens of her current illnesses and the options regarding future care. . Function/Cognitive Trajectory Patient awoke 04/10/16 at neurological baseline, before exhibiting acute onset left-sided weakness and left-sided facial droop. Additional deficits included dysarthria, right gaze preference, left facial palsy and dense hemiparesis of the left arm and leg. Patient transported to [place] ED as stroke alert. . (Cynthia Penny) Review of Systems ROS Limitations: Clinical Condition (ROS Limited due to patient critical condition, information obtained from report and review of medical history.), Intubated Constitutional: COMPLAINS OF: Pain, Generalized weakness Respiratory: COMPLAINS OF: Sputum production, Shortness of breath Cardiovascular: COMPLAINS OF: Lower Extremity Edema Gastrointestinal: COMPLAINS OF: Diarrhea, Dyspepsia or heartburn Musculoskeletal: COMPLAINS OF: Joint pain Hematologic/Lymphatics: COMPLAINS OF: Bruising, History of transfusions ( Transfused with 1 unit of leukocyte reduced RBC.) (Cynthia Penny) Past Family Social History Coded Allergies: Achromycin V (Verified Allergy, Severe, 04/10/16) Michelle (Verified Allergy, Severe, 04/10/16) Augmentin (Verified Allergy, Severe, 04/10/16) Capoten (Verified Allergy, Severe, 04/10/16) Diovan (Verified Allergy, Severe, 04/10/16) Enzymes Oral (Verified Allergy, Severe, 04/10/16) Lipitor (Verified Allergy, Severe, 04/10/16) Procardia (Verified Allergy, Severe, 04/10/16) Rynatan (Verified Allergy, Severe, 04/10/16) Zetia (Verified Allergy, Severe, 04/10/16) Zithromax (Verified Allergy, Severe, 04/10/16) Zocor (Verified Allergy, Severe, 04/10/16) Aspirin (Verified Allergy, Mild, 04/10/16) Cipro (Verified Allergy, Mild, 04/10/16) Codeine (Verified Allergy, Mild, 04/10/16) Keflex (Verified Allergy, Mild, 04/10/16) Morphine (Verified Allergy, Mild, 04/10/16) Blue Dyes - Various (Unverified Allergy, Unknown, Anaphylaxis, 04/10/16) Clonidine (Unverified Allergy, Unknown, itching, 04/10/16) okay to take the regular ones but is unable to take the ones provided by [facility] Past Medical History Osteoarthritis Hypothyroidism Hormone replacement therapy Gastroesophageal reflux disease Hypertension . Past Surgical History Bilateral cataract Hysterectomy Appendectomy Esophageal dilatation Urethral stricture dilatation . Reported Medications Avalide 300/12.5 one tablet daily Protonix 40 mg by mouth daily Menest 1.25 mg by mouth twice a day Nisoldipine 20 mg by mouth daily . Current Medications Medications (Trade) Dose Ordered Sig/Beronica Route Start Time Stop Time Status Last Admin (NS Flush) 2 ml BID IVF 04/10/16 21:00 04/27/16 19:59 (Tears Naturale Opth Soln) 1 drop TID EACH EYE 04/10/16 18:00 04/28/16 08:37 (KCl 40 Meq/30 ml Liq) 40 meq UNSCH PRN PO/TUBE 04/11/16 15:00 04/26/16 01:48 (Mag-Ox) 800 mg UNSCH PRN PO 04/11/16 15:00 (KCl 40 Meq/30 ml Liq) 40 meq UNSCH PRN PO/TUBE 04/11/16 15:00 (Morphine Inj) 4 mg Q30M PRN IV PUSH 04/28/16 12:00 (Ativan Inj) 1 mg Q15M PRN IV PUSH 04/28/16 12:00 . Family History Father from "hardening of the arteries. Mother at an old age of colon cancer. Brother from CVA. . Substance Use Tobacco: None known Alcohol: None known Prescription med abuse: None known Illicits: None known . Psychosocial History Patient was born in [place]. She met he in [place] while they were both riding motorcycles. They have been for nearly 55 years.They have no children. Spiritual/Cultural Factors Yazidism lashay . (Cynthia Penny) Living Will: Never completed Health Care Surrogate: Never completed Durable Power of Zoology Teacher: Never completed Family/friends goals: Patient's states he and his recently had a conversation about advanced directives last month when he was ill, and his specifically stated she would not want to be kept alive artificially or if she could not live her baseline quality of life. Given the patient's catastrophic brain injury , her spouse is requesting that his 's verbalized wished be honored and would like compassionate withdrawal from artificial life support. . Ethical and Legal Issues Per [place] statutes, in the absence of written advanced directives healthcare proxy decision-making falls to the patient's spouse, Sam Bergman. . (Cynthia Penny) Physical Exam Vital Signs Date Time Temp Pulse Resp B/P Pulse Ox O2 Delivery O2 Flow Rate FiO2 04/28/16 08:05 96 60 04/28/16 08:00 99.4 71 22 155/65 92 04/28/16 08:00 60 04/28/16 06:00 68 04/28/16 04:03 96 60 04/28/16 04:00 68 04/28/16 04:00 60 04/28/16 04:00 98.2 68 26 131/60 97 04/28/16 02:00 129 04/28/16 00:12 97 60 04/28/16 00:00 129 04/28/16 00:00 60 04/28/16 00:00 97.7 129 25 102/63 97 04/27/16 22:00 131 04/27/16 20:57 94 60 04/27/16 20:00 60 04/27/16 20:00 98.3 141 21 127/66 95 04/27/16 20:00 141 04/27/16 16:00 95 50 04/27/16 16:00 98.8 128 24 181/96 96 04/27/16 16:00 128 04/27/16 14:10 97 50 . 04/27/16 04/28/16 19:00 07:00 Intake Total 959 ml 4468 ml Output Total 550.0 ml 500 ml Balance 409.0 ml 3968 ml IV Total 836 ml 3651 ml Tube Feeding 123 ml 697 ml Tube Irrigant 120 ml Output Urine Total 550 ml 500 ml Stool Total 0 ml 0 ml Gastric Drainage Total 0 ml Tube Feeding Residual Discard 0 ml # Bowel Movements 1 . Exam CONSTITUTIONAL/GENERAL: This is an adequately elderly female patient, in critical condition. TUBES/LINES/DRAINS: Rectal tube, Mendez catheter, tracheostomy, NG, PICC line, femoral arterial line, soft restraints, SCDs SKIN: No jaundice, rashes, or lesions. Ecchymoses on upper extremities. Bilateral great toes purple color. Skin temperature appropriate. Not diaphoretic. HEAD: Status post right craniotomy EYES: Pupils equal and round approximately 2 mm and sluggish. ENT: Nose without bleeding or purulent drainage. NECK: Trachea midline. Supple, nontender. No palpable thyroid enlargement or nodularity. CARDIOVASCULAR: Tracheostomy to ventilator. No JVD. Peripheral pulses symmetric. RESPIRATORY/CHEST: Symmetric, unlabored respirations. Few crackles appreciated in bilateral lower lobes. GASTROINTESTINAL: Abdomen soft, non-tender, nondistended. Bowel sounds present. GENITOURINARY: Without palpable bladder distension. Mendez catheter in place. MUSCULOSKELETAL: Bilateral lower extremities +1 edema, hands swollen bilateral. LYMPHATICS: No palpable cervical or supraclavicular adenopathy. NEUROLOGICAL: Sedated with Versed and Fentanyl on the ventilator. No spontaneous movement. Does not withdraw to noxious stimuli. PSYCHIATRIC: Unable to assess secondary to patient's clinical condition. . (Cynthia Penny) Diagnostic Tests Laboratory Laboratory Tests Test 04/25/16 04/26/16 04/26/16 04/26/16 19:00 01:12 04:20 05:14 Sodium Level 146 MEQ/L 145 MEQ/L 145 MEQ/L (136-145) (136-145) (136-145) Serum Osmolality 312 MOSM/KG 310 MOSM/KG (275-295) (275-295) Potassium Level 3.4 MEQ/L 3.6 MEQ/L (3.5-5.1) (3.5-5.1) Chloride Level 111 MEQ/L 109 MEQ/L (98-107) (98-107) Carbon Dioxide Level 25.6 MEQ/L 24.9 MEQ/L (21.0-32.0) (21.0-32.0) Anion Gap 8 MEQ/L (5-15) 11 MEQ/L (5-15) Blood Urea Nitrogen 35 MG/DL (7-18) 35 MG/DL (7-18) Creatinine 0.86 MG/DL 0.81 MG/DL (0.50-1.00) (0.50-1.00) Estimat Glomerular Filtration 64 ML/MIN (>89) 68 ML/MIN (>89) Rate Random Glucose 132 MG/DL 139 MG/DL (74-106) (74-106) Calcium Level 8.2 MG/DL 8.0 MG/DL (8.5-10.1) (8.5-10.1) Phosphorus Level 3.5 MG/DL (2.5-4.9) Magnesium Level 2.1 MG/DL (1.5-2.5) Total Bilirubin 0.3 MG/DL 0.4 MG/DL (0.2-1.0) (0.2-1.0) Aspartate Amino Transf 60 U/L (15-37) 64 U/L (15-37) (AST/SGOT) Alanine Aminotransferase 57 U/L (10-53) 59 U/L (10-53) (ALT/SGPT) Alkaline Phosphatase 163 U/L 169 U/L (45-117) (45-117) Total Protein 6.1 GM/DL 6.4 GM/DL (6.4-8.2) (6.4-8.2) Albumin 2.4 GM/DL 2.4 GM/DL (3.4-5.0) (3.4-5.0) White Blood Count 12.5 TH/MM3 (4.0-11.0) Red Blood Count 2.97 MIL/MM3 (4.00-5.30) Hemoglobin 8.0 GM/DL (11.6-15.3) Hematocrit 25.4 % (35.0-46.0) Mean Corpuscular Volume 85.4 FL (80.0-100.0) Mean Corpuscular Hemoglobin 26.8 PG (27.0-34.0) Mean Corpuscular Hemoglobin 31.3 % Concent (32.0-36.0) Red Cell Distribution Width 15.9 % (11.6-17.2) Platelet Count 320 TH/MM3 (150-450) Mean Platelet Volume 11.9 FL (7.0-11.0) Neutrophils (%) (Auto) 81.5 % (16.0-70.0) Lymphocytes (%) (Auto) 9.4 % (9.0-44.0) Monocytes (%) (Auto) 6.4 % (0.0-8.0) Eosinophils (%) (Auto) 2.0 % (0.0-4.0) Basophils (%) (Auto) 0.7 % (0.0-2.0) Neutrophils # (Auto) 10.2 TH/MM3 (1.8-7.7) Lymphocytes # (Auto) 1.2 TH/MM3 (1.0-4.8) Monocytes # (Auto) 0.8 TH/MM3 (0-0.9) Eosinophils # (Auto) 0.2 TH/MM3 (0-0.4) Basophils # (Auto) 0.1 TH/MM3 (0-0.2) CBC Comment DIFF FINAL Differential Comment Blood Gas Puncture Site ART LINE Blood Gas Patient Temperature 98.6 Blood Gas HCO3 23 mmol/L (22-26) Blood Gas Base Excess -1.0 mmol/L (-2-2) Blood Gas Oxygen Saturation 96 % (90-100) Arterial Blood pH 7.45 (7.380-7.420) Arterial Blood Partial 33 mmHg (38-42) Pressure CO2 Arterial Blood Partial 100 mmHg Pressure O2 (61-120) Arterial Blood Oxygen Content 11.6 Vol % (12.0-20.0) Arterial Blood 1.3 % (0-4) Carboxyhemoglobin Arterial Blood Methemoglobin 0.5 % (0-2) Blood Gas Hemoglobin 8.5 G/DL (12.0-16.0) Oxygen Delivery Device VENTILATOR Blood Gas Ventilator Setting AC/16/500/PEEP5 Blood Gas Inspired Oxygen 35 % Test 04/26/16 04/26/16 04/27/16 04/27/16 12:36 22:00 00:40 04:00 Sodium Level 145 MEQ/L 145 MEQ/L (136-145) (136-145) Serum Osmolality 315 MOSM/KG 310 MOSM/KG (275-295) (275-295) Blood Type A POSITIVE Antibody Screen NEGATIVE Crossmatch Leukocyte-Reduced Red Blood Cells Blood Bank Comment Potassium Level 3.7 MEQ/L (3.5-5.1) Chloride Level 109 MEQ/L (98-107) Carbon Dioxide Level 27.3 MEQ/L (21.0-32.0) Anion Gap 9 MEQ/L (5-15) Blood Urea Nitrogen 36 MG/DL (7-18) Creatinine 0.82 MG/DL (0.50-1.00) Estimat Glomerular Filtration 67 ML/MIN (>89) Rate Random Glucose 119 MG/DL (74-106) Calcium Level 8.0 MG/DL (8.5-10.1) Phosphorus Level 3.3 MG/DL (2.5-4.9) Magnesium Level 2.1 MG/DL (1.5-2.5) Total Bilirubin 0.4 MG/DL (0.2-1.0) Aspartate Amino Transf 59 U/L (15-37) (AST/SGOT) Alanine Aminotransferase 67 U/L (10-53) (ALT/SGPT) Alkaline Phosphatase 166 U/L (45-117) Total Protein 6.0 GM/DL (6.4-8.2) Albumin 2.3 GM/DL (3.4-5.0) White Blood Count 14.6 TH/MM3 (4.0-11.0) Red Blood Count 3.02 MIL/MM3 (4.00-5.30) Hemoglobin 8.1 GM/DL (11.6-15.3) Hematocrit 25.6 % (35.0-46.0) Mean Corpuscular Volume 84.7 FL (80.0-100.0) Mean Corpuscular Hemoglobin 26.9 PG (27.0-34.0) Mean Corpuscular Hemoglobin 31.8 % Concent (32.0-36.0) Red Cell Distribution Width 15.6 % (11.6-17.2) Platelet Count 312 TH/MM3 (150-450) Mean Platelet Volume 11.4 FL (7.0-11.0) Neutrophils (%) (Auto) 80.5 % (16.0-70.0) Lymphocytes (%) (Auto) 9.9 % (9.0-44.0) Monocytes (%) (Auto) 7.6 % (0.0-8.0) Eosinophils (%) (Auto) 1.5 % (0.0-4.0) Basophils (%) (Auto) 0.5 % (0.0-2.0) Neutrophils # (Auto) 11.8 TH/MM3 (1.8-7.7) Lymphocytes # (Auto) 1.4 TH/MM3 (1.0-4.8) Monocytes # (Auto) 1.1 TH/MM3 (0-0.9) Eosinophils # (Auto) 0.2 TH/MM3 (0-0.4) Basophils # (Auto) 0.1 TH/MM3 (0-0.2) CBC Comment DIFF FINAL Differential Comment Prothrombin Time 11.7 SEC (9.8-11.6) Prothromb Time International 1.1 RATIO Ratio Test 04/27/16 04/27/16 04/28/16 04/28/16 05:32 23:32 02:48 04:29 Blood Gas Puncture Site ART LINE ART LINE NIKIA Blood Gas Patient Temperature 98.6 98.6 98.6 Blood Gas HCO3 24 mmol/L 15 mmol/L 16 mmol/L (22-26) (22-26) (22-26) Blood Gas Base Excess 0.2 mmol/L -11.1 mmol/L -9.6 mmol/L (-2-2) (-2-2) (-2-2) Blood Gas Oxygen Saturation 95 % (90-100) 94 % (90-100) 94 % (90-100) Arterial Blood pH 7.42 7.21 7.25 (7.380-7.420) (7.380-7.420) (7.380-7.420) Arterial Blood Partial 38 mmHg (38-42) 40 mmHg (38-42) 38 mmHg (38-42) Pressure CO2 Arterial Blood Partial 94 mmHg 102 mmHg 100 mmHg Pressure O2 (61-120) (61-120) (61-120) Arterial Blood Oxygen Content 11.2 Vol % 11.5 Vol % 11.3 Vol % (12.0-20.0) (12.0-20.0) (12.0-20.0) Arterial Blood 1.3 % (0-4) 0.7 % (0-4) 0.9 % (0-4) Carboxyhemoglobin Arterial Blood Methemoglobin 0.7 % (0-2) 0.7 % (0-2) 0.9 % (0-2) Blood Gas Hemoglobin 8.2 G/DL 8.6 G/DL 8.4 G/DL (12.0-16.0) (12.0-16.0) (12.0-16.0) Oxygen Delivery Device A/C16/500/PEEP5 VENTILATOR VENTILATOR Blood Gas Inspired Oxygen 50 % 60 % 60 % Blood Gas Ventilator Setting AC/450./.60/PEEP5 AC/450/PEEP5 White Blood Count 23.2 TH/MM3 (4.0-11.0) Red Blood Count 3.24 MIL/MM3 (4.00-5.30) Hemoglobin 8.6 GM/DL (11.6-15.3) Hematocrit 28.3 % (35.0-46.0) Mean Corpuscular Volume 87.2 FL (80.0-100.0) Mean Corpuscular Hemoglobin 26.6 PG (27.0-34.0) Mean Corpuscular Hemoglobin 30.5 % Concent (32.0-36.0) Red Cell Distribution Width 16.1 % (11.6-17.2) Platelet Count 369 TH/MM3 (150-450) Mean Platelet Volume 11.4 FL (7.0-11.0) Neutrophils (%) (Auto) 80.9 % (16.0-70.0) Lymphocytes (%) (Auto) 9.6 % (9.0-44.0) Monocytes (%) (Auto) 8.8 % (0.0-8.0) Eosinophils (%) (Auto) 0.3 % (0.0-4.0) Basophils (%) (Auto) 0.4 % (0.0-2.0) Neutrophils # (Auto) 18.7 TH/MM3 (1.8-7.7) Lymphocytes # (Auto) 2.2 TH/MM3 (1.0-4.8) Monocytes # (Auto) 2.0 TH/MM3 (0-0.9) Eosinophils # (Auto) 0.1 TH/MM3 (0-0.4) Basophils # (Auto) 0.1 TH/MM3 (0-0.2) CBC Comment AUTO DIFF Differential Total Cells 100 Counted Neutrophils % (Manual) 75 % (16-70) Band Neutrophils % 8 % (0-6) Lymphocytes % 10 % (9-44) Monocytes % 4 % (0-8) Neutrophils # (Manual) 20.0 TH/MM3 (1.8-7.7) Metamyelocytes 2 % (0-1) Promyelocytes 1 % (0-0) Nucleated Red Blood Cells 3 /100 WBC (0-0) Differential Comment FINAL DIFF MANUAL Platelet Estimate NORMAL (NORMAL) Platelet Morphology Comment NORMAL (NORMAL) Sodium Level 145 MEQ/L (136-145) Potassium Level 4.2 MEQ/L (3.5-5.1) Chloride Level 110 MEQ/L (98-107) Carbon Dioxide Level 18.9 MEQ/L (21.0-32.0) Anion Gap 16 MEQ/L (5-15) Blood Urea Nitrogen 45 MG/DL (7-18) Creatinine 1.59 MG/DL (0.50-1.00) Estimat Glomerular Filtration 31 ML/MIN (>89) Rate Random Glucose 70 MG/DL (74-106) Calcium Level 7.9 MG/DL (8.5-10.1) Phosphorus Level 7.0 MG/DL (2.5-4.9) Magnesium Level 2.4 MG/DL (1.5-2.5) Total Bilirubin 1.1 MG/DL (0.2-1.0) Aspartate Amino Transf 1687 U/L (AST/SGOT) (15-37) Alanine Aminotransferase 1099 U/L (ALT/SGPT) (10-53) Alkaline Phosphatase 212 U/L (45-117) Total Protein 6.4 GM/DL (6.4-8.2) Albumin 2.3 GM/DL (3.4-5.0) Test 04/28/16 04:40 Lactic Acid Level 5.5 mmol/L (0.4-2.0) . (Cynthia Penny) Result Diagram: 04/28/16 0248 04/28/16 0248 Microbiology Microbiology Date/Time Procedure Status Source Growth 04/25/16 19:30 Gram Stain - Final Complete Wound Drainage 04/25/16 19:30 Wound Culture - Final Complete Wound Drainage NO GROWTH IN 72 HRS.--AEROBICALLY OR ... . Imaging Last 72 hours Impressions Chest X-Ray 04/28/16 0600 Signed Impressions: Service Date/Time: Thursday, April 28, 2016 04:39 - CONCLUSION: No significant interval change Evan Rodas MD Chest X-Ray 04/27/16 0600 Signed Impressions: Service Date/Time: Wednesday, April 27, 2016 04:01 - CONCLUSION: 1. Bilateral lower lobe atelectasis versus pneumonia. Right-sided effusion. There has been no significant change when compared to the prior exam. Dorian Nunn MD Chest X-Ray 04/27/16 0000 Signed Impressions: Service Date/Time: Wednesday, April 27, 2016 11:14 - CONCLUSION: Tubing catheter is in good position. Diffuse perihilar vascular congestion is unchanged. Zion Marin MD Chest X-Ray 04/26/16 0600 Signed Impressions: Service Date/Time: Tuesday, April 26, 2016 05:32 - CONCLUSION: 1. Cardiomegaly. Diffuse edema versus pneumonia. The findings are similar to the prior exam. 2. Nasogastric tube as above. Dorian Nunn MD . Procedures 04/11/16: Right IJ central venous line placement 04/11/16: Orotracheal intubation 04/11/16: Right sided frontotemporal parietal cranioplasty 04/14/16: Right femoral arterial line placement 04/23/16: EVD removed 04/21/16 Right PICC line placement 04/27/16: Tracheostomy . (Cynthia Penny) Patient/Family Conference Present at Family Conference: Spoke with patient's and MATTHIAS at patient's bedside. . Issues Discussed: * Palliative care role, purpose, approach * Additional medical, psychosocial, and spiritual history * Patients general health, functional status, and cognitive changes in the months leading up to the current hospitalization * Patient/family understanding of the current medical problems * Patient/family understanding of prognosis * Patients goals of care as best understood from advance directives and/or conversations and/or values * Current medical treatment options and benefits/burdens of those options * Likely scenarios comparing ongoing aggressive care with a transition to comfort measures only * Questions answered to the best of my ability * Palliative care contact information provided . 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 She met he in [place] while they were both riding motorcycles. They have been for nearly 55 years.They have no children. Spiritual: Yazidism lashay Legal: Per [place] statutes, in the absence of written advanced directives healthcare proxy decision-making falls to the patient's spouse, Sam Bergman. Ethical issues impacting care: No known ethical issues impacting care at this time. . Important Contacts Sven Bergman (Ferdinand), spouse: [phone] . Prognosis 81 year old female who presented with right carotid occlusion. She was treated with TPA but suffered an occlusion of the right MCA artery and developed worsening ischemia in the right MCA distribution. Status post right-sided frontotemporal parietal cranioplasty for decompression of the brain contrary to malignant edema. Patient continued to decline/experience complications. Follow CT brain on 04/22/16 revealed low age right middle stream artery distribution infarct with mass effect and [id number] midline shift of 13 mm and small right subdural hemorrhage measuring 5 mm. Remains sedated on ventilation s/p tracheostomy on 04/17/16, requiring pressor support. Hemodynamically unstable. No spontaneous movement, does not withdrawal to noxious stimuli. Patient can not neurologically recover from injuries. Family would like to honor patient previously stated wishes, requesting compassionate withdraw of artificial life support. . Code Status: No Code Plan * NO CODE * Decision-making: Per [place] statutes, in the absence of written advanced directives healthcare proxy decision-making falls to the patient's spouse, Sam Bergman. * Goals: Compassionate withdrawal from artificial life support. * Patient's states he and his recently had a conversation about advanced directives last month when he was ill, and his specifically stated she would not want to be kept alive artificially or if she could not live her baseline quality of life. Given the patient's catastrophic brain injury , her spouse is requesting that his 's verbalized wished be honored and would like compassionate withdrawal from artificial life support. * Exhibits B and C placed on chart, signed and witnessed. * Orders for comfort medication placed in computer. * Discussed with Dr. Dickey, Dr. Funez and nurse Park. * Palliative care contact information provided to patient's family. * Palliative care will continue to follow patient throughout her hospitalization to establish trust, assist with symptom management and clarification of medical treatment goals. Next on. (Cynthia Penny) Thank you for the opportunity to participate in the care of Ms. Bergman. (Cynthia Penny) Collaborating MD Comments Chart reviewed. Case discussed with palliative care RESEARCH SCIENTIST. Above RESEARCH SCIENTIST note reviewed and I concur. . (Burton Funez MD) Cynthia Penny Apr 28, 2016 12:23 Burton Funez MD May 31, 2016 14:56
[2016-04-28] MEDS: LORazepam 2 MG/ML VIAL IV PUSH PRN ×3 (13:00→13:35)
[2016-04-28] MEDS ORDERED: HYOSCYAMINE 0.5 MG/ML AMP IVP ONE (13:00)
[2016-04-28] MEDS ORDERED: ACETAMINOPHEN 650 MG SUPP RECTAL PRN (13:00)
[2016-04-28] MEDS: MORPHINE SULFATE 4 MG/ML INJ IV PUSH PRN ×2 (13:20→13:36)
--- NOTE | 2016-04-30 16:19 | MP ---
cc: CINDA SANDOVAL MD DATE OF SURGERY: 04/27/2016 PREOPERATIVE DIAGNOSIS A right hemispheric stroke, carotid occlusion, respiratory failure. POSTOPERATIVE DIAGNOSIS A right hemispheric stroke, carotid occlusion, respiratory failure. OPERATIVE PROCEDURE Blue Rhino tracheostomy. SURGEON Dr. Sandoval. BRONCHOSCOPY Dr. Dickey. ANESTHESIA 1% Xylocaine and sedation. ESTIMATED BLOOD LOSS Minimal. PROCEDURE The patient was prepped and draped in the usual fashion. The area was infiltrated with 1% Xylocaine and a vertical incision made in the anterior neck jail between the sternal notch and cricoid cartilage, deepened down with a hemostat between the strap muscles and down to the trachea. By palpation second to third tracheal ring is detected and then a needle is inserted. Between these procedures followed the bronchoscopy. Through the needle the J-wire is passed into the trachea downward, over the J-wire a #4 dilator is placed and then guide with a Blue Rhino large dilator. Once the trachea is adequately dilated the Shiley 8 tracheostomy cannula is inserted, sutured to skin with 2-0 Prolene and secured around the neck, end tidal CO2 checked. The patient tolerated the procedure well. Cinda FIGUEROA/KINZA /11:47 AM /3:48 PM
--- NOTE | 2016-05-10 00:27 | HHI.DS ---
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 Date of admission 04/10/2016. 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 She presents to the [facility] with acute onset [facility] that 10 AM this morning with left-sided weakness involving left arm/left leg. E VAC was called and a stroke was notified. NIH score was 7. addition with deficits involving dysarthria, right gaze preference, left facial palsy, dense hemiparesis left arm and leg. Normal sensation. Reflexes are equal and symmetric. NIH was route 7. CT of the head revealed no acute intracranial findings. CTA of the head and neck revealed dense right ICA occlusion. The case was discussed with Dr. Dozier with interventional radiology and the patient is not indicated for intervention given the complete occlusion of her right ICA. Patient was seen by Dr. Pham and alteplase was provided after benefits and risks discussed. PE at Discharge GENERAL: comatose, critically ill SKIN: Warm and dry. HEAD: Normocephalic. EYES: No scleral icterus. No injection or drainage. NECK: Supple, trachea midline. No JVD or lymphadenopathy. CARDIOVASCULAR: Regular rate and rhythm without murmurs, gallops, or rubs. RESPIRATORY: Breath sounds equal bilaterally. No accessory muscle use. GASTROINTESTINAL: Abdomen soft, non-tender, nondistended. MUSCULOSKELETAL: No cyanosis, or edema. BACK: Nontender without obvious deformity. No CVA tenderness. Hospital Course I have reviewed CT head images with patient's and explained to him her neurological recovery prognosis. Him and his had many conversations in the past and she would not want to be kept alive on life support machines. I have consulted palliative care medicine and placed DNR order on a chart per patient' s 's wishes. Pt Condition on Discharge: Fair Discharge Disposition: Hospice/Med Facility Discharge Instructions DIET: Follow Instructions for: Nothing By Mouth Speech Therapy-Diet Recommenda: Other Tin Dickey MD May 10, 2016 00:27
--- NOTE | 2016-09-24 23:51 | HHI.DS ---
Summary Note Date of : Apr 28, 2016 Time Of : 1345 Admission Date Apr 10, 2016 at 12:32 Admitting Diagnosis Stroke Diagnosis at Time of : (1) CVA (cerebral vascular accident) ICD Code: I63.9 Diagnosis: Principal (2) Hypertension ICD Code: I10 Diagnosis: Principal (3) Osteoarthritis ICD Code: M19.90 Diagnosis: Principal (4) Carotid stenosis, right ICD Code: I65.21 Diagnosis: Principal (5) Dyslipidemia ICD Code: E78.5 Diagnosis: Principal (6) Hypothyroidism ICD Code: E03.9 Diagnosis: Principal (7) Gastroesophageal reflux disease ICD Code: K21.9 Diagnosis: Principal (8) Hormone replacement therapy ICD Code: Z79.890 Diagnosis: Principal (9) Chronic low back pain with sciatica ICD Code: M54.40 Diagnosis: Principal Brief History 80-year-old female. Date of admission 04/10/2016. 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 She presents to the [facility] 10 AM this morning with left-sided weakness involving left arm/left leg. E VAC was called and a stroke was notified. NIH score was 7. addition with deficits involving dysarthria, right gaze preference, left facial palsy, dense hemiparesis left arm and leg. Normal sensation. Reflexes are equal and symmetric. NIH was route 7. CT of the head revealed no acute intracranial findings. CTA of the head and neck revealed dense right ICA occlusion. The case was discussed with Dr. Dozier with interventional radiology and the patient is not indicated for intervention given the complete occlusion of her right ICA. Patient was seen by Dr. Pham and alteplase was provided after benefits and risks discussed. Patient was hypertensive Cardene drip was initiated. Post alteplase infusion patient became more altered with worsening weakness to her left upper and lower extremity. Repeat CT head revealed no acute bleeding. NIH score is currently 17. She is also noted to have tremors involving her right upper lobe extremity. Neurology was notified and Keppra infusion was provided 1000 mg and stat EEG ordered. Hospital Course 80-year-old female. Date of admission 04/10/2016. 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 She presents to the [facility] with [facility] 10 AM this morning with left-sided weakness involving left arm/left leg. E VAC was called and a stroke was notified. NIH score was 7. addition with deficits involving dysarthria, right gaze preference, left facial palsy, dense hemiparesis left arm and leg. Normal sensation. Reflexes are equal and symmetric. NIH was route 7. CT of the head revealed no acute intracranial findings. CTA of the head and neck revealed dense right ICA occlusion. The case was discussed with Dr. Dozier with interventional radiology and the patient is not indicated for intervention given the complete occlusion of her right ICA. Patient was seen by Dr. Pham and alteplase was provided after benefits and risks discussed. Patient was hypertensive Cardene drip was initiated. Post alteplase infusion patient became more altered with worsening weakness to her left upper and lower extremity. Repeat CT head revealed no acute bleeding. NIH score is currently 17. She is also noted to have tremors involving her right upper lobe extremity. Neurology was notified and Keppra infusion was provided 1000 mg and stat EEG ordered. 04/11: Continues to have left-sided weakness. Complaining of headache. Episode of SVT resolved after receiving 10 mg IV Lopressor. Currently resting in bed complaining of headache and back pain. 04/12: Intubated last night secondary to altered mental status. After intubation, spontaneously moving left upper lobe extremity. Tube feeds are at goal. Episodes of bigeminy on EKG overnight. Perfusing well. Off Cardene drip. 04/13/16: Status post right craniostomy with left EVD placement secondary to cytotoxic edema right MCA CVA distribution. ICPs around 1. Low-grade temperatures 101.1. Currently 100.3. Resuming tube feeds. No bowel movement. 04/14/16: Tmax 99.8. Currently afebrile. Currently in sinus bradycardia. Likely secondary to inadequate sedation.. She was quite tachycardic after intubation and this did not resolve until sedation adequate. Episodes of sinus tach associated with agitation. Resolved. Tolerating tube feeding. No bowel movement. 04/15/16: Episode of SVT overnight 2 resolved with IV Lopressor. Currently in sinus bradycardia. Positive BM. Sedated on the ventilator per neurosurgery's recommendation. No sedation vacation. 04/16/16: Resting comfortably in bed in no acute distress. Heart rate remained stable. No new events overnight. Currently in sinus bradycardia. CT head currently pending. 04/17: Afebrile. Resting complains bed in no acute distress. Heart rate remained stable. Currently in sinus bradycardia. Head CT stable. 04/18: Afebrile. No acute distress. Off all vasopressors. Restarting 3% saline. Withdrawing to bilateral lower extremities only's morning 04/19: Afebrile. Continues off all vasopressors. On 3% saline at 20 cc an hour. Only withdrawing to bilateral lower extremities again today. Nothing upper extremities. Ventriculostomy been challenged by neurosurgery today Subjective 04/21: Afebrile. Currently weaning sedation. On low-dose Cleviprex. Withdrawing and spontaneous movement noted to bilateral lower extremities. No response from upper extremity's. Positive gag. Decreased urine output today. PICC line placed 04/[address] head images with patient's and explained to him her neurological recovery prognosis. Him and his had many conversations in the past and she would not want to be kept alive on life support machines. I have consulted palliative care medicine and placed DNR order on a chart per patient's 's wishes. With the focus on comfort care only patient has April 28, 2016 at 13: 45 PM Tin Dickey MD Sep 24, 2016 23:51
== END 2016-04-28 16:17 | disposition expired | DRG 3 ==
LOC: NEPC 10:56 → NEDA 12:32 → N03A 15:00
PROVIDERS: ADMIT Internal Medicine Critical Care Medicine; ATTEND Internal Medicine Critical Care Medicine
PROC: 3E05317 Introduction of Other Thrombolytic into Peripheral Artery, Percutaneous Approach (ICD-10-PCS; 2016-04-10)
PROC: 5A1955Z Respiratory Ventilation, Greater than 96 Consecutive Hours (ICD-10-PCS; 2016-04-11)
PROC: 02HV33Z Insertion of Infusion Device into Superior Vena Cava, Percutaneous Approach (ICD-10-PCS; 2016-04-11)
PROC: B548ZZA Ultrasonography of Superior Vena Cava, Guidance (ICD-10-PCS; 2016-04-11)
PROC: 0BH17EZ Insertion of Endotracheal Airway into Trachea, Via Natural or Artificial Opening (ICD-10-PCS; 2016-04-11)
PROC: 009630Z Drainage of Cerebral Ventricle with Drainage Device, Percutaneous Approach (ICD-10-PCS; 2016-04-12)
PROC: 00N00ZZ Release Brain, Open Approach (ICD-10-PCS; principal; 2016-04-12 16:30)
PROC: 04HY32Z Insertion of Monitoring Device into Lower Artery, Percutaneous Approach (ICD-10-PCS; 2016-04-14)
PROC: 30233N1 Transfusion of Nonautologous Red Blood Cells into Peripheral Vein, Percutaneous Approach (ICD-10-PCS; 2016-04-17)
PROC: 02H633Z Insertion of Infusion Device into Right Atrium, Percutaneous Approach (ICD-10-PCS; 2016-04-21)
PROC: B54MZZA Ultrasonography of Right Upper Extremity Veins, Guidance (ICD-10-PCS; 2016-04-21)
PROC: 0B113F4 Bypass Trachea to Cutaneous with Tracheostomy Device, Percutaneous Approach (ICD-10-PCS; 2016-04-27)
DX: I63.511 Cerebral infarction due to unspecified occlusion or stenosis of right middle cerebral artery (principal); G93.5 Compression of brain; G93.6 Cerebral edema; I61.0 Nontraumatic intracerebral hemorrhage in hemisphere, subcortical; J96.00 Acute respiratory failure, unspecified whether with hypoxia or hypercapnia; G81.94 Hemiplegia, unspecified affecting left nondominant side; I47.1 Supraventricular tachycardia; Z68.41 Body mass index [BMI] 40.0-44.9, adult; I10 Essential (primary) hypertension; I65.21 Occlusion and stenosis of right carotid artery; M19.90 Unspecified osteoarthritis, unspecified site; E78.5 Hyperlipidemia, unspecified; E03.9 Hypothyroidism, unspecified; K21.9 Gastro-esophageal reflux disease without esophagitis; Z79.890 Hormone replacement therapy; M54.40 Lumbago with sciatica, unspecified side; G89.29 Other chronic pain; M81.0 Age-related osteoporosis without current pathological fracture; R47.1 Dysarthria and anarthria; R29.810 Facial weakness; R06.89 Other abnormalities of breathing; Z51.5 Encounter for palliative care; Z66 Do not resuscitate; D64.9 Anemia, unspecified; E66.9 Obesity, unspecified
CPT/HCPCS: 31500; 36430; 36556; 36569; 36620; 70450; 70496; 70498; 70544; 70551; 71010; 76937; 80048; 80053; 80061; 80202; 80301; 81001; 82435; 82550; 82552; 82565; 82805; 82947; 82948; 83036; 83605; 83735; 83880; 83930; 84100; 84132; 84155; 84295; 84443; 84484; 84520; 85007; 85025; 85027; 85384; 85610; 85730; 86403; 86850; 86900; 86901; 86920; 87040; 87070; 87086; 87205; 87641; 93005; 93306; 94002; 94003; 94664; 94770; 95819; 96365; 96375; A7521; C1713; C9248; C9399; G0479; J0131; J0153; J0171; J0282; J0360; J0461; J0610; J0690; J0692; J1170; J1642; J1815; J1940; J1953; J1980; J2060; J2150; J2212; J2250; J2270; J2370; J2405; J2997; J3010; J3370; J3475; J3480; J7030; J7040; J7050; J7060; P9016; P9047; Q9967